=== PATIENT | female | born 1935 | race Two or more races ===

== ENCOUNTER 2016-11-26 16:16 | Inpatient (IN) | payer MEDICARE, MEDICAID ==
[~2016-11-26] VITALS: Ht 160 cm; Wt 91.6 kg
[~2016-11-26 16:16] MED LIST: ASPI-495 PO; FURO-144 PO; HUM10VIA3 SQ; LORA1TAB82; LOSA1TAB9; NEBI10TA2; ZOLP5TAB2
[2016-11-26 16:25] VITALS: BP 158/89
[2016-11-26] MEDS ORDERED: NTG 50 MG/D5W250 ML BOTTL 250 ML IV ONE ×2 (16:30→16:34)
[2016-11-26] MEDS ORDERED: FUROSEMIDE 40 MG/4 ML VIAL IV ONE (16:30)
[2016-11-26] MEDS ORDERED: IV SET PRIMARY PUMP SET 1 EA INFUS.SET MC ONE ×4 (16:34→19:55)
[2016-11-26] MEDS ORDERED: FUROSEMIDE 40 MG/4 ML VIAL ONE (16:36)
[2016-11-26 16:48] LABS: BASOPHILS % (AUTO) 0.3 % (0.0-2.0); EOSINOPHILS % (AUTO) 0.3 % (0.0-6.0); HEMATOCRIT 34 % (33-45); HEMOGLOBIN 11.7 g/dL (11.5-14.8); LYMPHOCYTES # (AUTO) 1.3 /CMM (0.8-4.8); LYMPHOCYTES % (AUTO) 20.9 % (20.0-44.0); MEAN CORPUSCULAR HEMOGLOBIN 31 PG (26.0-33.0); MEAN CORPUSCULAR HGB CONC 34 g/dl (31.0-36.0); MEAN CORPUSCULAR VOLUME 92 fL (82-100); MONOCYTES # (AUTO) 0.8 /CMM (0.1-1.30); MONOCYTES % (AUTO) 12.2 % (2.0-12.0); NEUTROPHILS # (AUTO) 4.1 /CMM (1.8-8.9); NEUTROPHILS % (AUTO) 66.3 % (43.0-81.0); PLATELET COUNT (AUTO) 173 /CMM (150-450); RDW COEFFICIENT OF VARIATION 12.9 (11.5-15.0); RED BLOOD CELL COUNT(AUTO) 3.76 MIL/uL (4.0-5.2); WHITE BLOOD COUNT (AUTO) 6.2 K/uL (4.3-11.0)
[2016-11-26 16:58] LABS: CARBON DIOXIDE 33 mmol/L (21-32); CHLORIDE 99 mmol/L (98-107); CREATININE 1.4 mg/dL (0.6-1.3); GLUCOSE 131 mg/dL (74-106); POTASSIUM 3.2 mmol/L (3.5-5.1); SODIUM SERUM 139 mmol/L (136-145); UREA NITROGEN, BLOOD 27 mg/dL (7-18)
[2016-11-26] MEDS ORDERED: PIPERACILLIN /TAZOBACTAM 3.375 G in IV D5W 50 ML IV ONE (17:00)
[2016-11-26 17:02] LABS: INR 1.29 (0.87-1.13); PROTHROMBIN TIME 13.6 SECS (9.5-12.7)
[2016-11-26 17:06] LABS: TROPONIN I 0.063 ng/mL (0.00-0.056)
[2016-11-26 17:10] LABS: ABG BASE EXCESS 6.9 mmol/L; ABG OXYGEN SATURATION 96.6 % (92.0-98.5); ABG PCO2 43.4 mmHg (35.0-45.0); ABG PH 7.475 (7.350-7.450); ABG PO2 94.9 mmHg (75.0-100.0); AaDO2 140.4 mmHg; COHb 0.8 % (0.5-1.5); MetHb 0.3 % (0.0-1.5); O2Hb 95.5 % (94.0-97.0); SITE, ABG Right Radial; VENT MODE, BG BIPAP 15/5
[2016-11-26 17:11] LABS: ALANINE AMINOTRANSFERASE 22 U/L (12-78); ALBUMIN 3.5 g/dL (3.4-5.0); ALKALINE PHOSPHATASE 65 U/L (46-116); ASPARTATE AMINOTRANSFERASE 25 U/L (15-37); B-TYPE NATRIURETIC PEPTIDE 3315 PG/ML (0-125); BILIRUBIN,DIRECT 0.2 mg/dL (0.0-0.2); BILIRUBIN,TOTAL 0.7 mg/dL (0.2-1.0); TOTAL PROTEIN, SERUM 7.6 g/dL (6.4-8.2)
[2016-11-26] MEDS ORDERED: POTASSIUM CL. PREMIX PERIPHER. 100 ML ONE (17:44)
[2016-11-26] MEDS ORDERED: IV NS 0.9% 1,000 ML ONE (17:44)
[2016-11-26] MEDS ORDERED: IV SET PRIMARY 1 EA INFUS.SET MC ONE (17:44)
[2016-11-26] MEDS: POTASSIUM CL. PREMIX PERIPHER. 50 ML IV SCH (18:17)
[2016-11-26] MEDS ORDERED: ACETAMINOPHEN 325 MG TABLET ONE (18:26)
[2016-11-26] MEDS ORDERED: ACETAMINOPHEN 650 MG/SUPP.RECT RC PRN (18:30)
[2016-11-26] MEDS ORDERED: SOLI5TAB PO (18:55)
[2016-11-26] MEDS ORDERED: CLON0.1T PO (18:55)
[2016-11-26] MEDS ORDERED: METO-302 PO (18:55)
[2016-11-26] MEDS ORDERED: HUM10VIA SQ (18:55)
[2016-11-26] MEDS ORDERED: METF500T4 PO (18:55)
[2016-11-26] MEDS ORDERED: OLME1TAB34 PO (18:55)
[2016-11-26] MEDS ORDERED: CLOP75TA2 PO (18:55)
[2016-11-26] MEDS ORDERED: DEXTROSE 50%-WATER 50 ML DISP.SYRIN IV PRN (19:00)
[2016-11-26] MEDS ORDERED: POTASSIUM CHLORIDE 20 MEQ TAB.PRT.SR PO ONE (19:00)
[2016-11-26] MEDS ORDERED: ACETAMINOPHEN 325 MG TABLET PO PRN (19:00)
[2016-11-26] MEDS ORDERED: Z GUARD REMEDY 2 OZ OINT TP PRN (19:00)
[2016-11-26] MEDS ORDERED: ONDANSETRON HCL/PF 4 MG/2 ML VIAL IVP PRN (19:00)
[2016-11-26] MEDS ORDERED: BUMETANIDE INJ 4 MG in IV NS 0.9% 24 ML IV ONE (19:00)
[2016-11-26 19:04] VITALS: BP 167/103
[2016-11-26] MEDS: ENOXAPARIN SODIUM 30 MG/0.3 ML DISP.SYRIN SQ SCH (19:52)
[2016-11-26] MEDS ORDERED: SECONDARY IV SET 1 EA INFUS.SET MC ONE (19:55)
[2016-11-26] MEDS ORDERED: IV NS 0.9% 250 ML IV ONE (19:55)
[2016-11-26 20:00] VITALS: BP 156/62
[2016-11-26] MEDS: CEFTRIAXONE 1 G in IV D5W 50 ML IV SCH (20:03)
[2016-11-26] MEDS: IPRATROPIUM NEB FS 0.5 MG/2.5 ML AMPUL.NEB NEB SCH (20:08)
[2016-11-26] MEDS: ALBUTEROL FS 2.5 MG/3 ML VIAL.NEB NEB SCH (20:08)
[2016-11-26 21:38] LABS: APPEARANCE,URINE CLEAR (CLEAR); BILIRUBIN,URINE NEGATIVE (NEGATIVE); BLOOD, URINE TRACE Ery/uL (NEGATIVE); COLOR,URINE YELLOW (YELLOW); KETONES,URINE NEGATIVE (NEGATIVE); LEUKOCYTE ESTERASE ,URINE NEGATIVE (NEGATIVE); NITRITE, URINE POSITIVE (NEGATIVE); PH,URINE 5.5 (5.0-8.0); PROTEIN,URINE TRACE mg/dl (NEGATIVE); UGLUCOSE NEGATIVE (NEGATIVE); UROBILINOGEN,URINE 0.2 EU/dL (0.2)
[2016-11-26 21:44] LABS: RBC,URINE 0-2 /HPF (0-2); WBC,URINE 0-2 /HPF (0-3)
[2016-11-26 21:45] LABS: BACTERIA,URINE Rare /HPF (None Seen); SQUAMOUS EPITHELIAL CELL,UR Moderate /HPF (None Seen)
[2016-11-26] MEDS: BLOOD SUGAR DIAGNOSTIC 1 EACH STRIP IN SCH (21:52)
[2016-11-26] MEDS: AZITHROMYCIN 500 MG in IV D5W 250 ML IV SCH (21:52)
[2016-11-26] MEDS: INSULIN REGULAR, HUMAN 100 UNIT/ML 3 ML VIAL SQ PRN (21:54)
[2016-11-27] VITALS: BP 130/63
[2016-11-27 04:00] VITALS: BP 137/65
[2016-11-27] MEDS: PANTOPRAZOLE 40 MG TABLET.DR PO SCH (07:06)
[2016-11-27 07:25] LABS: BASOPHILS % (AUTO) 0.3 % (0.0-2.0); EOSINOPHILS # (AUTO) 0.1 /CMM (0.0-0.7); EOSINOPHILS % (AUTO) 1.1 % (0.0-6.0); HEMATOCRIT 34 % (33-45); HEMOGLOBIN 11.9 g/dL (11.5-14.8); LYMPHOCYTES # (AUTO) 0.9 /CMM (0.8-4.8); LYMPHOCYTES % (AUTO) 17.3 % (20.0-44.0); MEAN CORPUSCULAR HEMOGLOBIN 32 PG (26.0-33.0); MEAN CORPUSCULAR HGB CONC 35 g/dl (31.0-36.0); MEAN CORPUSCULAR VOLUME 92 fL (82-100); MONOCYTES # (AUTO) 0.6 /CMM (0.1-1.30); MONOCYTES % (AUTO) 10.6 % (2.0-12.0); NEUTROPHILS # (AUTO) 3.9 /CMM (1.8-8.9); NEUTROPHILS % (AUTO) 70.7 % (43.0-81.0); PLATELET COUNT (AUTO) 148 /CMM (150-450); RDW COEFFICIENT OF VARIATION 13.7 (11.5-15.0); RED BLOOD CELL COUNT(AUTO) 3.72 MIL/uL (4.0-5.2); WHITE BLOOD COUNT (AUTO) 5.4 K/uL (4.3-11.0)
[2016-11-27] MEDS: ALBUTEROL FS 2.5 MG/3 ML VIAL.NEB NEB SCH ×4 (07:37→19:57)
[2016-11-27] MEDS: IPRATROPIUM NEB FS 0.5 MG/2.5 ML AMPUL.NEB NEB SCH ×4 (07:37→19:57)
[2016-11-27 07:47] LABS: ALANINE AMINOTRANSFERASE 22 U/L (12-78); ALBUMIN 3.2 g/dL (3.4-5.0); ALKALINE PHOSPHATASE 66 U/L (46-116); ASPARTATE AMINOTRANSFERASE 23 U/L (15-37); BILIRUBIN,TOTAL 0.6 mg/dL (0.2-1.0); CALCIUM, SERUM 8.7 mg/dL (8.5-10.1); CARBON DIOXIDE 35 mmol/L (21-32); CHLORIDE 100 mmol/L (98-107); CREATININE 1.3 mg/dL (0.6-1.3); GLUCOSE 141 mg/dL (74-106); MAGNESIUM 1.4 mg/dL (1.8-2.4); PHOSPHORUS 4.9 mg/dL (2.5-4.9); SODIUM SERUM 143 mmol/L (136-145); TOTAL PROTEIN, SERUM 7.4 g/dL (6.4-8.2); UREA NITROGEN, BLOOD 29 mg/dL (7-18)
[2016-11-27 07:54] LABS: CHOLESTEROL 224 mg/dL (<200); HDL CHOLESTEROL 26 mg/dL (40-60); LDL 143 mg/dL (0-99); THYROID STIMULATING HORMONE 1.127 uIU/mL (0.358-3.74); TRIGLYCERIDES 189 mg/dL (30-150)
[2016-11-27] MEDS: BLOOD SUGAR DIAGNOSTIC 1 EACH STRIP IN SCH ×4 (07:56→21:10)
[2016-11-27 08:00] VITALS: BP 163/82
[2016-11-27] MEDS ORDERED: METFORMIN 500 MG TABLET PO SCH (09:00)
[2016-11-27] MEDS ORDERED: SOLIFENACIN SUCCINATE 5 MG TABLET PO SCH ×2 (09:00)
[2016-11-27] MEDS: INSULIN NPH/REG 70/30 MIX INJ 100 UNIT/ML VIAL SQ SCH ×2 (09:05→16:54)
[2016-11-27] MEDS: INSULIN REGULAR, HUMAN 100 UNIT/ML 3 ML VIAL SQ PRN ×4 (09:06→21:13)
[2016-11-27] MEDS: AMLODIPINE BESYLATE 10 MG TABLET PO SCH (09:09)
[2016-11-27] MEDS: CLONIDINE HCL 0.1 MG TABLET PO SCH ×2 (09:09→16:50)
[2016-11-27] MEDS: CLOPIDOGREL BISULFATE 75 MG TABLET PO SCH (09:10)
[2016-11-27] MEDS: ASPIRIN EC 81 MG TABLET.DR PO SCH (09:10)
[2016-11-27] MEDS: METOPROLOL SUCCINATE 25 MG TAB.SR.24H PO SCH ×2 (09:10→16:44)
[2016-11-27] MEDS: predniSONE 20 MG TABLET PO SCH (09:10)
[2016-11-27] MEDS: OXYBUTYNIN CHLORIDE 5 MG TABLET PO SCH ×2 (09:10→16:43)
[2016-11-27] MEDS: FUROSEMIDE 40 MG TABLET PO SCH (09:10)
[2016-11-27] MEDS ORDERED: SECONDARY IV SET 1 EA INFUS.SET MC ONE ×2 (11:43→20:27)
[2016-11-27] MEDS: Magnesium 1GM/D5W 100ML PREMIX 100 ML IV SCH ×2 (11:55→14:07)
[2016-11-27 12:00] VITALS: BP_SYST 120; BP_SYST 129; BP_DIAS 62; BP_DIAS 66
[2016-11-27] MEDS: POTASSIUM CHLORIDE 20 MEQ TAB.PRT.SR PO SCH ×3 (12:23→16:43)
[2016-11-27 16:00] VITALS: BP 131/73
[2016-11-27 20:00] VITALS: BP 119/60
[2016-11-27] MEDS: CEFTRIAXONE 1 G in IV D5W 50 ML IV SCH (20:25)
[2016-11-27] MEDS: ENOXAPARIN SODIUM 30 MG/0.3 ML DISP.SYRIN SQ SCH (21:12)
[2016-11-27] MEDS: AZITHROMYCIN 500 MG in IV D5W 250 ML IV SCH (21:20)
[2016-11-28] VITALS: BP 117/65
[2016-11-28 04:00] VITALS: BP 127/66
[2016-11-28 04:35] VITALS: BP 127/66
[2016-11-28] MEDS: BLOOD SUGAR DIAGNOSTIC 1 EACH STRIP IN SCH ×4 (07:30→21:18)
[2016-11-28] MEDS: ALBUTEROL FS 2.5 MG/3 ML VIAL.NEB NEB SCH ×4 (07:39→20:21)
[2016-11-28] MEDS: IPRATROPIUM NEB FS 0.5 MG/2.5 ML AMPUL.NEB NEB SCH ×4 (07:39→20:21)
[2016-11-28 07:57] LABS: BASOPHILS % (AUTO) 0.2 % (0.0-2.0); EOSINOPHILS % (AUTO) 0.3 % (0.0-6.0); HEMATOCRIT 35 % (33-45); LYMPHOCYTES # (AUTO) 1.2 /CMM (0.8-4.8); LYMPHOCYTES % (AUTO) 24.6 % (20.0-44.0); MEAN CORPUSCULAR HEMOGLOBIN 32 PG (26.0-33.0); MEAN CORPUSCULAR HGB CONC 34 g/dl (31.0-36.0); MEAN CORPUSCULAR VOLUME 93 fL (82-100); MONOCYTES # (AUTO) 0.6 /CMM (0.1-1.30); MONOCYTES % (AUTO) 11.2 % (2.0-12.0); NEUTROPHILS # (AUTO) 3.1 /CMM (1.8-8.9); NEUTROPHILS % (AUTO) 63.7 % (43.0-81.0); PLATELET COUNT (AUTO) 170 /CMM (150-450); RED BLOOD CELL COUNT(AUTO) 3.78 MIL/uL (4.0-5.2); WHITE BLOOD COUNT (AUTO) 4.9 K/uL (4.3-11.0)
[2016-11-28 08:00] VITALS: BP 124/68
[2016-11-28 08:23] LABS: CALCIUM, SERUM 8.6 mg/dL (8.5-10.1); CARBON DIOXIDE 35 mmol/L (21-32); CHLORIDE 100 mmol/L (98-107); CREATININE 1.5 mg/dL (0.6-1.3); GLUCOSE 107 mg/dL (74-106); POTASSIUM 3.4 mmol/L (3.5-5.1); SODIUM SERUM 143 mmol/L (136-145); UREA NITROGEN, BLOOD 42 mg/dL (7-18)
[2016-11-28] MEDS: AMLODIPINE BESYLATE 10 MG TABLET PO SCH (08:52)
[2016-11-28] MEDS: PANTOPRAZOLE 40 MG TABLET.DR PO SCH (08:52)
[2016-11-28] MEDS: FUROSEMIDE 40 MG TABLET PO SCH (08:52)
[2016-11-28] MEDS: CLOPIDOGREL BISULFATE 75 MG TABLET PO SCH (08:52)
[2016-11-28] MEDS: CLONIDINE HCL 0.1 MG TABLET PO SCH ×2 (08:53→16:40)
[2016-11-28] MEDS: ASPIRIN EC 81 MG TABLET.DR PO SCH (08:53)
[2016-11-28] MEDS: predniSONE 20 MG TABLET PO SCH (08:53)
[2016-11-28] MEDS: METOPROLOL SUCCINATE 25 MG TAB.SR.24H PO SCH ×2 (08:53→16:39)
[2016-11-28] MEDS: OXYBUTYNIN CHLORIDE 5 MG TABLET PO SCH ×2 (08:54→16:39)
[2016-11-28] MEDS: INSULIN NPH/REG 70/30 MIX INJ 100 UNIT/ML VIAL SQ SCH ×2 (09:08→17:38)
[2016-11-28] MEDS ORDERED: POTASSIUM CHLORIDE 20 MEQ TAB.PRT.SR PO SCH (10:00)
[2016-11-28] MEDS: INSULIN REGULAR, HUMAN 100 UNIT/ML 3 ML VIAL SQ PRN ×3 (11:19→21:25)
[2016-11-28 16:00] VITALS: BP 127/62
[2016-11-28 20:00] VITALS: BP 124/61
[2016-11-28] MEDS: CEFTRIAXONE 1 G in IV D5W 50 ML IV SCH (20:02)
[2016-11-28] MEDS: AZITHROMYCIN 500 MG in IV D5W 250 ML IV SCH (21:05)
[2016-11-28] MEDS: ENOXAPARIN SODIUM 30 MG/0.3 ML DISP.SYRIN SQ SCH (21:19)
[2016-11-29 04:00] VITALS: BP 121/71
[2016-11-29 07:05] LABS: BASOPHILS % (AUTO) 0.1 % (0.0-2.0); EOSINOPHILS % (AUTO) 0.5 % (0.0-6.0); HEMATOCRIT 35 % (33-45); LYMPHOCYTES # (AUTO) 1.2 /CMM (0.8-4.8); LYMPHOCYTES % (AUTO) 20.6 % (20.0-44.0); MEAN CORPUSCULAR HEMOGLOBIN 32 PG (26.0-33.0); MEAN CORPUSCULAR HGB CONC 34 g/dl (31.0-36.0); MEAN CORPUSCULAR VOLUME 93 fL (82-100); MONOCYTES # (AUTO) 0.6 /CMM (0.1-1.30); MONOCYTES % (AUTO) 10.7 % (2.0-12.0); NEUTROPHILS # (AUTO) 4.1 /CMM (1.8-8.9); NEUTROPHILS % (AUTO) 68.1 % (43.0-81.0); PLATELET COUNT (AUTO) 183 /CMM (150-450); RDW COEFFICIENT OF VARIATION 13.8 (11.5-15.0); RED BLOOD CELL COUNT(AUTO) 3.78 MIL/uL (4.0-5.2)
[2016-11-29] MEDS: IPRATROPIUM NEB FS 0.5 MG/2.5 ML AMPUL.NEB NEB SCH ×4 (07:21→20:14)
[2016-11-29] MEDS: ALBUTEROL FS 2.5 MG/3 ML VIAL.NEB NEB SCH ×4 (07:21→20:14)
[2016-11-29 07:28] LABS: ALANINE AMINOTRANSFERASE 31 U/L (12-78); ALBUMIN 3.1 g/dL (3.4-5.0); ALKALINE PHOSPHATASE 61 U/L (46-116); ASPARTATE AMINOTRANSFERASE 22 U/L (15-37); BILIRUBIN,TOTAL 0.3 mg/dL (0.2-1.0); CALCIUM, SERUM 8.8 mg/dL (8.5-10.1); CARBON DIOXIDE 32 mmol/L (21-32); CHLORIDE 100 mmol/L (98-107); CREATININE 1.5 mg/dL (0.6-1.3); GLUCOSE 120 mg/dL (74-106); MAGNESIUM 2.4 mg/dL (1.8-2.4); PHOSPHORUS 2.9 mg/dL (2.5-4.9); POTASSIUM 3.2 mmol/L (3.5-5.1); SODIUM SERUM 142 mmol/L (136-145); TOTAL PROTEIN, SERUM 7.3 g/dL (6.4-8.2); UREA NITROGEN, BLOOD 52 mg/dL (7-18)
[2016-11-29] MEDS ORDERED: IV NS 0.9% 1,000 ML IV PRN (08:03)
[2016-11-29 08:07] VITALS: BP 137/60
[2016-11-29] MEDS: BLOOD SUGAR DIAGNOSTIC 1 EACH STRIP IN SCH ×4 (09:04→21:05)
[2016-11-29] MEDS: CLOPIDOGREL BISULFATE 75 MG TABLET PO SCH (09:05)
[2016-11-29] MEDS: POTASSIUM CHLORIDE 20 MEQ TAB.PRT.SR PO SCH ×3 (09:05→11:24)
[2016-11-29] MEDS: PANTOPRAZOLE 40 MG TABLET.DR PO SCH (09:05)
[2016-11-29] MEDS: predniSONE 20 MG TABLET PO SCH (09:05)
[2016-11-29] MEDS: CLONIDINE HCL 0.1 MG TABLET PO SCH ×2 (09:05→17:05)
[2016-11-29] MEDS: METOPROLOL SUCCINATE 25 MG TAB.SR.24H PO SCH ×2 (09:06→17:05)
[2016-11-29] MEDS: ASPIRIN EC 81 MG TABLET.DR PO SCH (09:06)
[2016-11-29] MEDS: AMLODIPINE BESYLATE 10 MG TABLET PO SCH (09:06)
[2016-11-29] MEDS: OXYBUTYNIN CHLORIDE 5 MG TABLET PO SCH ×2 (09:06→17:05)
[2016-11-29] MEDS: INSULIN NPH/REG 70/30 MIX INJ 100 UNIT/ML VIAL SQ SCH ×2 (09:17→17:09)
[2016-11-29] MEDS ORDERED: CEFTRIAXONE 1 G in IV NS 0.9% 50 ML IV SCH ×2 (11:55→20:00)
[2016-11-29 16:00] VITALS: BP 120/69
[2016-11-29 20:00] VITALS: BP_SYST 111; BP_SYST 135; BP_DIAS 41; BP_DIAS 72
[2016-11-29] MEDS ORDERED: AZITHROMYCIN 250 MG TABLET PO SCH (21:00)
[2016-11-29] MEDS: ENOXAPARIN SODIUM 30 MG/0.3 ML DISP.SYRIN SQ SCH (21:05)
[2016-11-29] MEDS: INSULIN REGULAR, HUMAN 100 UNIT/ML 3 ML VIAL SQ PRN (21:37)
[2016-11-30 04:00] VITALS: BP 159/89
[2016-11-30] MEDS: PANTOPRAZOLE 40 MG TABLET.DR PO SCH ×2 (06:38→09:45)
[2016-11-30] MEDS: BLOOD SUGAR DIAGNOSTIC 1 EACH STRIP IN SCH (06:38)
[2016-11-30] MEDS: IPRATROPIUM NEB FS 0.5 MG/2.5 ML AMPUL.NEB NEB SCH ×2 (07:13→11:06)
[2016-11-30] MEDS: ALBUTEROL FS 2.5 MG/3 ML VIAL.NEB NEB SCH ×2 (07:13→11:06)
[2016-11-30 07:45] LABS: ALANINE AMINOTRANSFERASE 39 U/L (12-78); ALBUMIN 3.1 g/dL (3.4-5.0); ALKALINE PHOSPHATASE 63 U/L (46-116); ASPARTATE AMINOTRANSFERASE 37 U/L (15-37); BILIRUBIN,TOTAL 0.4 mg/dL (0.2-1.0); CALCIUM, SERUM 8.5 mg/dL (8.5-10.1); CARBON DIOXIDE 31 mmol/L (21-32); CHLORIDE 105 mmol/L (98-107); CREATININE 1.3 mg/dL (0.6-1.3); GLUCOSE 106 mg/dL (74-106); MAGNESIUM 2.3 mg/dL (1.8-2.4); PHOSPHORUS 3.2 mg/dL (2.5-4.9); POTASSIUM 4.4 mmol/L (3.5-5.1); SODIUM SERUM 144 mmol/L (136-145); TOTAL PROTEIN, SERUM 7.1 g/dL (6.4-8.2); UREA NITROGEN, BLOOD 49 mg/dL (7-18)
[2016-11-30 08:00] VITALS: BP 161/79
[2016-11-30] MEDS: INSULIN NPH/REG 70/30 MIX INJ 100 UNIT/ML VIAL SQ SCH (09:00)
[2016-11-30] MEDS: CLONIDINE HCL 0.1 MG TABLET PO SCH (09:43)
[2016-11-30] MEDS: METOPROLOL SUCCINATE 25 MG TAB.SR.24H PO SCH (09:44)
[2016-11-30 09:45] VITALS: BP 161/79
[2016-11-30] MEDS: OXYBUTYNIN CHLORIDE 5 MG TABLET PO SCH (09:45)
[2016-11-30] MEDS: AMLODIPINE BESYLATE 10 MG TABLET PO SCH (09:45)
[2016-11-30] MEDS: ASPIRIN EC 81 MG TABLET.DR PO SCH (09:45)
[2016-11-30] MEDS: CLOPIDOGREL BISULFATE 75 MG TABLET PO SCH (09:45)
[2016-11-30] MEDS: predniSONE 20 MG TABLET PO SCH (09:48)
[2016-11-30] MEDS ORDERED: PRED5TAB PO (11:08)
[2016-11-30] MEDS ORDERED: LEVO750T21 PO (11:08)
[2016-11-30] MEDS ORDERED: PRED10TA23 PO (11:08)
[2016-12-01] MEDS ORDERED: predniSONE 20 MG TABLET PO SCH (09:00)
== END 2016-11-30 13:59 | disposition home or self-care (01) | DRG 280 ==
LOC: ER 16:17 → ICU 17:49 → TELE-TD 21:56 → TELE1 11-27 10:06 → MEDSG1 11-28 09:50
PROVIDERS: ADMIT Nurse Practitioner Acute Care; ATTEND Nurse Practitioner Acute Care
PROC: 5A09357 Assistance with Respiratory Ventilation, Less than 24 Consecutive Hours, Continuous Positive Airway Pressure (ICD-10-PCS; principal; 2016-11-26)
DX: I13.0 Hypertensive heart and chronic kidney disease with heart failure and stage 1 through stage 4 chronic kidney disease, or unspecified chronic kidney disease (principal); I21.4 Non-ST elevation (NSTEMI) myocardial infarction; E43 Unspecified severe protein-calorie malnutrition; J96.01 Acute respiratory failure with hypoxia; N17.0 Acute kidney failure with tubular necrosis; J13 Pneumonia due to Streptococcus pneumoniae; I50.33 Acute on chronic diastolic (congestive) heart failure; J15.9 Unspecified bacterial pneumonia; I48.0 Paroxysmal atrial fibrillation; E11.9 Type 2 diabetes mellitus without complications; E66.01 Morbid (severe) obesity due to excess calories; E78.5 Hyperlipidemia, unspecified; E83.42 Hypomagnesemia; E87.6 Hypokalemia; Z90.11 Acquired absence of right breast and nipple; Z90.49 Acquired absence of other specified parts of digestive tract; F41.9 Anxiety disorder, unspecified; Z85.3 Personal history of malignant neoplasm of breast; Z79.4 Long term (current) use of insulin
CPT/HCPCS: 36415; 36600; 71010-TC; 80048-TC; 80053-TC; 80061-TC; 80076-TC; 81000-TC; 82962-TC; 83735-TC; 83880; 84100-TC; 84443-TC; 84484-TC; 85025-TC; 85730-TC; 87040-TC; 87070-TC; 87081-TC; 87086-TC; 93307-TC; 94799-TC; 97001-TC; 97116-TC; 97530-TC; A4216; A4606; J0456; J0696; J1650; J1815; J1940; J2543; J3475; J3480; J3490; J7030; J7050; J7060; Z7610

== ENCOUNTER 2017-04-18 16:13 | Inpatient (IN) | payer MEDICARE, MEDICAID ==
[~2017-04-18] VITALS: Ht 154.9 cm; Wt 94.3 kg
[~2017-04-18 16:13] MED LIST changes: +CLON0.1T PO; +CLOP75TA2 PO; +HUM10VIA SQ; +LEVO750T21 PO; -LORA1TAB82; -LOSA1TAB9; +METF500T4 PO; +METO-302 PO; -NEBI10TA2; +OLME1TAB34 PO; +PRED10TA23 PO; +PRED5TAB PO; +SOLI5TAB PO; -ZOLP5TAB2
--- NOTE | 2017-04-18 16:25 | NUR ---
[id number] FROM HOME: CHEST PAIN RADIATES TO LEFT SHOULDER. ASA 162, NITRO x 2 GIVEN IN FIELD. PATIENT C/O NEAR SYNCOPE AT HOME. BREATHING EVEN AND UNLABORED. NO SOB. SKIN WARM AND DRY. IV INTACT ON LEFT HAND, 18 G. VITALS STABLE. SAFETY AND COMFORT MEASURES IN PLACE. MD AT BEDSIDE FOR EVAL.
[2017-04-18] MEDS ORDERED: NITROGLYCERIN PACKET 1 GM PACKET TD ONE (16:30)
[2017-04-18] MEDS ORDERED: ASPIRIN 325 MG TABLET PO ONE (16:30)
[2017-04-18] MEDS ORDERED: NITROGLYCERIN PACKET 1 GM PACKET ONE (16:31)
[2017-04-18] MEDS ORDERED: ASPIRIN 81 MG TAB.CHEW ONE (16:32)
[2017-04-18 16:34] LABS: BASOPHILS # (AUTO) 0.1 /CMM (0.0-0.2); BASOPHILS % (AUTO) 1.4 % (0.0-2.0); EOSINOPHILS # (AUTO) 0.1 /CMM (0.0-0.7); EOSINOPHILS % (AUTO) 1.8 % (0.0-6.0); HEMATOCRIT 34 % (33-45); HEMOGLOBIN 11.6 g/dL (11.5-14.8); LYMPHOCYTES % (AUTO) 31.1 % (20.0-44.0); MEAN CORPUSCULAR HEMOGLOBIN 31 PG (26.0-33.0); MEAN CORPUSCULAR HGB CONC 34 g/dl (31.0-36.0); MEAN CORPUSCULAR VOLUME 91 fL (82-100); MONOCYTES # (AUTO) 0.7 /CMM (0.1-1.30); MONOCYTES % (AUTO) 10.9 % (2.0-12.0); NEUTROPHILS # (AUTO) 3.6 /CMM (1.8-8.9); NEUTROPHILS % (AUTO) 54.8 % (43.0-81.0); PLATELET COUNT (AUTO) 206 /CMM (150-450); RDW COEFFICIENT OF VARIATION 13.2 (11.5-15.0); RED BLOOD CELL COUNT(AUTO) 3.71 MIL/uL (4.0-5.2); WHITE BLOOD COUNT (AUTO) 6.5 K/uL (4.3-11.0)
[2017-04-18 16:59] LABS: CALCIUM, SERUM 10.1 mg/dL (8.5-10.1); CARBON DIOXIDE 30 mmol/L (21-32); CHLORIDE 102 mmol/L (98-107); CREATININE 1.5 mg/dL (0.6-1.3); GLUCOSE 104 mg/dL (74-106); POTASSIUM 3.8 mmol/L (3.5-5.1); SODIUM SERUM 139 mmol/L (136-145); UREA NITROGEN, BLOOD 23 mg/dL (7-18)
[2017-04-18] MEDS ORDERED: MORPHINE SULFATE INJ 2 MG/ML DISP.SYRIN IV PRN (17:00)
[2017-04-18] MEDS ORDERED: ACETAMINOPHEN 325 MG TABLET PO PRN (17:00)
[2017-04-18] MEDS ORDERED: ZOLPIDEM TARTRATE 5 MG TABLET PO PRN (17:00)
[2017-04-18] MEDS ORDERED: ENOXAPARIN SODIUM 40 MG/0.4 ML DISP.SYRIN SQ SCH (17:00)
[2017-04-18] MEDS ORDERED: MAGNESIUM HYDROXIDE 30 ML UDC PO PRN (17:00)
[2017-04-18] MEDS ORDERED: DEXTROSE 50%-WATER 50 ML DISP.SYRIN IV PRN (17:00)
[2017-04-18] MEDS ORDERED: HYDROCODONE/APAP 5/325MG 1 EACH TABLET PO PRN (17:00)
[2017-04-18] MEDS ORDERED: NITROGLYCERIN 0.4 MG/TAB BOTTLE SL PRN (17:00)
[2017-04-18] MEDS ORDERED: MAG HYDROX/AL HYDROX/SIMETH 30 ML UDC PO PRN (17:00)
[2017-04-18] MEDS ORDERED: Z GUARD REMEDY 2 OZ OINT TP PRN (17:00)
[2017-04-18] MEDS ORDERED: ONDANSETRON HCL/PF 4 MG/2 ML VIAL IVP PRN (17:00)
[2017-04-18] MEDS ORDERED: METFORMIN 500 MG TABLET PO SCH (17:00)
[2017-04-18 17:03] LABS: INR 1.13 (0.87-1.13); PROTHROMBIN TIME 11.8 SECS (9.5-12.7)
[2017-04-18 17:08] LABS: TROPONIN I < 0.017 ng/mL (0.00-0.056)
--- NOTE | 2017-04-18 18:12 | NUR ---
BED 118-2
--- NOTE | 2017-04-18 19:17 | NUR ---
REPORT GIVEN TO RNHEMAL FOR ADMISSION.
--- NOTE | 2017-04-18 19:25 | NUR ---
RN NOTES RECEIVED PATIENT FROM EMERGENCY DEPARTMENT VIA STRETCHER WITH NO RESPIRATORY DISTRESS OR SHORTNESS OF BREATH. BREATHING EVEN AND UNLABORED. NO COMPLAINT OF PAIN OR DISCOMFORT. ALERT AND ORIENTED. ABLE TO VERBALLY COMMUNICATE NEEDS. ARMINIAN SPEAKING. AMBULATORY WITH FWW. LEFT HAND PERIPHERAL LINE PATENT AND INTACT. VITAL SIGNS WNL. WILL CONTINUE TO MONITOR
[2017-04-18 20:00] VITALS: BP 171/73
[2017-04-18] MEDS ORDERED: INSULIN NPH/REG 70/30 MIX INJ 100 UNIT/ML VIAL SQ SCH (20:00)
[2017-04-18] MEDS ORDERED: FUROSEMIDE 40 MG/4 ML VIAL IV SCH (20:00)
[2017-04-18] MEDS ORDERED: METOPROLOL SUCCINATE 25 MG TAB.SR.24H PO SCH (20:00)
[2017-04-18] MEDS ORDERED: ENOXAPARIN SODIUM 30 MG/0.3 ML DISP.SYRIN IV SCH (21:00)
[2017-04-18] MEDS ORDERED: ENOXAPARIN SODIUM 30 MG/0.3 ML DISP.SYRIN SQ SCH (21:00)
[2017-04-18] MEDS: CLONIDINE HCL 0.1 MG TABLET PO SCH (21:15)
[2017-04-18] MEDS: METOPROLOL TARTRATE 25 MG TABLET PO SCH (21:16)
[2017-04-18] MEDS ORDERED: SIMVASTATIN 20 MG TABLET PO SCH (22:00)
[2017-04-18] MEDS: BLOOD SUGAR DIAGNOSTIC 1 EACH STRIP IN SCH (22:00)
[2017-04-18] MEDS: INSULIN REGULAR, HUMAN 100 UNIT/ML 3 ML VIAL SQ PRN (23:41)
[2017-04-19] VITALS: BP 118/74
[2017-04-19 04:00] VITALS: BP 144/68
[2017-04-19] MEDS: BLOOD SUGAR DIAGNOSTIC 1 EACH STRIP IN SCH ×2 (06:30→13:29)
--- NOTE | 2017-04-19 06:37 | NUR ---
RN CLOSING NOTES: PATIENT IN BED WITH EYES OPEN. NO TRACKING, NO EYE CONTACT. NO PHYSICAL MANIFESTATION OF PAIN OR DISCOMFORT. CONTINUE TO BE NPO. GT LEAKING. WILL ENDORSE TO AM SHIFT FOR CONTINUITY OF CARE
--- NOTE | 2017-04-19 06:38 | NUR ---
RN CLOSING NOTES: PATIENT IN BED WITH NO DISTRESS NOTED. BREATHING EVEN AND UNLABORED. NO COMPLAINT OF PAIN. NO SIGNIFICANT CHANGE OF CONDITION. WILL ENDORSE TO AM SHIFT FOR CONTINUITY OF CARE.
--- NOTE | 2017-04-19 07:30 | NUR ---
RN NOTES PATIENT AWAKE, ALERT AND ORIENTED . ABLE TO MAKE NEEDS KNOWN. RESPIRATIONS EVEN AND UNLABORED, DENIES ANY PAIN OR DISCOMFORT AT THIS TIME. IV SITE PATENT AND INTACT NO REDNESS OR INFILTRATION.KEPT CLEAN DRY GREG COMFORTABLE CALL LIGHT WITHIN EASY REACH, WILL CONTINUE TO MONITOR
[2017-04-19 07:32] LABS: BASOPHILS % (AUTO) 0.7 % (0.0-2.0); EOSINOPHILS # (AUTO) 0.1 /CMM (0.0-0.7); EOSINOPHILS % (AUTO) 2.5 % (0.0-6.0); HEMATOCRIT 34 % (33-45); HEMOGLOBIN 11.5 g/dL (11.5-14.8); LYMPHOCYTES # (AUTO) 1.8 /CMM (0.8-4.8); LYMPHOCYTES % (AUTO) 30.5 % (20.0-44.0); MEAN CORPUSCULAR HEMOGLOBIN 31 PG (26.0-33.0); MEAN CORPUSCULAR HGB CONC 34 g/dl (31.0-36.0); MEAN CORPUSCULAR VOLUME 91 fL (82-100); MONOCYTES # (AUTO) 0.7 /CMM (0.1-1.30); MONOCYTES % (AUTO) 12.2 % (2.0-12.0); NEUTROPHILS # (AUTO) 3.2 /CMM (1.8-8.9); NEUTROPHILS % (AUTO) 54.1 % (43.0-81.0); PLATELET COUNT (AUTO) 186 /CMM (150-450); RDW COEFFICIENT OF VARIATION 14.2 (11.5-15.0); RED BLOOD CELL COUNT(AUTO) 3.72 MIL/uL (4.0-5.2); WHITE BLOOD COUNT (AUTO) 5.8 K/uL (4.3-11.0)
[2017-04-19 07:46] LABS: TROPONIN I < 0.017 ng/mL (0.00-0.056)
[2017-04-19 07:53] LABS: B-TYPE NATRIURETIC PEPTIDE 664 PG/ML (0-125); CALCIUM, SERUM 9.7 mg/dL (8.5-10.1); CARBON DIOXIDE 32 mmol/L (21-32); CHLORIDE 102 mmol/L (98-107); CREATININE 1.3 mg/dL (0.6-1.3); GLUCOSE 90 mg/dL (74-106); MAGNESIUM 1.8 mg/dL (1.8-2.4); PHOSPHORUS 4.8 mg/dL (2.5-4.9); POTASSIUM 3.7 mmol/L (3.5-5.1); SODIUM SERUM 137 mmol/L (136-145); UREA NITROGEN, BLOOD 20 mg/dL (7-18)
[2017-04-19 08:19] LABS: CHOLESTEROL 179 mg/dL (<200); HDL CHOLESTEROL 32 mg/dL (40-60); LDL 102 mg/dL (0-99); THYROID STIMULATING HORMONE 1.557 uIU/mL (0.358-3.74); TRIGLYCERIDES 201 mg/dL (30-150)
[2017-04-19] MEDS ORDERED: REGADENOSON 0.4 MG/5 ML DISP.SYRIN IVP ONE (08:30)
[2017-04-19] MEDS: METOPROLOL TARTRATE 25 MG TABLET PO SCH (08:55)
[2017-04-19] MEDS: CLONIDINE HCL 0.1 MG TABLET PO SCH (08:56)
[2017-04-19 09:00] VITALS: BP 148/74
[2017-04-19] MEDS ORDERED: LOSARTAN POTASSIUM 25 MG TABLET PO SCH (09:00)
[2017-04-19] MEDS ORDERED: ASPIRIN EC 81 MG TABLET.DR PO SCH ×2 (09:00)
[2017-04-19] MEDS ORDERED: INSULIN NPH/REG 70/30 MIX INJ 100 UNIT/ML VIAL SQ SCH (09:00)
[2017-04-19] MEDS ORDERED: SOLIFENACIN SUCCINATE 5 MG TABLET PO SCH (09:00)
[2017-04-19] MEDS ORDERED: CLOPIDOGREL BISULFATE 75 MG TABLET PO SCH (09:00)
[2017-04-19] MEDS ORDERED: VALSARTAN 80 MG TABLET PO SCH (09:00)
[2017-04-19] MEDS ORDERED: OXYBUTYNIN CHLORIDE 5 MG TABLET PO SCH (09:00)
--- NOTE | 2017-04-19 09:00 | NUR ---
RN NOTES PT TO BE KEPT NPO PER CARDIO NO INSULIN GIVEN BS 110 WILL CONTINUE TO MONITOR
[2017-04-19 09:15] LABS: CHOLESTEROL 181 mg/dL (<200); HDL CHOLESTEROL 34 mg/dL (40-60); LDL 107 mg/dL (0-99); TRIGLYCERIDES 209 mg/dL (30-150)
--- NOTE | 2017-04-19 11:26 | NUR ---
RN NOTES PATIENT AWAKE, ALERT AND ORIENTED . ABLE TO MAKE NEEDS KNOWN. RESPIRATIONS EVEN AND UNLABORED, DENIES ANY PAIN OR DISCOMFORT AT THIS TIME. IV SITE PATENT AND INTACT NO REDNESS OR INFILTRATION.KEPT CLEAN DRY GREG COMFORTABLE CALL LIGHT WITHIN EASY REACH,ENDORSED TO NEXT SHIFT FOR CONTINUITY OF CARE
--- NOTE | 2017-04-19 11:30 | NUR ---
television producer note stress test consent sighed , taken to nuclear
[2017-04-19 13:00] VITALS: BP 143/80
[2017-04-19] MEDS: INSULIN REGULAR, HUMAN 100 UNIT/ML 3 ML VIAL SQ PRN (13:29)
--- NOTE | 2017-04-19 13:31 | NUR ---
telephone operator chief note having lunch ,able t eat self
--- NOTE | 2017-04-19 15:00 | NUR ---
CUSTODY ASSISTANT NOTE PT EVAL DONE ORDERED, ABLE TO AMBULATE WITH WALKER
--- NOTE | 2017-04-19 16:25 | NUR ---
cable television line technician note per dr moctezuma abd dr james ok to discharge spoke with daughter dr jose elias mar aware stress test result
--- NOTE | 2017-04-19 16:27 | NUR ---
GUARD DANCE HALL NOTE DISCHARGE INSTRUCTION GIVEN, UNDERSTOOD ,TELE REMOVED HL REMOVED INSTRUCTED TO FOLLOW UP WITH PRIMARY CARE DOCTOR AND FOLLOW WITH HOME MEDS , TAKEN TO LOBBY ON W\C WITH STABLE CONDITION ,
[2017-04-19] MEDS ORDERED: DOXAZOSIN MESYLATE (1 MG) 1 MG TABLET PO SCH (22:00)
== END 2017-04-19 16:47 | disposition home or self-care (01) | DRG 291 ==
LOC: ER 16:14 → TELE1 18:23 → MEDSG1 04-19 13:16
DX: I13.0 Hypertensive heart and chronic kidney disease with heart failure and stage 1 through stage 4 chronic kidney disease, or unspecified chronic kidney disease (principal); N17.0 Acute kidney failure with tubular necrosis; I50.31 Acute diastolic (congestive) heart failure; I25.10 Atherosclerotic heart disease of native coronary artery without angina pectoris; E66.9 Obesity, unspecified; Z90.49 Acquired absence of other specified parts of digestive tract; Z85.3 Personal history of malignant neoplasm of breast; Z90.13 Acquired absence of bilateral breasts and nipples; Z92.21 Personal history of antineoplastic chemotherapy; Z68.39 Body mass index [BMI] 39.0-39.9, adult; N18.9 Chronic kidney disease, unspecified; Z79.4 Long term (current) use of insulin; E11.22 Type 2 diabetes mellitus with diabetic chronic kidney disease
CPT/HCPCS: 36415; 71010-TC; 80048-TC; 80061-TC; 82962-TC; 83735-TC; 83880; 84100-TC; 84443-TC; 84484-TC; 85025-TC; 85730-TC; 87081-TC; A4606; A9502; J1650; J1815; J1940; J2785; Z7610

== ENCOUNTER 2018-03-31 15:02 | Emergency (ER) | payer MEDICARE, MEDICAID ==
[~2018-03-31] VITALS: Ht 152.4 cm; Wt 93.4 kg
[~2018-03-31 15:02] MED LIST changes: +CLOP75TA15 PO; -CLOP75TA2 PO; -LEVO750T21 PO; +METF-440 PO; -METF500T4 PO; -METO-302 PO; +METO-356 PO; -PRED10TA23 PO; -PRED5TAB PO; -SOLI5TAB PO; +SOLI5TAB2 PO
--- NOTE | 2018-03-31 15:05 | NUR ---
TEODORO 82 YEAR OLD FEMALE FROM HOME C/O ABDOMINAL PAIN, -N/V. ALERT AND ORIENTED X3 IN HER [place] LANGUAGE. BREATHING EVEN AND UNLABORED WITH NO DISTRESS NOTED. SKIN WARM TO TOUCH AND INTACT. AWAITING TO BE SEEN BY
[2018-03-31] MEDS ORDERED: IV NS 0.9% 500 ML BAG IV ONE (15:30)
[2018-03-31] MEDS ORDERED: MORPHINE SULFATE INJ 2 MG/ML DISP.SYRIN IV ONE (15:30)
[2018-03-31 15:41] LABS: BASOPHILS # (AUTO) 0.1 /CMM (0.0-0.2); EOSINOPHILS % (AUTO) 0.6 % (0.0-6.0); HEMATOCRIT 35 % (33-45); HEMOGLOBIN 11.9 g/dL (11.5-14.8); LYMPHOCYTES % (AUTO) 11.9 % (20.0-44.0); MEAN CORPUSCULAR HGB CONC 34 g/dl (31.0-36.0); MEAN CORPUSCULAR VOLUME 93 fL (82-100); MONOCYTES # (AUTO) 0.7 /CMM (0.1-1.30); MONOCYTES % (AUTO) 8.6 % (2.0-12.0); NEUTROPHILS # (AUTO) 6.3 /CMM (1.8-8.9); NEUTROPHILS % (AUTO) 77.9 % (43.0-81.0); PLATELET COUNT (AUTO) 197 /CMM (150-450); RED BLOOD CELL COUNT(AUTO) 3.76 MIL/uL (4.0-5.2); WHITE BLOOD COUNT (AUTO) 8.1 K/uL (4.3-11.0)
[2018-03-31] MEDS ORDERED: MORPHINE SULFATE INJ 4 MG/ML DISP.SYRIN ONE (15:46)
[2018-03-31 15:50] LABS: CALCIUM, SERUM 9.6 mg/dL (8.5-10.1); CARBON DIOXIDE 29 mmol/L (21-32); CHLORIDE 104 mmol/L (98-107); CREATININE 1.3 mg/dL (0.6-1.3); GLUCOSE 140 mg/dL (74-106); POTASSIUM 3.3 mmol/L (3.5-5.1); SODIUM SERUM 141 mmol/L (136-145); UREA NITROGEN, BLOOD 20 mg/dL (7-18)
[2018-03-31 15:56] LABS: ALANINE AMINOTRANSFERASE 26 U/L (12-78); ALBUMIN 3.9 g/dL (3.4-5.0); ALKALINE PHOSPHATASE 63 U/L (46-116); ASPARTATE AMINOTRANSFERASE 18 U/L (15-37); BILIRUBIN,DIRECT 0.1 mg/dL (0.0-0.2); BILIRUBIN,TOTAL 0.7 mg/dL (0.2-1.0); LIPASE 251 U/L (73-393); TOTAL PROTEIN, SERUM 7.1 g/dL (6.4-8.2)
[2018-03-31 15:58] LABS: TROPONIN I < 0.017 ng/mL (0.00-0.056)
[2018-03-31 18:01] LABS: APPEARANCE,URINE Slightly Cloudy (CLEAR); BILIRUBIN,URINE Negative (NEGATIVE); BLOOD, URINE Negative Ery/uL (NEGATIVE); COLOR,URINE Yellow (YELLOW); KETONES,URINE Negative (NEGATIVE); LEUKOCYTE ESTERASE ,URINE Negative (NEGATIVE); NITRITE, URINE Negative (NEGATIVE); PH,URINE 6.5 (5.0-8.0); PROTEIN,URINE 30 mg/dl (NEGATIVE); UGLUCOSE Negative (NEGATIVE); UROBILINOGEN,URINE 0.2 EU/dL (0.2)
[2018-03-31 18:19] LABS: RBC,URINE 0-2 /HPF (0-2); WBC,URINE 0-2 /HPF (0-3)
[2018-03-31 18:20] LABS: BACTERIA,URINE 1+ /HPF (None Seen)
--- NOTE | 2018-03-31 19:19 | NUR ---
ASSUMED CARE OF PT AT THIS TIME. PT BEING DISCHARGED WITH FAMILY MEMBERS BEDSIDE.
--- NOTE | 2018-03-31 19:19 | NUR ---
Patient discharged to home in stable condition. Written and verbal after care instructions given. Patient verbalizes understanding of instruction.IV removed. Catheter intact and site benign. Pressure and 4x4 applied to site. No bleeding noted. NO S/S OF DISTRESS NOTED UPON DISCHARGE
[2018-03-31 19:25] VITALS: BP 154/8
== END 2018-03-31 19:27 | disposition home or self-care (01) ==
LOC: ER 15:09
DX: R10.11 Right upper quadrant pain (principal); E11.9 Type 2 diabetes mellitus without complications; I10 Essential (primary) hypertension; E78.00 Pure hypercholesterolemia, unspecified; Z90.10 Acquired absence of unspecified breast and nipple; Z90.49 Acquired absence of other specified parts of digestive tract; Z85.3 Personal history of malignant neoplasm of breast; Z79.82 Long term (current) use of aspirin
CPT/HCPCS: 36415; 71045; 74176; 80048; 80076; 81001; 83690; 84484; 85025; 93005; 96374; 99285; J2270; J7040; 81000-TC; A4606; Z7610

== ENCOUNTER 2018-06-29 04:51 | Emergency (ER) | payer MEDICARE, MEDICAID ==
[~2018-06-29] VITALS: Ht 154.9 cm; Wt 93.9 kg
--- NOTE | 2018-06-29 04:55 | NUR ---
PT BIBRA FOR CHEST PRESSURE FOR THAT WOKE HER UP TONIGHT NON RADIATING. 11/17 PT PRIMARY LANGUAGE IRISH. PT DENIES SOB. PT AAXO4. RESPIRATIONS EVEN AND UNLABORED. NAD NOTED. PT PUT ON THE MONITOR AND PULSE OX. PT AWAITING EVAL FROM .
--- NOTE | 2018-06-29 05:00 | NUR ---
INSTRUCTOR DRAMATIC ARTS AT BEDSIDE FOR LAB DRAW.
[2018-06-29 05:11] LABS: BASOPHILS % (AUTO) 0.5 % (0.0-2.0); EOSINOPHILS % (AUTO) 1.5 % (0.0-6.0); HEMATOCRIT 29 % (33-45); HEMOGLOBIN 9.9 g/dL (11.5-14.8); LYMPHOCYTES # (AUTO) 0.8 /CMM (0.8-4.8); LYMPHOCYTES % (AUTO) 11.7 % (20.0-44.0); MEAN CORPUSCULAR HGB CONC 34 g/dl (31.0-36.0); MEAN CORPUSCULAR VOLUME 91 fL (82-100); MONOCYTES # (AUTO) 0.8 /CMM (0.1-1.30); MONOCYTES % (AUTO) 11.4 % (2.0-12.0); NEUTROPHILS # (AUTO) 5.1 /CMM (1.8-8.9); NEUTROPHILS % (AUTO) 74.9 % (43.0-81.0); PLATELET COUNT (AUTO) 189 /CMM (150-450); RED BLOOD CELL COUNT(AUTO) 3.23 MIL/uL (4.0-5.2); WHITE BLOOD COUNT (AUTO) 6.8 K/uL (4.3-11.0)
[2018-06-29 05:20] LABS: CARBON DIOXIDE 29 mmol/L (21-32); CHLORIDE 105 mmol/L (98-107); CREATININE 0.9 mg/dL (0.6-1.3); GLUCOSE 160 mg/dL (74-106); POTASSIUM 3.3 mmol/L (3.5-5.1); SODIUM SERUM 143 mmol/L (136-145); UREA NITROGEN, BLOOD 18 mg/dL (7-18)
--- NOTE | 2018-06-29 05:30 | NUR ---
ER MD AWARE OF PT BP. PT ON THE MONITOR AND PULSE OX. NAD NOTED. RESPIRATIONS EVEN AND UNLABORED.
[2018-06-29 05:33] LABS: B-TYPE NATRIURETIC PEPTIDE 3392 PG/ML (0-125)
[2018-06-29] MEDS ORDERED: ONDANSETRON HCL/PF 4 MG/2 ML VIAL IVP PRN (06:00)
[2018-06-29] MEDS ORDERED: ACETAMINOPHEN 325 MG TABLET PO PRN (06:00)
[2018-06-29] MEDS ORDERED: MAG HYDROX/AL HYDROX/SIMETH 30 ML UDC PO PRN (06:00)
[2018-06-29] MEDS ORDERED: Z GUARD REMEDY 2 OZ OINT TP PRN (06:00)
[2018-06-29] MEDS ORDERED: MAGNESIUM HYDROXIDE 30 ML UDC PO PRN (06:00)
[2018-06-29] MEDS ORDERED: HYDROCODONE/APAP 5/325MG 1 EACH TABLET PO PRN (06:00)
[2018-06-29] MEDS ORDERED: IOHEXOL-350 100 ML VIAL IV ONE (06:01)
[2018-06-29] MEDS ORDERED: CT SWABBABLE VALVE TRANS SET 1 EA INFUS.SET MC ONE (06:01)
[2018-06-29] MEDS ORDERED: IV NS 0.9% 250 ML IV ONE (06:01)
--- NOTE | 2018-06-29 06:05 | NUR ---
PT TAKEN TO CT.
--- NOTE | 2018-06-29 06:28 | NUR ---
PT BACK FROM CT AND PUT ON THE MONITOR.
[2018-06-29] MEDS ORDERED: HYDROMORPHONE INJ 2 MG/ML DISP.SYRIN IV PRN (06:30)
[2018-06-29] MEDS ORDERED: FUROSEMIDE 40 MG/4 ML VIAL IV ONE (07:00)
--- NOTE | 2018-06-29 07:14 | NUR ---
Patient does not wish to proceed with medical care recommended by Dr. Solano. Patient given information related to possible complications, up to and including , which could occur as a result of leaving the hospital at this time. Patient verbalizes understanding of risks involved due to leaving against medical advice. Patient has signed AMA form.
[2018-06-29 07:18] VITALS: BP 162/80
== END 2018-06-29 07:19 | disposition left against medical advice (07) ==
LOC: ER 04:53
DX: R07.89 Other chest pain (principal); I11.0 Hypertensive heart disease with heart failure; I50.9 Heart failure, unspecified; E11.9 Type 2 diabetes mellitus without complications; E78.00 Pure hypercholesterolemia, unspecified; I49.9 Cardiac arrhythmia, unspecified; Z90.11 Acquired absence of right breast and nipple; Z85.3 Personal history of malignant neoplasm of breast; Z90.49 Acquired absence of other specified parts of digestive tract; Z79.82 Long term (current) use of aspirin; Z79.4 Long term (current) use of insulin
CPT/HCPCS: 36415; 71045-TC; 80048-TC; 83880; 84484-TC; 85025-TC; 85378-TC; 85730-TC; 87081-TC; J7050; Q9967

== ENCOUNTER 2018-11-12 01:17 | Emergency (ER) | payer MEDICARE, MEDICAID ==
[~2018-11-12] VITALS: Ht 154.9 cm; Wt 89.4 kg
--- NOTE | 2018-11-12 01:58 | NUR ---
BIB AMBULANCE FOR C/O RUQ ABD PAIN RADIATING TO THE BACK SINCE 5PM. PMH CHOLECYSTECTOMY, R BREAST CA. -N/V. PLACED ON A MONITOR ,VSS. WILL CONT TO MONITOR ,
[2018-11-12] MEDS ORDERED: HYDROMORPHONE 1 MG/1 ML DISP.SYRIN ONE (02:12)
[2018-11-12] MEDS ORDERED: KETOROLAC TROMETHAMINE 15 MG/ML VIAL ONE (02:12)
[2018-11-12] MEDS: KETOROLAC TROMETHAMINE INJ 30 MG/ML VIAL IV ONE (02:28)
--- NOTE | 2018-11-12 02:29 | NUR ---
FAMILY REFUSED DILAUDID PAIN MEDICATION AT THIS TIME,. MADE AWARE.
[2018-11-12] MEDS: HYDROMORPHONE 1 MG/1 ML DISP.SYRIN IV ONE (02:39)
--- NOTE | 2018-11-12 02:44 | NUR ---
[facility] WILL PICK HER UP ONCE READY FOR DISCHARGE
--- NOTE | 2018-11-12 04:53 | NUR ---
pt ready for diascharge. called dtr to arrange the fern picker pt currrently in bed resting comfortabl. assisted pt with bed barney. no c/o pain or discomfort.
--- NOTE | 2018-11-12 05:26 | NUR ---
Patient discharged to home in stable condition. Written and verbal after care instructions given. Patient verbalizes understanding of instruction. pt was assisted to the car via wc
[2018-11-12 05:27] VITALS: BP 141/84
== END 2018-11-12 05:28 | disposition home or self-care (01) ==
LOC: ER 01:19
DX: M54.5 Low back pain (principal); G89.29 Other chronic pain; I10 Essential (primary) hypertension; E66.9 Obesity, unspecified; E11.9 Type 2 diabetes mellitus without complications; E78.00 Pure hypercholesterolemia, unspecified; Z98.890 Other specified postprocedural states; Z85.3 Personal history of malignant neoplasm of breast; Z90.11 Acquired absence of right breast and nipple; Z90.49 Acquired absence of other specified parts of digestive tract; Z79.4 Long term (current) use of insulin; Z79.82 Long term (current) use of aspirin
CPT/HCPCS: 96374; 96375; 99283; J1170; J1885

== ENCOUNTER 2019-05-22 13:03 | Inpatient (IN) | payer MEDICARE, MEDICAID ==
[~2019-05-22] VITALS: Ht 149.9 cm; Wt 83.5 kg
[~2019-05-22 13:03] MED LIST changes: -METO-356 PO; +METO25TA4 PO
--- NOTE | 2019-05-22 13:15 | NUR ---
PT BIBA C/O OF SOB 89 % ROOM AIR STARTED THIS MORNING. PT ON O2 4 L SAT @ 98%. PT ALERT AND AWAKE, CONNECTED TO THE MONITORAND CONTINOUS POX. BLOOD DRAWN AND SENT TO LAB
--- NOTE | 2019-05-22 13:18 | NUR ---
RT AT BEDSIDE FOR EVAL AND TREATMENT
[2019-05-22] MEDS ORDERED: ALBUTEROL FS 2.5 MG/3 ML VIAL.NEB ONE (13:22)
[2019-05-22] MEDS ORDERED: IPRATROPIUM NEB FS 0.5 MG/2.5 ML AMPUL.NEB ONE (13:22)
[2019-05-22] MEDS ORDERED: ALBUTEROL FS 2.5 MG/3 ML VIAL.NEB NEB ONE (13:30)
[2019-05-22] MEDS ORDERED: IPRATROPIUM NEB FS 0.5 MG/2.5 ML AMPUL.NEB NEB ONE (13:30)
[2019-05-22] MEDS ORDERED: methylPREDNISolone SOD SUCC 125 MG/2ML VIAL IV ONE (13:30)
[2019-05-22] MEDS ORDERED: methylPREDNISolone SOD SUCC 125 MG/2ML VIAL ONE (13:34)
[2019-05-22 13:36] LABS: BASOPHILS # (AUTO) 0.2 /CMM (0.0-0.2); BASOPHILS % (AUTO) 2.4 % (0.0-2.0); EOSINOPHILS % (AUTO) 0.6 % (0.0-6.0); HEMATOCRIT 29 % (33-45); HEMOGLOBIN 9.5 g/dL (11.5-14.8); LYMPHOCYTES # (AUTO) 0.8 /CMM (0.8-4.8); LYMPHOCYTES % (AUTO) 11.3 % (20.0-44.0); MEAN CORPUSCULAR HGB CONC 33 g/dl (31.0-36.0); MEAN CORPUSCULAR VOLUME 91 fL (82-100); MONOCYTES # (AUTO) 0.8 /CMM (0.1-1.30); MONOCYTES % (AUTO) 11.4 % (2.0-12.0); NEUTROPHILS # (AUTO) 5.2 /CMM (1.8-8.9); NEUTROPHILS % (AUTO) 74.3 % (43.0-81.0); PLATELET COUNT (AUTO) 206 /CMM (150-450); RED BLOOD CELL COUNT(AUTO) 3.16 MIL/uL (4.0-5.2)
--- NOTE | 2019-05-22 13:43 | NUR ---
CALLED NURSING SUP FOR TELE BED.
[2019-05-22] MEDS ORDERED: POTA8TAB3 PO (13:46)
[2019-05-22] MEDS ORDERED: ROSU40TA23 PO (13:46)
[2019-05-22] MEDS ORDERED: ALEN70TA6 PO (13:46)
[2019-05-22] MEDS ORDERED: TEMA7.5C12 PO (13:46)
[2019-05-22] MEDS ORDERED: MEMA28CA5 PO (13:46)
[2019-05-22] MEDS ORDERED: IBUP-1955 PO (13:46)
[2019-05-22] MEDS ORDERED: LORA-258 PO (13:46)
[2019-05-22] MEDS ORDERED: OMEP1CAP25 PO (13:46)
[2019-05-22] MEDS ORDERED: LINA5TAB PO (13:46)
[2019-05-22] MEDS ORDERED: LISI10TA5 PO (13:46)
[2019-05-22] MEDS ORDERED: DIGO125T PO (13:46)
[2019-05-22] MEDS ORDERED: METF-834 PO (13:46)
[2019-05-22] MEDS ORDERED: HYDR-3980 PO (13:46)
[2019-05-22] MEDS ORDERED: NITR0.4T48 PO (13:46)
[2019-05-22] MEDS ORDERED: CARV25TA2 PO (13:46)
[2019-05-22 13:48] LABS: CALCIUM, SERUM 9.2 mg/dL (8.5-10.1); CARBON DIOXIDE 32 mmol/L (21-32); CHLORIDE 103 mmol/L (98-107); GLUCOSE 157 mg/dL (74-106); POTASSIUM 3.7 mmol/L (3.5-5.1); SODIUM SERUM 142 mmol/L (136-145); UREA NITROGEN, BLOOD 20 mg/dL (7-18)
[2019-05-22 14:00] LABS: ALANINE AMINOTRANSFERASE 26 U/L (12-78); ALBUMIN 3.2 g/dL (3.4-5.0); ALKALINE PHOSPHATASE 88 U/L (46-116); ASPARTATE AMINOTRANSFERASE 23 U/L (15-37); B-TYPE NATRIURETIC PEPTIDE 13978 PG/ML (0-125); BILIRUBIN,DIRECT 0.3 mg/dL (0.0-0.2); BILIRUBIN,TOTAL 0.8 mg/dL (0.2-1.0); TOTAL PROTEIN, SERUM 6.9 g/dL (6.4-8.2)
[2019-05-22] MEDS ORDERED: FUROSEMIDE 40 MG/4 ML VIAL IV ONE (14:00)
[2019-05-22] MEDS ORDERED: FUROSEMIDE 40 MG/4 ML VIAL ONE (14:05)
[2019-05-22] MEDS ORDERED: CT SWABBABLE VALVE TRANS SET 1 EA INFUS.SET MC ONE (14:20)
[2019-05-22] MEDS ORDERED: IOHEXOL-350 100 ML VIAL IV ONE (14:20)
[2019-05-22] MEDS ORDERED: IV NS 0.9% 250 ML IV ONE (14:20)
--- NOTE | 2019-05-22 14:20 | NUR ---
PT TAKEN TO CT
--- NOTE | 2019-05-22 14:46 | NUR ---
PT BACK FROM CT
--- NOTE | 2019-05-22 14:49 | NUR ---
NURSING SUP GAVE TELE BED 311-1.
[2019-05-22] MEDS ORDERED: MORPHINE SULFATE INJ 2 MG/ML DISP.SYRIN IV PRN (15:00)
[2019-05-22] MEDS ORDERED: ACETAMINOPHEN 325 MG TABLET PO PRN (15:00)
[2019-05-22] MEDS ORDERED: TEMAZEPAM 15 MG CAPSULE PO PRN (15:00)
[2019-05-22] MEDS ORDERED: NITROGLYCERIN 0.4 MG/TAB BOTTLE SL PRN (15:00)
[2019-05-22] MEDS ORDERED: ONDANSETRON HCL/PF 4 MG/2 ML VIAL IVP PRN (15:00)
[2019-05-22] MEDS ORDERED: MAG HYDROX/AL HYDROX/SIMETH 30 ML UDC PO PRN (15:00)
[2019-05-22] MEDS ORDERED: CLONIDINE HCL 0.1 MG TABLET PO PRN (15:00)
[2019-05-22] MEDS ORDERED: MAGNESIUM HYDROXIDE 30 ML UDC PO PRN (15:00)
[2019-05-22] MEDS ORDERED: DEXTROSE 50%-WATER 50 ML DISP.SYRIN IV PRN (15:30)
--- NOTE | 2019-05-22 15:31 | NUR ---
REPORT GIVEN TO DREW VAZQUEZ
--- NOTE | 2019-05-22 15:45 | NUR ---
STRIPER MACHINE NOTES PATIENT ALERT AND ORIENTED X3, GRENADIAN SPEAKING. FAMILY AT BEDSIDE. PATIENT IN NO RESPIRATORY DISTRESS, NO C/O OF CHEST PAIN AT THIS TIME. PATIENT PUT ON CERTIFIED MEDICAL BILLER READING SR 81. SKIN WARM TO TOUCH, IV ACCESS SITES INTACT AND PATENT. PATIENT'S SKIN ASSESSED, NO SKIN BREAKDOWN. PHOTO TAKEN OF RT MASTECTOMY SCAR PUT IN CHART. BELONGINGS LIST SIGNED. BSC AT BEDSIDE PER FAMILY REQUEST. PATIENT'S NEEDS ATTENDED. BED ON LOWEST LOCKED POSITION, CALL LIGHT WITHIN REACH. PATIENT'S ADMISSION ORDERS CARRIED OUT.
--- NOTE | 2019-05-22 15:49 | NUR ---
PT TRANSFERRED IN STABLE CONDITION
[2019-05-22 17:00] VITALS: BP 162/91
[2019-05-22] MEDS: FUROSEMIDE 40 MG/4 ML VIAL IV SCH ×2 (17:28→20:52)
[2019-05-22] MEDS: MEMANTINE HCL 5 MG TABLET PO SCH (17:28)
[2019-05-22] MEDS: POTASSIUM CHLORIDE 20 MEQ TAB.PRT.SR PO SCH ×3 (17:28→19:29)
[2019-05-22] MEDS: BLOOD SUGAR DIAGNOSTIC 1 EACH STRIP IN SCH ×2 (17:29→22:16)
[2019-05-22 17:30] LABS: THYROID STIMULATING HORMONE 1.51 uIU/mL (0.358-3.74)
[2019-05-22] MEDS: INSULIN REGULAR, HUMAN 100 UNIT/ML 3 ML VIAL SQ PRN ×2 (18:12→22:57)
[2019-05-22 18:54] LABS: MAGNESIUM 1.9 mg/dL (1.8-2.4); PHOSPHORUS 3.7 mg/dL (2.5-4.9)
--- NOTE | 2019-05-22 18:55 | NUR ---
ELECTRICIAN MARINE NOTES PATIENT AWAKE IN BED, FAMILY AT BEDSIDE. PATIENT IN NO RESPIRATORY DISTRESS, NO C/O PAIN AT THIS TIME. IV ACCESS SITES INTACT AND PATENT. PATIENT'S NEEDS ATTENDED. BED ON LOWEST LOCKED POSITION, CALL LIGHT WITHIN REACH. WILL ENDORSE TO ONCOMING NURSE.
--- NOTE | 2019-05-22 19:45 | NUR ---
INTRAVENOUS THERAPY NURSE NOTES RECEIVED PATIENT AWAKE, TRYING TO GET OUT OF BED, REPOSITIONED FOR COMFORT, SAFETY MEASURES INPLACE, BEDSIDE COMMODE WITTHIN REACH, ALL NEEDS ATTENDED, TELE MONITOR READ SINUS RHYTHM 80s, [id number] PAIN OR DISCOMFORT. CALL LIGHT WITHIN EASY REACH, WILL MONITOR ACCORDINGLY.
[2019-05-22 20:00] VITALS: BP 163/87
[2019-05-22 20:26] VITALS: BP 163/87
[2019-05-22] MEDS: CARVEDILOL 12.5 MG TABLET PO SCH (21:15)
[2019-05-23] MEDS: FUROSEMIDE 40 MG/4 ML VIAL IV SCH (00:40)
--- NOTE | 2019-05-23 06:17 | NUR ---
RAISE DRILL OPERATOR NOTES ALL NEEDS ATTENDED AND MET ABLE TO REST AND SLEPT AT INTERVALS, PATIENT AWAKE AT THIS TIME, DENIES ANY PAIN OR DISCOMFORT. REPOSITIONED FOR COMFORT, SAFETY MEASURES IN PLACE, BEDSIDE COMMODE WITHIN REACH, , TELE MONITOR READ SINUS RHYTHM 80s,CALL LIGHT WITHIN EASY REACH, WILL MONITOR ENDORSE TO AM NURSE FOR CONTINUITY OF CARE.
[2019-05-23] MEDS: BLOOD SUGAR DIAGNOSTIC 1 EACH STRIP IN SCH ×4 (07:07→22:00)
[2019-05-23] MEDS: INSULIN REGULAR, HUMAN 100 UNIT/ML 3 ML VIAL SQ PRN ×3 (07:10→16:43)
[2019-05-23 07:17] LABS: BASOPHILS % (AUTO) 0.1 % (0.0-2.0); HEMATOCRIT 32 % (33-45); HEMOGLOBIN 10.5 g/dL (11.5-14.8); LYMPHOCYTES # (AUTO) 0.6 /CMM (0.8-4.8); LYMPHOCYTES % (AUTO) 9.8 % (20.0-44.0); MEAN CORPUSCULAR HGB CONC 33 g/dl (31.0-36.0); MEAN CORPUSCULAR VOLUME 90 fL (82-100); MONOCYTES # (AUTO) 0.2 /CMM (0.1-1.30); MONOCYTES % (AUTO) 2.9 % (2.0-12.0); NEUTROPHILS # (AUTO) 4.9 /CMM (1.8-8.9); NEUTROPHILS % (AUTO) 87.2 % (43.0-81.0); PLATELET COUNT (AUTO) 225 /CMM (150-450); RED BLOOD CELL COUNT(AUTO) 3.57 MIL/uL (4.0-5.2); WHITE BLOOD COUNT (AUTO) 5.7 K/uL (4.3-11.0)
[2019-05-23 07:27] LABS: CALCIUM, SERUM 9.5 mg/dL (8.5-10.1); CREATININE 1.2 mg/dL (0.6-1.3); MAGNESIUM 2.1 mg/dL (1.8-2.4); PHOSPHORUS 4.7 mg/dL (2.5-4.9)
--- NOTE | 2019-05-23 07:34 | NUR ---
INSURANCE PROCESSING CLERK OPENING NOTES PATIENT IN BED RESTING COMFORTABLY. PATIENT IN NO ACUTE DISTRESS. NO SOB NOTED. PATIENT BREATHING IS EVEN AND UNLABORED. NO FACIAL GRIMACING NOTED. PATIENT BED ALARM IS ON. HOB IS ELEVATED. PATIENT BED IS LOCKED AND IN LOWEST POSITION. CALL LIGHT WITHIN REACH. WILL CONTINUE TO MONITOR.
[2019-05-23 08:00] VITALS: BP 153/100
[2019-05-23] MEDS: PANTOPRAZOLE 40 MG TABLET.DR PO SCH (08:33)
[2019-05-23] MEDS: HYDROCHLOROTHIAZIDE 25 MG TABLET PO SCH (08:34)
[2019-05-23] MEDS: ATORVASTATIN 40 MG TABLET PO SCH (08:34)
[2019-05-23] MEDS: LOSARTAN POTASSIUM 50 MG TABLET PO SCH (08:35)
[2019-05-23] MEDS: AMLODIPINE BESYLATE 10 MG TABLET PO SCH (08:35)
[2019-05-23] MEDS: MEMANTINE HCL 5 MG TABLET PO SCH ×2 (08:35→16:39)
[2019-05-23] MEDS: POTASSIUM CHLORIDE 10 MEQ TABLET.SA PO SCH (08:35)
[2019-05-23] MEDS: ASPIRIN 81 MG TAB.CHEW PO SCH (08:35)
[2019-05-23] MEDS: LISINOPRIL (10MG) 10 MG TABLET PO SCH (08:36)
[2019-05-23] MEDS: CARVEDILOL 12.5 MG TABLET PO SCH ×2 (08:37→21:47)
[2019-05-23] MEDS ORDERED: FUROSEMIDE 40 MG/4 ML VIAL IV SCH (09:00)
[2019-05-23] MEDS: DIGOXIN 0.125 MG TABLET PO SCH (13:52)
[2019-05-23 16:00] VITALS: BP 136/70
--- NOTE | 2019-05-23 18:26 | NUR ---
MS RN CLOSING NOTE PATIENT IN BED RESTING COMFORTABLY. PATIENT IN NO ACUTE DISTRESS. NO SOB NOTED. PATIENT BREATHING IS EVEN AND UNLABORED. PATIENT NEEDS AND CONCERNS ADDRESSED. PATIENT KEPT CLEAN, DRY AND COMFORTABLE THROUGHOUT SHIFT. PATIENT BED ALARM IS ON. PATIENT EXTREMITIES OFFLOADED ON PILLOWS. PATIENT TURNED AND REPOSITIONED Q2H. PATIENT HOB IS ELEVATED. PATIENT BED IS LOCKED AND IN LOWEST POSITION. CALL LIGHT WITHIN REACH. WILL ENDORSE CARE TO PM SHIFT FOR JADE.
--- NOTE | 2019-05-23 19:10 | NUR ---
MS RN NOTE RECEIVED PT IN BED AWAKE AND ABLE TO MAKE NEEDS KNOWN. PT A/O X2-3 [id number] SPEAKING. RESPIRATIONS EVEN AND UNLABORED WITH NO S/S OF ACUTE DISTRESS OR SOB NOTED. NO COMPLAINTS OF PAIN AT THIS TIME. PT NOTED WITH LAC #18G PATENT AND INTACT AND SL. SAFETY MEASURES IN PLACE WITH BED IN LOWEST LOCKED POSITION WITH SIDE RAILS UP X2. CALL LIGHT WITHIN REACH. WILL CONTINUE TO MONITOR.
[2019-05-23 20:00] VITALS: BP 148/74
--- NOTE | 2019-05-23 20:00 | NUR ---
MS RN NOTES PT REFUSES TO USE OXYGEN VIA NC. PT STATES THAT SHE DOESN'T WANT TO USE IT AT THIS TIME. WILL CONTINUE TO MONITOR.
--- NOTE | 2019-05-23 22:37 | NUR ---
MS RN NOTES PT REFUSED BLOOD SUGAR CHECK FOR 2200. PT STATED THAT SHE ALREADY HAD IT DONE 2-3 TIMES TODAY, NO MORE. WILL CONTINUE TO MONITOR.
[2019-05-24] MEDS: HYDROCODONE/APAP 5/325MG 1 EACH TABLET PO PRN ×2 (05:07→09:57)
[2019-05-24 06:27] LABS: BASOPHILS % (AUTO) 0.2 % (0.0-2.0); EOSINOPHILS % (AUTO) 0.4 % (0.0-6.0); HEMATOCRIT 30 % (33-45); HEMOGLOBIN 9.8 g/dL (11.5-14.8); LYMPHOCYTES # (AUTO) 1.6 /CMM (0.8-4.8); LYMPHOCYTES % (AUTO) 18.5 % (20.0-44.0); MEAN CORPUSCULAR HGB CONC 33 g/dl (31.0-36.0); MEAN CORPUSCULAR VOLUME 91 fL (82-100); MONOCYTES # (AUTO) 0.7 /CMM (0.1-1.30); NEUTROPHILS # (AUTO) 6.4 /CMM (1.8-8.9); NEUTROPHILS % (AUTO) 72.9 % (43.0-81.0); PLATELET COUNT (AUTO) 220 /CMM (150-450); RED BLOOD CELL COUNT(AUTO) 3.29 MIL/uL (4.0-5.2); WHITE BLOOD COUNT (AUTO) 8.7 K/uL (4.3-11.0)
--- NOTE | 2019-05-24 06:30 | NUR ---
MS RN NOTES PT REFUSED BLOOD SUGAR CHECK AT THIS TIME. WILL CONTINUE TO MONITOR.
[2019-05-24 06:35] LABS: CALCIUM, SERUM 9.1 mg/dL (8.5-10.1); CREATININE 1.2 mg/dL (0.6-1.3); POTASSIUM 3.5 mmol/L (3.5-5.1)
--- NOTE | 2019-05-24 06:48 | NUR ---
MS RN NOTE RECEIVED PT IN BED AWAKE AND ABLE TO MAKE NEEDS KNOWN. PT A/O X2-3 YI SPEAKING. RESPIRATIONS EVEN AND UNLABORED WITH NO S/S OF ACUTE DISTRESS OR SOB NOTED THROUGHOUT SHIFT. NO COMPLAINTS OF PAIN AT THIS TIME. PT NOTED WITH LAC #18G PATENT AND INTACT AND SL. PT KEPT CLEAN, DRY, AND COMFORTABLE. SAFETY MEASURES IN PLACE WITH BED IN LOWEST LOCKED POSITION WITH SIDE RAILS UP X2. CALL LIGHT WITHIN REACH. WILL ENDORSE TO ONCOMING NURSE FOR JADE.
[2019-05-24] MEDS: BLOOD SUGAR DIAGNOSTIC 1 EACH STRIP IN SCH ×4 (07:27→21:55)
--- NOTE | 2019-05-24 07:29 | NUR ---
MS RN OPENING NOTE PATIENT IN BED RESTING COMFORTABLY. PATIENT BLOOD SUGAR 102, NO INSULIN NEEDED PER PROTOCOL. PATIENT IN NO ACUTE DISTRESS. NO SOB NOTED. PATIENT BREATHING IS EVEN AND UNLABORED. NO FACIAL GRIMACING NOTED. PATIENT BED ALARM IS ON. HOB IS ELEVATED. PATIENT BED IS LOCKED AND IN LOWEST POSITION. CALL LIGHT WITHIN REACH. WILL CONTINUE TO MONITOR.
[2019-05-24 08:00] VITALS: BP 160/70
[2019-05-24] MEDS: HYDROCHLOROTHIAZIDE 25 MG TABLET PO SCH (08:45)
[2019-05-24] MEDS: LOSARTAN POTASSIUM 50 MG TABLET PO SCH (08:46)
[2019-05-24] MEDS: MEMANTINE HCL 5 MG TABLET PO SCH ×2 (08:46→16:44)
[2019-05-24] MEDS: AMLODIPINE BESYLATE 10 MG TABLET PO SCH (08:46)
[2019-05-24] MEDS: LISINOPRIL (10MG) 10 MG TABLET PO SCH (08:46)
[2019-05-24] MEDS: PANTOPRAZOLE 40 MG TABLET.DR PO SCH (08:46)
[2019-05-24] MEDS: ATORVASTATIN 40 MG TABLET PO SCH (08:46)
[2019-05-24] MEDS: ASPIRIN 81 MG TAB.CHEW PO SCH (08:46)
[2019-05-24] MEDS: CARVEDILOL 12.5 MG TABLET PO SCH ×2 (08:47→21:51)
[2019-05-24] MEDS: POTASSIUM CHLORIDE 10 MEQ TABLET.SA PO SCH (08:47)
--- NOTE | 2019-05-24 10:33 | NUR ---
MS RN NOTE PATIENT O2 SAT ON ROOM AIR AT 93% SPO2. SPOKE WITH AND INFORMED DR. WILDE, PER MD AGUILAR O2 NC 2L IF ABOVE 92% SPO2.
[2019-05-24] MEDS: POTASSIUM CHLORIDE 20 MEQ TAB.PRT.SR PO SCH ×2 (10:57→12:02)
[2019-05-24] MEDS ORDERED: acetaZOLAMIDE SODIUM 500 MG/VIAL VIAL IV ONE (11:00)
[2019-05-24] MEDS: INSULIN REGULAR, HUMAN 100 UNIT/ML 3 ML VIAL SQ PRN ×2 (11:34→16:50)
[2019-05-24] MEDS: DIGOXIN 0.125 MG TABLET PO SCH (12:02)
[2019-05-24] MEDS: IPRATROPIUM NEB FS 0.5 MG/2.5 ML AMPUL.NEB NEB SCH ×4 (12:02→23:32)
[2019-05-24] MEDS: ALBUTEROL HALF STRENGTH 1.25 MG/3 ML VIAL.NEB NEB SCH ×4 (12:03→23:32)
[2019-05-24 13:46] LABS: ABG BASE EXCESS 3.5 mmol/L; ABG OXYGEN SATURATION 90.1 % (92.0-98.5); ABG PH 7.404 (7.350-7.450); ABG PO2 64.5 mmHg (75.0-100.0); AaDO2 28.9 mmHg; COHb 0.2 % (0.5-1.5); MetHb 0.6 % (0.0-1.5); O2Hb 89.4 % (94.0-97.0); SITE, ABG Left Radial; VENT MODE, BG ROOM AIR
[2019-05-24 16:00] VITALS: BP 157/63
--- NOTE | 2019-05-24 18:21 | NUR ---
MS RN CLOSING NOTE PATIENT IN BED RESTING COMFORTABLY. PATIENT IN NO ACUTE DISTRESS. NO SOB NOTED. PATIENT BREATHING IS EVEN AND UNLABORED. PATIENT NEEDS AND CONCERNS ADDRESSED. PATIENT KEPT CLEAN, DRY AND COMFORTABLE THROUGHOUT SHIFT. PATIENT BED ALARM IS ON. PATIENT EXTREMITIES OFFLOADED ON PILLOWS. PATIENT TURNED AND REPOSITIONED Q2H. PATIENT HOB IS ELEVATED. SAFETY PRECAUTIONS IN PLACE. PATIENT BED IS LOCKED AND IN LOWEST POSITION. CALL LIGHT WITHIN REACH. WILL ENDORSE CARE TO PM SHIFT FOR JADE.
--- NOTE | 2019-05-24 19:05 | NUR ---
MS RN NOTE RECEIVED PT IN BED AWAKE AND ABLE TO MAKE NEEDS KNOWN. PT A/O X2-3 HAITIAN SPEAKING. RESPIRATIONS EVEN AND UNLABORED WITH NO S/S OF ACUTE DISTRESS OR SOB NOTED. NO COMPLAINTS OF PAIN AT THIS TIME. PT NOTED WITH LAC #18G PATENT AND INTACT AND SL. SAFETY MEASURES IN PLACE WITH BED IN LOWEST LOCKED POSITION WITH SIDE RAILS UP X2. CALL LIGHT WITHIN REACH. WILL CONTINUE TO MONITOR.
[2019-05-24 19:49] VITALS: BP 139/68
--- NOTE | 2019-05-24 21:56 | NUR ---
MS RN NOTES PT REFUSED BS CHECK FOR 2200. WILL CONTINUE TO MONITOR.
--- NOTE | 2019-05-25 | NUR ---
MS RN NOTES RECEIVED REPORT AT THE BEDSIDE. PATIENT IN BED SLEEPING, SUPINE POSITION. ON ROOM AIR. NO S/S OF ACUTE RESPIRATORY DISTRESS OR SOB. IV PRESENT ON LEFT AC, SIZE 18, INTACT & PATENT, SL. PER REPORT, PATIENT IS ALERT & ORIENTED X 3 AND PRIMARY LANGUAGE IS SLOVENIAN. BED SET IN LOWEST POSITION & LOCKED. CALL LIGHT WITHIN REACH. WILL CONTINUE TO MONITOR.
[2019-05-25] MEDS: ALBUTEROL HALF STRENGTH 1.25 MG/3 ML VIAL.NEB NEB SCH ×4 (03:27→15:30)
[2019-05-25] MEDS: IPRATROPIUM NEB FS 0.5 MG/2.5 ML AMPUL.NEB NEB SCH ×4 (03:27→15:30)
[2019-05-25 06:28] LABS: BASOPHILS % (AUTO) 0.3 % (0.0-2.0); EOSINOPHILS % (AUTO) 1.5 % (0.0-6.0); HEMATOCRIT 29 % (33-45); HEMOGLOBIN 9.4 g/dL (11.5-14.8); LYMPHOCYTES # (AUTO) 1.2 /CMM (0.8-4.8); LYMPHOCYTES % (AUTO) 21.2 % (20.0-44.0); MEAN CORPUSCULAR HGB CONC 32 g/dl (31.0-36.0); MEAN CORPUSCULAR VOLUME 93 fL (82-100); MONOCYTES # (AUTO) 0.6 /CMM (0.1-1.30); NEUTROPHILS # (AUTO) 3.9 /CMM (1.8-8.9); PLATELET COUNT (AUTO) 204 /CMM (150-450); RED BLOOD CELL COUNT(AUTO) 3.14 MIL/uL (4.0-5.2); WHITE BLOOD COUNT (AUTO) 5.8 K/uL (4.3-11.0)
--- NOTE | 2019-05-25 06:45 | NUR ---
MS RN CLOSING NOTES PATIENT SLEEPING IN BED, SUPINE POSITION, EASY TO AWAKEN. ON ROOM AIR. NO S/S OF ACUTE RESPIRATORY DISTRESS OR SOB. NO COMPLAINTS OF CHEST PAIN. IV ON LEFT HAND, SIZE 24, INTACT & PATENT, SL. BED SET IN LOWEST POSITIONED AND LOCKED. CALL LIGHT WITHIN REACH. WILL ENDORSE TO DAY SHIFT TO FOLLOW PLAN OF CARE
[2019-05-25 07:11] LABS: ALBUMIN 3.2 g/dL (3.4-5.0); BILIRUBIN,TOTAL 0.4 mg/dL (0.2-1.0); CALCIUM, SERUM 9.3 mg/dL (8.5-10.1); CREATININE 1.2 mg/dL (0.6-1.3); MAGNESIUM 2.3 mg/dL (1.8-2.4); PHOSPHORUS 4.4 mg/dL (2.5-4.9); POTASSIUM 3.6 mmol/L (3.5-5.1); TOTAL PROTEIN, SERUM 6.9 g/dL (6.4-8.2)
[2019-05-25] MEDS: BLOOD SUGAR DIAGNOSTIC 1 EACH STRIP IN SCH ×2 (07:25→12:33)
[2019-05-25 08:30] VITALS: BP 154/78
[2019-05-25] MEDS: POTASSIUM CHLORIDE 10 MEQ TABLET.SA PO SCH (08:54)
[2019-05-25] MEDS: HYDROCHLOROTHIAZIDE 25 MG TABLET PO SCH (08:55)
[2019-05-25] MEDS: ATORVASTATIN 40 MG TABLET PO SCH (08:55)
[2019-05-25] MEDS: MEMANTINE HCL 5 MG TABLET PO SCH (08:56)
[2019-05-25] MEDS: ASPIRIN 81 MG TAB.CHEW PO SCH (08:56)
[2019-05-25] MEDS: LOSARTAN POTASSIUM 50 MG TABLET PO SCH (08:56)
[2019-05-25] MEDS: PANTOPRAZOLE 40 MG TABLET.DR PO SCH (08:56)
[2019-05-25] MEDS: LISINOPRIL (10MG) 10 MG TABLET PO SCH (08:57)
[2019-05-25] MEDS: AMLODIPINE BESYLATE 10 MG TABLET PO SCH (08:57)
[2019-05-25 09:00] VITALS: BP 175/84
[2019-05-25] MEDS: CARVEDILOL 12.5 MG TABLET PO SCH (09:00)
[2019-05-25] MEDS: DIGOXIN 0.125 MG TABLET PO SCH (12:34)
--- NOTE | 2019-05-25 12:37 | NUR ---
MS/RN NOTE THE PATIENT`S BLOOD SUGAR IS 154, HOWEVER, THE PATIENT REFUSED 2 UNITS SLIDING SCALE INSULIN DESPITE EXPLAINING RISKS AND BENEFITS MULTIPLE TIMES.
--- NOTE | 2019-05-25 15:10 | NUR ---
MS/RN NOTE THE PATIENT ALERT AND ORIENTED X3. IN ROOM AIR AND SATURATION IS AT 97%. DENIES SOB. RESPIRATION REGULAR AND UNLABORED. DENIES PAIN. THE PATIENT IN NO APPARENT DISTRESS. THE PATIENT AND DAUGHTER ARE GIVEN DISCHARGE INSTRUCTIONS AND THEY VERBALIZED UNDERSTANDING. THE PATIENT LEFT THE HOSPITAL IN STABLE CONDITION WITH HER DAUGHTER ON A PRIVATE CAR.
[2019-05-26] MEDS ORDERED: ALENDRONATE 70 MG TABLET PO SCH (15:00)
[2019-06-15] MEDS ORDERED: AMLO10TA7 PO (11:50)
[2019-06-15] MEDS ORDERED: HYDR-4384 PO (12:55)
== END 2019-05-25 15:00 | disposition home health service (06) | DRG 280 ==
LOC: ER 13:04 → TELE 15:16 → MED 05-23 09:17
PROVIDERS: ADMIT Nurse Practitioner Acute Care; ATTEND Student in an Organized Health Care Education/Training Program
DX: I11.0 Hypertensive heart disease with heart failure (principal); I21.A1 Myocardial infarction type 2; J96.01 Acute respiratory failure with hypoxia; E66.2 Morbid (severe) obesity with alveolar hypoventilation; F41.9 Anxiety disorder, unspecified; F03.90 Unspecified dementia, unspecified severity, without behavioral disturbance, psychotic disturbance, mood disturbance, and anxiety; I25.10 Atherosclerotic heart disease of native coronary artery without angina pectoris; I50.33 Acute on chronic diastolic (congestive) heart failure; I70.90 Unspecified atherosclerosis; E78.5 Hyperlipidemia, unspecified; Z68.38 Body mass index [BMI] 38.0-38.9, adult; M81.0 Age-related osteoporosis without current pathological fracture; Z85.3 Personal history of malignant neoplasm of breast; D64.9 Anemia, unspecified; E11.9 Type 2 diabetes mellitus without complications; I27.20 Pulmonary hypertension, unspecified; K21.9 Gastro-esophageal reflux disease without esophagitis
CPT/HCPCS: 36415; 36600; 71045-TC; 80048-TC; 80053-TC; 80061-TC; 80076-TC; 80162-TC; 82728-TC; 82803-TC; 82962-TC; 83540-TC; 83605-TC; 83735-TC; 83880; 84100-TC; 84439-TC; 84443-TC; 84484-TC; 85025-TC; 87081-TC; 93307-TC; 97110-TC; 97116-TC; 97530-TC; G0378; J1120; J1815; J1940; J2270; J2930; J7030; J7050; Q9967

== ENCOUNTER 2019-06-11 14:29 | Inpatient (IN) | payer MEDICARE, MEDICAID ==
[2019-06-11] VITALS (7 sets, daily range): BP systolic 130–160; BP diastolic 78–82
[~2019-06-11] VITALS: Ht 152.4 cm; Wt 87.5 kg
[~2019-06-11 14:29] MED LIST changes: +ALEN70TA6 PO; -ASPI-495 PO; +CARV25TA2 PO; -CLOP75TA15 PO; +DIGO125T PO; -HUM10VIA SQ; -HUM10VIA3 SQ; +HYDR-3980 PO; +IBUP-1955 PO; +LINA5TAB PO; +LISI10TA5 PO; +LORA-258 PO; +MEMA28CA5 PO; -METF-440 PO; +METF-834 PO; -METO25TA4 PO; +NITR0.4T48 PO; +OMEP1CAP25 PO; +POTA8TAB3 PO; +ROSU40TA23 PO; -SOLI5TAB2 PO; +TEMA7.5C12 PO
--- NOTE | 2019-06-11 14:44 | NUR ---
PT AAOX4. BIBA RA 102 from home C/O "Been sick xcouple days- general weak/tired/dizzy. Placed on monitor and pulse ox. no acute distress noted. vss.
[2019-06-11] MEDS ORDERED: KETOROLAC TROMETHAMINE 15 MG/ML VIAL ONE (14:48)
[2019-06-11] MEDS ORDERED: ONDANSETRON HCL/PF 4 MG/2 ML VIAL ONE (14:48)
[2019-06-11] MEDS ORDERED: ONDANSETRON HCL/PF 4 MG/2 ML VIAL IVP ONE (15:00)
[2019-06-11] MEDS ORDERED: IV NS 0.9% 500 ML BAG IV ONE (15:00)
[2019-06-11] MEDS ORDERED: KETOROLAC TROMETHAMINE INJ 30 MG/ML VIAL IV ONE (15:00)
[2019-06-11 15:06] LABS: BASOPHILS % (AUTO) 0.9 % (0.0-2.0); EOSINOPHILS % (AUTO) 3.5 % (0.0-6.0); HEMATOCRIT 31 % (33-45); HEMOGLOBIN 10.2 g/dL (11.5-14.8); LYMPHOCYTES # (AUTO) 1.4 /CMM (0.8-4.8); LYMPHOCYTES % (AUTO) 32.3 % (20.0-44.0); MEAN CORPUSCULAR HGB CONC 33 g/dl (31.0-36.0); MEAN CORPUSCULAR VOLUME 91 fL (82-100); MONOCYTES # (AUTO) 0.5 /CMM (0.1-1.30); MONOCYTES % (AUTO) 12.2 % (2.0-12.0); NEUTROPHILS # (AUTO) 2.2 /CMM (1.8-8.9); NEUTROPHILS % (AUTO) 51.1 % (43.0-81.0); PLATELET COUNT (AUTO) 177 /CMM (150-450); RED BLOOD CELL COUNT(AUTO) 3.41 MIL/uL (4.0-5.2); WHITE BLOOD COUNT (AUTO) 4.3 K/uL (4.3-11.0)
[2019-06-11 15:13] LABS: CALCIUM, SERUM 9.8 mg/dL (8.5-10.1); POTASSIUM 3.5 mmol/L (3.5-5.1)
[2019-06-11 15:20] LABS: ALBUMIN 3.4 g/dL (3.4-5.0); BILIRUBIN,DIRECT 0.1 mg/dL (0.0-0.2); BILIRUBIN,TOTAL 0.3 mg/dL (0.2-1.0)
--- NOTE | 2019-06-11 15:40 | NUR ---
PT SAT 93. PLACED ON 2L NC NOW SAT 98
[2019-06-11 15:46] LABS: APPEARANCE,URINE Clear (CLEAR); BILIRUBIN,URINE Negative (NEGATIVE); BLOOD, URINE Negative Ery/uL (NEGATIVE); COLOR,URINE Yellow (YELLOW); KETONES,URINE Negative (NEGATIVE); LEUKOCYTE ESTERASE ,URINE Negative (NEGATIVE); NITRITE, URINE Negative (NEGATIVE); PROTEIN,URINE 100 mg/dl (NEGATIVE); UGLUCOSE Negative (NEGATIVE); UROBILINOGEN,URINE 0.2 EU/dL (0.2)
--- NOTE | 2019-06-11 15:56 | NUR ---
PT OFF 2L NC. SAT 97
[2019-06-11] MEDS ORDERED: FUROSEMIDE 40 MG/4 ML VIAL IV ONE (16:00)
[2019-06-11 16:01] LABS: RBC,URINE NONE SEEN /HPF (0-2); WBC,URINE NONE SEEN /HPF (0-3)
[2019-06-11 16:02] LABS: BACTERIA,URINE 1+ /HPF (None Seen); HYALINE CASTS, URINE Many /LPF (None Seen); MUCUS,URINE Few /LPF (None Seen); SQUAMOUS EPITHELIAL CELL,UR Moderate /HPF (None Seen)
[2019-06-11] MEDS ORDERED: FUROSEMIDE 100 MG/10 ML VIAL ONE (16:06)
--- NOTE | 2019-06-11 16:19 | NUR ---
PT RESTING COMFORTABLY.
[2019-06-11] MEDS ORDERED: ENALAPRILAT INJ (1.25 MG/ML) 1.25 MG/ML VIAL IV ONE (16:26)
[2019-06-11] MEDS ORDERED: ENALAPRILAT INJ (1.25 MG/ML) 1.25 MG/ML VIAL IV PRN (16:30)
--- NOTE | 2019-06-11 17:07 | NUR ---
REPORT GIVEN TO KARAN RUSSELL FOR JADE
[2019-06-11] MEDS ORDERED: MAGNESIUM HYDROXIDE 30 ML UDC PO PRN (18:00)
[2019-06-11] MEDS ORDERED: ZOLPIDEM TARTRATE 5 MG TABLET PO PRN (18:00)
[2019-06-11] MEDS ORDERED: CLONIDINE HCL 0.1 MG TABLET PO PRN (18:00)
[2019-06-11] MEDS ORDERED: Z GUARD REMEDY 2 OZ OINT TP PRN (18:00)
[2019-06-11] MEDS ORDERED: NITROGLYCERIN 0.4 MG/TAB BOTTLE SL PRN (18:00)
[2019-06-11] MEDS ORDERED: ONDANSETRON HCL/PF 4 MG/2 ML VIAL IVP PRN (18:00)
[2019-06-11] MEDS ORDERED: HYDROCODONE/APAP 5/325MG 1 EACH TABLET PO PRN (18:00)
[2019-06-11] MEDS ORDERED: DEXTROSE 50%-WATER 50 ML DISP.SYRIN IV PRN (18:00)
[2019-06-11] MEDS ORDERED: ACETAMINOPHEN 325 MG TABLET PO PRN (18:00)
[2019-06-11] MEDS ORDERED: MAG HYDROX/AL HYDROX/SIMETH 30 ML UDC PO PRN (18:00)
[2019-06-11] MEDS ORDERED: LORAZEPAM 0.5 MG TABLET PO PRN (18:00)
[2019-06-11] MEDS ORDERED: ALBUTEROL FS 2.5 MG/0.5 ML VIAL.NEB NEB PRN (18:00)
--- NOTE | 2019-06-11 18:00 | NUR ---
pt transfered per acls protocol
--- NOTE | 2019-06-11 18:20 | NUR ---
JAVASCRIPT UI DEVELOPER ADMITTING NOTES PATIENT ARRIVED IN UNIT WHEELED VIA GURNEY BY ER STAFF. PATIENT AWAKE, A/O X4; NO S/S OF ACUTE DISTRESS NOTED; BREATHING EVEN AND UNLABORED; PATIENT ON 2L O2 NC; TOLERATES RA WELL. PATIENT DENIES PAIN. TELE MONITOR ATTACHED TO PATIENT. IV R WRIST, INTACT AND PATENT. FLUSHING WELL; NO S/S OF REDNESS OR INFILTRATION; BED LOCKED IN LOWEST POSITION; SIDE RAILS X2. CALL LIGHT WITHIN EASY REACH. WILL CONTINUE TO MONITOR.
--- NOTE | 2019-06-11 19:03 | NUR ---
EDUCATION REP CLOSING NOTES PATIENT RESTING COMFORTABLY IN BED. BREATHING EVEN AND UNLABORED. IV R WRIST INTACT AND PATENT; NO S/S OF REDNESS OR INFILTRATION; IV SITE FLUSHING WELL. SAFETY PRECAUTIONS IN PLACE; BED LOCKED IN LOWEST POSITION; SIDE RAILS X2; CALL LIGHT WITHIN EASY REACH. TELE MONITOR SR. WILL ENDORSE ADMISSION PHOTOS TO ONCOMING SHIFT. WILL ENDORSE CONTINUITY OF CARE TO ONCOMING SHIFT.
--- NOTE | 2019-06-11 20:21 | NUR ---
RN NOTES CLONIDINE 0.1 MG PO GIVEN FOR BP 190/100. PATIENT'S DAUGHTER MARIO WANTS TO TALK DR. MOSELEY. WILL INFORM
--- NOTE | 2019-06-11 20:50 | NUR ---
RN NOTES DR. MOSELEY CAME AND TALKED TO FAMILY MEMBERS, ASSESSED PATIENT, COREG ROUTINE MEDS GIVEN. TO MONITOR BP EVERY 15 MINUTES AND HOUR. DO NOT GIVE AMBIEN FOR TONIGHT.WILL MONITOR.
[2019-06-11] MEDS: CARVEDILOL 12.5 MG TABLET PO SCH (21:00)
[2019-06-11] MEDS ORDERED: CARVEDILOL 25 MG TABLET PO SCH (21:00)
[2019-06-11] MEDS: BLOOD SUGAR DIAGNOSTIC 1 EACH STRIP VI SCH (23:16)
[2019-06-12] VITALS: BP 165/85
[2019-06-12 00:30] VITALS: BP 150/78
[2019-06-12 04:38] VITALS: BP 148/80
[2019-06-12 06:28] LABS: BASOPHILS % (AUTO) 0.7 % (0.0-2.0); EOSINOPHILS % (AUTO) 2.4 % (0.0-6.0); HEMATOCRIT 30 % (33-45); LYMPHOCYTES % (AUTO) 26.5 % (20.0-44.0); MEAN CORPUSCULAR HGB CONC 33 g/dl (31.0-36.0); MEAN CORPUSCULAR VOLUME 90 fL (82-100); MONOCYTES # (AUTO) 0.4 /CMM (0.1-1.30); MONOCYTES % (AUTO) 11.3 % (2.0-12.0); NEUTROPHILS # (AUTO) 2.3 /CMM (1.8-8.9); NEUTROPHILS % (AUTO) 59.1 % (43.0-81.0); PLATELET COUNT (AUTO) 170 /CMM (150-450); RED BLOOD CELL COUNT(AUTO) 3.35 MIL/uL (4.0-5.2); WHITE BLOOD COUNT (AUTO) 3.8 K/uL (4.3-11.0)
[2019-06-12 06:43] LABS: CALCIUM, SERUM 9.1 mg/dL (8.5-10.1); CREATININE 1.1 mg/dL (0.6-1.3); POTASSIUM 3.4 mmol/L (3.5-5.1)
[2019-06-12 06:54] LABS: BILIRUBIN,TOTAL 0.3 mg/dL (0.2-1.0); MAGNESIUM 1.7 mg/dL (1.8-2.4); PHOSPHORUS 4.4 mg/dL (2.5-4.9); TOTAL PROTEIN, SERUM 6.4 g/dL (6.4-8.2)
[2019-06-12 06:56] LABS: THYROID STIMULATING HORMONE 1.869 uIU/mL (0.358-3.74)
--- NOTE | 2019-06-12 07:00 | NUR ---
MS/RN Pt received AOx4, able to response all stimuli. Pt. does no c/o pain nor any discomfort. Skin is warm to touch, intact IV site. Kept remain low bed position with elevated HOB, respiratory even and unlabored. Checked by manual BP. Call light within reach, will continue to minor.
[2019-06-12 07:10] LABS: DIGOXIN 1.17 ng/mL (0.90-2.00)
[2019-06-12] MEDS: BLOOD SUGAR DIAGNOSTIC 1 EACH STRIP VI SCH ×4 (07:31→22:37)
--- NOTE | 2019-06-12 07:32 | NUR ---
RN NOTES ALL NEEDS ATTENDED AND MET, ABLE TO REST AND SLEPT AT INTERVALS. SAFETY MEASURES IN PLACED, ASPIRATION PRECAUTION EMPHASIZED. ABLE TO MAINTAIN SBP BELOW 160. LATEST BP IS 148/80. ENDORSED TO AM NURSE FOR CONTINUITY OF CARE.
--- NOTE | 2019-06-12 07:50 | NUR ---
RN NOTES RECEIVED PATIENT AWAKE ALERT ORIENTED X4, SAFETY MEASURES IN PLACE ASPIRATION PRECAUTION EMPHASIZED, ALL NEEDS ANTICIPATED, WILL MONITOR ACCORDINGLY.
[2019-06-12] MEDS ORDERED: acetaZOLAMIDE SODIUM 500 MG/VIAL VIAL IV ONE (08:00)
--- NOTE | 2019-06-12 08:00 | NUR ---
MS RN NOTES PATIENT IN BED RESTING NO SOB OR ACUTE DISTRESS NOTED. PATIENT ALERT, ORIENTED X3. ALL DUE MEDICATIONS ADMINISTERED. ALL NEEDS MET NO ACUTE CHANGES NOTED DURING SHIFT. WILL ENDORSE CARE TO PM SHIFT.
[2019-06-12] MEDS: Magnesium 1GM/D5W 100ML PREMIX 100 ML IV SCH ×2 (08:17→09:53)
[2019-06-12] MEDS: MEMANTINE HCL 5 MG TABLET PO SCH ×2 (08:18→17:19)
[2019-06-12] MEDS: POTASSIUM CHLORIDE 20 MEQ TAB.PRT.SR PO SCH ×3 (08:18→11:07)
[2019-06-12] MEDS: AMLODIPINE BESYLATE 10 MG TABLET PO SCH (08:18)
[2019-06-12 08:19] VITALS: BP 184/78
[2019-06-12] MEDS: ATORVASTATIN 40 MG TABLET PO SCH (08:19)
[2019-06-12] MEDS: HYDROCHLOROTHIAZIDE 25 MG TABLET PO SCH (08:19)
[2019-06-12] MEDS: CARVEDILOL 12.5 MG TABLET PO SCH ×2 (08:19→21:35)
[2019-06-12] MEDS ORDERED: LOSARTAN POTASSIUM 50 MG TABLET PO SCH (09:00)
[2019-06-12] MEDS ORDERED: FUROSEMIDE 40 MG/4 ML VIAL IV SCH (09:00)
[2019-06-12] MEDS ORDERED: Medication Not On Formulary EA (Rosuvastatin Calcium 40 MG) PO SCH (09:00)
[2019-06-12] MEDS ORDERED: Medication Not On Formulary EA (Olmesartan Med/Amlodipine/Hctz (Tribenzor 40-10-25 Mg Ta PO SCH (09:00)
[2019-06-12] MEDS ORDERED: POTASSIUM CHLORIDE 10 MEQ TABLET.SA PO SCH (09:00)
[2019-06-12] MEDS ORDERED: LISINOPRIL (10MG) 10 MG TABLET PO SCH (09:00)
[2019-06-12] MEDS: VALSARTAN 80 MG TABLET PO SCH (09:43)
[2019-06-12] MEDS: INSULIN REGULAR, HUMAN 100 UNIT/ML 3 ML VIAL SQ PRN (12:34)
[2019-06-12] MEDS: DIGOXIN 0.125 MG TABLET PO SCH (13:35)
[2019-06-12 16:11] VITALS: BP 172/78
[2019-06-12] MEDS: *INSULIN REGULAR(HUMULIN R)HUM 100 UNIT/ML VIAL SQ PRN (17:21)
[2019-06-12 20:27] VITALS: BP 140/53
[2019-06-13] MEDS: BLOOD SUGAR DIAGNOSTIC 1 EACH STRIP VI SCH ×4 (06:35→21:19)
[2019-06-13 06:54] LABS: BASOPHILS % (AUTO) 0.9 % (0.0-2.0); EOSINOPHILS % (AUTO) 3.5 % (0.0-6.0); HEMATOCRIT 31 % (33-45); HEMOGLOBIN 10.1 g/dL (11.5-14.8); LYMPHOCYTES # (AUTO) 1.4 /CMM (0.8-4.8); LYMPHOCYTES % (AUTO) 31.6 % (20.0-44.0); MEAN CORPUSCULAR HGB CONC 33 g/dl (31.0-36.0); MEAN CORPUSCULAR VOLUME 90 fL (82-100); MONOCYTES # (AUTO) 0.5 /CMM (0.1-1.30); NEUTROPHILS # (AUTO) 2.4 /CMM (1.8-8.9); PLATELET COUNT (AUTO) 176 /CMM (150-450); RED BLOOD CELL COUNT(AUTO) 3.38 MIL/uL (4.0-5.2); WHITE BLOOD COUNT (AUTO) 4.6 K/uL (4.3-11.0)
--- NOTE | 2019-06-13 07:00 | NUR ---
MS/RN Opening Note Received Patient AO x 3, does no complain of pain or discomfort, skin is warm to touch, kept intact IV site. Respiratory even and unlabored, O2sat 98% in room air. call light within reach, will continue to monitor.
[2019-06-13 07:28] LABS: ALBUMIN 3.2 g/dL (3.4-5.0); BILIRUBIN,TOTAL 0.3 mg/dL (0.2-1.0); CALCIUM, SERUM 9.3 mg/dL (8.5-10.1); CREATININE 0.9 mg/dL (0.6-1.3); MAGNESIUM 1.9 mg/dL (1.8-2.4); PHOSPHORUS 3.4 mg/dL (2.5-4.9); POTASSIUM 3.2 mmol/L (3.5-5.1); TOTAL PROTEIN, SERUM 6.6 g/dL (6.4-8.2)
--- NOTE | 2019-06-13 07:48 | NUR ---
RN NOTES ALL NEEDS ATTENDED AND MET, ABLE TO REST AND SLEPT AT INTERVALS, DENIES ANY PAIN OR DISCOMFORT. BLOOD PRESSURE WITHIN PATIENT'S PARAMETER, SBP BELOW 160. SAFETY MEASURES IN PLACE, ASPIRATION PRECAUTION EMPHASIZED. ENDORSED TI AM NURSE FOR CONTINUITY OF CARE.
[2019-06-13 08:00] VITALS: BP_SYST 138; BP_SYST 148; BP_DIAS 66; BP_DIAS 82
[2019-06-13] MEDS: POTASSIUM CHLORIDE 20 MEQ TAB.PRT.SR PO SCH ×3 (08:21→10:40)
[2019-06-13] MEDS: MEMANTINE HCL 5 MG TABLET PO SCH ×2 (08:26→17:04)
[2019-06-13] MEDS: VALSARTAN 80 MG TABLET PO SCH (08:27)
[2019-06-13] MEDS: CARVEDILOL 12.5 MG TABLET PO SCH ×2 (08:27→21:19)
[2019-06-13] MEDS: AMLODIPINE BESYLATE 10 MG TABLET PO SCH (08:27)
[2019-06-13] MEDS: HYDROCHLOROTHIAZIDE 25 MG TABLET PO SCH (08:28)
[2019-06-13] MEDS: ATORVASTATIN 40 MG TABLET PO SCH (08:28)
[2019-06-13] MEDS: LISINOPRIL (10MG) 10 MG TABLET PO SCH (08:33)
[2019-06-13] MEDS ORDERED: FUROSEMIDE 20 MG/2 ML VIAL IV ONE (11:00)
[2019-06-13] MEDS: *INSULIN REGULAR(HUMULIN R)HUM 100 UNIT/ML VIAL SQ PRN (11:59)
[2019-06-13] MEDS: DIGOXIN 0.125 MG TABLET PO SCH (12:30)
[2019-06-13 16:00] VITALS: BP 148/73
--- NOTE | 2019-06-13 18:44 | NUR ---
MS/RN Closing note Pt is in bed comfortably, no pain or distress observed. Skin is warm to touch, controlled blood pressure less than 150 of SBP, respiratory even and unlabored. Call light within reach, will continue to monitor.
[2019-06-13 20:00] VITALS: BP 142/61
--- NOTE | 2019-06-14 06:30 | NUR ---
MS RN NOTES AWAKE & RESPONSIVE. NOT IN ANY DISTRESS. NO SOB NOTED. DENIES ANY PAIN OR DISCOMFORT AT THIS TIME. WITH IV-HL PATENT & INTACT. AM CARE DONE. MONITORED ACCORDINGLY. CALL LIGHT WITHIN REACH. BED IN LOWEST POSITION. SR UP X 2 FOR SAFETY. WILL ENDORSE TO NEXT SHIFT.
[2019-06-14] MEDS: BLOOD SUGAR DIAGNOSTIC 1 EACH STRIP VI SCH ×4 (06:34→21:50)
--- NOTE | 2019-06-14 07:10 | NUR ---
MS RN OPENING NOTES RECEIVED PATIENT IN BED ALERT AND AWAKE. NO SOB. DENIES ANY C/O PAIN NOR DISCOMFORT. SLEPT WELL THROUGHOUT THE NIGHT PER PATIENT. RT HAND SL #24 INTACT AND PATENT. KAY IN LOWEST POSITION, LOCKED. BED ALARM ON. CALL LIGHT WITHIN EACH.
[2019-06-14 07:11] LABS: BASOPHILS % (AUTO) 0.6 % (0.0-2.0); EOSINOPHILS % (AUTO) 3.4 % (0.0-6.0); HEMATOCRIT 30 % (33-45); LYMPHOCYTES # (AUTO) 1.5 /CMM (0.8-4.8); LYMPHOCYTES % (AUTO) 33.3 % (20.0-44.0); MEAN CORPUSCULAR HGB CONC 33 g/dl (31.0-36.0); MEAN CORPUSCULAR VOLUME 90 fL (82-100); MONOCYTES # (AUTO) 0.6 /CMM (0.1-1.30); MONOCYTES % (AUTO) 13.8 % (2.0-12.0); NEUTROPHILS # (AUTO) 2.1 /CMM (1.8-8.9); NEUTROPHILS % (AUTO) 48.9 % (43.0-81.0); PLATELET COUNT (AUTO) 170 /CMM (150-450); RED BLOOD CELL COUNT(AUTO) 3.37 MIL/uL (4.0-5.2); WHITE BLOOD COUNT (AUTO) 4.4 K/uL (4.3-11.0)
[2019-06-14 07:21] LABS: CALCIUM, SERUM 9.2 mg/dL (8.5-10.1); POTASSIUM 3.4 mmol/L (3.5-5.1)
[2019-06-14 08:00] VITALS: BP 169/75
[2019-06-14] MEDS: HYDROCHLOROTHIAZIDE 25 MG TABLET PO SCH (09:22)
[2019-06-14] MEDS: ATORVASTATIN 40 MG TABLET PO SCH (09:22)
[2019-06-14] MEDS: MEMANTINE HCL 5 MG TABLET PO SCH ×2 (09:22→17:42)
[2019-06-14] MEDS: VALSARTAN 80 MG TABLET PO SCH (09:22)
[2019-06-14] MEDS: LISINOPRIL (10MG) 10 MG TABLET PO SCH (09:23)
[2019-06-14] MEDS: CARVEDILOL 12.5 MG TABLET PO SCH ×2 (09:23→20:42)
[2019-06-14] MEDS: AMLODIPINE BESYLATE 10 MG TABLET PO SCH (09:24)
[2019-06-14] MEDS: POTASSIUM CHLORIDE 20 MEQ TAB.PRT.SR PO SCH ×2 (10:26→11:28)
[2019-06-14] MEDS: *INSULIN REGULAR(HUMULIN R)HUM 100 UNIT/ML VIAL SQ PRN ×3 (11:45→21:50)
[2019-06-14] MEDS: DIGOXIN 0.125 MG TABLET PO SCH (12:07)
[2019-06-14 16:00] VITALS: BP 154/73
--- NOTE | 2019-06-14 18:52 | NUR ---
MS RN CLOSING NOTES ALERT AND ORIENTED X4. NO S/S OF RESPIRATORY DISTRESS. REMAIN ON ROOM AIR THROUGHOUT SHIFT WITH SPO2 > 92%. DENIES ANY C/O PAIN NOR DISCOMFORT. AMBULATORY WITH THE USE OF WALKER WITH STEADY GAIT. BRP. RT HAND SL #24 INTACT AND PATENT. BED IN LOWEST POSITION, LOCKED. BED ALARM ON. CALL LIGHT WITHIN EACH. IN NO APPARENT DISTRESS.
--- NOTE | 2019-06-14 19:35 | NUR ---
MS/RN OPENING NOTES: RECEIVED PATIENT IN BED ALERT AND AWAKE. A/OX4. FAMILY AT BEDSIDE. NO SOB NOTED. NO S/S OF ACUTE DISTRESS. DENIES ANY C/O PAIN NOR DISCOMFORT. RT HAND SL #24 INTACT AND PATENT. SAFETY MEASURES IN PLACE. BED IN LOWEST POSITION, LOCKED. BED ALARM ON. CALL LIGHT WITHIN EACH. WILL CONTINUE MONITORING PT ACCORDINGLY.
[2019-06-14 20:00] VITALS: BP 157/93
--- NOTE | 2019-06-14 23:39 | NUR ---
MS/RN NOTES: SKIN ASSESSMENT DONE, PHOTOS TAKEN AND DOCUMENTED ON THE CHART.
--- NOTE | 2019-06-15 06:21 | NUR ---
MS/RN CLOSING NOTES: PATIENT IS IN BED RESTING COMFORTABLE. A/OX4. NO SIGNIFICANT CHANGES IN CONDITION. NO SOB NOTED. NO S/S OF ACUTE DISTRESS. RT HAND SL #24 INTACT AND PATENT. ALL DUE MEDS GIVEN ORDERED. KEPT PT WARM AND COMFORTABLE THROUGH THE NIGHT. ALL NEEDS MET AT THIS TIME. NO COMPLAINS OF PAIN OR DISCOMFORT. PT REFUSED MORNING LABS. BLOOD SUGAR CHECK 114. NO INSULIN GIVEN BASED ON SLIDING SCALE. SAFETY MEASURES IN PLACE. BED IN LOWEST POSITION, LOCKED. BED ALARM ON. CALL LIGHT WITHIN EACH. WILL ENDORSE TO DAYSHIFT FOR JADE.
[2019-06-15] MEDS: BLOOD SUGAR DIAGNOSTIC 1 EACH STRIP VI SCH ×2 (06:43→12:11)
[2019-06-15] MEDS: INSULIN REGULAR, HUMAN 100 UNIT/ML 3 ML VIAL SQ PRN (06:44)
--- NOTE | 2019-06-15 07:10 | NUR ---
MS RN OPENING NOTES RECEIVED PATIENT ALERT AND AWAKE WATCHING TV.SLEPT WELL THROUGHOUT THE NIGHT PER PATIENT. NO S/S OF RESPIRATORY DISTRESS. DENIES ANY C/O PAIN NOR DISCOMFORT AT THIS TIME. RT HAND # 24 SL INTACT AND PATENT. BED IN LOWEST POSITION, LOCKED. BED ALARM ON. BED SIDERAILS UP X2. CALL LIGHT WITHIN REACH.
[2019-06-15 08:00] VITALS: BP 162/80
[2019-06-15] MEDS: LISINOPRIL (10MG) 10 MG TABLET PO SCH (08:45)
[2019-06-15] MEDS: MEMANTINE HCL 5 MG TABLET PO SCH (08:45)
[2019-06-15] MEDS: VALSARTAN 80 MG TABLET PO SCH (08:45)
[2019-06-15 08:46] VITALS: BP 150/77
[2019-06-15] MEDS: CARVEDILOL 12.5 MG TABLET PO SCH (08:46)
[2019-06-15] MEDS: HYDROCHLOROTHIAZIDE 25 MG TABLET PO SCH (08:46)
[2019-06-15] MEDS: ATORVASTATIN 40 MG TABLET PO SCH (08:46)
[2019-06-15] MEDS: AMLODIPINE BESYLATE 10 MG TABLET PO SCH (08:46)
[2019-06-15 09:35] LABS: BASOPHILS % (AUTO) 0.9 % (0.0-2.0); EOSINOPHILS % (AUTO) 3.7 % (0.0-6.0); HEMATOCRIT 35 % (33-45); HEMOGLOBIN 11.4 g/dL (11.5-14.8); LYMPHOCYTES # (AUTO) 1.2 /CMM (0.8-4.8); LYMPHOCYTES % (AUTO) 27.3 % (20.0-44.0); MEAN CORPUSCULAR HGB CONC 33 g/dl (31.0-36.0); MEAN CORPUSCULAR VOLUME 90 fL (82-100); MONOCYTES # (AUTO) 0.5 /CMM (0.1-1.30); MONOCYTES % (AUTO) 11.4 % (2.0-12.0); NEUTROPHILS # (AUTO) 2.5 /CMM (1.8-8.9); NEUTROPHILS % (AUTO) 56.7 % (43.0-81.0); PLATELET COUNT (AUTO) 203 /CMM (150-450); RED BLOOD CELL COUNT(AUTO) 3.85 MIL/uL (4.0-5.2); WHITE BLOOD COUNT (AUTO) 4.4 K/uL (4.3-11.0)
[2019-06-15 09:44] LABS: CALCIUM, SERUM 9.6 mg/dL (8.5-10.1); POTASSIUM 3.6 mmol/L (3.5-5.1)
[2019-06-15] MEDS ORDERED: AMLO10TA7 PO (11:50)
[2019-06-15] MEDS: DIGOXIN 0.125 MG TABLET PO SCH (12:11)
--- NOTE | 2019-06-15 12:13 | NUR ---
MS RN NOTES BS 129MG/DL
[2019-06-15] MEDS ORDERED: HYDR-4384 PO (12:55)
--- NOTE | 2019-06-15 14:15 | NUR ---
MS RN CLOSING NOTES PATIENT ALERT AND ORIENTED X4. AMBULATORY WITH STEADY GAIT. NO SOB. DENIES ANY C/O PAIN NOR DISCOMFORT AT THIS TIME. AMBULATORY WITH STEADY GAIT WITH THE USE OF WALKER. DAUGHTER AT BEDSIDE. DISCHARGE INSTRUCTIONS EXPLAINED ALONG WITH EDUCATION AND DISCHARGE PACKET GIVEN TO DAUGHTER MARIO. PATIENT HAD NO BELONGINGS. IV ACCES REMOVED WITH CATHETER TIP INTACT WITH GAUZE DRESSING APPLIED. PATIENT LEFT IN STABLE CONDITION VIA PRIVATE CAR.
== END 2019-06-15 14:15 | disposition home or self-care (01) | DRG 438 ==
LOC: ER 14:30 → TELE 17:46 → MED 06-12 10:22
PROVIDERS: ADMIT Nurse Practitioner Acute Care; ATTEND Internal Medicine
DX: K85.90 Acute pancreatitis without necrosis or infection, unspecified (principal); I50.33 Acute on chronic diastolic (congestive) heart failure; J98.11 Atelectasis; I11.0 Hypertensive heart disease with heart failure; I25.10 Atherosclerotic heart disease of native coronary artery without angina pectoris; D63.8 Anemia in other chronic diseases classified elsewhere; E66.9 Obesity, unspecified; Z68.37 Body mass index [BMI] 37.0-37.9, adult; K21.9 Gastro-esophageal reflux disease without esophagitis; Z90.11 Acquired absence of right breast and nipple; E11.9 Type 2 diabetes mellitus without complications; Z85.3 Personal history of malignant neoplasm of breast; Z79.899 Other long term (current) drug therapy; Z79.84 Long term (current) use of oral hypoglycemic drugs; Z80.9 Family history of malignant neoplasm, unspecified; Z90.49 Acquired absence of other specified parts of digestive tract; G89.29 Other chronic pain; I70.0 Atherosclerosis of aorta; I25.2 Old myocardial infarction; F41.9 Anxiety disorder, unspecified; E87.6 Hypokalemia; E83.42 Hypomagnesemia; E78.00 Pure hypercholesterolemia, unspecified
CPT/HCPCS: 36415; 71045-TC; 80048-TC; 80053-TC; 80061-TC; 80076-TC; 80162-TC; 81000-TC; 82962-TC; 83690-TC; 83735-TC; 83880; 84100-TC; 84443-TC; 84484-TC; 85025-TC; 87081-TC; 97116-TC; 97530-TC; G0378; J1120; J1815; J1885; J1940; J2405; J3475; J3490; J7040; J7050

== ENCOUNTER 2019-07-10 10:58 | Emergency (ER) | payer MEDICARE, OTHER ==
[~2019-07-10] VITALS: Ht 152.4 cm; Wt 90.7 kg
[~2019-07-10 10:58] MED LIST changes: +AMLO10TA7 PO; +HYDR-4384 PO
--- NOTE | 2019-07-10 11:00 | NUR ---
BIB RA 102 FROM HOME,C/O HEADACHE X 3 DAYS, PT AWAKE, ALERT, -SOB, NAD NOTED, VSS, PENDING MD RODRIGUEZ
[2019-07-10] MEDS ORDERED: IV NS 0.9% 500 ML BAG IV ONE (12:00)
[2019-07-10] MEDS ORDERED: LORAZEPAM INJ 2 MG/ML VIAL IV ONE (12:00)
[2019-07-10] MEDS ORDERED: MORPHINE SULFATE INJ 2 MG/ML DISP.SYRIN IV ONE (12:00)
[2019-07-10] MEDS ORDERED: MORPHINE SULFATE INJ 2 MG/ML DISP.SYRIN ONE (12:03)
[2019-07-10] MEDS ORDERED: LORAZEPAM INJ 2 MG/ML VIAL ONE (12:03)
[2019-07-10 12:05] LABS: BASOPHILS % (AUTO) 0.4 % (0.0-2.0); EOSINOPHILS % (AUTO) 2.6 % (0.0-6.0); HEMATOCRIT 31 % (33-45); HEMOGLOBIN 10.5 g/dL (11.5-14.8); LYMPHOCYTES # (AUTO) 1.4 /CMM (0.8-4.8); LYMPHOCYTES % (AUTO) 24.9 % (20.0-44.0); MEAN CORPUSCULAR HGB CONC 34 g/dl (31.0-36.0); MEAN CORPUSCULAR VOLUME 89 fL (82-100); MONOCYTES # (AUTO) 0.8 /CMM (0.1-1.30); MONOCYTES % (AUTO) 14.1 % (2.0-12.0); NEUTROPHILS # (AUTO) 3.2 /CMM (1.8-8.9); PLATELET COUNT (AUTO) 220 /CMM (150-450); RED BLOOD CELL COUNT(AUTO) 3.45 MIL/uL (4.0-5.2); WHITE BLOOD COUNT (AUTO) 5.5 K/uL (4.3-11.0)
[2019-07-10] MEDS ORDERED: HYDROCODONE/APAP 5/325MG 1 EACH TABLET ONE (12:10)
[2019-07-10 12:13] LABS: CALCIUM, SERUM 9.8 mg/dL (8.5-10.1); CARBON DIOXIDE 31 mmol/L (21-32); CHLORIDE 102 mmol/L (98-107); CREATININE 1.6 mg/dL (0.6-1.3); GLUCOSE 150 mg/dL (74-106); POTASSIUM 3.2 mmol/L (3.5-5.1); SODIUM SERUM 140 mmol/L (136-145); UREA NITROGEN, BLOOD 46 mg/dL (7-18)
[2019-07-10 12:19] LABS: ALANINE AMINOTRANSFERASE 28 U/L (12-78); ALBUMIN 3.3 g/dL (3.4-5.0); ALKALINE PHOSPHATASE 76 U/L (46-116); ASPARTATE AMINOTRANSFERASE 23 U/L (15-37); BILIRUBIN,DIRECT 0.1 mg/dL (0.0-0.2); BILIRUBIN,TOTAL 0.3 mg/dL (0.2-1.0); TOTAL PROTEIN, SERUM 7.1 g/dL (6.4-8.2)
[2019-07-10] MEDS ORDERED: HYDROCODONE/APAP 5/325MG 1 EACH TABLET PO ONE (12:30)
[2019-07-10] MEDS ORDERED: IV NS 0.9% 1,000 ML BAG IV ONE (12:30)
[2019-07-10] MEDS ORDERED: IOHEXOL-300 100 ML VIAL IV ONE (12:39)
[2019-07-10] MEDS ORDERED: IV NS 0.9% 250 ML IV ONE (12:39)
[2019-07-10] MEDS ORDERED: CT SWABBABLE VALVE TRANS SET 1 EA INFUS.SET MC ONE (12:39)
[2019-07-10 12:58] LABS: APPEARANCE,URINE Slightly Cloudy (CLEAR); BILIRUBIN,URINE Negative (NEGATIVE); BLOOD, URINE Trace-intact Ery/uL (NEGATIVE); COLOR,URINE Yellow (YELLOW); KETONES,URINE Negative (NEGATIVE); LEUKOCYTE ESTERASE ,URINE Small (NEGATIVE); NITRITE, URINE Positive (NEGATIVE); PH,URINE 5.5 (5.0-8.0); PROTEIN,URINE 30 mg/dl (NEGATIVE); UGLUCOSE Negative (NEGATIVE); UROBILINOGEN,URINE 0.2 EU/dL (0.2)
[2019-07-10 13:09] LABS: BACTERIA,URINE Moderate /HPF (None Seen); RBC,URINE 0-2 /HPF (0-2); SQUAMOUS EPITHELIAL CELL,UR Few /HPF (None Seen)
--- NOTE | 2019-07-10 14:48 | NUR ---
Patient discharged to home in stable condition. Written and verbal after care instructions given. Patient verbalizes understanding of instruction. IV removed. Catheter intact and site benign. Pressure and 4x4 applied to site. No bleeding noted.
[2019-07-10 14:49] VITALS: BP 110/75
--- NOTE | 2019-07-14 11:55 | NUR ---
LATE ENTRY: ATIVAN ORDERED WAS GIVEN IVP VERIFIED WITH ANDREA RN, END TIME WAS DOCUMENTED IN ERROR
[2019-08-01] MEDS ORDERED: AZIT250T13 PO (13:00)
[2019-08-01] MEDS ORDERED: METH4TAB17 PO (13:00)
[2019-08-01] MEDS ORDERED: AMLO10TA7 PO (13:05)
== END 2019-07-10 14:49 | disposition home or self-care (01) ==
LOC: ER 11:01
DX: N39.0 Urinary tract infection, site not specified (principal); R51 Headache; I10 Essential (primary) hypertension; E11.9 Type 2 diabetes mellitus without complications; E78.00 Pure hypercholesterolemia, unspecified; G89.29 Other chronic pain; Z85.3 Personal history of malignant neoplasm of breast; Z90.49 Acquired absence of other specified parts of digestive tract; Z98.890 Other specified postprocedural states; Z79.899 Other long term (current) drug therapy; Z79.84 Long term (current) use of oral hypoglycemic drugs
CPT/HCPCS: 36415; 70470; 71045; 71260; 72125; 80048; 80076; 81001; 83605; 84484; 85025; 87086; 96374; 99284; J2060; J7030; J7040; J7050; Q9967; 81000-TC; J2270

== ENCOUNTER 2019-07-20 11:07 | Inpatient (IN) | payer MEDICARE, MEDICAID ==
[~2019-07-20] VITALS: Ht 157.5 cm; Wt 83.0 kg
--- NOTE | 2019-07-20 11:26 | NUR ---
bibra89, from home, c/o abd pain, body pain, not eating, weak, x 1-2 days. STATES PAIN OF 9/10, RADIATES TO LEFT BACK. DENIES SOB, DIZZINESS, WEAKNESS, N/V. AOX3, AMB WITH WALKER, VSS, RR EVEN AND UNLABORED. SKIN WARM, DRY, INTACT. HX BREAST CA WITH RIGHT MASTECTOMY. SKIN REDDENED AT MASTECTOMY SITE, NORMAL PER DAUGHTER. NO ACUTE DISTRESS NOTED. ON MONITOR, MADE COMFORTABLE, AND READY FOR EVAL.
[2019-07-20] MEDS ORDERED: IV NS 0.9% 500 ML BAG IV ONE (11:30)
--- NOTE | 2019-07-20 11:46 | NUR ---
IV LINE ESTABLISHED, BLOOD DRAWN AND SENT TO STAT LAB. IVF INFUSING. PT GUNNAR WELL.
[2019-07-20 11:47] LABS: BASOPHILS # (AUTO) 0.1 /CMM (0.0-0.2); BASOPHILS % (AUTO) 0.7 % (0.0-2.0); EOSINOPHILS % (AUTO) 1.4 % (0.0-6.0); HEMATOCRIT 31 % (33-45); HEMOGLOBIN 10.3 g/dL (11.5-14.8); LYMPHOCYTES # (AUTO) 1.3 /CMM (0.8-4.8); LYMPHOCYTES % (AUTO) 16.4 % (20.0-44.0); MEAN CORPUSCULAR HGB CONC 33 g/dl (31.0-36.0); MEAN CORPUSCULAR VOLUME 90 fL (82-100); MONOCYTES # (AUTO) 1.2 /CMM (0.1-1.30); MONOCYTES % (AUTO) 14.7 % (2.0-12.0); NEUTROPHILS # (AUTO) 5.4 /CMM (1.8-8.9); NEUTROPHILS % (AUTO) 66.8 % (43.0-81.0); PLATELET COUNT (AUTO) 192 /CMM (150-450); RED BLOOD CELL COUNT(AUTO) 3.42 MIL/uL (4.0-5.2)
[2019-07-20 11:58] LABS: CALCIUM, SERUM 9.4 mg/dL (8.5-10.1); CARBON DIOXIDE 36 mmol/L (21-32); CHLORIDE 99 mmol/L (98-107); CREATININE 1.4 mg/dL (0.6-1.3); GLUCOSE 172 mg/dL (74-106); POTASSIUM 3.2 mmol/L (3.5-5.1); SODIUM SERUM 143 mmol/L (136-145); UREA NITROGEN, BLOOD 34 mg/dL (7-18)
--- NOTE | 2019-07-20 11:59 | NUR ---
DAUGHTER AT BEDSIDE
[2019-07-20 12:02] LABS: ALANINE AMINOTRANSFERASE 17 U/L (12-78); ALBUMIN 3.2 g/dL (3.4-5.0); ALKALINE PHOSPHATASE 67 U/L (46-116); ASPARTATE AMINOTRANSFERASE 16 U/L (15-37); BILIRUBIN,DIRECT 0.2 mg/dL (0.0-0.2); BILIRUBIN,TOTAL 0.7 mg/dL (0.2-1.0); LIPASE 379 U/L (73-393); TOTAL PROTEIN, SERUM 7.3 g/dL (6.4-8.2)
--- NOTE | 2019-07-20 12:10 | NUR ---
URINE SENT TO STAT LAB
--- NOTE | 2019-07-20 12:16 | NUR ---
PT PLACED ON 2L O2 VIA NC DUE TO SATTING UNDER 90%
[2019-07-20 12:18] LABS: BILIRUBIN,URINE Negative (NEGATIVE); BLOOD, URINE Trace-intact Ery/uL (NEGATIVE); COLOR,URINE Yellow (YELLOW); KETONES,URINE Negative (NEGATIVE); LEUKOCYTE ESTERASE ,URINE Negative (NEGATIVE); NITRITE, URINE Negative (NEGATIVE); PH,URINE 5.5 (5.0-8.0); PROTEIN,URINE 100 mg/dl (NEGATIVE); UGLUCOSE Negative (NEGATIVE); UROBILINOGEN,URINE 0.2 EU/dL (0.2)
[2019-07-20 12:22] LABS: APPEARANCE,URINE SLIGHTLY HAZY (CLEAR)
[2019-07-20 12:23] LABS: BACTERIA,URINE Few /HPF (None Seen); SQUAMOUS EPITHELIAL CELL,UR Moderate /HPF (None Seen); WBC,URINE 0-2 /HPF (0-3)
--- NOTE | 2019-07-20 12:23 | NUR ---
PT TAKEN TO CT VIA GABE
--- NOTE | 2019-07-20 12:36 | NUR ---
PT BACK FROM RADIOLOGY
--- NOTE | 2019-07-20 12:47 | NUR ---
CALLED NURSING SUP FOR TELE BED. WILL CALL BACK.
[2019-07-20] MEDS ORDERED: HYDROCODONE/APAP 5/325MG 1 EACH TABLET PO PRN (14:30)
[2019-07-20] MEDS ORDERED: MAGNESIUM HYDROXIDE 30 ML UDC PO PRN (14:30)
[2019-07-20] MEDS ORDERED: ACETAMINOPHEN 325 MG TABLET PO PRN (14:30)
[2019-07-20] MEDS ORDERED: TEMAZEPAM 7.5 MG CAPSULE PO PRN (14:30)
[2019-07-20] MEDS ORDERED: MAG HYDROX/AL HYDROX/SIMETH 30 ML UDC PO PRN (14:30)
[2019-07-20] MEDS ORDERED: LORAZEPAM 0.5 MG TABLET PO PRN (14:30)
[2019-07-20] MEDS ORDERED: NITROGLYCERIN 0.4 MG/TAB BOTTLE SL PRN (14:30)
[2019-07-20] MEDS ORDERED: ONDANSETRON HCL/PF 4 MG/2 ML VIAL IVP PRN (14:30)
[2019-07-20] MEDS ORDERED: HYDROCODONE/APAP 10/325MG 1 EA TABLET PO PRN (14:30)
[2019-07-20] MEDS ORDERED: DEXTROSE 50%-WATER 50 ML DISP.SYRIN IV PRN (14:30)
--- NOTE | 2019-07-20 14:45 | NUR ---
REPORT GIVEN TO BARBIE RUSSELL FOR 304-1 T.
--- NOTE | 2019-07-20 15:05 | NUR ---
[facility]
--- NOTE | 2019-07-20 15:10 | NUR ---
COMPUTER GRAPHIC DESIGNER NOTES RECEIVED PATIENT FROM ER IN STABLE CONDITION. PATIENT ALERT, ORIENTED X3. PATIENT IS MALIAN SPEAKING. NO SOB OR ACUTE DISTRESS NOTED. PERIPHERAL IV ON RIGHT HAND INTACT PATENT. BED IN LOW LOCKED POSITION. PATIENT ORIENTED TO ROOM. CALL LIGHT WITHIN REACH. WILL CONTINUE TO MONITOR.
[2019-07-20] MEDS: IV NS 0.9% 1,000 ML IV PRN (15:40)
[2019-07-20] MEDS: BLOOD SUGAR DIAGNOSTIC 1 EACH STRIP IN SCH ×2 (17:04→22:37)
[2019-07-20] MEDS: MEMANTINE HCL 5 MG TABLET PO SCH (17:05)
[2019-07-20] MEDS: INSULIN REGULAR, HUMAN 100 UNIT/ML 3 ML VIAL SQ PRN (17:06)
--- NOTE | 2019-07-20 18:41 | NUR ---
ORGANIC SECTION TECHNICAL LEAD NOTES PATIENT IN BED RESTING NO SOB OR ACUTE DISTRESS NOTED. NO ACUTE CHANGES NOTED DURING SHIFT. ALL DUE MEDICATIONS ADMINISTERED. ALL NEEDS MET. WILL ENDORSE CARE TO PM SHIFT.
--- NOTE | 2019-07-20 19:00 | NUR ---
MS RN OPENING NOTES Received patient A/Ox3, awake on semi-Pepper's position on bed. On O2 inhalation via NC @ 2LPM, no SOB/respiratory distress noted at this time. With peripheral IV line L hand #20, no s/sx of infiltration noted, with NS infusing well @ 75ml/hr as ordered. Patient complaint severe pain on L shoulder unrelieved by [place] 5mg. Applied warm compress, will continue to monitor accordingly. Kept on bed clean, dry and comfortable. Call light within easy reach. Will continue to monitor accordingly. Addendum: 07/20/19 at 2131 by ROMÁN PAULINO RN [employer] TECHNICIAN OPENING NOTES Received patient A/Ox3, awake on semi-Pepper's position on bed. On O2 inhalation via NC @ 2LPM, no SOB/respiratory distress noted at this time. On tele with NSR noted. With peripheral IV line L hand #20, no s/sx of infiltration noted, with NS infusing well @ 75ml/hr as ordered. Patient complaint severe pain on L shoulder unrelieved by [place] 5mg. Applied warm compress, will continue to monitor accordingly.
--- NOTE | 2019-07-20 19:30 | NUR ---
MS RN NOTES Patient noted teary eyed due to L shoulder pain. No due pain meds at this time. Notified electronic publishing specialist SAYRA Barnes. Awaiting for orders at this time.
--- NOTE | 2019-07-20 19:57 | NUR ---
MS RN NOTES Daughter at bedside. Explained to patient and daughter the nursing interventions and the warm alternate with cold compress provided and that automation clerk MD was notified. Daughter and patient verbalized understanding. Will continue to monitor accordingly.
[2019-07-20 20:00] VITALS: BP 153/60
--- NOTE | 2019-07-20 20:43 | NUR ---
RN NOTES Received order from workers compensation coordinator MD, noted and carried out.
[2019-07-20] MEDS ORDERED: CARVEDILOL 25 MG TABLET PO SCH (21:00)
[2019-07-20] MEDS: ATORVASTATIN 40 MG TABLET PO SCH (21:10)
[2019-07-20] MEDS: HYDROCODONE/APAP 5/325MG 1 EACH TABLET PO PRN (21:10)
[2019-07-20] MEDS ORDERED: CARVEDILOL 12.5 MG TABLET ONE (21:35)
--- NOTE | 2019-07-20 22:00 | NUR ---
RN NOTES BS CHECKED - 173. PATIENT REFUSED INSULIN DESPITE EDUCATION PROVIDED.
[2019-07-21] VITALS: BP 128/60
[2019-07-21 04:00] VITALS: BP 144/55
[2019-07-21] MEDS: HYDROCODONE/APAP 5/325MG 1 EACH TABLET PO PRN ×3 (05:53→21:31)
[2019-07-21 06:25] LABS: BASOPHILS % (AUTO) 0.6 % (0.0-2.0); EOSINOPHILS % (AUTO) 2.9 % (0.0-6.0); HEMATOCRIT 29 % (33-45); HEMOGLOBIN 9.8 g/dL (11.5-14.8); LYMPHOCYTES # (AUTO) 1.2 /CMM (0.8-4.8); LYMPHOCYTES % (AUTO) 16.7 % (20.0-44.0); MEAN CORPUSCULAR HGB CONC 34 g/dl (31.0-36.0); MEAN CORPUSCULAR VOLUME 91 fL (82-100); MONOCYTES # (AUTO) 0.9 /CMM (0.1-1.30); MONOCYTES % (AUTO) 12.7 % (2.0-12.0); NEUTROPHILS # (AUTO) 4.7 /CMM (1.8-8.9); NEUTROPHILS % (AUTO) 67.1 % (43.0-81.0); PLATELET COUNT (AUTO) 180 /CMM (150-450); RED BLOOD CELL COUNT(AUTO) 3.15 MIL/uL (4.0-5.2); WHITE BLOOD COUNT (AUTO) 6.9 K/uL (4.3-11.0)
--- NOTE | 2019-07-21 06:30 | NUR ---
PROTOTYPER CLOSING NOTES Patient intermittently asleep on bed. On O2 inhalation via NC @ 2LPM. No complaints of abdominal pain noted, minimal oral intake noted. Patient complaint of L shoulder pain, managed with medication. All nursing needs attended. Due meds given as ordered. Kept on bed clean, dry and comfortable. Call light within easy reach. On fall and aspiration precautions. Endorsed. Addendum: 07/21/19 at 0630 by ROMÁN PAULINO RN On tele monitor with NSR noted.
[2019-07-21] MEDS: IV NS 0.9% 1,000 ML IV PRN (06:47)
[2019-07-21] MEDS: BLOOD SUGAR DIAGNOSTIC 1 EACH STRIP IN SCH ×4 (07:05→21:23)
[2019-07-21 07:10] LABS: B-TYPE NATRIURETIC PEPTIDE 1350 PG/ML (0-125); CALCIUM, SERUM 9.1 mg/dL (8.5-10.1); CARBON DIOXIDE 35 mmol/L (21-32); CHLORIDE 102 mmol/L (98-107); CHOLESTEROL 188 mg/dL (<200); CREATININE 1.4 mg/dL (0.6-1.3); GLUCOSE 148 mg/dL (74-106); HDL CHOLESTEROL 42 mg/dL (40-60); LDL 122 mg/dL (0-99); MAGNESIUM 1.8 mg/dL (1.8-2.4); PHOSPHORUS 3.2 mg/dL (2.5-4.9); POTASSIUM 3.1 mmol/L (3.5-5.1); SODIUM SERUM 144 mmol/L (136-145); THYROID STIMULATING HORMONE 3.253 uIU/mL (0.358-3.74); TRIGLYCERIDES 137 mg/dL (30-150); UREA NITROGEN, BLOOD 32 mg/dL (7-18)
[2019-07-21 08:00] VITALS: BP 141/61
--- NOTE | 2019-07-21 08:00 | NUR ---
MS RN NOTES PATIENT IN BED RESTING NO SOB OR ACUTE DISTRESS NOTED. PATIENT ALERT, ORIENTED X3 SWEDISH SPEAKING. PATIENTS PAIN IS CONTROLLED WITH MEDICATIONS. BED IS IN LOW LOCKED POSITION. CALL LIGHT WITHIN REACH. WILL CONTINUE TO MONITOR.
[2019-07-21] MEDS: CARVEDILOL 12.5 MG TABLET PO SCH ×2 (09:04→21:21)
[2019-07-21] MEDS: MEMANTINE HCL 5 MG TABLET PO SCH ×2 (09:05→17:00)
[2019-07-21] MEDS: LINAGLIPTIN 5 MG TABLET PO SCH (09:05)
[2019-07-21] MEDS: AMLODIPINE BESYLATE 10 MG TABLET PO SCH (09:05)
[2019-07-21] MEDS ORDERED: POTASSIUM CHLORIDE 20 MEQ TAB.PRT.SR PO SCH (09:30)
[2019-07-21] MEDS: INSULIN REGULAR, HUMAN 100 UNIT/ML 3 ML VIAL SQ PRN (12:15)
[2019-07-21] MEDS: DIGOXIN 0.125 MG TABLET PO SCH (12:18)
[2019-07-21 15:23] LABS: CREATININE, URINE 146.5 MG/DL (30.0-125.0)
[2019-07-21 15:30] LABS: APPEARANCE,URINE CLEAR (CLEAR); BILIRUBIN,URINE NEGATIVE (NEGATIVE); BLOOD, URINE NEGATIVE Ery/uL (NEGATIVE); COLOR,URINE YELLOW (YELLOW); KETONES,URINE NEGATIVE (NEGATIVE); LEUKOCYTE ESTERASE ,URINE NEGATIVE (NEGATIVE); NITRITE, URINE NEGATIVE (NEGATIVE); PROTEIN,URINE TRACE mg/dl (NEGATIVE); UGLUCOSE NEGATIVE (NEGATIVE); UROBILINOGEN,URINE 0.2 EU/dL (0.2)
[2019-07-21 15:55] LABS: BACTERIA,URINE None seen /HPF (None Seen); EOSINOPHIL,URINE None Seen; RBC,URINE 0-2 /HPF (0-2); SQUAMOUS EPITHELIAL CELL,UR Few /HPF (None Seen); WBC,URINE 0-2 /HPF (0-3)
[2019-07-21 16:00] VITALS: BP 144/64
--- NOTE | 2019-07-21 18:49 | NUR ---
MS RN NOTES PATIENT IN BED RESTING NO SOB OR ACUTE DISTRESS NOTED. PATIENT ALERT, ORIENTED X3 WITH PERIODS OF CONFUSION. NO ACUTE CHANGES NOTED DURING SHIFT. ALL DUE MEDICATIONS ADMINISTERED. ALL NEEDS MET. WILL ENDORSE TO PM SHIFT JADE.
--- NOTE | 2019-07-21 19:00 | NUR ---
MS RN OPENING NOTES Received patient asleep, easily awaken. On RA, no SOB/respiratory distress noted. No complaints made at this time. Kept on bed clean, dry and comfortable. Call light within easy reach. On fall and aspiration precautions. Will continue to monitor accordingly.
[2019-07-21 20:00] VITALS: BP 160/75
--- NOTE | 2019-07-21 20:30 | NUR ---
MS RN NOTES Patient awake. Transferred to room 327-1 to have a sitter for safety reasons. Family notified.
[2019-07-21] MEDS: ATORVASTATIN 40 MG TABLET PO SCH (21:13)
[2019-07-22] MEDS: BLOOD SUGAR DIAGNOSTIC 1 EACH STRIP IN SCH ×4 (06:34→21:38)
--- NOTE | 2019-07-22 06:36 | NUR ---
MS RN CLOSING NOTES Patient asleep, easily awaken. On RA, no SOB/respiratory distress noted. Afebrile the whole shift, no new unusualities noted. All nursing needs attended, due meds given as ordered. Patient able to reposition self independently. Kept on bed clean, dry and comfortable. With 2 police officers at bedside. Patient's R hand cuffed to bedrails. On fall and aspiration precautions. Call light within easy reach. Endorsed. Addendum: 07/22/19 at 0638 by ROMÁN PAULINO RN INCORRECT PATIENT.
--- NOTE | 2019-07-22 06:39 | NUR ---
MS RN CLOSING NOTES Patient on bed, asleep, easily awaken. On intermittent O2 inhalation to keep saturation >92%. Able to ambulate to bathroom with FWW. All nursing needs attended, due meds given as ordered. Kept on bed clean, dry and comfortable. Call light within easy reach. On fall and aspiration precautions. Endorsed.
[2019-07-22 08:00] LABS: BASOPHILS % (AUTO) 0.4 % (0.0-2.0); EOSINOPHILS % (AUTO) 3.3 % (0.0-6.0); HEMATOCRIT 29 % (33-45); HEMOGLOBIN 9.5 g/dL (11.5-14.8); LYMPHOCYTES # (AUTO) 1.1 /CMM (0.8-4.8); LYMPHOCYTES % (AUTO) 15.7 % (20.0-44.0); MEAN CORPUSCULAR HGB CONC 33 g/dl (31.0-36.0); MEAN CORPUSCULAR VOLUME 92 fL (82-100); MONOCYTES # (AUTO) 0.9 /CMM (0.1-1.30); MONOCYTES % (AUTO) 11.9 % (2.0-12.0); NEUTROPHILS % (AUTO) 68.7 % (43.0-81.0); PLATELET COUNT (AUTO) 181 /CMM (150-450); RED BLOOD CELL COUNT(AUTO) 3.11 MIL/uL (4.0-5.2); WHITE BLOOD COUNT (AUTO) 7.3 K/uL (4.3-11.0)
--- NOTE | 2019-07-22 08:00 | NUR ---
MS RN RECEIVED ON BED, AWAKE,ALERT,ORIENTED X3,MAORI SPEAKING,NOT IN ANY FORM OF DISTRESS, RESPIRATIONS EVEN AND UNLABORED,NO SOB NOTED, LUNGS ARE DIMINISH, ABDOMEN SOFT,POSITIVE BOWEL SOUNDS,DENIES PAIN AT THIS TIME W/ SITTER AT BEDSIDE, ALL NEEDS ATTENDED.
[2019-07-22] MEDS: AMLODIPINE BESYLATE 10 MG TABLET PO SCH (08:26)
[2019-07-22] MEDS: LINAGLIPTIN 5 MG TABLET PO SCH (08:26)
[2019-07-22] MEDS: MEMANTINE HCL 5 MG TABLET PO SCH ×2 (08:26→17:10)
[2019-07-22] MEDS: HYDROCODONE/APAP 5/325MG 1 EACH TABLET PO PRN (08:27)
--- NOTE | 2019-07-22 08:30 | NUR ---
MS RUSSELL BREAKFAST SERVED,DUE MEDS GIVEN,TOLERATED WELL.
[2019-07-22] MEDS: CARVEDILOL 12.5 MG TABLET PO SCH ×2 (08:33→21:05)
[2019-07-22 09:16] LABS: CALCIUM, SERUM 8.9 mg/dL (8.5-10.1); CREATININE 1.2 mg/dL (0.6-1.3); POTASSIUM 3.5 mmol/L (3.5-5.1)
--- NOTE | 2019-07-22 11:00 | NUR ---
ms insole lip turner at bedside,no distress noted.
[2019-07-22 12:02] LABS: FERRITIN 190 ng/mL (8-388); IRON, SERUM 20 ug/dl (50-175); TOTAL IRON BINDING CAPACITY 210 ug/dl (250-450)
[2019-07-22] MEDS: DIGOXIN 0.125 MG TABLET PO SCH (13:24)
[2019-07-22] MEDS: INSULIN REGULAR, HUMAN 100 UNIT/ML 3 ML VIAL SQ PRN ×3 (13:25→21:38)
[2019-07-22 16:00] VITALS: BP 105/64
[2019-07-22] MEDS: IV NS 0.9% 1,000 ML IV PRN (17:15)
--- NOTE | 2019-07-22 18:00 | NUR ---
ms rn on bed, no distress, d/c plan in am.
--- NOTE | 2019-07-22 19:30 | NUR ---
MS RN OPENING NOTES RECEIVED PATIENT FROM MORNING SHIFT, ALERT AND ORIENTED X 3 ANGOLAN SPEAKING. VERBALLY RESPONSIVE AND ABLE TO FOLLOW DIRECTIONS. BREATHING REGULAR AND UNLABORED ON OXYGEN AT 2L/MIN VIA NASAL CANNULA. LEFT HAND G20 IV LINE INTACT AND PATENT, INFUSING WELL WITH NO BLEEDING OR S/S OF INFILTRATION NOTED. BODY ASSESSMENT DONE, SEEN WITH RIGHT BREAST REDNESS. WILL PROVIDE TREATMENT NEEDED. NO COMPLAINTS OF PAIN/DISCOMFORT REPORTED OF THE TIME. BED LOW AND LOCKED ON SEMI FOWLERS POSITION. CALL LIGHT IN REACH. WILL CONTINUE TO MONITOR.
[2019-07-22 19:52] VITALS: BP 137/60
[2019-07-22 19:57] VITALS: BP 137/60
[2019-07-22] MEDS: ATORVASTATIN 40 MG TABLET PO SCH (21:04)
--- NOTE | 2019-07-22 22:00 | NUR ---
MS RN NOTES BS 106mg/dl, NO INSULIN COVERAGE NEEDED. WILL CONTINUE TO MONITOR.
--- NOTE | 2019-07-22 23:05 | NUR ---
MS RN NOTES NOTED WITH INABILITY TO STAY ASLEEP, TEMAZEPAM 7.5MG GIVEN BY MOUTH. NON-PHARMACOLOGICAL INTERVENTIONS PROVIDED. WILL CONTINUE TO MONITOR.
[2019-07-23] MEDS: HYDROCODONE/APAP 5/325MG 1 EACH TABLET PO PRN (02:06)
--- NOTE | 2019-07-23 02:10 | NUR ---
MS RN NOTES COMPLAINED OF 7/10 ABDOMINAL PAIN, NORCO 5/325 OIL AND GAS DRAFTER BY MOUTH. NON-PHARMACOLOGICAL INTERVENTIONS DONE. VITAL SIGNS WNL. WILL CONTINUE TO MONITOR.
--- NOTE | 2019-07-23 06:30 | NUR ---
MS RN NOTES BS 113mg/dl, NO INSULIN COVERAGE NEEDED. WILL CONTINUE TO MONITOR.
[2019-07-23] MEDS: BLOOD SUGAR DIAGNOSTIC 1 EACH STRIP IN SCH ×2 (06:41→11:45)
--- NOTE | 2019-07-23 06:45 | NUR ---
MS RN CLOSING NOTES PATIENT IN BED ALERT AND ORIENTED X 2-3 KHMER SPEAKING. HAD AN EPISODE OF CONFUSION. VERBALLY RESPONSIVE AND ABLE TO FOLLOW DIRECTIONS. BREATHING REGULAR AND UNLABORED ON OXYGEN AT 2L/MIN VIA NASAL CANNULA. LEFT HAND G20 IV LINE PATENT AND INFUSING WELL. NO COMPLAINTS OF PAIN/DISCOMFORT REPORTED AT THIS TIME. BED LOW AND LOCKED ON SEMI FOWLERS POSITION. CALL LIGHT IN REACH. WILL ENDORSE TO MORNING SHIFT FOR JADE.
[2019-07-23 07:50] LABS: BASOPHILS % (AUTO) 0.6 % (0.0-2.0); EOSINOPHILS % (AUTO) 4.6 % (0.0-6.0); HEMATOCRIT 29 % (33-45); HEMOGLOBIN 9.9 g/dL (11.5-14.8); LYMPHOCYTES # (AUTO) 1.3 /CMM (0.8-4.8); LYMPHOCYTES % (AUTO) 22.6 % (20.0-44.0); MEAN CORPUSCULAR HGB CONC 34 g/dl (31.0-36.0); MEAN CORPUSCULAR VOLUME 91 fL (82-100); MONOCYTES # (AUTO) 0.9 /CMM (0.1-1.30); MONOCYTES % (AUTO) 15.8 % (2.0-12.0); NEUTROPHILS # (AUTO) 3.3 /CMM (1.8-8.9); NEUTROPHILS % (AUTO) 56.4 % (43.0-81.0); PLATELET COUNT (AUTO) 190 /CMM (150-450); RED BLOOD CELL COUNT(AUTO) 3.17 MIL/uL (4.0-5.2); WHITE BLOOD COUNT (AUTO) 5.9 K/uL (4.3-11.0)
--- NOTE | 2019-07-23 07:50 | NUR ---
MS/RN OPENING NOTE Patient is resting in bed, A/O x3, showing no signs of acute distress or SOB, saturating >95% on 2L NC. IV line in left hand #20g is clean and intact. Patient is able to ambulate with walker and has BRP. No BP/blood draw on right arm due to history of mastectomy. Sitter is at the bedside. Bed is in lowest position, side rails x3, in upright position call light is within reach, safety fall and aspiration precautions enforced. Will continue with plan of care.
[2019-07-23 07:54] LABS: CALCIUM, SERUM 8.6 mg/dL (8.5-10.1); CREATININE 1.1 mg/dL (0.6-1.3); MAGNESIUM 2.1 mg/dL (1.8-2.4); PHOSPHORUS 2.5 mg/dL (2.5-4.9); POTASSIUM 3.4 mmol/L (3.5-5.1)
[2019-07-23] MEDS: AMLODIPINE BESYLATE 10 MG TABLET PO SCH (08:49)
[2019-07-23 08:50] VITALS: BP 156/60
[2019-07-23] MEDS: LINAGLIPTIN 5 MG TABLET PO SCH (08:50)
[2019-07-23] MEDS: CARVEDILOL 12.5 MG TABLET PO SCH (08:50)
[2019-07-23] MEDS: MEMANTINE HCL 5 MG TABLET PO SCH (08:50)
[2019-07-23] MEDS ORDERED: POTASSIUM CHLORIDE 20 MEQ POWDER PACKET PO SCH (09:30)
[2019-07-23] MEDS: INSULIN REGULAR, HUMAN 100 UNIT/ML 3 ML VIAL SQ PRN (12:14)
--- NOTE | 2019-07-23 13:30 | NUR ---
MS/SALES EXHIBITOR NOTE Patient is medically stable for discharge. MD is aware. Family at at the bedside. MD is aware that patient's digoxin level is 2.34. Held digoxin for today, charge nurse made aware. Patient is A/O x2, confused, showing no signs of acute distress or SOB, saturating 95% on 2L NC. Discharge instructions given to patient's daughter Natali, she verbalized understanding. Natali and patient refused skin assessment and photos, she stated that they are in a meraz and would like to go home right away. IV line removed, ID band removed. All patient needs met, all due meds given. Brought patient down by wheelchair and patient left hospital via private car with daughter, en route to home.
[2019-08-01] MEDS ORDERED: AZIT250T13 PO (13:00)
[2019-08-01] MEDS ORDERED: METH4TAB17 PO (13:00)
[2019-08-01] MEDS ORDERED: AMLO10TA7 PO (13:05)
== END 2019-07-23 13:30 | disposition home health service (06) | DRG 682 ==
LOC: ER 11:22 → TELE 14:12 → MED 07-21 09:15
PROVIDERS: ATTEND Internal Medicine
DX: N17.0 Acute kidney failure with tubular necrosis (principal); G92 Toxic encephalopathy; E44.1 Mild protein-calorie malnutrition; J98.11 Atelectasis; I13.0 Hypertensive heart and chronic kidney disease with heart failure and stage 1 through stage 4 chronic kidney disease, or unspecified chronic kidney disease; E87.6 Hypokalemia; N18.9 Chronic kidney disease, unspecified; E86.9 Volume depletion, unspecified; F41.9 Anxiety disorder, unspecified; I50.9 Heart failure, unspecified; Z90.11 Acquired absence of right breast and nipple; Z85.3 Personal history of malignant neoplasm of breast; K21.9 Gastro-esophageal reflux disease without esophagitis; I48.91 Unspecified atrial fibrillation; I25.10 Atherosclerotic heart disease of native coronary artery without angina pectoris; G89.29 Other chronic pain; E86.0 Dehydration; E88.09 Other disorders of plasma-protein metabolism, not elsewhere classified; R16.0 Hepatomegaly, not elsewhere classified; K57.90 Diverticulosis of intestine, part unspecified, without perforation or abscess without bleeding; N20.0 Calculus of kidney; E11.22 Type 2 diabetes mellitus with diabetic chronic kidney disease; E27.9 Disorder of adrenal gland, unspecified; Z79.84 Long term (current) use of oral hypoglycemic drugs; Z68.33 Body mass index [BMI] 33.0-33.9, adult
CPT/HCPCS: 36415; 71045-TC; 71100-TC; 80048-TC; 80061-TC; 80076-TC; 80162-TC; 81000-TC; 82570-TC; 82728-TC; 82962-TC; 83540-TC; 83605-TC; 83690-TC; 83735-TC; 83880; 84100-TC; 84155-TC; 84300-TC; 84443-TC; 84484-TC; 85025-TC; 87040-TC; 87081-TC; 97116-TC; 97530-TC; G0378; J1815; J7030; J7040

== ENCOUNTER 2019-07-26 06:03 | Inpatient (IN) | payer MEDICARE, MEDICAID ==
[~2019-07-26] VITALS: Ht 152.4 cm; Wt 85.7 kg
[~2019-07-26 06:03] MED LIST changes: -FURO-144 PO
--- NOTE | 2019-07-26 06:15 | NUR ---
PT BIBRA 102 FOR SOB. PT ARRIVED WHILE RECEIVING BREATHING TX. PT ALERT, ROMANSH SPEAKING, WHEEZING UPON AUSCULTATION NOTED. + COUGH. PT CONNECTED TO THE MONITOR AND POX.
--- NOTE | 2019-07-26 06:20 | NUR ---
BLOOD DRAWN AND SENT TO LAB
[2019-07-26] MEDS ORDERED: IPRATROPIUM NEB FS 0.5 MG/2.5 ML AMPUL.NEB NEB ONE (06:30)
[2019-07-26] MEDS ORDERED: ALBUTEROL FS 2.5 MG/3 ML VIAL.NEB NEB ONE (06:30)
[2019-07-26 06:31] LABS: BASOPHILS % (AUTO) 1.2 % (0.0-2.0); EOSINOPHILS % (AUTO) 4.6 % (0.0-6.0); HEMATOCRIT 29 % (33-45); HEMOGLOBIN 9.6 g/dL (11.5-14.8); LYMPHOCYTES # (AUTO) 0.5 /CMM (0.8-4.8); LYMPHOCYTES % (AUTO) 17.3 % (20.0-44.0); MEAN CORPUSCULAR HGB CONC 34 g/dl (31.0-36.0); MEAN CORPUSCULAR VOLUME 91 fL (82-100); MONOCYTES # (AUTO) 0.7 /CMM (0.1-1.30); MONOCYTES % (AUTO) 21.6 % (2.0-12.0); NEUTROPHILS # (AUTO) 1.7 /CMM (1.8-8.9); NEUTROPHILS % (AUTO) 55.3 % (43.0-81.0); PLATELET COUNT (AUTO) 211 /CMM (150-450); RED BLOOD CELL COUNT(AUTO) 3.13 MIL/uL (4.0-5.2); WHITE BLOOD COUNT (AUTO) 3.1 K/uL (4.3-11.0)
[2019-07-26] MEDS ORDERED: ALBUTEROL FS 2.5 MG/3 ML VIAL.NEB ONE (06:34)
[2019-07-26] MEDS ORDERED: IPRATROPIUM NEB FS 0.5 MG/2.5 ML AMPUL.NEB ONE (06:34)
--- NOTE | 2019-07-26 06:40 | NUR ---
RT AT BEDSIDE
--- NOTE | 2019-07-26 06:48 | NUR ---
XRAY AT BEDSIDE
[2019-07-26 07:04] LABS: BAND % (MANUAL) 2 % (0.0-5.0); EOSINOPHILS % (MANUAL) 4 % (0-4); LYMPHOCYTES % (MANUAL) 13 % (16-48); MONOCYTES % (MANUAL) 16 % (0-11.0); NEUTROPHILS % (MANUAL) 65 (42-76)
[2019-07-26 07:08] LABS: CALCIUM, SERUM 9.8 mg/dL (8.5-10.1); CARBON DIOXIDE 31 mmol/L (21-32); CHLORIDE 102 mmol/L (98-107); CREATININE 1.3 mg/dL (0.6-1.3); GLUCOSE 140 mg/dL (74-106); POTASSIUM 3.9 mmol/L (3.5-5.1); SODIUM SERUM 143 mmol/L (136-145); UREA NITROGEN, BLOOD 23 mg/dL (7-18)
--- NOTE | 2019-07-26 07:08 | NUR ---
URINE COLLECTED AND SENT TO LAB
[2019-07-26] MEDS ORDERED: ACETAMINOPHEN 325 MG TABLET ONE (07:20)
[2019-07-26 07:21] LABS: ALANINE AMINOTRANSFERASE 31 U/L (12-78); ALKALINE PHOSPHATASE 76 U/L (46-116); ASPARTATE AMINOTRANSFERASE 32 U/L (15-37); B-TYPE NATRIURETIC PEPTIDE 3160 PG/ML (0-125); BILIRUBIN,DIRECT 0.2 mg/dL (0.0-0.2); BILIRUBIN,TOTAL 0.4 mg/dL (0.2-1.0); TOTAL PROTEIN, SERUM 7.3 g/dL (6.4-8.2)
[2019-07-26] MEDS ORDERED: ACETAMINOPHEN 325 MG TABLET PO ONE (07:30)
--- NOTE | 2019-07-26 07:36 | NUR ---
Assumed care report given by Wiliam RUSSELL patient asleep but arousable non distress continue to monitor
[2019-07-26] MEDS ORDERED: FENO145T21 PO (07:44)
[2019-07-26] MEDS ORDERED: FURO40TA5 PO (07:44)
[2019-07-26 07:48] LABS: APPEARANCE,URINE Clear (CLEAR); BILIRUBIN,URINE Negative (NEGATIVE); BLOOD, URINE Trace-intact Ery/uL (NEGATIVE); COLOR,URINE Yellow (YELLOW); KETONES,URINE Negative (NEGATIVE); LEUKOCYTE ESTERASE ,URINE Negative (NEGATIVE); NITRITE, URINE Negative (NEGATIVE); PROTEIN,URINE 30 mg/dl (NEGATIVE); UGLUCOSE Negative (NEGATIVE); UROBILINOGEN,URINE 0.2 EU/dL (0.2)
[2019-07-26 07:59] LABS: BACTERIA,URINE Few /HPF (None Seen); SQUAMOUS EPITHELIAL CELL,UR Few /HPF (None Seen); WBC,URINE NONE SEEN /HPF (0-3)
--- NOTE | 2019-07-26 08:10 | NUR ---
PAGED [facility].
--- NOTE | 2019-07-26 08:15 | NUR ---
CALLED NURSING SUP FOR TELE BED.
[2019-07-26] MEDS ORDERED: Z GUARD REMEDY 2 OZ OINT TP PRN (08:30)
[2019-07-26] MEDS ORDERED: ZOLPIDEM TARTRATE 5 MG TABLET PO PRN (08:30)
[2019-07-26] MEDS ORDERED: CEFTRIAXONE 1GM BAG (ER ONLY) 1 GM/50 ML PIGGYBACK IV ONE (08:30)
[2019-07-26] MEDS ORDERED: ONDANSETRON HCL/PF 4 MG/2 ML VIAL IVP PRN (08:30)
--- NOTE | 2019-07-26 08:35 | NUR ---
NURSING SUP GAVE TELE BED [id number].
[2019-07-26] MEDS ORDERED: CEFTRIAXONE 1 G VIAL ONE (08:40)
[2019-07-26] MEDS: IV NS 0.9% 1,000 ML IV PRN ×2 (08:50→11:59)
--- NOTE | 2019-07-26 08:51 | NUR ---
Patient awake alert confused @ times her daughter @ bedside made aware paln of care
--- NOTE | 2019-07-26 09:06 | NUR ---
Transfer care report to Carmen RUSSELL [id number]
--- NOTE | 2019-07-26 11:00 | NUR ---
BIG DATA SOFTWARE ENGINEER RECEIVING NOTES RECEIVED PATIENT FROM ER IN MEDICALLY STABLE CONDITION. PATIENT ON 2L OF OXYGEN SATURATING WELL AT 95%. VITAL SIGNS WITHIN NORMAL LIMITS. TEMPERATURE A BIT ELEVATED AT 99.1 PATIENT DENIES PAIN BUT HAS A COUGH. PICTURES TAKEN AND FILED. PATIENT STARTED ON IV FLUIDS. WILL CONTINUE TO MONITOR PATIENT.
[2019-07-26] MEDS: AZITHROMYCIN 500 MG in IV D5W 250 ML IV SCH (11:58)
[2019-07-26] MEDS: ACETAMINOPHEN 325 MG TABLET PO PRN (15:16)
[2019-07-26] MEDS ORDERED: CLONIDINE HCL 0.1 MG TABLET PO PRN (15:30)
[2019-07-26 16:00] VITALS: BP 158/73
--- NOTE | 2019-07-26 19:00 | NUR ---
hasher operator notes Received Pt from morning nurse. Pt is alert and orientedX2, calm and confused. Pt's daughter at the bedside. IV sites at RAC # 20 is clean, intact, patent and infusing well NS @ 75 ml/hr. Tele monitor showed SR HR 90. Pt is able to ambulate with a walker and help of assistant professor of spanish. Safety precautions is maintained. Bed at low position, brakes locked, side rails upX3 and call light is within reach. Will continue to monitor.
--- NOTE | 2019-07-26 19:08 | NUR ---
ORTHOTIC/PROSTHETIC PRACTITIONER NOTES PER PHARMACY REQUEST ASKED THE FAMILY IF THEY CAN PROVIDE SOME OF THE HOME MEDICATIONS. DAUGHTER NADIYA, STATED IT WOULD BE BETTER IF PHARMACY COULD SUBSTITUTE MEDICATIONS WITH WHAT THEY HAVE AT THE HOSPITAL. PHARMACY NOTIFIED.
--- NOTE | 2019-07-26 19:14 | NUR ---
CONSULTING TECHNICAL DIRECTOR CLOSING NOTES PATIENT IN BED AT THIS TIME WITH DAUGHTER AT THE BEDSIDE. A/O X2, FORGETS LIMITATIONS. PATIENT REMOVED HER LEADS AND IV. LEADS WERE READJUSTED AND NEW IV INSERTED TO THE R HAND GAUGE # 20. CURRENTLY INFUSING NS AT 75 CC/HR. PATIENT ON EXTERNAL MONITORING CURRENTLY READING NORMAL SINUS RHYTHM AT 90. PATIENT DENIES ANY PAIN AT THIS TIME. SAFETY PRECAUTIONS IN PLACE; BED IN LOW POSITION AND LOCKED, RAILS UP X2, CALL LIGHT WITHIN REACH. WILL ENDORSE TO VASCULAR SURGERY PHYSICIAN NURSE.
[2019-07-26 20:00] VITALS: BP 131/58
[2019-07-26] MEDS: CARVEDILOL 12.5 MG TABLET PO SCH (20:42)
--- NOTE | 2019-07-26 22:00 | NUR ---
tumbler machine operator notes Pt is complaining of cough and requesting med. Informed Dr. Chaves about cough medicine. Received order from for robitussin dm 5 ml/po/q 4 hr/prn. order carried out.
--- NOTE | 2019-07-26 22:28 | NUR ---
analytic manager notes Pt is complaining of cough. Administered robitussin dm 5ml/po as ordered for cough. VS is stable. Safety precautions is maintained.
[2019-07-26] MEDS ORDERED: GUAIFENESIN/D-METHORPHAN HB 5 ML UDC PO PRN (22:30)
[2019-07-27] VITALS (7 sets, daily range): BP systolic 129–163; BP diastolic 48–98
[2019-07-27] MEDS: ACETAMINOPHEN 325 MG TABLET PO PRN ×3 (00:29→21:10)
--- NOTE | 2019-07-27 00:29 | NUR ---
Kelsie RUSSELL notes Pt has fever 100.0. Administered tylenol 325 mg/2 tabs/po as ordered for fever. Will continue to monitor. Addendum: 07/27/19 at 0050 by DALIA FARMER RN Cooling measured is applied.
--- NOTE | 2019-07-27 01:29 | NUR ---
node js developer notes Pt's temp 98.5. Will continue to monitor.
--- NOTE | 2019-07-27 07:00 | NUR ---
[facility] notes Pt is resting in bed comfortably. Respiration is normal in 2 L NC. No SOB. No S/S of distress noted. IV sites at RAC # 20 is clean, intact, patent and infusing well NS @ 75 ml/hr. VS is stable. Afebrile. Tele monitor showed SR HR 84. Pt is able to ambulate with a walker and help of assistant administrator. Routine meds was given as ordered. Kept Pt clean, dry, warm and comfortable. HOB elevated. All needs met and attended. Safety precautions is maintained. Bed at low position, brakes locked, side rails upX3 and call light is within reach. Will endorse to morning nurse for JADE. Addendum: 07/27/19 at 0727 by DALIA FARMER RN [facility] closing notes
[2019-07-27 07:31] LABS: BASOPHILS % (AUTO) 0.8 % (0.0-2.0); EOSINOPHILS % (AUTO) 5.6 % (0.0-6.0); HEMATOCRIT 29 % (33-45); HEMOGLOBIN 9.4 g/dL (11.5-14.8); LYMPHOCYTES # (AUTO) 0.7 /CMM (0.8-4.8); LYMPHOCYTES % (AUTO) 23.6 % (20.0-44.0); MEAN CORPUSCULAR HGB CONC 33 g/dl (31.0-36.0); MEAN CORPUSCULAR VOLUME 91 fL (82-100); MONOCYTES # (AUTO) 0.6 /CMM (0.1-1.30); MONOCYTES % (AUTO) 19.5 % (2.0-12.0); NEUTROPHILS # (AUTO) 1.6 /CMM (1.8-8.9); NEUTROPHILS % (AUTO) 50.5 % (43.0-81.0); PLATELET COUNT (AUTO) 205 /CMM (150-450); RED BLOOD CELL COUNT(AUTO) 3.16 MIL/uL (4.0-5.2); WHITE BLOOD COUNT (AUTO) 3.1 K/uL (4.3-11.0)
[2019-07-27 07:36] LABS: ALBUMIN 2.9 g/dL (3.4-5.0); BILIRUBIN,TOTAL 0.3 mg/dL (0.2-1.0); CALCIUM, SERUM 9.3 mg/dL (8.5-10.1); CREATININE 1.1 mg/dL (0.6-1.3); MAGNESIUM 1.8 mg/dL (1.8-2.4); PHOSPHORUS 4.5 mg/dL (2.5-4.9); POTASSIUM 3.3 mmol/L (3.5-5.1)
--- NOTE | 2019-07-27 08:00 | NUR ---
BUILDING RENTAL SUPERINTENDENT OPENING NOTES RECEIVED PT IN BED, AWAKE, ALERT AND ORIENTED X2. CONFUSED AND VERY FORGETFUL. NEPALI SPEAKING ONLY. NO CARDIAC OR RESPIRATORY DISTRESS NOTED. NO SOB NOTED. SATURATING WELL ON 2L OF O2 VIA NASAL CANULLA. PT IS AMBULATORY WITH USE OF FWW, BUT REQUIRES ASSISTANCE. SAFETY PRECAUTIONS IN PLACE. BED LOCKED AND IN LOW POSITION. BED ALARM ON. CALL LIGHT FUNCTIONING AND WITHIN REACH. SIDE RAILS UP X2. REMINDED PT TO ASK FOR ASSISTANCE FROM STAFF IF WANTING TO GET UP FROM BED OR IF WANTING TOP GO THE BATHROOM. REMINDED PT WITH A TRAIN PLANNER. IV ACCESS NOTED ON R AC, IV FLUIDS NS RUNNING AT 75ML/HR. TOLERATING WELL. PT CURRENTLY EATING BREAKFAST AT THIS TIME. GOOD PO INTAKE NOTED.
[2019-07-27] MEDS: PANTOPRAZOLE 40 MG TABLET.DR PO SCH (08:24)
[2019-07-27] MEDS: ATORVASTATIN 40 MG TABLET PO SCH (08:25)
[2019-07-27] MEDS: LOSARTAN POTASSIUM 50 MG TABLET PO SCH (08:25)
[2019-07-27] MEDS: HYDROCHLOROTHIAZIDE 25 MG TABLET PO SCH (08:25)
[2019-07-27] MEDS: AMLODIPINE BESYLATE 10 MG TABLET PO SCH (08:25)
[2019-07-27] MEDS: MEMANTINE HCL 5 MG TABLET PO SCH ×2 (08:26→16:31)
[2019-07-27] MEDS: DIGOXIN 0.125 MG TABLET PO SCH (08:26)
[2019-07-27] MEDS: METFORMIN XR 500 MG TAB.SR.24H PO SCH (08:26)
[2019-07-27] MEDS: CARVEDILOL 12.5 MG TABLET PO SCH ×2 (08:26→21:11)
[2019-07-27] MEDS: LINAGLIPTIN 5 MG TABLET PO SCH (08:26)
[2019-07-27] MEDS: CEFTRIAXONE 1 G in IV D5W 50 ML IV SCH (08:27)
--- NOTE | 2019-07-27 08:45 | NUR ---
SEEN BY DR WILDE TODAY WITH ORDERS TO D/C TELE MONITOR. NOTED AND CARRIED OUT.
[2019-07-27] MEDS ORDERED: FENOFIBRATE NANOCRYS (145 MG) 145 MG TABLET PO SCH ×2 (09:00)
[2019-07-27 09:22] LABS: BAND % (MANUAL) 2 % (0.0-5.0); EOSINOPHILS % (MANUAL) 5 % (0-4); LYMPHOCYTES % (MANUAL) 20 % (16-48); MONOCYTES % (MANUAL) 15 % (0-11.0); NEUTROPHILS % (MANUAL) 58 (42-76)
[2019-07-27] MEDS ORDERED: POTASSIUM CHLORIDE 20 MEQ TAB.PRT.SR PO SCH (09:30)
[2019-07-27] MEDS: AZITHROMYCIN 500 MG in IV D5W 250 ML IV SCH (09:36)
--- NOTE | 2019-07-27 17:46 | NUR ---
TRANSCRIBING MACHINE MECHANIC CLOSING NOTES PT IN BED, AWAKE, ALERT AND ORIENTED X2-3. CZECH SPEAKING ONLY. NO CARDIAC OR RESPIRATORY DISTRESS NOTED. NO SOB NOTED. SATURATING WELL ON 2L OF O2 VIA NASAL CANULLA. PT IS AMBULATORY WITH USE OF FWW, BUT REQUIRES ASSISTANCE. ASSISTED TO BATHROOM/TOILET NEEDED. SAFETY PRECAUTIONS IN PLACE. BED LOCKED AND IN LOW POSITION. BED ALARM ON. CALL LIGHT FUNCTIONING AND WITHIN REACH. SIDE RAILS UP X2. REMINDED PT TO ASK FOR ASSISTANCE FROM STAFF IF WANTING TO GET UP FROM BED OR IF WANTING TOP GO THE BATHROOM. PT AGREED. REMINDED PT WITH A COMPUTER HARDWARE ENGINEER. IV ACCESS NOTED ON R AC AND L HAND G20, IV FLUIDS NS RUNNING AT 75ML/HR. TOLERATING WELL.
--- NOTE | 2019-07-27 19:30 | NUR ---
MS RN OPENING NOTES RECEIVED PATIENT FROM MORNING SHIFT, ALERT AND ORIENTED X 2-3, NIGERIEN SPEAKING. VERBALLY RESPONSIVE AND ABLE TO FOLLOW DIRECTIONS. FAMILY ON BEDSIDE. BREATHING REGULAR AND UNLABORED ON OXYGEN AT 2L/MIN VIA NASAL CANNULA. LEFT HAND AND RIGHT AC BOTH G20 IV LINES INTACT AND PATENT, INFUSING WELL WITH NO BLEEDING OR S/S OF INFILTRATION NOTED. BODY ASSESSMENT DONE, SKIN REMAINED INTACT, CLEAN AND DRY. NO S/S OF PAIN/DISCOMFORT OBSERVED OF THE TIME. HOB KEPT ELEVATED. BED LOW AND LOCKED ON SEMI FOWLERS POSITION. CALL LIGHT IN REACH. WILL CONTINUE TO MONITOR.
[2019-07-27] MEDS: LORAZEPAM 0.5 MG TABLET PO PRN (23:53)
--- NOTE | 2019-07-28 | NUR ---
MS RN NOTES PATIENT NOTED WITH INABILITY TO STAY STILL, ATIVAN 0.5MG GIVEN BY MOUTH. NON-PHARMACOLOGICAL INTERVENTIONS PROVIDED. WILL CONTINUE TO MONITOR.
[2019-07-28 04:00] VITALS: BP 143/61
--- NOTE | 2019-07-28 06:15 | NUR ---
MS RN CLOSING NOTES PATIENT IN BED ALERT AND ORIENTED X 2-3, UGANDAN SPEAKING. VERBALLY RESPONSIVE AND ABLE TO FOLLOW DIRECTIONS. BREATHING REGULAR AND UNLABORED ON OXYGEN AT 2L/MIN VIA NASAL CANNULA. LEFT HAND AND RIGHT AC BOTH G20 IV LINES PATENT AND INFUSING WELL. NO S/S OF PAIN/DISCOMFORT OBSERVED THE WHOLE SHIFT. HOB KEPT ELEVATED. BED LOW AND LOCKED ON SEMI FOWLERS POSITION. CALL LIGHT IN REACH. WILL ENDORSE TO MORNING SHIFT FOR JADE.
[2019-07-28 08:00] VITALS: BP 106/83
--- NOTE | 2019-07-28 08:00 | NUR ---
MS RN AM NOTES RECEIVED PATIENT ALERT AND ORIENTED X 2-3, LITHUANIAN SPEAKING. VERBALLY RESPONSIVE AND ABLE TO FOLLOW DIRECTIONS. FAMILY ON BEDSIDE. BREATHING REGULAR AND UNLABORED ON OXYGEN AT 2L/MIN VIA NASAL CANNULA. LEFT HAND AND RIGHT AC BOTH G20 IV LINES INTACT AND PATENT, INFUSING WELL WITH NO BLEEDING OR S/S OF INFILTRATION NOTED. SKIN REMAINED INTACT, CLEAN AND DRY. NO S/S OF PAIN/DISCOMFORT OBSERVED OF THE TIME. HOB KEPT ELEVATED. BED LOW AND LOCKED ON SEMI FOWLERS POSITION. CALL LIGHT IN REACH. WILL CONTINUE TO MONITOR.
[2019-07-28 08:04] LABS: CALCIUM, SERUM 8.9 mg/dL (8.5-10.1); CREATININE 1.3 mg/dL (0.6-1.3); POTASSIUM 3.5 mmol/L (3.5-5.1)
[2019-07-28] MEDS: HYDROCHLOROTHIAZIDE 25 MG TABLET PO SCH (09:00)
[2019-07-28] MEDS: LOSARTAN POTASSIUM 50 MG TABLET PO SCH (09:00)
[2019-07-28] MEDS: AMLODIPINE BESYLATE 10 MG TABLET PO SCH (09:00)
[2019-07-28] MEDS: CARVEDILOL 12.5 MG TABLET PO SCH ×2 (09:00→20:28)
[2019-07-28] MEDS: CEFTRIAXONE 1 G in IV D5W 50 ML IV SCH (09:10)
[2019-07-28] MEDS: ATORVASTATIN 40 MG TABLET PO SCH (09:11)
[2019-07-28] MEDS: LORAZEPAM 0.5 MG TABLET PO PRN (09:11)
[2019-07-28] MEDS: ACETAMINOPHEN 325 MG TABLET PO PRN (09:11)
[2019-07-28] MEDS: MEMANTINE HCL 5 MG TABLET PO SCH ×2 (09:11→18:02)
[2019-07-28] MEDS: METFORMIN XR 500 MG TAB.SR.24H PO SCH (09:11)
[2019-07-28] MEDS: LINAGLIPTIN 5 MG TABLET PO SCH (09:11)
[2019-07-28] MEDS: DIGOXIN 0.125 MG TABLET PO SCH (09:11)
[2019-07-28] MEDS: PANTOPRAZOLE 40 MG TABLET.DR PO SCH (09:18)
[2019-07-28] MEDS: AZITHROMYCIN 500 MG in IV D5W 250 ML IV SCH (10:46)
[2019-07-28] MEDS: FUROSEMIDE 40 MG/4 ML VIAL IV SCH ×3 (10:51→18:02)
[2019-07-28] MEDS: POTASSIUM CHLORIDE 20 MEQ TAB.PRT.SR PO SCH ×3 (10:51→12:52)
[2019-07-28 13:14] LABS: ABG BASE EXCESS 4.1 mmol/L; ABG OXYGEN SATURATION 80.1 % (92.0-98.5); ABG PCO2 41.2 mmHg (35.0-45.0); ABG PH 7.455 (7.350-7.450); ABG PO2 45.3 mmHg (75.0-100.0); AaDO2 55.1 mmHg; COHb 0.2 % (0.5-1.5); MetHb 0.6 % (0.0-1.5); O2Hb 79.5 % (94.0-97.0); SITE, ABG Left Radial; VENT MODE, BG room air
[2019-07-28] MEDS: ALBUTEROL HALF STRENGTH 1.25 MG/3 ML VIAL.NEB NEB SCH ×3 (15:53→23:09)
[2019-07-28] MEDS: IPRATROPIUM NEB FS 0.5 MG/2.5 ML AMPUL.NEB NEB SCH ×3 (15:53→23:09)
[2019-07-28 16:00] VITALS: BP 102/42
--- NOTE | 2019-07-28 18:58 | NUR ---
PT IN BED WITH VENOUS DOPPLER BLE PROCEDURE GOING ON.DENIES ANY PAIN OR DISTRESS.CALL LIGHT PLACED WITHIN REACH.
--- NOTE | 2019-07-28 19:40 | NUR ---
MS RN OPENING NOTES PATIENT AWAKE, A/O X3; CITIZEN OF [place] SPEAKING; DAUGHTERS AT BEDSIDE; PATIENT ON 2L NC; TOLERATING WELL; NO S/S OF ACUTE RESPIRATORY DISTRESS; PATIENT RESTING IN BED COMFORTABLY; R AC # 20 AND L HAND #20 IV SITES BOTH INTACT AND PATENT; FLUSHING WELL; NO S/S OF REDNESS OR INFILTRATION; SAFETY PRECAUTIONS IN PLACE; BED LOCKED IN LOW POSITION; SIDE RAILS X2; BED ALARM ON; CALL LIGHT WITHIN REACH; WILL CONTINUE TO MONITOR
[2019-07-28 20:00] VITALS: BP 100/50
[2019-07-28 20:13] LABS: APPEARANCE,URINE CLEAR (CLEAR); BILIRUBIN,URINE NEGATIVE (NEGATIVE); BLOOD, URINE NEGATIVE Ery/uL (NEGATIVE); COLOR,URINE YELLOW (YELLOW); KETONES,URINE NEGATIVE (NEGATIVE); LEUKOCYTE ESTERASE ,URINE NEGATIVE (NEGATIVE); NITRITE, URINE NEGATIVE (NEGATIVE); PH,URINE 5.5 (5.0-8.0); PROTEIN,URINE NEGATIVE (NEGATIVE); UGLUCOSE NEGATIVE (NEGATIVE); UROBILINOGEN,URINE 0.2 EU/dL (0.2)
[2019-07-28 20:21] LABS: URINE TOTAL PROTEIN 12.5 mg/dL (0-11.9)
[2019-07-28 20:30] LABS: EOSINOPHIL,URINE None Seen
--- NOTE | 2019-07-29 01:35 | NUR ---
MS RN NOTES R AC #20 AND L HAND #20 BOTH INFILTRATED; IV TIPS INTACT; NO S/S OF BLEEDING; R HAND #24 INTACT AND PATENT; FLUSHING WELL, NO S/S OF REDNESS OR INFILTRATION; WILL CONTINUE TO MONITOR
[2019-07-29] MEDS: ALBUTEROL HALF STRENGTH 1.25 MG/3 ML VIAL.NEB NEB SCH ×6 (03:15→23:01)
[2019-07-29] MEDS: IPRATROPIUM NEB FS 0.5 MG/2.5 ML AMPUL.NEB NEB SCH ×6 (03:15→23:01)
--- NOTE | 2019-07-29 06:20 | NUR ---
MS RN NOTES DAUGHTER (MARIO) INFORMED OF PATIENT SHAWL; EVS HEAD RAMON CONTACTED TO CALL [employer] REGARDING PATIENT'S SHAWL;
[2019-07-29] MEDS: LORAZEPAM 0.5 MG TABLET PO PRN (06:32)
[2019-07-29] MEDS: PANTOPRAZOLE 40 MG TABLET.DR PO SCH (06:32)
--- NOTE | 2019-07-29 06:35 | NUR ---
MS RN NOTES PATIENT SITTING ON BED, AWAKE, A/O X3; NAMIBIAN SPEAKING; PATIENT VERBALIZED SHE DOES NOT FEEL WELL; PATIENT KEEPS REMOVING NC; PATIENT WAS EDUCATED ON IMPORTANCE OF COMPLIANCE WITH NC; PATIENT VERBALIZED UNDERSTANDING; VITALS BP: 150/58 PULSE: 97 RR: 20 SP02: 95% ON 2L NC; ATIVAN GIVEN; PATIENT STATED SHE FEELS BETTER WITH 2L NC ON; ALL NEEDS RENDERED; SAFETY PRECAUTIONS IN PLACE; BED LOCKED IN LOW POSITION; BILATERAL SIDE RAILS X2; CALL LIGHT WITHIN REACH; WILL ENDORSE CONTINUITY OF CARE TO ONCOMING SHIFT;
--- NOTE | 2019-07-29 07:41 | NUR ---
MS/RN OPENING NOTES RECEIVED PATIENT ON BED, AWAKE, A/O X3; TEL[place] SPEAKING; NO RESPIRATORY DISTRESS NOTED. SAFETY PRECAUTIONS IN PLACE; BED LOCKED IN LOW POSITION; BILATERAL SIDE RAILS X2; CALL LIGHT WITHIN REACH; WILL CONTINUE TO MONITOR.
[2019-07-29 07:57] LABS: BASOPHILS % (AUTO) 0.5 % (0.0-2.0); EOSINOPHILS % (AUTO) 8.5 % (0.0-6.0); HEMATOCRIT 26 % (33-45); HEMOGLOBIN 8.7 g/dL (11.5-14.8); LYMPHOCYTES # (AUTO) 0.9 /CMM (0.8-4.8); LYMPHOCYTES % (AUTO) 21.5 % (20.0-44.0); MEAN CORPUSCULAR HGB CONC 33 g/dl (31.0-36.0); MEAN CORPUSCULAR VOLUME 91 fL (82-100); MONOCYTES # (AUTO) 0.6 /CMM (0.1-1.30); MONOCYTES % (AUTO) 14.4 % (2.0-12.0); NEUTROPHILS # (AUTO) 2.3 /CMM (1.8-8.9); NEUTROPHILS % (AUTO) 55.1 % (43.0-81.0); PLATELET COUNT (AUTO) 206 /CMM (150-450); RED BLOOD CELL COUNT(AUTO) 2.86 MIL/uL (4.0-5.2); WHITE BLOOD COUNT (AUTO) 4.2 K/uL (4.3-11.0)
[2019-07-29 08:00] VITALS: BP 137/69
[2019-07-29] MEDS: ATORVASTATIN 40 MG TABLET PO SCH (08:29)
[2019-07-29] MEDS: LINAGLIPTIN 5 MG TABLET PO SCH (08:29)
[2019-07-29] MEDS: METFORMIN XR 500 MG TAB.SR.24H PO SCH (08:29)
[2019-07-29] MEDS: AZITHROMYCIN 250 MG TABLET PO SCH (08:29)
[2019-07-29] MEDS: MEMANTINE HCL 5 MG TABLET PO SCH ×2 (08:29→17:43)
[2019-07-29] MEDS: CARVEDILOL 12.5 MG TABLET PO SCH ×2 (08:30→22:19)
[2019-07-29] MEDS: AMLODIPINE BESYLATE 10 MG TABLET PO SCH (08:30)
[2019-07-29] MEDS: DIGOXIN 0.125 MG TABLET PO SCH (08:30)
[2019-07-29] MEDS: CEFTRIAXONE 1 G in IV D5W 50 ML IV SCH (08:32)
[2019-07-29 08:57] LABS: ALANINE AMINOTRANSFERASE 22 U/L (12-78); ALBUMIN 2.9 g/dL (3.4-5.0); ALKALINE PHOSPHATASE 61 U/L (46-116); ASPARTATE AMINOTRANSFERASE 29 U/L (15-37); BILIRUBIN,TOTAL 0.4 mg/dL (0.2-1.0); CALCIUM, SERUM 8.8 mg/dL (8.5-10.1); CARBON DIOXIDE 30 mmol/L (21-32); CHLORIDE 104 mmol/L (98-107); CREATININE 1.5 mg/dL (0.6-1.3); GLUCOSE 87 mg/dL (74-106); MAGNESIUM 1.5 mg/dL (1.8-2.4); POTASSIUM 3.7 mmol/L (3.5-5.1); SODIUM SERUM 142 mmol/L (136-145); TOTAL PROTEIN, SERUM 6.8 g/dL (6.4-8.2); UREA NITROGEN, BLOOD 25 mg/dL (7-18)
[2019-07-29] MEDS ORDERED: Magnesium 1GM/D5W 100ML PREMIX 100 ML IV SCH (11:23)
[2019-07-29] MEDS: ACETAMINOPHEN 325 MG TABLET PO PRN (12:48)
[2019-07-29 16:00] VITALS: BP 129/69
--- NOTE | 2019-07-29 18:21 | NUR ---
MS/RN CLOSING NOTES PATIENT IS LYING ON BED COMFORTABLY ALERT AND ORIENTED X 2-3. DENIES PAIN AT THIS TIME. NO RESPIRATORY DISTRESS NOTED. IVF OF NS 1L INFUSING 75ML/HR KEPT PATIENT DRY AND COMFORTABLE THE WHOLE TIME. SEEN AND EXAMINED BY MD WITH ORDERS MADE AND CARRIED OUT. ALL DUE MEDS WAS GIVEN. SAFETY PRECAUTION IS IN PLACED. BED IN LOWEST POSITION. CALL LIGHT WITHIN REACH. WILL ENDORSED TO SECURITIES COUNSELOR.
[2019-07-29 20:00] VITALS: BP 125/52
[2019-07-30] MEDS: ALBUTEROL HALF STRENGTH 1.25 MG/3 ML VIAL.NEB NEB SCH ×7 (03:03→23:35)
[2019-07-30] MEDS: IPRATROPIUM NEB FS 0.5 MG/2.5 ML AMPUL.NEB NEB SCH ×7 (03:03→23:35)
--- NOTE | 2019-07-30 06:17 | NUR ---
MS RN NOTES AWAKE & RESPONSIVE. NOT IN ANY DISTRESS. NO SOB NOTED. DENIES ANY PAIN OR DISCOMFORT AT THIS TIME. WITH IV-HL PATENT & INTACT. AM CARE DONE. MONITORED ACCORDINGLY. CALL LIGHT WITHIN REACH. BED IN LOWEST POSITION. SR UP X 2 WITH BED ALARM ON FOR SAFETY. WILL ENDORSE TO NEXT SHIFT.
[2019-07-30 07:06] LABS: BASOPHILS % (AUTO) 0.5 % (0.0-2.0); EOSINOPHILS % (AUTO) 7.8 % (0.0-6.0); HEMATOCRIT 27 % (33-45); HEMOGLOBIN 8.9 g/dL (11.5-14.8); LYMPHOCYTES % (AUTO) 22.4 % (20.0-44.0); MEAN CORPUSCULAR HGB CONC 33 g/dl (31.0-36.0); MEAN CORPUSCULAR VOLUME 91 fL (82-100); MONOCYTES # (AUTO) 0.6 /CMM (0.1-1.30); MONOCYTES % (AUTO) 14.5 % (2.0-12.0); NEUTROPHILS # (AUTO) 2.3 /CMM (1.8-8.9); NEUTROPHILS % (AUTO) 54.8 % (43.0-81.0); PLATELET COUNT (AUTO) 201 /CMM (150-450); RED BLOOD CELL COUNT(AUTO) 2.99 MIL/uL (4.0-5.2); WHITE BLOOD COUNT (AUTO) 4.2 K/uL (4.3-11.0)
--- NOTE | 2019-07-30 07:29 | NUR ---
MS/RN OPENING NOTE Patient is resting in bed, A/O x3, showing no signs of acute distress or SOB, saturating >95% on 2L NC. Patient has no complaints of pain at this time. IV line is clean and intact. Patient is able to ambulate with walker and stand-by assistance to bathroom. Bed is in lowest position, side rails x3 in upright position, call light is within reach and patient is aware of how to call for assistance when needed. Will continue with plan of care.
[2019-07-30 08:00] VITALS: BP 167/65
[2019-07-30 08:19] LABS: CALCIUM, SERUM 8.5 mg/dL (8.5-10.1); CHLORIDE 105 mmol/L (98-107); CREATININE 1.6 mg/dL (0.6-1.3); GLUCOSE 120 mg/dL (74-106); MAGNESIUM 1.8 mg/dL (1.8-2.4); PHOSPHORUS 3.2 mg/dL (2.5-4.9); SODIUM SERUM 144 mmol/L (136-145)
[2019-07-30] MEDS: CEFTRIAXONE 1 G in IV D5W 50 ML IV SCH (08:25)
[2019-07-30] MEDS: DIGOXIN 0.125 MG TABLET PO SCH (08:26)
[2019-07-30] MEDS: CARVEDILOL 12.5 MG TABLET PO SCH ×2 (08:26→20:43)
[2019-07-30] MEDS: AZITHROMYCIN 250 MG TABLET PO SCH (08:26)
[2019-07-30 08:27] LABS: CARBON DIOXIDE 31 mmol/L (21-32); UREA NITROGEN, BLOOD 28 mg/dL (7-18)
[2019-07-30] MEDS: AMLODIPINE BESYLATE 10 MG TABLET PO SCH (08:27)
[2019-07-30] MEDS: ATORVASTATIN 40 MG TABLET PO SCH (08:27)
[2019-07-30] MEDS: LINAGLIPTIN 5 MG TABLET PO SCH (08:27)
[2019-07-30] MEDS: PANTOPRAZOLE 40 MG TABLET.DR PO SCH (08:29)
[2019-07-30] MEDS: MEMANTINE HCL 5 MG TABLET PO SCH ×2 (08:29→16:56)
[2019-07-30] MEDS: FUROSEMIDE 40 MG TABLET PO SCH (09:32)
[2019-07-30] MEDS: POTASSIUM CHLORIDE 20 MEQ TAB.PRT.SR PO SCH (09:32)
[2019-07-30 09:49] LABS: ABG BASE EXCESS 5.6 mmol/L; ABG OXYGEN SATURATION 88.6 % (92.0-98.5); ABG PCO2 44.3 mmHg (35.0-45.0); ABG PH 7.451 (7.350-7.450); ABG PO2 57.4 mmHg (75.0-100.0); AaDO2 39.3 mmHg; COHb 0.1 % (0.5-1.5); MetHb 0.7 % (0.0-1.5); O2Hb 87.9 % (94.0-97.0); SITE, ABG Right Radial; VENT MODE, BG ROOM AIR
[2019-07-30] MEDS: methylPREDNISolone SOD SUCC 40 MG/ML VIAL IV SCH ×2 (11:42→20:42)
[2019-07-30 16:01] VITALS: BP 139/58
--- NOTE | 2019-07-30 19:36 | NUR ---
received in bed. Alert and orientated daughter at the bedside. o2 on n/c 2liters. bed alarm distribution center manager light within reach
--- NOTE | 2019-07-30 19:47 | NUR ---
MS/RN CLOSING NOTE Patient is resting in bed, A/O x3, showing no signs of acute distress or SOB, saturating >95% on 2L NC. Patient has no complaints of pain at this time. IV line is clean and intact. Patient is able to ambulate with walker and stand-by assistance to bathroom. Daughter is at the bedside. All patient needs met, all due meds given. Bed is in lowest position, side rails x3 in upright position, call light is within reach and patient is aware of how to call for assistance when needed. Will endorse to evening or night nurse supervisor. .
[2019-07-30 20:00] VITALS: BP 143/64
[2019-07-30 20:31] VITALS: BP 143/64
[2019-07-31] MEDS: IPRATROPIUM NEB FS 0.5 MG/2.5 ML AMPUL.NEB NEB SCH ×6 (04:23→22:56)
[2019-07-31] MEDS: ALBUTEROL HALF STRENGTH 1.25 MG/3 ML VIAL.NEB NEB SCH ×6 (04:23→22:56)
[2019-07-31] MEDS: methylPREDNISolone SOD SUCC 40 MG/ML VIAL IV SCH ×3 (05:18→20:57)
--- NOTE | 2019-07-31 05:58 | NUR ---
CLOSING NOTES: SLEPT THRU THE NIGHT WITH ASSIST UP TO THE BATHROOM X1 USING A WALKER. NO SOB THIS 12 HOURS. 02 2 LITERS N/C. BEDALARM ON
[2019-07-31 06:50] LABS: BASOPHILS % (AUTO) 0.2 % (0.0-2.0); EOSINOPHILS % (AUTO) 0.1 % (0.0-6.0); HEMATOCRIT 26 % (33-45); HEMOGLOBIN 8.9 g/dL (11.5-14.8); LYMPHOCYTES # (AUTO) 0.8 /CMM (0.8-4.8); LYMPHOCYTES % (AUTO) 20.8 % (20.0-44.0); MEAN CORPUSCULAR HGB CONC 34 g/dl (31.0-36.0); MEAN CORPUSCULAR VOLUME 91 fL (82-100); MONOCYTES # (AUTO) 0.2 /CMM (0.1-1.30); MONOCYTES % (AUTO) 4.8 % (2.0-12.0); NEUTROPHILS # (AUTO) 2.9 /CMM (1.8-8.9); NEUTROPHILS % (AUTO) 74.1 % (43.0-81.0); PLATELET COUNT (AUTO) 189 /CMM (150-450); WHITE BLOOD COUNT (AUTO) 3.9 K/uL (4.3-11.0)
[2019-07-31 07:04] LABS: CALCIUM, SERUM 8.7 mg/dL (8.5-10.1); CARBON DIOXIDE 30 mmol/L (21-32); CHLORIDE 103 mmol/L (98-107); CREATININE 1.6 mg/dL (0.6-1.3); GLUCOSE 238 mg/dL (74-106); MAGNESIUM 1.9 mg/dL (1.8-2.4); PHOSPHORUS 3.5 mg/dL (2.5-4.9); POTASSIUM 4.4 mmol/L (3.5-5.1); SODIUM SERUM 141 mmol/L (136-145); UREA NITROGEN, BLOOD 32 mg/dL (7-18)
[2019-07-31 08:00] VITALS: BP 127/61
[2019-07-31] MEDS: ATORVASTATIN 40 MG TABLET PO SCH (08:22)
[2019-07-31] MEDS: POTASSIUM CHLORIDE 20 MEQ TAB.PRT.SR PO SCH (08:22)
[2019-07-31] MEDS: AMLODIPINE BESYLATE 10 MG TABLET PO SCH (08:23)
[2019-07-31] MEDS: MEMANTINE HCL 5 MG TABLET PO SCH ×2 (08:23→16:44)
[2019-07-31] MEDS: CARVEDILOL 12.5 MG TABLET PO SCH ×2 (08:23→20:57)
[2019-07-31] MEDS: PANTOPRAZOLE 40 MG TABLET.DR PO SCH (08:23)
[2019-07-31] MEDS: AZITHROMYCIN 250 MG TABLET PO SCH (08:23)
[2019-07-31] MEDS: FUROSEMIDE 40 MG TABLET PO SCH (08:23)
[2019-07-31] MEDS: LINAGLIPTIN 5 MG TABLET PO SCH (08:23)
--- NOTE | 2019-07-31 08:26 | NUR ---
m/s yellow pages space salesperson: cardio f/u seen and examined by dr. moctezuma with order. order acknowledged.
[2019-07-31] MEDS: CEFTRIAXONE 1 G in IV D5W 50 ML IV SCH (08:56)
[2019-07-31] MEDS ORDERED: FUROSEMIDE 100 MG/10 ML VIAL IV ONE (10:46)
--- NOTE | 2019-07-31 11:00 | NUR ---
m/s power line installer: notes o2 turned off for 5 minutes and reassess o2 saturation on room air and it's at 87%. place pt back on o2 at 2l/min via n/c. will continue to monitor.
--- NOTE | 2019-07-31 13:00 | NUR ---
m/s flame cutter: Notes resting comfortable in bed. no distress noted. will monitor.
[2019-07-31] MEDS: DIGOXIN 0.125 MG TABLET PO SCH (13:31)
--- NOTE | 2019-07-31 15:00 | NUR ---
m/s elementary reading specialist: notes in bed awake, no c/o sob. instructed to call for assistance.
[2019-07-31 16:00] VITALS: BP 139/71
--- NOTE | 2019-07-31 16:00 | NUR ---
m/s funeral greeter: notes family in visiting at this time.
--- NOTE | 2019-07-31 17:35 | NUR ---
m/s fabrication manager: notes sitting up at the edge of the bed having dinner (home food). family remains at bedside. instructed to call for assistance. needs attended.
--- NOTE | 2019-07-31 18:40 | NUR ---
m/s contestant coordinator: notes portable o2 delivered to pt's room to take home tomorrow. pt aware.
--- NOTE | 2019-07-31 18:58 | NUR ---
m/s biofuels technology development manager: notes bedside report given to matteo (rob) for continuity of care. grand daughter visiting at this time.
--- NOTE | 2019-07-31 19:30 | NUR ---
MS RN OPENING NOTE RECEIVED PATIENT IN BED. A/O X3. YAKUT SPEAKING. ABLE TO MAKE BASIC NEEDS KNOWN. ON OXYGEN 2L/MIN VIA NASAL CANNULA. RESPIRATIONS ARE EVEN AND UNLABORED. NO SOB NOTED. DENIES PAIN AT THIS TIME. IV ACCES IN LEFT HAND #24 PATENT AND SALINE LOCKED. IN NO APPARENT DISTRESS. BED IS LOW AD LOCKED, HOB ELEVATED IN SEMI FOWLERS, SIDE RAILS UP X2. CALL LIGHT WITHIN REACH. FAMILY AT BEDSIDE. WILL CONTINUE TO MONITOR.
[2019-07-31 20:00] VITALS: BP 139/60
[2019-08-01] MEDS: ALBUTEROL HALF STRENGTH 1.25 MG/3 ML VIAL.NEB NEB SCH ×4 (03:21→16:02)
[2019-08-01] MEDS: IPRATROPIUM NEB FS 0.5 MG/2.5 ML AMPUL.NEB NEB SCH ×4 (03:21→16:02)
[2019-08-01] MEDS: methylPREDNISolone SOD SUCC 40 MG/ML VIAL IV SCH ×2 (04:36→13:31)
--- NOTE | 2019-08-01 06:10 | NUR ---
MS RN CLOSING NOTE PATIENT IN BED. A/O X3. ON OXYGEN 2L/MIN VIA NASAL CANNULA. RESPIRATIONS ARE EVEN AND UNLABORED. NO SOB NOTED. NO C/O OF PAIN THROUGHOUT SHIFT. IV ACCES MAINTAINED IN LEFT HAND #24 PATENT AND SALINE LOCKED. NO DISTRESS NOTED. BED REMAINS LOW AD LOCKED, HOB ELEVATED IN SEMI FOWLERS, SIDE RAILS UP X2. CALL LIGHT WITHIN REACH. WILL ENDORSE TO NEXT SHIFT
--- NOTE | 2019-08-01 07:30 | NUR ---
MS/RN OPENING NOTE Patient is resting in bed, A/O x3, with SOB during exertion, saturating >95% on 2L NC. Patient has breathing treatment scheduled. Patient has no complaints of pain at this time. IV line is clean and intact s/l. Patient is able to ambulate with walker and stand-by assistance to bathroom. Bed is in lowest position, side rails x3 in upright position, call light is within reach and patient is aware of how to call for assistance when needed. Fall, safety and aspiration precautions enforced. Will continue with plan of care.
[2019-08-01 08:00] VITALS: BP 146/64
[2019-08-01] MEDS ORDERED: FUROSEMIDE 40 MG TABLET PO SCH (09:00)
[2019-08-01] MEDS: ATORVASTATIN 40 MG TABLET PO SCH (09:19)
[2019-08-01] MEDS: AMLODIPINE BESYLATE 10 MG TABLET PO SCH (09:19)
[2019-08-01] MEDS: AZITHROMYCIN 250 MG TABLET PO SCH (09:20)
[2019-08-01] MEDS: CARVEDILOL 12.5 MG TABLET PO SCH (09:20)
[2019-08-01] MEDS: LINAGLIPTIN 5 MG TABLET PO SCH (09:20)
[2019-08-01] MEDS: POTASSIUM CHLORIDE 20 MEQ TAB.PRT.SR PO SCH (09:20)
[2019-08-01] MEDS: MEMANTINE HCL 5 MG TABLET PO SCH (09:21)
[2019-08-01] MEDS: CEFTRIAXONE 1 G in IV D5W 50 ML IV SCH (09:24)
[2019-08-01] MEDS: PANTOPRAZOLE 40 MG TABLET.DR PO SCH (09:25)
[2019-08-01] MEDS ORDERED: AZIT250T13 PO (13:00)
[2019-08-01] MEDS ORDERED: METH4TAB17 PO (13:00)
[2019-08-01] MEDS ORDERED: AMLO10TA7 PO (13:05)
[2019-08-01] MEDS: DIGOXIN 0.125 MG TABLET PO SCH (13:31)
[2019-08-01 16:00] VITALS: BP 128/55
--- NOTE | 2019-08-01 16:30 | NUR ---
MS/MANAGER CULTURE NOTE Patient is medically stable for discharge. A/O x3, showing no signs of acute distress, saturating 95% on 2L NC. Patient refused skin assessment. DC instructions provided to patient and family. Verbalized understanding. O2 tank sent home with patient. IV line removed, ID band removed. All belongings with patient. All patient needs met, all due meds given. Patient left unit with family via private car. MD aware of discharge.
== END 2019-08-01 16:45 | disposition home or self-care (01) | DRG 193 ==
LOC: ER 06:09 → TELE 08:46 → MED 07-27 08:50
PROVIDERS: ADMIT Internal Medicine; ATTEND Nurse Practitioner Acute Care
DX: J15.9 Unspecified bacterial pneumonia (principal); J96.01 Acute respiratory failure with hypoxia; N17.0 Acute kidney failure with tubular necrosis; K85.90 Acute pancreatitis without necrosis or infection, unspecified; I50.33 Acute on chronic diastolic (congestive) heart failure; E66.2 Morbid (severe) obesity with alveolar hypoventilation; N39.0 Urinary tract infection, site not specified; Z68.36 Body mass index [BMI] 36.0-36.9, adult; D63.8 Anemia in other chronic diseases classified elsewhere; E78.5 Hyperlipidemia, unspecified; F03.90 Unspecified dementia, unspecified severity, without behavioral disturbance, psychotic disturbance, mood disturbance, and anxiety; I25.10 Atherosclerotic heart disease of native coronary artery without angina pectoris; K21.9 Gastro-esophageal reflux disease without esophagitis; E11.9 Type 2 diabetes mellitus without complications; Z99.81 Dependence on supplemental oxygen; Z90.11 Acquired absence of right breast and nipple; Z85.3 Personal history of malignant neoplasm of breast; Z79.899 Other long term (current) drug therapy; I11.0 Hypertensive heart disease with heart failure; G89.29 Other chronic pain; F41.9 Anxiety disorder, unspecified; E78.00 Pure hypercholesterolemia, unspecified; E66.9 Obesity, unspecified; Z90.49 Acquired absence of other specified parts of digestive tract; Z79.84 Long term (current) use of oral hypoglycemic drugs; Z79.83 Long term (current) use of bisphosphonates; I70.0 Atherosclerosis of aorta; M85.80 Other specified disorders of bone density and structure, unspecified site; M54.5 Low back pain
CPT/HCPCS: 36415; 36600; 71045-TC; 71250-TC; 80048-TC; 80053-TC; 80061-TC; 80076-TC; 80162-TC; 81000-TC; 82570-TC; 82803-TC; 83605-TC; 83735-TC; 83880; 84100-TC; 84155-TC; 84300-TC; 84484-TC; 85025-TC; 85730-TC; 87040-TC; 87081-TC; 87086-TC; 93970-TC; 94799-TC; 97116-TC; 97530-TC; G0378; J0456; J0696; J1940; J2920; J3475; J7030; J7060

== ENCOUNTER 2019-08-09 13:32 | Inpatient (IN) | payer MEDICARE, MEDICAID ==
[~2019-08-09] VITALS: Ht 152.4 cm; Wt 79.8 kg
[~2019-08-09 13:32] MED LIST changes: +AZIT250T13 PO; +FENO145T21 PO; +FURO40TA5 PO; -HYDR-3980 PO; -HYDR-4384 PO; -LISI10TA5 PO; +METH4TAB17 PO; -OLME1TAB34 PO; -TEMA7.5C12 PO
--- NOTE | 2019-08-09 13:39 | NUR ---
SARAH SHOT BLASTER AT BEDSIDE FOR EVAL.
[2019-08-09 13:58] LABS: BASOPHILS % (AUTO) 0.6 % (0.0-2.0); EOSINOPHILS % (AUTO) 1.5 % (0.0-6.0); HEMATOCRIT 30 % (33-45); HEMOGLOBIN 9.6 g/dL (11.5-14.8); LYMPHOCYTES # (AUTO) 0.8 /CMM (0.8-4.8); LYMPHOCYTES % (AUTO) 10.8 % (20.0-44.0); MEAN CORPUSCULAR HGB CONC 32 g/dl (31.0-36.0); MEAN CORPUSCULAR VOLUME 92 fL (82-100); MONOCYTES # (AUTO) 0.7 /CMM (0.1-1.30); MONOCYTES % (AUTO) 9.8 % (2.0-12.0); NEUTROPHILS # (AUTO) 5.4 /CMM (1.8-8.9); NEUTROPHILS % (AUTO) 77.3 % (43.0-81.0); PLATELET COUNT (AUTO) 181 /CMM (150-450); RED BLOOD CELL COUNT(AUTO) 3.24 MIL/uL (4.0-5.2)
[2019-08-09] MEDS ORDERED: IPRATROPIUM NEB FS 0.5 MG/2.5 ML AMPUL.NEB NEB ONE (14:00)
[2019-08-09] MEDS ORDERED: ALBUTEROL FS 2.5 MG/0.5 ML VIAL.NEB NEB ONE (14:00)
[2019-08-09 14:07] LABS: CALCIUM, SERUM 9.7 mg/dL (8.5-10.1); CARBON DIOXIDE 32 mmol/L (21-32); CHLORIDE 103 mmol/L (98-107); CREATININE 1.4 mg/dL (0.6-1.3); GLUCOSE 206 mg/dL (74-106); POTASSIUM 3.7 mmol/L (3.5-5.1); SODIUM SERUM 144 mmol/L (136-145); UREA NITROGEN, BLOOD 29 mg/dL (7-18)
[2019-08-09] MEDS ORDERED: IPRATROPIUM NEB FS 0.5 MG/2.5 ML AMPUL.NEB ONE (14:14)
[2019-08-09] MEDS ORDERED: ALBUTEROL FS 2.5 MG/0.5 ML VIAL.NEB ONE (14:14)
--- NOTE | 2019-08-09 14:17 | NUR ---
RT BEDSIDE FOR BREATHING TREATMENT
[2019-08-09 14:20] LABS: ALANINE AMINOTRANSFERASE 33 U/L (12-78); ALBUMIN 3.2 g/dL (3.4-5.0); ALKALINE PHOSPHATASE 81 U/L (46-116); ASPARTATE AMINOTRANSFERASE 24 U/L (15-37); B-TYPE NATRIURETIC PEPTIDE 8388 PG/ML (0-125); BILIRUBIN,DIRECT 0.1 mg/dL (0.0-0.2); BILIRUBIN,TOTAL 0.4 mg/dL (0.2-1.0); TOTAL PROTEIN, SERUM 7.3 g/dL (6.4-8.2)
--- NOTE | 2019-08-09 14:25 | NUR ---
RADIOLOGY AT BEDSIDE FOR CHEST XRAY.
--- NOTE | 2019-08-09 15:18 | NUR ---
RT AT BEDSIDE FOR ABG
--- NOTE | 2019-08-09 15:35 | NUR ---
BI PAP DISCONTINUED FOR NOW. PER ERMD ORDER.
[2019-08-09 16:06] LABS: ABG BASE EXCESS 4.6 mmol/L; ABG OXYGEN SATURATION 95.7 % (92.0-98.5); ABG PCO2 39.3 mmHg (35.0-45.0); ABG PH 7.478 (7.350-7.450); ABG PO2 82.9 mmHg (75.0-100.0); AaDO2 84.8 mmHg; COHb 0.3 % (0.5-1.5); MetHb 0.6 % (0.0-1.5); O2Hb 94.8 % (94.0-97.0); SITE, ABG Left Radial; VENT MODE, BG BIPAP 15/5
[2019-08-09] MEDS ORDERED: ACETAMINOPHEN 325 MG TABLET ONE (16:15)
[2019-08-09] MEDS ORDERED: ACETAMINOPHEN 325 MG TABLET PO ONE (16:30)
--- NOTE | 2019-08-09 18:00 | NUR ---
REPORT GIVEN TO JEREMY RUSSELL. AWATING TRANSFER TO FLOOR.
[2019-08-09] MEDS ORDERED: INSULIN REGULAR, HUMAN 100 UNIT/ML 3 ML VIAL SQ PRN (18:30)
[2019-08-09] MEDS ORDERED: CLONIDINE HCL 0.1 MG TABLET PO PRN (18:30)
[2019-08-09] MEDS ORDERED: IBUPROFEN 600 MG TABLET PO PRN (18:30)
[2019-08-09] MEDS ORDERED: DEXTROSE 50%-WATER 50 ML DISP.SYRIN IV PRN (18:30)
[2019-08-09] MEDS ORDERED: NITROGLYCERIN 0.4 MG/TAB BOTTLE SL PRN (18:30)
[2019-08-09] MEDS: IPRATROPIUM NEB FS 0.5 MG/2.5 ML AMPUL.NEB NEB SCH (19:30)
--- NOTE | 2019-08-09 19:50 | NUR ---
RN NOTE OFFERED TO APPLY DVT PUMPS ORDERED BUT PT REFUSED DESPITE EXPLANATION OF RISKS AND BENEFITS TO PT AND FAMILY AT BEDSIDE.
[2019-08-09 20:00] VITALS: BP 142/75
[2019-08-09] MEDS: ALBUTEROL FS 2.5 MG/0.5 ML VIAL.NEB NEB SCH (20:38)
[2019-08-09] MEDS: ENOXAPARIN SODIUM 30 MG/0.3 ML DISP.SYRIN SQ SCH (21:00)
[2019-08-09] MEDS ORDERED: CARVEDILOL 25 MG TABLET PO SCH (21:00)
[2019-08-09] MEDS: CARVEDILOL 12.5 MG TABLET PO SCH (21:07)
[2019-08-09] MEDS: BLOOD SUGAR DIAGNOSTIC 1 EACH STRIP IN SCH (21:52)
--- NOTE | 2019-08-09 22:04 | NUR ---
RN NOTE REGULAR INSULIN HELD DUE TO NPO SATUS. BLOOD SUGAR 168. MD AWARE WITH NO NEW ORDERS.
[2019-08-09] MEDS: LORAZEPAM 0.5 MG TABLET PO PRN (23:15)
[2019-08-10] VITALS (16 sets, daily range): BP systolic 107–155; BP diastolic 50–97
--- NOTE | 2019-08-10 06:05 | NUR ---
RN NOTE PT COMPLAINING OF CHILLS. ORAL TEMPERATURE 99.4. NOTED WITH MILD SWEATING. COOLING MEASURES APPLIED. PAGED DR. SOMMER.
--- NOTE | 2019-08-10 06:27 | NUR ---
RN NOTE PT WITH TEMPERATURE 99.2. PT WITH LESS SHIVERING NOTED. DR. SOMMER NOTIFIED WITH ORDER TO TRY AND WARM PATIENT AND CONTINUE MONITORING. WILL ENDORSE TO MORNING SHIFT.
[2019-08-10 07:16] LABS: ALANINE AMINOTRANSFERASE 30 U/L (12-78); ALKALINE PHOSPHATASE 73 U/L (46-116); ASPARTATE AMINOTRANSFERASE 20 U/L (15-37); BILIRUBIN,TOTAL 0.5 mg/dL (0.2-1.0); CALCIUM, SERUM 9.6 mg/dL (8.5-10.1); CARBON DIOXIDE 34 mmol/L (21-32); CHLORIDE 104 mmol/L (98-107); CREATININE 1.4 mg/dL (0.6-1.3); GLUCOSE 156 mg/dL (74-106); MAGNESIUM 1.9 mg/dL (1.8-2.4); PHOSPHORUS 3.9 mg/dL (2.5-4.9); POTASSIUM 3.5 mmol/L (3.5-5.1); SODIUM SERUM 145 mmol/L (136-145); TOTAL PROTEIN, SERUM 7.2 g/dL (6.4-8.2); UREA NITROGEN, BLOOD 32 mg/dL (7-18)
[2019-08-10] MEDS ORDERED: PANTOPRAZOLE 40 MG TABLET.DR PO PRN (07:30)
--- NOTE | 2019-08-10 07:35 | NUR ---
RN OPENING NOTES RECEIVED PATIENT IN BED, VERBALLY RESPONSIVE. DENIES ANY DISCOMFORT AT THE MOMENT. A/O X3 MAORI SPEAKING. ON NASAL CANNULA 5L, NOTED OF SOB DURING EXERTION .IV ACCESS ON R AC SALINE LOCKED., INTACT, PATENT AND FLUSHED WELL. PATIENT IS CURRENTLY ON NPO BUT NOTED OF FOODS ON HER SIDE TABLE. REMINDED PATIENT THAT SHE IS CURRENTLY NOT ALLOWED TO EAT AND DRINK. VERBALIZED UNDERSTANDING. SAFETY MEASURE IN PLACED, CALL LIGHT WITHIN REACH. WILL CONTINUE TO MONITOR.
[2019-08-10] MEDS: ALBUTEROL FS 2.5 MG/0.5 ML VIAL.NEB NEB SCH ×4 (08:05→20:02)
[2019-08-10] MEDS: IPRATROPIUM NEB FS 0.5 MG/2.5 ML AMPUL.NEB NEB SCH ×4 (08:05→20:02)
[2019-08-10] MEDS: BLOOD SUGAR DIAGNOSTIC 1 EACH STRIP IN SCH ×4 (08:06→23:43)
[2019-08-10 08:15] LABS: THYROID STIMULATING HORMONE 1.171 uIU/mL (0.358-3.74)
--- NOTE | 2019-08-10 08:40 | NUR ---
RT Pt received on nasal cannula with low SpO2 82-85% on 5L nasal cannula, HHN tx was given and did not help improve oxygenation. Simple mask at 12L was placed and still did not improve SpO2. Pt was then placed on high flow nasal cannula with noted settings and current SpO2 is 93-95%, pt appears to be more comfortable at this time. Yossi RUSSELL and Dr. Amor notified and aware. Addendum: 08/10/19 at 0939 by PAULO ORDONEZ RT Amended: Links added.
[2019-08-10] MEDS ORDERED: FUROSEMIDE 20 MG/2 ML VIAL IV SCH (09:00)
[2019-08-10] MEDS: ATORVASTATIN 40 MG TABLET PO SCH (09:00)
[2019-08-10] MEDS: CARVEDILOL 12.5 MG TABLET PO SCH ×2 (09:00→21:03)
[2019-08-10] MEDS: AMLODIPINE BESYLATE 10 MG TABLET PO SCH (09:00)
[2019-08-10] MEDS: POTASSIUM CHLORIDE 10 MEQ TABLET.SA PO SCH (09:00)
[2019-08-10] MEDS ORDERED: METFORMIN XR 500 MG TAB.SR.24H PO SCH (09:00)
[2019-08-10] MEDS: LINAGLIPTIN 5 MG TABLET PO SCH (09:00)
[2019-08-10] MEDS: FENOFIBRATE NANOCRYS (145 MG) 145 MG TABLET PO SCH (09:00)
[2019-08-10] MEDS: MEMANTINE HCL 5 MG TABLET PO SCH ×2 (09:00→16:42)
[2019-08-10 09:37] LABS: BASOPHILS % (AUTO) 0.5 % (0.0-2.0); EOSINOPHILS % (AUTO) 0.2 % (0.0-6.0); HEMATOCRIT 28 % (33-45); HEMOGLOBIN 9.2 g/dL (11.5-14.8); LYMPHOCYTES # (AUTO) 0.7 /CMM (0.8-4.8); LYMPHOCYTES % (AUTO) 6.5 % (20.0-44.0); MEAN CORPUSCULAR HGB CONC 33 g/dl (31.0-36.0); MEAN CORPUSCULAR VOLUME 90 fL (82-100); MONOCYTES # (AUTO) 1.1 /CMM (0.1-1.30); MONOCYTES % (AUTO) 10.6 % (2.0-12.0); NEUTROPHILS # (AUTO) 8.4 /CMM (1.8-8.9); NEUTROPHILS % (AUTO) 82.2 % (43.0-81.0); PLATELET COUNT (AUTO) 168 /CMM (150-450); RED BLOOD CELL COUNT(AUTO) 3.06 MIL/uL (4.0-5.2); WHITE BLOOD COUNT (AUTO) 10.1 K/uL (4.3-11.0)
[2019-08-10 09:53] LABS: CALCIUM, SERUM 9.6 mg/dL (8.5-10.1); CARBON DIOXIDE 31 mmol/L (21-32); CHLORIDE 102 mmol/L (98-107); CREATININE 1.4 mg/dL (0.6-1.3); GLUCOSE 193 mg/dL (74-106); MAGNESIUM 1.8 mg/dL (1.8-2.4); PHOSPHORUS 3.6 mg/dL (2.5-4.9); POTASSIUM 3.4 mmol/L (3.5-5.1); SODIUM SERUM 144 mmol/L (136-145); UREA NITROGEN, BLOOD 32 mg/dL (7-18)
[2019-08-10] MEDS ORDERED: INSULIN REGULAR, HUMAN 100 UNIT/ML 3 ML VIAL SQ PRN (11:00)
[2019-08-10] MEDS ORDERED: DEXTROSE 50%-WATER 50 ML DISP.SYRIN IV PRN (11:00)
[2019-08-10 11:19] LABS: ABG OXYGEN SATURATION 92.5 % (92.0-98.5); ABG PCO2 40.4 mmHg (35.0-45.0); ABG PH 7.499 (7.350-7.450); ABG PO2 66.5 mmHg (75.0-100.0); AaDO2 389.2 mmHg; COHb 0.3 % (0.5-1.5); MetHb 0.5 % (0.0-1.5); O2Hb 91.8 % (94.0-97.0); SITE, ABG Right Radial; VENT MODE, BG 70% 55L HIGH FLOW
[2019-08-10] MEDS: FUROSEMIDE 40 MG/4 ML VIAL IV SCH ×3 (11:29→17:01)
[2019-08-10] MEDS: POTASSIUM CHLORIDE 20 MEQ TAB.PRT.SR PO SCH ×3 (11:30→13:04)
[2019-08-10] MEDS: NITROGLYCERIN 30 GM TUBE TP SCH ×2 (11:30→21:02)
--- NOTE | 2019-08-10 12:30 | NUR ---
RN NOTES PER DR JACKSON TO TRANSFER PT. TO ICU.
--- NOTE | 2019-08-10 12:45 | NUR ---
RN NOTES PATIENT TRANSFERRED TO ICU, REPORT GIVEN TO JUAN RUSSELL AT BEDSIDE FOR JADE
--- NOTE | 2019-08-10 12:45 | NUR ---
ICU/RN: Pt received from telemetry, no distress noted, on high flow nasal cannula at 55L/min, 70% FiO2. Pt alert and oriented x3, [place] citizen speaking. Bilat lower extremity edema +1 noted. Pt attempts to take off NC, requires education reinforcement. Per pt and family, pt able to make needs known and will request bedpan and assistance for hygiene. Call light within reach.
[2019-08-10] MEDS: DIGOXIN 0.125 MG TABLET PO SCH (13:15)
--- NOTE | 2019-08-10 13:30 | NUR ---
ICU/RN: Updated PERRY Ferrell on pt's transfer to ICU as ordered by Dr Amor. Informed that pt's only IV access is in the R AC despite a R Mastectomy. Orders for midline received; ETA IV nurse [id number]. clinical rehabilitation aide aware.
--- NOTE | 2019-08-10 14:45 | NUR ---
ICU/RN: Titrated to simple mask at 8L/min per Dr Amor's orders. Tolerating well.
--- NOTE | 2019-08-10 17:30 | NUR ---
ICU/RN: Hygienic care rendered; assisted with bedpan use.
--- NOTE | 2019-08-10 20:00 | NUR ---
Received patient A/O x3 Bhutanese speaking.Family at bedside as interpreter and translator.Plan of care explained to family.Verbalized understanding.Denies any discomfort at present.Afib controlled.With O2 simple mask 8L.Sat 91%-95% respiration even and unlabored.NPO.Patient voiding per bedpan.Kept clean and dry.Urine specimen collected and sent to lab.SIVA ML site intact.Turned and repositioned to comfort.Will continue monitoring.
[2019-08-10] MEDS: ENOXAPARIN SODIUM 30 MG/0.3 ML DISP.SYRIN SQ SCH (21:03)
[2019-08-11] VITALS (17 sets, daily range): BP systolic 99–151; BP diastolic 42–78
--- NOTE | 2019-08-11 | NUR ---
Patient resting.VSS.Afib controlled.Desat to 70's.patient kept removing O2 mask.Reapplied. Encouraged to stop removing mask.Continue monitoring.
[2019-08-11 00:16] LABS: APPEARANCE,URINE SLIGHTLY CLOUDY (CLEAR); BILIRUBIN,URINE NEGATIVE (NEGATIVE); BLOOD, URINE TRACE Ery/uL (NEGATIVE); COLOR,URINE YELLOW (YELLOW); KETONES,URINE NEGATIVE (NEGATIVE); LEUKOCYTE ESTERASE ,URINE NEGATIVE (NEGATIVE); NITRITE, URINE NEGATIVE (NEGATIVE); PH,URINE 5.5 (5.0-8.0); PROTEIN,URINE NEGATIVE (NEGATIVE); UGLUCOSE NEGATIVE (NEGATIVE); UROBILINOGEN,URINE 0.2 EU/dL (0.2)
[2019-08-11 00:17] LABS: BACTERIA,URINE Few /HPF (None Seen); RBC,URINE 21-50 /HPF (0-2); SQUAMOUS EPITHELIAL CELL,UR Few /HPF (None Seen); WBC,URINE 0-2 /HPF (0-3)
[2019-08-11 00:30] LABS: CREATININE, URINE 32.4 MG/DL (30.0-125.0); URINE TOTAL PROTEIN 18.2 mg/dL (0-11.9)
[2019-08-11 00:57] LABS: EOSINOPHIL,URINE None Seen
--- NOTE | 2019-08-11 04:00 | NUR ---
Patient resting in no acute distress.VSS.Maintained on 8L simple mask sat 91%-97%. AM CARE done.Incontinent of urine while asleep.Perineal care done.FSBS DONE q 6 hrs. WNL.Ice chips given at times complaining of dry mouth. Turned and repositioned. Continue monitoring.
[2019-08-11 04:45] LABS: BASOPHILS % (AUTO) 0.4 % (0.0-2.0); EOSINOPHILS % (AUTO) 0.9 % (0.0-6.0); HEMATOCRIT 24 % (33-45); HEMOGLOBIN 8.1 g/dL (11.5-14.8); LYMPHOCYTES # (AUTO) 1.3 /CMM (0.8-4.8); LYMPHOCYTES % (AUTO) 15.5 % (20.0-44.0); MEAN CORPUSCULAR HGB CONC 33 g/dl (31.0-36.0); MEAN CORPUSCULAR VOLUME 91 fL (82-100); MONOCYTES # (AUTO) 0.9 /CMM (0.1-1.30); MONOCYTES % (AUTO) 11.4 % (2.0-12.0); NEUTROPHILS # (AUTO) 5.8 /CMM (1.8-8.9); NEUTROPHILS % (AUTO) 71.8 % (43.0-81.0); PLATELET COUNT (AUTO) 144 /CMM (150-450); RED BLOOD CELL COUNT(AUTO) 2.67 MIL/uL (4.0-5.2); WHITE BLOOD COUNT (AUTO) 8.1 K/uL (4.3-11.0)
[2019-08-11 04:53] LABS: CREATINE KINASE, TOTAL 26 U/L (26-192)
[2019-08-11 04:58] LABS: ALANINE AMINOTRANSFERASE 26 U/L (12-78); ALBUMIN 2.6 g/dL (3.4-5.0); ALKALINE PHOSPHATASE 68 U/L (46-116); ASPARTATE AMINOTRANSFERASE 16 U/L (15-37); BILIRUBIN,TOTAL 0.6 mg/dL (0.2-1.0); CALCIUM, SERUM 9.3 mg/dL (8.5-10.1); CARBON DIOXIDE 34 mmol/L (21-32); CHLORIDE 104 mmol/L (98-107); CREATININE 1.4 mg/dL (0.6-1.3); GLUCOSE 126 mg/dL (74-106); MAGNESIUM 1.7 mg/dL (1.8-2.4); PHOSPHORUS 4.2 mg/dL (2.5-4.9); POTASSIUM 3.3 mmol/L (3.5-5.1); SODIUM SERUM 146 mmol/L (136-145); TOTAL PROTEIN, SERUM 6.5 g/dL (6.4-8.2); UREA NITROGEN, BLOOD 35 mg/dL (7-18)
[2019-08-11] MEDS: BLOOD SUGAR DIAGNOSTIC 1 EACH STRIP IN SCH ×4 (05:47→22:16)
[2019-08-11] MEDS ORDERED: BUMETANIDE INJ 4 MG in IV NS 0.9% 24 ML IV ONE (06:30)
[2019-08-11] MEDS ORDERED: ALENDRONATE 70 MG TABLET PO SCH (07:30)
[2019-08-11] MEDS: IPRATROPIUM NEB FS 0.5 MG/2.5 ML AMPUL.NEB NEB SCH ×3 (07:55→20:03)
[2019-08-11] MEDS: ALBUTEROL FS 2.5 MG/0.5 ML VIAL.NEB NEB SCH ×3 (07:55→20:03)
[2019-08-11] MEDS: POTASSIUM CHLORIDE 10 MEQ TABLET.SA PO SCH (08:19)
[2019-08-11] MEDS: FENOFIBRATE NANOCRYS (145 MG) 145 MG TABLET PO SCH (08:19)
[2019-08-11] MEDS: ATORVASTATIN 40 MG TABLET PO SCH (08:19)
[2019-08-11] MEDS: POTASSIUM CHLORIDE 20 MEQ TAB.PRT.SR PO SCH ×3 (08:19→10:25)
[2019-08-11] MEDS: MEMANTINE HCL 5 MG TABLET PO SCH ×2 (08:19→17:37)
[2019-08-11] MEDS: CARVEDILOL 12.5 MG TABLET PO SCH ×2 (08:20→21:26)
[2019-08-11] MEDS: LINAGLIPTIN 5 MG TABLET PO SCH (08:20)
[2019-08-11] MEDS: AMLODIPINE BESYLATE 10 MG TABLET PO SCH (08:20)
[2019-08-11 08:29] LABS: IRON, SERUM 23 ug/dl (50-175); TOTAL IRON BINDING CAPACITY 168 ug/dl (250-450)
[2019-08-11 08:45] LABS: FERRITIN 305 ng/mL (8-388)
--- NOTE | 2019-08-11 08:45 | NUR ---
ICU/RN: S/B Dr Amor, [place] reviewed.
[2019-08-11 08:47] LABS: ABG BASE EXCESS 9.3 mmol/L; ABG OXYGEN SATURATION 92.7 % (92.0-98.5); ABG PCO2 43.7 mmHg (35.0-45.0); ABG PH 7.501 (7.350-7.450); ABG PO2 66.3 mmHg (75.0-100.0); AaDO2 204.8 mmHg; COHb 0.2 % (0.5-1.5); MetHb 0.4 % (0.0-1.5); O2Hb 92.1 % (94.0-97.0); SITE, ABG Left Radial; VENT MODE, BG N/C
[2019-08-11] MEDS: NITROGLYCERIN 30 GM TUBE TP SCH ×2 (09:03→21:00)
--- NOTE | 2019-08-11 11:00 | NUR ---
ICU/RN: Pt s/b Dr Kahn. Pt tolerating NC at 6L/min. Breathing even and unlabored. Bumex drip ongoing. Okay to resume PT and diet.
--- NOTE | 2019-08-11 11:30 | NUR ---
ICU/RN: Natali, daughter informed of pt downgrade to tele status to room 328-1.
[2019-08-11] MEDS: DIGOXIN 0.125 MG TABLET PO SCH (12:02)
--- NOTE | 2019-08-11 12:37 | NUR ---
RN NOTES GET BEDSIDE REPORT FROM DOLL REPAIRER. 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 ON O2-6L NC. PATIENT HAS NO ACUTE RESPIRATORY DISTRESS, PATIENT REFUSED PAIN AT THIS MEGAN, HAS RIGHT BREAST MASTECTOMY NO BP, OR BLOOD DRAW ON RIGHT SIDE, V/S TAKEN BP 137/62, P-91, R-20, 02-93 NC, T-98.6. PATIENT MINIMAL ASSIST, PER PATIENT TOLERATED LUNCH 20% BECAUSE OF POOR APPETITE. AMBULATING WITH ASSIST. ASSIST TURN AND REPOSTION Q 2 HR, CALL LIGHT WITHIN TO REACH. LEFT UA MIDLINE INTACT. PATIENT USING DIAPER. CONTINUED MONITORING.
--- NOTE | 2019-08-11 12:45 | NUR ---
ICU/RN: Pt transfer to tele 328-1 with chart, meds and belongings. No distress noted. Bedside report given to DREW German
[2019-08-11] MEDS: Magnesium 1GM/D5W 100ML PREMIX 100 ML IV SCH ×2 (13:41→14:55)
--- NOTE | 2019-08-11 18:30 | NUR ---
RN NOTES BS-136, COVERAGE GIVEN, ALSO ADMINISTERED SCHEDULED MEDICATION, V/S WNL. PATIENT ON O2-6L NO ACUTE RESPIRATORY DISTRESS, IV ACCESS ON LEFT AC INTACT, NEEDS ATTENDED AND ANTICIPATED, CALL LIGHT WITHIN TO REACH. ENDORSED ONCOMING NURSE FOLLOW PLAN OF CARE.
[2019-08-11 19:01] LABS: OCCULT BLOOD STOOL NEGATIVE (NEGATIVE)
--- NOTE | 2019-08-11 20:00 | NUR ---
RN NOTES PATIENT IN BED, ALERT AND ORIENTED X3, ON 5LPM VIA NC, SPO2 90%, NO COMPLAIN OF PAIN, YORUBA SPEAKING ONLY, SR, AFIB CONTROLLED, SUN CATHETER DRAINING WELL OF CLEAR AND YELLOW URINE, NO APPETITE, FAMILY BROUGHT FOOD FROM HOME, FALL PRECAUTION, BED ALARM, CALL LIGHT WITHIN REACH.
--- NOTE | 2019-08-11 21:23 | NUR ---
BP 113/51 HR 75, NOTIFIED BRINE TANK SEPARATOR OPERATOR TRENTON TO HOLD NITROGLYCERIN PATCH, NEW ORDER OF TYLENOL 650 MG PO Q6HRS PRN
[2019-08-11] MEDS: ENOXAPARIN SODIUM 30 MG/0.3 ML DISP.SYRIN SQ SCH (21:29)
[2019-08-11] MEDS: INSULIN REGULAR, HUMAN 100 UNIT/ML 3 ML VIAL SQ PRN (22:29)
[2019-08-12 00:29] VITALS: BP 145/61
[2019-08-12] MEDS: LORAZEPAM 0.5 MG TABLET PO PRN (03:37)
[2019-08-12 04:00] VITALS: BP 117/58
--- NOTE | 2019-08-12 07:00 | NUR ---
ms rn received on bed, awake,alert,oriented x2,Ukrainian speaking,no distress noted,all needs attended,
[2019-08-12 07:10] LABS: PTH, INTACT 130 pg/mL (15-65)
--- NOTE | 2019-08-12 07:16 | NUR ---
RN NOTES PATIENT ALERT AND ORIENTED X3,WITH CONFUSION, 5LPM VIA NC, REMOVING NC, RESTLESS, GIVEN ATIVAN, ASLEEP FOR 3 HOURS, SUN CATHETER DRAINING WELL, VENOUS DOPPLER, STUDIES, FOLLOW UP RESULT FOR OB.
[2019-08-12 07:26] LABS: BASOPHILS % (AUTO) 0.6 % (0.0-2.0); EOSINOPHILS % (AUTO) 2.5 % (0.0-6.0); HEMATOCRIT 24 % (33-45); HEMOGLOBIN 7.9 g/dL (11.5-14.8); LYMPHOCYTES # (AUTO) 1.5 /CMM (0.8-4.8); LYMPHOCYTES % (AUTO) 24.2 % (20.0-44.0); MEAN CORPUSCULAR HGB CONC 33 g/dl (31.0-36.0); MEAN CORPUSCULAR VOLUME 91 fL (82-100); MONOCYTES # (AUTO) 0.7 /CMM (0.1-1.30); MONOCYTES % (AUTO) 10.5 % (2.0-12.0); NEUTROPHILS # (AUTO) 3.9 /CMM (1.8-8.9); NEUTROPHILS % (AUTO) 62.2 % (43.0-81.0); PLATELET COUNT (AUTO) 146 /CMM (150-450); RED BLOOD CELL COUNT(AUTO) 2.65 MIL/uL (4.0-5.2); WHITE BLOOD COUNT (AUTO) 6.3 K/uL (4.3-11.0)
[2019-08-12] MEDS: BLOOD SUGAR DIAGNOSTIC 1 EACH STRIP IN SCH ×4 (07:40→21:42)
[2019-08-12] MEDS: INSULIN REGULAR, HUMAN 100 UNIT/ML 3 ML VIAL SQ PRN ×3 (07:40→18:47)
[2019-08-12 07:50] LABS: ALANINE AMINOTRANSFERASE 24 U/L (12-78); ALBUMIN 2.3 g/dL (3.4-5.0); ALKALINE PHOSPHATASE 64 U/L (46-116); ASPARTATE AMINOTRANSFERASE 20 U/L (15-37); BILIRUBIN,TOTAL 0.4 mg/dL (0.2-1.0); CALCIUM, SERUM 8.8 mg/dL (8.5-10.1); CARBON DIOXIDE 35 mmol/L (21-32); CHLORIDE 104 mmol/L (98-107); CREATININE 1.4 mg/dL (0.6-1.3); GLUCOSE 150 mg/dL (74-106); MAGNESIUM 2.3 mg/dL (1.8-2.4); PHOSPHORUS 3.6 mg/dL (2.5-4.9); POTASSIUM 3.6 mmol/L (3.5-5.1); SODIUM SERUM 144 mmol/L (136-145); TOTAL PROTEIN, SERUM 6.5 g/dL (6.4-8.2); UREA NITROGEN, BLOOD 40 mg/dL (7-18)
[2019-08-12] MEDS: IPRATROPIUM NEB FS 0.5 MG/2.5 ML AMPUL.NEB NEB SCH ×5 (07:56→23:58)
[2019-08-12] MEDS: ALBUTEROL FS 2.5 MG/0.5 ML VIAL.NEB NEB SCH ×5 (07:57→23:57)
[2019-08-12 08:00] VITALS: BP 137/67
[2019-08-12] MEDS ORDERED: BUMETANIDE INJ 8 MG in IV NS 0.9% 48 ML IV ONE (09:00)
[2019-08-12] MEDS: LINAGLIPTIN 5 MG TABLET PO SCH (09:43)
[2019-08-12] MEDS: FENOFIBRATE NANOCRYS (145 MG) 145 MG TABLET PO SCH (09:43)
[2019-08-12] MEDS: POTASSIUM CHLORIDE 10 MEQ TABLET.SA PO SCH (09:43)
[2019-08-12] MEDS: ATORVASTATIN 40 MG TABLET PO SCH (09:43)
[2019-08-12] MEDS: MEMANTINE HCL 5 MG TABLET PO SCH ×2 (09:44→18:22)
[2019-08-12] MEDS: AMLODIPINE BESYLATE 10 MG TABLET PO SCH (09:47)
[2019-08-12] MEDS: CARVEDILOL 12.5 MG TABLET PO SCH ×2 (09:48→20:30)
[2019-08-12] MEDS: NITROGLYCERIN 30 GM TUBE TP SCH ×2 (10:10→21:42)
[2019-08-12 11:07] LABS: *SPE A/G RATIO 0.7 (0.7-1.7); *SPE ALBUMIN 2.5 g/dL (2.9-4.4); *SPE ALPHA-1-GLOBULIN 0.4 g/dL (0.0-0.4); *SPE ALPHA-2-GLOBULIN 1.2 g/dL (0.4-1.0); *SPE BETA GLOBULIN 1.1 g/dL (0.7-1.3); *SPE GLOBULIN, TOTAL 3.4 g/dL (2.2-3.9); *SPE M-SPIKE Not Observed g/dL (Not Observed); *SPEGAMMA GLOBULIN 0.7 g/dL (0.4-1.8)
--- NOTE | 2019-08-12 13:00 | NUR ---
ms rn no distress, family at bedside.
[2019-08-12] MEDS: DIGOXIN 0.125 MG TABLET PO SCH (14:37)
[2019-08-12] MEDS: APIXABAN 5 MG TABLET PO SCH ×2 (14:42→20:30)
[2019-08-12 16:00] VITALS: BP 111/50
--- NOTE | 2019-08-12 16:00 | NUR ---
MS RN RECEIVED VENOUS DOPPLER RESULT,POSITIVE DV AT LEFT LEG, TEXTED DR. FORMAN AWAITING FOR HIM TO CALL BACK.
[2019-08-12 20:00] VITALS: BP 110/55
[2019-08-12] MEDS: ACETAMINOPHEN 650 MG/20.3 ML UDC NG PRN (20:31)
--- NOTE | 2019-08-12 22:00 | NUR ---
MS RN NOTES BS CHECKED 138. PT REFUSED TO HAVE INSULIN COVERAGE. EXPLAINED TO PT IMPORTANCE OF INSULIN COVERAGE IN HER POC BUT PT STILL REFUSED. WILL CONTINUE TO MONITOR
[2019-08-13] MEDS: BLOOD SUGAR DIAGNOSTIC 1 EACH STRIP IN SCH ×3 (06:14→17:26)
--- NOTE | 2019-08-13 06:30 | NUR ---
MS RN NOTES AWAKE & RESPONSIVE. NOT IN ANY DISTRESS. NO SOB NOTED. DENIES ANY PAIN OR DISCOMFORT AT THIS TIME. WITH IV-HL PATENT & INTACT. AM CARE DONE. MONITORED ACCORDINGLY. CALL LIGHT WITHIN REACH. BED IN LOWEST POSITION. SR UP X 3 WITH BED ALARM ON FOR SAFETY. WILL ENDORSE TO NEXT SHIFT.
[2019-08-13] MEDS: INSULIN REGULAR, HUMAN 100 UNIT/ML 3 ML VIAL SQ PRN ×2 (07:03→12:48)
[2019-08-13 07:11] LABS: BASOPHILS % (AUTO) 0.5 % (0.0-2.0); EOSINOPHILS % (AUTO) 1.8 % (0.0-6.0); HEMATOCRIT 27 % (33-45); HEMOGLOBIN 8.8 g/dL (11.5-14.8); LYMPHOCYTES % (AUTO) 14.4 % (20.0-44.0); MEAN CORPUSCULAR HGB CONC 33 g/dl (31.0-36.0); MEAN CORPUSCULAR VOLUME 90 fL (82-100); MONOCYTES # (AUTO) 0.8 /CMM (0.1-1.30); MONOCYTES % (AUTO) 11.5 % (2.0-12.0); NEUTROPHILS # (AUTO) 4.7 /CMM (1.8-8.9); NEUTROPHILS % (AUTO) 71.8 % (43.0-81.0); PLATELET COUNT (AUTO) 194 /CMM (150-450); RED BLOOD CELL COUNT(AUTO) 2.97 MIL/uL (4.0-5.2); WHITE BLOOD COUNT (AUTO) 6.6 K/uL (4.3-11.0)
[2019-08-13 07:43] LABS: ALANINE AMINOTRANSFERASE 24 U/L (12-78); ALBUMIN 2.6 g/dL (3.4-5.0); ALKALINE PHOSPHATASE 68 U/L (46-116); ASPARTATE AMINOTRANSFERASE 18 U/L (15-37); BILIRUBIN,TOTAL 0.6 mg/dL (0.2-1.0); CARBON DIOXIDE 30 mmol/L (21-32); CHLORIDE 103 mmol/L (98-107); CREATININE 1.4 mg/dL (0.6-1.3); GLUCOSE 155 mg/dL (74-106); PHOSPHORUS 3.1 mg/dL (2.5-4.9); POTASSIUM 3.7 mmol/L (3.5-5.1); SODIUM SERUM 144 mmol/L (136-145); UREA NITROGEN, BLOOD 39 mg/dL (7-18)
--- NOTE | 2019-08-13 07:52 | NUR ---
MS RN NOTES RECEIVED REPORT FROM PM NURSE. PATIENT LAYING IN BED. BED LOCKED IN LOWEST POSITION WITH SIDE RAILS UP. CALL LIGHT WITHIN REACH. APPEARS TO BE COMFORTABLE. NO SOB/ RESPIRATORY DISTRESS NOTED. WILL CONTINUE TO MONITOR.
[2019-08-13 08:00] VITALS: BP 138/64
[2019-08-13] MEDS: IPRATROPIUM NEB FS 0.5 MG/2.5 ML AMPUL.NEB NEB SCH ×2 (08:22→15:43)
[2019-08-13] MEDS: ALBUTEROL FS 2.5 MG/0.5 ML VIAL.NEB NEB SCH ×2 (08:23→15:43)
[2019-08-13] MEDS: POTASSIUM CHLORIDE 10 MEQ TABLET.SA PO SCH (08:32)
[2019-08-13] MEDS: AMLODIPINE BESYLATE 10 MG TABLET PO SCH (08:33)
[2019-08-13] MEDS: LINAGLIPTIN 5 MG TABLET PO SCH (08:33)
[2019-08-13] MEDS: ATORVASTATIN 40 MG TABLET PO SCH (08:34)
[2019-08-13] MEDS: MEMANTINE HCL 5 MG TABLET PO SCH ×2 (08:34→17:31)
[2019-08-13] MEDS: CARVEDILOL 12.5 MG TABLET PO SCH (08:34)
[2019-08-13] MEDS: APIXABAN 5 MG TABLET PO SCH ×2 (08:36→17:32)
[2019-08-13 09:17] VITALS: BP 138/64
[2019-08-13] MEDS: FENOFIBRATE NANOCRYS (145 MG) 145 MG TABLET PO SCH (09:17)
[2019-08-13] MEDS: NITROGLYCERIN 30 GM TUBE TP SCH (09:17)
[2019-08-13] MEDS: ACETAMINOPHEN 650 MG/20.3 ML UDC NG PRN (12:02)
[2019-08-13] MEDS: DIGOXIN 0.125 MG TABLET PO SCH (13:30)
--- NOTE | 2019-08-13 17:15 | NUR ---
MS RN NOTES SPOKE TO PATIENTS DAUGHTER FOLLOWING UP ON TRANSFORATION, STATES MEDICAL TRANSFORATION IS SCHEDULED, PATIENT WILL PICKED UP BEFORE 1900. DISCHARGE TEACHING PROVIDED TO PATIENTS DAUGHTER OVER THE PHONE. VERBALIZED UNDERSTANDING. AWAITING FOR TRANSFORATION. PATIENT IN BED RESTING WILL CONTINUE TO MONITOR.
--- NOTE | 2019-08-13 18:00 | NUR ---
MS RN NOTES PATIENT DISCHARGED HOME WITH DAUGHTERS. DISCHARGE EDUCATION PROVIDED TO PATIENT AND TWO DAUGHTERS,VERBALIZED UNDERSTANDING. ALL BELONGINGS ACCOUNTED FOR. BELONGING LIST SIGNED. ID BAND REMOVED. MIDLINE REMOVED. DISCHARGE PROTOCOL FOLLOWED. PATIENT REFUSED DISCHARGE PICTURES. PATIENT ARRANGED TRANSFORATION. PATIENT TRANSFERRED HOME IN STABLE CONDITION. WILL ENDORSE TO PM SHIFT.
[2019-08-14] MEDS ORDERED: ATOR40TA PO (10:02)
[2019-08-14] MEDS ORDERED: ACET-868 PO (10:02)
[2019-08-14] MEDS ORDERED: BLOO-668 IN (10:02)
[2019-08-14] MEDS ORDERED: AMLO10TA4 PO (10:02)
[2019-08-14] MEDS ORDERED: INSU100V3 SQ (10:02)
[2019-08-14] MEDS ORDERED: NITR1OIN2 TD (10:02)
[2019-08-14] MEDS ORDERED: ALBU1.257 IH (10:02)
[2019-08-14] MEDS ORDERED: APIX5TAB4 PO (10:02)
[2019-08-14] MEDS ORDERED: MEMA10TA PO (10:02)
[2019-08-14] MEDS ORDERED: DEXT50DI8 IV (10:02)
[2019-08-14] MEDS ORDERED: IPRA0.2S9 IH (10:02)
[2019-08-14] MEDS ORDERED: PANT40TA2 PO (10:02)
== END 2019-08-13 18:00 | disposition home or self-care (01) | DRG 291 ==
LOC: ER 13:34 → TELE1 17:50 → TELE-TD 20:09 → ICU 08-10 11:57 → MED 08-11 12:28 → TELE 08-11 12:35 → MED 08-12 09:20
PROVIDERS: ADMIT Registered Nurse; ATTEND Registered Nurse
PROC: 05HA33Z Insertion of Infusion Device into Left Brachial Vein, Percutaneous Approach (ICD-10-PCS; principal; 2019-08-10)
DX: I13.0 Hypertensive heart and chronic kidney disease with heart failure and stage 1 through stage 4 chronic kidney disease, or unspecified chronic kidney disease (principal); G92 Toxic encephalopathy; J96.01 Acute respiratory failure with hypoxia; J96.21 Acute and chronic respiratory failure with hypoxia; J96.22 Acute and chronic respiratory failure with hypercapnia; I50.33 Acute on chronic diastolic (congestive) heart failure; N17.9 Acute kidney failure, unspecified; I82.432 Acute embolism and thrombosis of left popliteal vein; E11.9 Type 2 diabetes mellitus without complications; E11.22 Type 2 diabetes mellitus with diabetic chronic kidney disease; I48.91 Unspecified atrial fibrillation; F03.90 Unspecified dementia, unspecified severity, without behavioral disturbance, psychotic disturbance, mood disturbance, and anxiety; F41.9 Anxiety disorder, unspecified; G89.29 Other chronic pain; I25.10 Atherosclerotic heart disease of native coronary artery without angina pectoris; D63.8 Anemia in other chronic diseases classified elsewhere; N18.9 Chronic kidney disease, unspecified; K21.9 Gastro-esophageal reflux disease without esophagitis; Z79.899 Other long term (current) drug therapy; E78.5 Hyperlipidemia, unspecified; Z90.11 Acquired absence of right breast and nipple; Z85.3 Personal history of malignant neoplasm of breast; I48.0 Paroxysmal atrial fibrillation
CPT/HCPCS: 36410; 36415; 36600; 71045-TC; 80048-TC; 80053-TC; 80076-TC; 80162-TC; 81000-TC; 82272-TC; 82550-TC; 82570-TC; 82728-TC; 82803-TC; 82962-TC; 83540-TC; 83735-TC; 83880; 83970; 84100-TC; 84155; 84155-TC; 84165; 84300-TC; 84443-TC; 84484-TC; 85025-TC; 87081-TC; 92611-TC; 93970-TC; 94660; 94799-TC; 97112-TC; 97530-TC; 99082-TC; A4216; G0378; J1650; J1815; J1940; J3475; J3490; J7030

== ENCOUNTER 2019-08-14 09:05 | Inpatient (IN) | payer MEDICARE, MEDICAID ==
[~2019-08-14] VITALS: Ht 152.4 cm; Wt 80.3 kg
[~2019-08-14 09:05] MED LIST changes: -AZIT250T13 PO; -METH4TAB17 PO
--- NOTE | 2019-08-14 09:25 | NUR ---
PT BROUGHT IN FROM [facility] BY [facility] FOR GENERALIZED WEAKNESS. PT ALET ORIENTED X3. ON O2 AT 4 LPM NC. PT HAS PIV 18G LEFT HAND. WILL CONTINUE TO MONITOR.
[2019-08-14] MEDS ORDERED: IV NS 0.9% 1,000 ML BAG IV ONE (10:00)
[2019-08-14] MEDS ORDERED: ATOR40TA PO (10:02)
[2019-08-14] MEDS ORDERED: PANT40TA2 PO (10:02)
[2019-08-14] MEDS ORDERED: DEXT50DI8 IV (10:02)
[2019-08-14] MEDS ORDERED: NITR1OIN2 TD (10:02)
[2019-08-14] MEDS ORDERED: BLOO-668 IN (10:02)
[2019-08-14] MEDS ORDERED: INSU100V3 SQ (10:02)
[2019-08-14] MEDS ORDERED: AMLO10TA4 PO (10:02)
[2019-08-14] MEDS ORDERED: IPRA0.2S9 IH (10:02)
[2019-08-14] MEDS ORDERED: MEMA10TA PO (10:02)
[2019-08-14] MEDS ORDERED: ALBU1.257 IH (10:02)
[2019-08-14] MEDS ORDERED: APIX5TAB4 PO (10:02)
[2019-08-14] MEDS ORDERED: ACET-868 PO (10:02)
[2019-08-14 10:04] LABS: BASOPHILS % (AUTO) 0.7 % (0.0-2.0); EOSINOPHILS % (AUTO) 2.2 % (0.0-6.0); HEMATOCRIT 26 % (33-45); HEMOGLOBIN 8.3 g/dL (11.5-14.8); LYMPHOCYTES # (AUTO) 0.7 /CMM (0.8-4.8); MEAN CORPUSCULAR HGB CONC 32 g/dl (31.0-36.0); MEAN CORPUSCULAR VOLUME 92 fL (82-100); MONOCYTES # (AUTO) 0.7 /CMM (0.1-1.30); NEUTROPHILS # (AUTO) 4.2 /CMM (1.8-8.9); NEUTROPHILS % (AUTO) 73.1 % (43.0-81.0); PLATELET COUNT (AUTO) 180 /CMM (150-450); RED BLOOD CELL COUNT(AUTO) 2.81 MIL/uL (4.0-5.2); WHITE BLOOD COUNT (AUTO) 5.8 K/uL (4.3-11.0)
[2019-08-14 10:44] LABS: CARBON DIOXIDE 33 mmol/L (21-32); CHLORIDE 104 mmol/L (98-107); CREATININE 1.6 mg/dL (0.6-1.3); GLUCOSE 149 mg/dL (74-106); SODIUM SERUM 145 mmol/L (136-145); UREA NITROGEN, BLOOD 41 mg/dL (7-18)
[2019-08-14 10:50] LABS: ALANINE AMINOTRANSFERASE 20 U/L (12-78); ALBUMIN 2.5 g/dL (3.4-5.0); ALKALINE PHOSPHATASE 61 U/L (46-116); ASPARTATE AMINOTRANSFERASE 15 U/L (15-37); BILIRUBIN,DIRECT 0.2 mg/dL (0.0-0.2); BILIRUBIN,TOTAL 0.5 mg/dL (0.2-1.0); TOTAL PROTEIN, SERUM 6.8 g/dL (6.4-8.2)
--- NOTE | 2019-08-14 10:50 | NUR ---
CALLED NURSING SUP FOR TELE BED.
--- NOTE | 2019-08-14 11:11 | NUR ---
NURSING SUP GAVE TELE BED 311-1.
--- NOTE | 2019-08-14 11:18 | NUR ---
FLU SWAB DONE SENT TO LAB
--- NOTE | 2019-08-14 11:57 | NUR ---
RN REPORT GIVEN TO [facility] ROOM 311-1 ADMITTING MD FORMAN. GENARALIZED WEAKNESS OKAY TO MOVE ER MD LOYD
--- NOTE | 2019-08-14 12:24 | NUR ---
RN REPORT GIVEN NINAY PT ADMITTED TO ROOM 311-1 UNDER MD FORMAN.
[2019-08-14] MEDS ORDERED: ONDANSETRON HCL/PF 4 MG/2 ML VIAL IVP PRN (12:30)
[2019-08-14] MEDS ORDERED: ACETAMINOPHEN 325 MG TABLET PO PRN (12:30)
[2019-08-14] MEDS ORDERED: INSULIN REGULAR, HUMAN 100 UNIT/ML 3 ML VIAL SQ PRN (12:30)
[2019-08-14] MEDS ORDERED: DEXTROSE 50%-WATER 50 ML DISP.SYRIN IV PRN ×2 (12:30→18:00)
[2019-08-14] MEDS ORDERED: CLONIDINE HCL 0.1 MG TABLET PO PRN (12:30)
[2019-08-14] MEDS ORDERED: MAG HYDROX/AL HYDROX/SIMETH 30 ML UDC PO PRN (12:30)
[2019-08-14] MEDS ORDERED: Z GUARD REMEDY 2 OZ OINT TP PRN (12:30)
[2019-08-14] MEDS ORDERED: NITROGLYCERIN 0.4 MG/TAB BOTTLE SL PRN (12:30)
[2019-08-14] MEDS ORDERED: ZOLPIDEM TARTRATE 5 MG TABLET PO PRN (12:30)
[2019-08-14] MEDS: NITROGLYCERIN 30 GM TUBE TP SCH ×2 (13:00→21:12)
[2019-08-14] MEDS: MEMANTINE HCL 5 MG TABLET PO SCH ×2 (13:20→17:35)
[2019-08-14] MEDS: APIXABAN 5 MG TABLET PO SCH ×2 (13:21→17:36)
--- NOTE | 2019-08-14 14:16 | NUR ---
TELE/RN NOTE DR FORMAN IS MADE AWARE THAT PATIENT IS COMPLAINING OF DIFFICULTY OF URINATION, PAIN AND BURNING UPON URINATION. RECEIVED ORDER FOR UA AND IN AND OUT CATH TO COLLECT URINE. ORDERS ARE NOTED AND CARRIED OUT.
[2019-08-14 14:43] LABS: ABG BASE EXCESS 8.3 mmol/L; ABG OXYGEN SATURATION 94.8 % (92.0-98.5); ABG PCO2 45.8 mmHg (35.0-45.0); ABG PH 7.473 (7.350-7.450); ABG PO2 78.6 mmHg (75.0-100.0); MetHb 0.7 % (0.0-1.5); O2Hb 94.1 % (94.0-97.0); SITE, ABG Right Radial
[2019-08-14] MEDS: DIGOXIN 0.125 MG TABLET PO SCH (15:33)
[2019-08-14] MEDS: IPRATROPIUM NEB FS 0.5 MG/2.5 ML AMPUL.NEB IH SCH ×2 (15:40→19:42)
[2019-08-14] MEDS: ALBUTEROL HALF STRENGTH 1.25 MG/3 ML VIAL.NEB IH SCH ×2 (15:40→19:42)
[2019-08-14 16:00] VITALS: BP 130/57
[2019-08-14] MEDS ORDERED: BLOOD SUGAR DIAGNOSTIC 1 EACH STRIP IN SCH (17:30)
[2019-08-14] MEDS: BLOOD SUGAR DIAGNOSTIC 1 EACH STRIP IN SCH ×2 (18:09→21:19)
[2019-08-14] MEDS: INSULIN REGULAR, HUMAN 100 UNIT/ML 3 ML VIAL SQ PRN ×2 (19:10→21:22)
--- NOTE | 2019-08-14 19:33 | NUR ---
Multiple hospital visits, readmitted <24hours due to elevated temperature. Spoke with daughter Ivelisse, patient resides with daughter in the first floor apartment. Prior to admission- patient was ambulatory and semi-independent with adl's at baseline. Has adequate DME: walker, home O2 , grab bars and shower chair . [facility] [phone] and receives 176hours/month IHSS. Discussed with daughter possible short term rehab at [facility]. Family is requesting referral to [facility] for rehab. Family was advised that [facility] has guidelines and criteria for admission, will discuss with MD. Addendum: 08/14/19 at 1933 by HINA HERNANDEZ RN Amended: Links added.
--- NOTE | 2019-08-14 19:42 | NUR ---
DIRECTOR OF OUTREACH NOTE RECEIVED PT IN STABLE CONDITION A/O X2-3, NOTED WATCHING TV IN BED. NO SIGNS OF SOB OR DISTRESS, NO C/O PAIN OR N/V. TELE MONITOR:SR. CASTELLANOS IN L HAND #[address] ALL CURRENT NEEDS ATTENDED TO. BED LOW, LOCKED, UPPER RAILS UP, AND CALL LIGHT WITHIN REACH. WILL CONT. TO MONITOR.
[2019-08-14 20:00] VITALS: BP 139/81
[2019-08-14] MEDS ORDERED: CARVEDILOL 25 MG TABLET PO SCH (21:00)
--- NOTE | 2019-08-14 21:00 | NUR ---
THERMAL CUTTER HAND NOTE PER MARIO (DAUGHTER) NO STRAIGHT CATH FOR U/A. TRY TO USE BEDPAN IN AM.
[2019-08-14] MEDS: CARVEDILOL 12.5 MG TABLET PO SCH (21:11)
[2019-08-14] MEDS: LORAZEPAM 0.5 MG TABLET PO PRN (21:12)
[2019-08-15] VITALS (8 sets, daily range): BP systolic 120–142; BP diastolic 50–81
--- NOTE | 2019-08-15 01:36 | NUR ---
HYDROLOGICAL TECHNICAL OFFICER NOTE PT REMAINS IN STABLE CONDITION A/O X2-3, RESTING IN BED. NO SIGNS OF SOB OR DISTRESS, NO C/O PAIN OR N/V. TELE MONITOR:AFIB WITH PVC'S. IV IN L HAND #[address] ALL CURRENT NEEDS ATTENDED TO. BED LOW, LOCKED, UPPER RAILS UP, AND CALL LIGHT WITHIN REACH. WILL CONT. TO MONITOR AND ENDORSE TO RN FOR JADE.
--- NOTE | 2019-08-15 01:38 | NUR ---
CTRS CONTINUITY OF CARE NOTES RECEIVED PATIENT IN BED SLEEPING EASILY AROUSABLE, ON 2 LL VIA NC TOLERATING WELL , NO SOB PRESENT, APPEARS COMFORTABLE FREE OF PAIN OR DISCOMFORT, ON TELE MONITOR 97 CONTROLLED A.FIB WITH PVC'S. IV SITE TO LEFT HAND #18 G SL, NO REDNESS,NO INFILTRATION PRESENT, SAFETY PRECAUTIONS IN PLACE,LOW BED AND LOCKED, BED ALARM IN PLACE, CALL LIGHT KEPT WITHIN REACH, ALL NEEDS ATTENDED AT THIS TIME, WILL CONTINUE TO MONITOR AND ATTEND TO NEEDS.
[2019-08-15] MEDS: ACETAMINOPHEN 325 MG TABLET PO PRN ×3 (06:00→21:22)
--- NOTE | 2019-08-15 06:08 | NUR ---
RN MS NOTES NOTED TEMPERATURE OF 100. TYLENOL PRN GIVEN COOLING MEASURES PROVIDED WILL CONTINUE TO MONITOR AND NOTIFY MD.
[2019-08-15] MEDS: INSULIN REGULAR, HUMAN 100 UNIT/ML 3 ML VIAL SQ PRN ×4 (06:26→21:24)
--- NOTE | 2019-08-15 06:38 | NUR ---
tylenol effective temp noted at 99.2 made hospitalist aware of elevated temp with new order for rocephin 1gm iv q24hrs
--- NOTE | 2019-08-15 07:00 | NUR ---
LAMINATION OPERATOR NOTES UNABLE TO COLLECT URINE PATIENT IS INCONTINENT AND PER DAUGHTER REQUESTED TO TRY BED LOPEZ TO COLLECT URINE IN AM DID NOT WANT STRAIGHT CATH, HOWEVER PATIENT IS UNABLE TO STATE WHEN IN NEED TO VOID.
--- NOTE | 2019-08-15 07:00 | NUR ---
SALES SUPPORT CONSULTANT CLOSING NOTES PATIENT IN BED AWAKE ALERT AND ORIENTED X2, ON 2 L VIA NC TOLERATING WELL , NO SOB PRESENT, APPEARS COMFORTABLE FREE OF PAIN OR DISCOMFORT, ON TELE MONITOR 91 CONTROLLED A.FIB WITH PVC'S. IV SITE TO LEFT HAND #18 G SL, NO REDNESS,NO INFILTRATION PRESENT, SAFETY PRECAUTIONS IN PLACE,LOW BED AND LOCKED, BED ALARM IN PLACE, CALL LIGHT KEPT WITHIN REACH, ALL NEEDS ATTENDED AT THIS TIME,REPOSITIONED KEPT CLEAN AND DRY. WILL CONTINUE TO MONITOR AND ENDORSE TO NEXT SHIFT,CURRENT VS ARE WNL TEMP 99.2, SP02 2 L 100%, 18, 145/79. COOLING MEASURES CONTINUED, PER PHARMACY WILL DELIVER ROCEPHIN , ENDORSED TO NEXT SHIFT.MEPILEX APPLIED TO SACRAL AREA REDNESS FOR SKIN AND WOUND MANAGEMENT, PENDING WOUND CARE CONSULT.
[2019-08-15 07:06] LABS: BASOPHILS % (AUTO) 0.7 % (0.0-2.0); EOSINOPHILS % (AUTO) 1.4 % (0.0-6.0); HEMATOCRIT 24 % (33-45); HEMOGLOBIN 7.8 g/dL (11.5-14.8); MEAN CORPUSCULAR HGB CONC 32 g/dl (31.0-36.0); MEAN CORPUSCULAR VOLUME 92 fL (82-100); MONOCYTES # (AUTO) 0.9 /CMM (0.1-1.30); MONOCYTES % (AUTO) 15.2 % (2.0-12.0); NEUTROPHILS # (AUTO) 3.7 /CMM (1.8-8.9); NEUTROPHILS % (AUTO) 64.7 % (43.0-81.0); PLATELET COUNT (AUTO) 183 /CMM (150-450); RED BLOOD CELL COUNT(AUTO) 2.63 MIL/uL (4.0-5.2); WHITE BLOOD COUNT (AUTO) 5.7 K/uL (4.3-11.0)
[2019-08-15 07:17] LABS: B-TYPE NATRIURETIC PEPTIDE 7069 PG/ML (0-125); CALCIUM, SERUM 8.8 mg/dL (8.5-10.1); CARBON DIOXIDE 33 mmol/L (21-32); CHLORIDE 105 mmol/L (98-107); CREATININE 1.4 mg/dL (0.6-1.3); GLUCOSE 130 mg/dL (74-106); MAGNESIUM 2.1 mg/dL (1.8-2.4); PHOSPHORUS 2.9 mg/dL (2.5-4.9); POTASSIUM 4.2 mmol/L (3.5-5.1); SODIUM SERUM 145 mmol/L (136-145); UREA NITROGEN, BLOOD 41 mg/dL (7-18)
[2019-08-15 07:21] LABS: CHOLESTEROL 141 mg/dL (<200); HDL CHOLESTEROL 34 mg/dL (40-60); LDL 96 mg/dL (0-99); THYROID STIMULATING HORMONE 1.165 uIU/mL (0.358-3.74); TRIGLYCERIDES 95 mg/dL (30-150)
--- NOTE | 2019-08-15 07:26 | NUR ---
RN OPENING NOTE PT WAS RECEIVED IN BED AT LOWEST AND LOCKED POSITION WITH SIDE RAILS UP X2, A/O X3 GRETEL SPEAKING CURRENTLY ON 3L VIA NC, ON TELE MONITOR SHOWING AFIB 90's WITH PVC, IV IS PATENT AND INTACT, PER NIGHT RN PATIENT HAD A TEMP AND DOCTOR WAS INFORMED AND ORDER GIVEN TO ADMIN ROCEPHIN WHICH WILL BE DONE SOON MED IS AVAILABLE, PER NIGHT RN ATTEMPT WAS MADE TO COLLECT URINE BUT DAUGHTER REFUSED IN AND OUT CATH AND WANTS URINE TO BE COLLECTED VIA BED LOPEZ ALTHOUGH PT IS INCONTINENT, SAFETY PRECAUTIONS IN PLACE, CALL LIGHT IN REACH, WILL MONITOR ACCORDINGLY
[2019-08-15] MEDS: BLOOD SUGAR DIAGNOSTIC 1 EACH STRIP IN SCH ×4 (07:32→21:22)
[2019-08-15] MEDS: ALBUTEROL HALF STRENGTH 1.25 MG/3 ML VIAL.NEB IH SCH ×4 (07:35→20:10)
[2019-08-15] MEDS: IPRATROPIUM NEB FS 0.5 MG/2.5 ML AMPUL.NEB IH SCH ×4 (07:35→20:10)
[2019-08-15] MEDS: CEFTRIAXONE 1 G in IV D5W 50 ML IV SCH (08:22)
[2019-08-15 08:46] LABS: ABG BASE EXCESS 4.9 mmol/L; ABG OXYGEN SATURATION 95.4 % (92.0-98.5); ABG PCO2 45.4 mmHg (35.0-45.0); ABG PH 7.435 (7.350-7.450); ABG PO2 86.6 mmHg (75.0-100.0); AaDO2 59.5 mmHg; COHb 0.3 % (0.5-1.5); MetHb 0.5 % (0.0-1.5); O2Hb 94.6 % (94.0-97.0); SITE, ABG Right Radial; VENT MODE, BG NASAL CANNULA
[2019-08-15] MEDS: ATORVASTATIN 40 MG TABLET PO SCH (09:09)
[2019-08-15] MEDS: AMLODIPINE BESYLATE 10 MG TABLET PO SCH (09:10)
[2019-08-15] MEDS: MEMANTINE HCL 5 MG TABLET PO SCH ×2 (09:10→16:26)
[2019-08-15] MEDS: CARVEDILOL 12.5 MG TABLET PO SCH ×2 (09:11→21:25)
[2019-08-15] MEDS: PANTOPRAZOLE 40 MG TABLET.DR PO SCH (09:11)
[2019-08-15] MEDS: FENOFIBRATE NANOCRYS (145 MG) 145 MG TABLET PO SCH (09:11)
[2019-08-15] MEDS: LINAGLIPTIN 5 MG TABLET PO SCH (09:12)
[2019-08-15] MEDS: NITROGLYCERIN 30 GM TUBE TP SCH ×2 (09:15→21:22)
[2019-08-15] MEDS: APIXABAN 5 MG TABLET PO SCH ×2 (09:15→16:27)
[2019-08-15] MEDS: DIGOXIN 0.125 MG TABLET PO SCH (12:12)
--- NOTE | 2019-08-15 18:21 | NUR ---
RN CLOSING NOTE PT WAS RECEIVED IN BED AT LOWEST AND LOCKED POSITION WITH SIDE RAILS UP X2, A/O X3 FIJIAN SPEAKING CURRENTLY ON 3L VIA NM, ON TELE MONITOR SHOWING AFIB 90's WITH PVC, IV IS PATENT AND INTACT, PER NIGHT RN PATIENT HAD A TEMP AND DOCTOR WAS INFORMED AND ORDER GIVEN TO ADMIN ROCEPHIN WHICH WILL BE DONE SOON MED IS AVAILABLE, PER NIGHT RN ATTEMPT WAS MADE TO COLLECT URINE BUT DAUGHTER REFUSED IN AND OUT CATH AND WANTS URINE TO BE COLLECTED VIA BED LOPEZ ALTHOUGH PT IS INCONTINENT, SAFETY PRECAUTIONS IN PLACE, CALL LIGHT IN REACH, WILL Addendum: 08/15/19 at 1822 by ALEXA AYALA RN PT WAS RECEIVED IN BED AT LOWEST AND LOCKED POSITION WITH SIDE RAILS UP X2, A/O X3 FIJIAN SPEAKING CURRENTLY ON 3L VIA NC, ON TELE MONITOR SHOWING AFIB 90's WITH PVC, IV IS PATENT AND INTACT, PER NIGHT RN PATIENT HAD A TEMP AND DOCTOR WAS INFORMED AND ORDER GIVEN TO ADMIN ROCEPHIN WHICH WILL BE DONE SOON MED IS AVAILABLE, PER NIGHT RN ATTEMPT WAS MADE TO COLLECT URINE BUT DAUGHTER REFUSED IN AND OUT CATH AND WANTS URINE TO BE COLLECTED VIA BED LOPEZ ALTHOUGH PT IS INCONTINENT, SAFETY PRECAUTIONS IN PLACE, CALL LIGHT IN REACH, WILL Addendum: 08/15/19 at 1823 by ALEXA AYALA RN PT IN BED AT LOWEST AND LOCKED POSITION WITH SIDE RAILS UP X2, A/O X3 FIJIAN SPEAKING CURRENTLY ON 2L VIA NC, IV IS PATENT AND INTACT, SAFETY PRECAUTIONS IN PLACE, CALL LIGHT IN REACH, ALL NEEDS ATTENDED TO, WILL ENDORSE TO GARIMA RN FOR JADE.
--- NOTE | 2019-08-15 19:45 | NUR ---
internal revenue agent: received report from cecilio rivas at 1915. pt in bed, awake, a/o x2, more awake than this am per report pt been lethargic. met with pt's daughter moises who is visiting. according to family, no staright cath, explain importance of collecting urine sample to check urinary infection, but family insisting only bedpan. pt is incontinent. unable to participate with pt today. pt on tele monitoring afib hr 79. safety precautions for fall initiated, call light in reach, will continue monitoring pt.
--- NOTE | 2019-08-15 20:39 | NUR ---
RN NOTES: COOLING MEASURES PROVIDED, ICE PACK, REMOVED EXCESS THICK BLANKET, MAKE THE ROOM COOLER, LAST TYLENOL ADMINISTERED AT 1515.
--- NOTE | 2019-08-15 21:00 | NUR ---
RN NOTES: HEAD GRINDER PROVIDED COLD BATH TO PT, PT HAD ONE BM AND FREELY VOIDED IN THE DIAPER.
--- NOTE | 2019-08-15 21:22 | NUR ---
RN NOTES: RECHECK TEMP 98.7, VS TAKEN AND RECORDED PRIOR TO ADMINISTERING PO MEDS FOR BP/HR. PT ABLE TO SWALLOW HOLE PILLS. PT'S DAUGHTER MARIO FEEDING THE PT WITH FRUITS.
[2019-08-16] VITALS: BP 128/54
--- NOTE | 2019-08-16 00:30 | NUR ---
RN NOTES: PT SLEEPING SINCE 2199, SNORING, APPEARS CALM AND COMFORTABLE, NO FACIAL GRIMACE NOTED
--- NOTE | 2019-08-16 03:00 | NUR ---
RN NOTES: PT ASLEEP, RESPOND TO TACTILE STIMULI, RESPIRATIONS EVEN AND UNLABORED. NO FACIAL GRIMACE NOTED. REMAINS ON AFIB TELE MONITORING.
[2019-08-16 04:00] VITALS: BP 142/48
[2019-08-16] MEDS: BLOOD SUGAR DIAGNOSTIC 1 EACH STRIP IN SCH ×4 (06:14→21:12)
[2019-08-16] MEDS: INSULIN REGULAR, HUMAN 100 UNIT/ML 3 ML VIAL SQ PRN ×3 (06:14→21:20)
--- NOTE | 2019-08-16 06:15 | NUR ---
BLOOD GLUCOSE 117: BLOOD GLUCOSE CHECK PERFORMED, RESULT OBTAINED IS 117, NO INSULIN COVERAGE GIVEN PER SLIDING SCALE
[2019-08-16 06:22] LABS: BASOPHILS % (AUTO) 0.6 % (0.0-2.0); EOSINOPHILS % (AUTO) 2.3 % (0.0-6.0); HEMATOCRIT 27 % (33-45); HEMOGLOBIN 8.6 g/dL (11.5-14.8); LYMPHOCYTES # (AUTO) 1.2 /CMM (0.8-4.8); LYMPHOCYTES % (AUTO) 17.9 % (20.0-44.0); MEAN CORPUSCULAR HGB CONC 32 g/dl (31.0-36.0); MEAN CORPUSCULAR VOLUME 92 fL (82-100); MONOCYTES % (AUTO) 14.8 % (2.0-12.0); NEUTROPHILS # (AUTO) 4.3 /CMM (1.8-8.9); NEUTROPHILS % (AUTO) 64.4 % (43.0-81.0); PLATELET COUNT (AUTO) 172 /CMM (150-450); RED BLOOD CELL COUNT(AUTO) 2.91 MIL/uL (4.0-5.2); WHITE BLOOD COUNT (AUTO) 6.6 K/uL (4.3-11.0)
[2019-08-16] MEDS: CEFTRIAXONE 1 G in IV D5W 50 ML IV SCH (06:32)
--- NOTE | 2019-08-16 06:50 | NUR ---
END OF SHIFT REPORT: PT TOLERATED 2L OXYGEN, NO SOB NOTED. PRN TYLENOL ADMINISTERED FOR C/O ANKLE AND LEG PAIN. TMAX TEMP 100.5, COOLING MEASURES PROVIDED. LATEST TEMP 98.9, ORAL. ALL DUE MEDS ADMINISTERED. IV ACCESS REMAINS PATENT AND FLUSHING WELL, ON HL. NO S/S OF IV INFILTRATION NOTED. ACCU CHECK PREFORMED, INSULIN ADMINISTERED PER SLIDING SCALE. REMAINS ON AFIB HR 75. VS REMAINS STABLE, NEEDS ATTENDED. FOR PT EVAL. AWAITING PLACEMENT. SAFETY PRECAUTIONS FOR FALL REMAINS ENGAGED, CALL LIGHT IN REACH, WILL ENDORSE TO DAY RN FOR CONTINUITY OF CARE.
[2019-08-16 07:01] LABS: CARBON DIOXIDE 28 mmol/L (21-32); CHLORIDE 103 mmol/L (98-107); CREATININE 1.5 mg/dL (0.6-1.3); GLUCOSE 118 mg/dL (74-106); MAGNESIUM 2.3 mg/dL (1.8-2.4); PHOSPHORUS 3.5 mg/dL (2.5-4.9); POTASSIUM 4.7 mmol/L (3.5-5.1); SODIUM SERUM 141 mmol/L (136-145); UREA NITROGEN, BLOOD 48 mg/dL (7-18)
--- NOTE | 2019-08-16 07:41 | NUR ---
RN NOTES RECEIVED REPORT FROM PM NURSE. PATIENT IS CURRENTLY LAYING IN BED. PATIENT APPEARS COMFORTABLE, SO SOB/ RESPIRATORY DISTRESS NOTED. CALL LIGHT IS WITHIN REACH. BED IN LOWEST LOCKED POSITION WITH SIDE RAILS UP X2. WILL CONTINUE TO MONITOR PATIENT.
[2019-08-16 08:00] VITALS: BP 152/77
[2019-08-16] MEDS: ATORVASTATIN 40 MG TABLET PO SCH (08:36)
[2019-08-16] MEDS: PANTOPRAZOLE 40 MG TABLET.DR PO SCH (08:36)
[2019-08-16] MEDS: FENOFIBRATE NANOCRYS (145 MG) 145 MG TABLET PO SCH (08:36)
[2019-08-16] MEDS: AMLODIPINE BESYLATE 10 MG TABLET PO SCH (08:37)
[2019-08-16] MEDS: CARVEDILOL 12.5 MG TABLET PO SCH ×2 (08:37→21:00)
[2019-08-16] MEDS: IPRATROPIUM NEB FS 0.5 MG/2.5 ML AMPUL.NEB IH SCH ×4 (08:42→20:11)
[2019-08-16] MEDS: ALBUTEROL HALF STRENGTH 1.25 MG/3 ML VIAL.NEB IH SCH ×4 (08:43→20:11)
[2019-08-16] MEDS: APIXABAN 5 MG TABLET PO SCH ×2 (08:44→17:16)
[2019-08-16] MEDS: LINAGLIPTIN 5 MG TABLET PO SCH (08:59)
[2019-08-16] MEDS: MEMANTINE HCL 5 MG TABLET PO SCH ×2 (08:59→17:16)
[2019-08-16] MEDS: NITROGLYCERIN 30 GM TUBE TP SCH ×2 (09:01→21:12)
[2019-08-16] MEDS: ACETAMINOPHEN 325 MG TABLET PO PRN ×2 (12:48→21:10)
[2019-08-16] MEDS: DIGOXIN 0.125 MG TABLET PO SCH (12:48)
[2019-08-16] MEDS: HYDROCODONE/APAP 5/325MG 1 EACH TABLET PO PRN (15:37)
[2019-08-16 16:00] VITALS: BP 122/58
--- NOTE | 2019-08-16 18:49 | NUR ---
RN CLOSING NOTES PATIENT IS CURRENTLY LAYING IN BED. BED IS IN LOWEST LOCKED POSITION WITH SIDE RAILS UP. CALL LIGHT IS WITHIN REACH. IV IN LEFT HAND IS PATENT AND INTACT. ALL MEDS HAVE BEEN GIVEN. WILL ENDORSE REPORT TO PM SHIFT.
--- NOTE | 2019-08-16 19:30 | NUR ---
MS RN OPENING NOTE RECEIVED PATIENT IN BED. A/OX 3. MALTESE SPEAKING. ON OXYGEN 2L/MIN VIA NASAL CANNULA. RESPIRATIONS ARE EVEN AND UNLABORED. NO S/S SOB NOTED. NO S/S PAIN AT THIS TIME. EXTERNAL TELE MONITOR READS CONTROLLED AFIB WITH HR IN 70S. IN NO APPARENT DISTRESS. IV ACCESS IN L HAND #18 PATENT AND SALINE LOCKED. BED IS LOW AND LOCKED, HOB ELEVATED IN SEMI FOWLERS, SIDE RIALS UP X2, BED ALARM ON, OFFLOADED EXTREMITIES. CALL LIGHT WITHIN REACH. WILL CONTINUE TO MONITOR.
[2019-08-16 20:00] VITALS: BP 111/72
--- NOTE | 2019-08-16 21:00 | NUR ---
MS RN NOTE CALLED LAB THAT THERE IS A SPECIMEN FOR WARP PLACER, URINE.
--- NOTE | 2019-08-16 21:20 | NUR ---
MS RN NOTE ADMINISTERED PRN TYLENOL 650MG FOR PAIN. PATIENTS FAMILY WAS SPEAKING TO THE PATIENT IN ROMANIAN, PATIENT STATED SHE WAS IN PAIN AND WANTED TYLENOL. AFTER REPOSITIONING PATIENT SHE WAS MAKING MOANING NOISES. WILL CONTINUE TO MONITOR.
[2019-08-17] VITALS: BP 125/69
[2019-08-17] MEDS: HYDROCODONE/APAP 5/325MG 1 EACH TABLET PO PRN (02:07)
--- NOTE | 2019-08-17 02:07 | NUR ---
MS RN NOTE ADMINISTERED PRN NORCO 5/325 FOR PAIN 6/10. WITH HELP OF CITIZEN OF [place] AND [place] TRANSLATION FROM ROUNDER AND BACKER KIERRA. PATIENT STATED SHE IS IN PAIN 6/10 LL OVER HER BODY. WILL CONTINUE TO MONITOR.
[2019-08-17 04:00] VITALS: BP 139/70
[2019-08-17] MEDS: BLOOD SUGAR DIAGNOSTIC 1 EACH STRIP IN SCH ×4 (06:27→21:37)
--- NOTE | 2019-08-17 07:11 | NUR ---
MS RN CLOSING NOTE PATIENT IN BED. A/OX 3. QATARI SPEAKING. ON OXYGEN 2L/MIN VIA NASAL CANNULA. RESPIRATIONS ARE EVEN AND UNLABORED. NO SOB NOTED. MANAGED PAIN WITH NORCO 5/325. EXTERNAL TELE MONITOR READS CONTROLLED AFIB WITH HR IN 70S. NO DISTRESS NOTED. IV ACCESS MAINTAINED IN L HAND #18 PATENT AND SALINE LOCKED. BED IS LOW AND LOCKED, HOB ELEVATED IN SEMI FOWLERS, SIDE RIALS UP X2, BED ALARM ON, OFFLOADED EXTREMITIES. CALL LIGHT WITHIN REACH. WILL ENDORSE TO NEXT SHIFT
--- NOTE | 2019-08-17 07:31 | NUR ---
MS RN OPENING NOTES RECEIVED REPORT ON PATIENT FROM NIGHT NURSE. PATIENT IS LAYING IN BED. BED IS IN LOWEST LOCKED POSITION WITH SIDE RAILS UP X2, SEMI FOWLERS. PATIENT APPEARS TO BE COMFORTABLE AT THIS MOMENT WITH NO COMPLAINTS OF PAIN. NO SOB/ RESPIRATORY DISTRESS NOTED. CALL LIGHT IS WITHIN REACH. WILL CONTINUE TO MONITOR.
[2019-08-17] MEDS: CEFTRIAXONE 1 G in IV D5W 50 ML IV SCH (08:08)
[2019-08-17] MEDS: ATORVASTATIN 40 MG TABLET PO SCH (08:09)
[2019-08-17] MEDS: LINAGLIPTIN 5 MG TABLET PO SCH (08:09)
[2019-08-17] MEDS: FENOFIBRATE NANOCRYS (145 MG) 145 MG TABLET PO SCH (08:09)
[2019-08-17] MEDS: PANTOPRAZOLE 40 MG TABLET.DR PO SCH (08:09)
[2019-08-17] MEDS: MEMANTINE HCL 5 MG TABLET PO SCH ×2 (08:09→16:41)
[2019-08-17] MEDS: AMLODIPINE BESYLATE 10 MG TABLET PO SCH (08:10)
[2019-08-17] MEDS: CARVEDILOL 12.5 MG TABLET PO SCH ×2 (08:10→21:36)
[2019-08-17] MEDS: APIXABAN 5 MG TABLET PO SCH ×2 (08:13→16:42)
[2019-08-17] MEDS: ALBUTEROL HALF STRENGTH 1.25 MG/3 ML VIAL.NEB IH SCH ×4 (08:26→19:59)
[2019-08-17] MEDS: IPRATROPIUM NEB FS 0.5 MG/2.5 ML AMPUL.NEB IH SCH ×4 (08:26→19:59)
[2019-08-17] MEDS: NITROGLYCERIN 30 GM TUBE TP SCH ×2 (09:00→21:37)
[2019-08-17 09:02] VITALS: BP 134/56
--- NOTE | 2019-08-17 12:13 | NUR ---
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 RECOMMENDATIONS MADE FOR SKIN PROTECTION AND SKIN CARE. DISCUSSED WITH NURSING STAFF. WILL SEE PRN. CORONA IN AGREEMENT WITH PLAN OF CARE. CLEARWATER ISOFLEX LOW AIRLOSS BED TO BE PLACED. Addendum: 08/17/19 at 1214 by KAROL MELENDEZ WNDNU Amended: Links added.
[2019-08-17] MEDS: INSULIN REGULAR, HUMAN 100 UNIT/ML 3 ML VIAL SQ PRN ×2 (12:36→21:38)
[2019-08-17] MEDS: DIGOXIN 0.125 MG TABLET PO SCH (12:37)
[2019-08-17 16:52] VITALS: BP 118/49
--- NOTE | 2019-08-17 18:56 | NUR ---
RN CLOSING NOTES PATIENT IS LAYING IN BED. BED IN LOWEST LOCKED POSITION WITH SIDE RAILS UP X2. PATIENT IS ON 2L NASAL CANNULA, NO SOB/ RESPIRATORY DISTRESS NOTED. CALL LIGHT WITHIN REACH. FAMILY IS AT BEDSIDE. PATIENT REFUSED TO BE TRANSFERRED TO ISOFLEX BED. WILL ENDORSE REPORT TO NIGHT NURSE.
--- NOTE | 2019-08-17 19:45 | NUR ---
AUTO WINDER OPENING NOTES RECEIVED PATIENT FROM MORNING SHIFT, ALERT AND ORIENTED X 3 GEORGIAN SPEAKING. FAMILY ON BEDSIDE. VERBALLY RESPONSIVE AND ABLE TO FOLLOW DIRECTIONS. BREATHING REGULAR AND UNLABORED ON OXYGEN AT 2L/MIN VIA NASAL CANNULA. LEFT HAND G18 IV LINE INTACT AND PATENT, FLUSHING WELL WITH NO BLEEDING OR S/S OF INFILTRATION OBSERVED. NO COMPLAINTS OF PAIN/DISCOMFORT REPORTED AT THIS TIME. ON CARDIAC MONITORING WITH ATRIAL FIBRILLATION AT 78bpm. BED LOW AND LOCKED ON SEMI FOWLERS POSITION, CALL LIGHT IN REACH. WILL CONTINUE TO MONITOR.
[2019-08-17 20:00] VITALS: BP 131/112
[2019-08-17 22:00] VITALS: BP 131/98
--- NOTE | 2019-08-17 22:00 | NUR ---
ENVIRONMENTAL DESIGNER NOTES BS 140mg/dl, 2UNITS REGULAR INSULIN GIVEN SQ. SNACKS PROVIDED ON BEDSIDE. WILL CONTINUE TO MONITOR.
[2019-08-17] MEDS: ACETAMINOPHEN 325 MG TABLET PO PRN (23:50)
[2019-08-18 00:01] VITALS: BP 159/77
--- NOTE | 2019-08-18 00:10 | NUR ---
TAX RECORD CLERK NOTES NOTED WITH BODY TEMPERATURE OF 100.4, TYLENOL 650MG GIVEN BY MOUTH. COOLING MEASURES PROVIDED. WILL CONTINUE TO MONITOR.
--- NOTE | 2019-08-18 01:00 | NUR ---
BEHAVIORAL HEALTH CLINICIAN NOTES BODY TEMP DECREASED TO 98.4
--- NOTE | 2019-08-18 06:15 | NUR ---
RELAY REPAIRER NOTES BS 114mg/dl, NO INSULIN COVERAGE NEEDED. WILL CONTINUE TO MONITOR.
--- NOTE | 2019-08-18 06:25 | NUR ---
CEILING CLEANER CLOSING NOTES PATIENT IN BED ALERT AND ORIENTED X 2-3 WITH EPISODES OF CONFUSION. VERBALLY RESPONSIVE AND ABLE TO FOLLOW DIRECTIONS. BREATHING REGULAR AND UNLABORED ON OXYGEN AT 2L/MIN VIA NASAL CANNULA. LEFT HAND G18 IV LINE PATENT AND FLUSHING WELL. NO S/S OF PAIN/DISCOMFORT NOTED THE WHOLE SHIFT. MAINTAINED ON CARDIAC MONITORING WITH ATRIAL FIBRILLATION AT 82bpm. WOUND TREATMENT PROVIDED. BED LOW AND LOCKED ON SEMI FOWLERS POSITION, CALL LIGHT IN REACH. WILL ENDORSE TO MORNING SHIFT FOR JADE.
[2019-08-18] MEDS: BLOOD SUGAR DIAGNOSTIC 1 EACH STRIP IN SCH ×4 (06:30→22:21)
[2019-08-18] MEDS: INSULIN REGULAR, HUMAN 100 UNIT/ML 3 ML VIAL SQ PRN ×3 (06:31→23:05)
[2019-08-18] MEDS: IPRATROPIUM NEB FS 0.5 MG/2.5 ML AMPUL.NEB IH SCH ×4 (07:38→20:39)
[2019-08-18] MEDS: ALBUTEROL HALF STRENGTH 1.25 MG/3 ML VIAL.NEB IH SCH ×4 (07:38→20:39)
[2019-08-18 08:00] VITALS: BP 126/79
--- NOTE | 2019-08-18 08:00 | NUR ---
PRE PRESS PROOFER OPENING NOTES RECEIVED PATIENT ALERT AND ORIENTED X 3 FIJIAN SPEAKING. VERBALLY RESPONSIVE AND ABLE TO FOLLOW DIRECTIONS. BREATHING REGULAR AND UNLABORED ON OXYGEN AT 2L/MIN VIA NASAL CANNULA. LEFT HAND G18 IV LINE INTACT AND PATENT, FLUSHING WELL WITH NO BLEEDING OR S/S OF INFILTRATION OBSERVED. NO COMPLAINTS OF PAIN/DISCOMFORT REPORTED AT THIS TIME. ON CARDIAC MONITORING WITH ATRIAL FIBRILLATION AT 81-87 bpm. BED LOW AND LOCKED ON SEMI FOWLERS POSITION, CALL LIGHT IN REACH. WILL CONTINUE TO MONITOR.
[2019-08-18] MEDS: NITROGLYCERIN 30 GM TUBE TP SCH ×2 (09:03→21:00)
[2019-08-18] MEDS: ALENDRONATE 70 MG TABLET PO SCH (09:04)
[2019-08-18] MEDS: CEFTRIAXONE 1 G in IV D5W 50 ML IV SCH (09:04)
[2019-08-18] MEDS: CARVEDILOL 12.5 MG TABLET PO SCH ×2 (09:05→21:00)
[2019-08-18] MEDS: ATORVASTATIN 40 MG TABLET PO SCH (09:05)
[2019-08-18] MEDS: AMLODIPINE BESYLATE 10 MG TABLET PO SCH (09:05)
[2019-08-18] MEDS: FENOFIBRATE NANOCRYS (145 MG) 145 MG TABLET PO SCH (09:05)
[2019-08-18] MEDS: MEMANTINE HCL 5 MG TABLET PO SCH ×2 (09:06→17:31)
[2019-08-18] MEDS: LINAGLIPTIN 5 MG TABLET PO SCH (09:07)
[2019-08-18] MEDS: APIXABAN 5 MG TABLET PO SCH ×2 (09:07→17:00)
[2019-08-18] MEDS: PANTOPRAZOLE 40 MG TABLET.DR PO SCH (09:09)
[2019-08-18] MEDS: ACETAMINOPHEN 325 MG TABLET PO PRN ×2 (09:49→23:00)
[2019-08-18] MEDS: LORAZEPAM 0.5 MG TABLET PO PRN (09:49)
[2019-08-18 12:00] VITALS: BP 106/55
--- NOTE | 2019-08-18 12:00 | NUR ---
BS 136-HELD INSULIN PT REFUSED TO EAT LUNCH INSPITE OF ENCOURAGEMENT AND OFFERING SNACKS-PT INSISTS TO REFUSE.
--- NOTE | 2019-08-18 12:53 | NUR ---
PT WAS NOTED TO BE DIAPHORETIC AND LETHARGIC FROM SLEEP.BLOOD SUGAR CHECKED AND WAS 134.DAUGHTER WAS AT THE BEDSIDE. BUT PT SUDDENLY WOKE UP AND STARTED EATING LUNCH.WILL CONTINUE TO MONITOR.FAMILY REFUSED TO HAVE INSULIN ADMINISTERED.
--- NOTE | 2019-08-18 13:00 | NUR ---
ADJUSTED PT AIRCONDITION IN HER ROOM TEMPERATURE TO COOL IT DOWN.FAMILY AWARE.WILL MONITOR.
[2019-08-18] MEDS: DIGOXIN 0.125 MG TABLET PO SCH (13:19)
--- NOTE | 2019-08-18 13:36 | NUR ---
FAMILY CAME AND BROUGHT FOOD FOR LUNCH.PT STARTS EATING LUNCH.WILL ADMINISTER INSULIN.
--- NOTE | 2019-08-18 13:36 | NUR ---
P.T. DOING EVAL AT THE BEDSIDE THIS TIME.
--- NOTE | 2019-08-18 13:40 | NUR ---
PT ATE 20% LUNCH AND FAMILY REFUSED TO HAVE INSULIN BE ADMINISTERED.WILL CONTINUE TO MONITOR.
[2019-08-18 16:00] VITALS: BP 139/98
--- NOTE | 2019-08-18 16:00 | NUR ---
PT'S FAMILY MEMBERS ARRIVED AND C/O SAYING THEY CAN GET SICK AND WITH THE COLD TEMPERATURE OF THE ROOM.EXPLAINED TO THE SON/FAMILY THAT PT WAS PERSPIRING EARLIER WHICH IS WHY WE TURNED DOWN THE HEATER. TURNED ON THE HEATER AGAIN IN PT'S ROOM PER FAMILY REQUEST.
[2019-08-18] MEDS ORDERED: CEFT1FRO2 IV (16:37)
--- NOTE | 2019-08-18 17:00 | NUR ---
PT IS DIAPHORETIC AGAIN BUT AWAKE,BLOOD SUGAR CHECK DONE WITH [address] MOHR OF PT'S CONDITION AND ALSO INFORM HIM OF PT ON ELIQUIS PO BID BUT HAS NO LATEST CBC LAB TESTS SINCE 08/16/2019.WITH ORDERS FOR STAT CBC AND BMP
[2019-08-18 17:46] LABS: BASOPHILS % (AUTO) 0.5 % (0.0-2.0); EOSINOPHILS % (AUTO) 4.3 % (0.0-6.0); HEMATOCRIT 24 % (33-45); HEMOGLOBIN 7.9 g/dL (11.5-14.8); LYMPHOCYTES # (AUTO) 0.7 /CMM (0.8-4.8); LYMPHOCYTES % (AUTO) 16.7 % (20.0-44.0); MEAN CORPUSCULAR HGB CONC 33 g/dl (31.0-36.0); MEAN CORPUSCULAR VOLUME 90 fL (82-100); MONOCYTES # (AUTO) 0.6 /CMM (0.1-1.30); MONOCYTES % (AUTO) 13.2 % (2.0-12.0); NEUTROPHILS # (AUTO) 2.8 /CMM (1.8-8.9); NEUTROPHILS % (AUTO) 65.3 % (43.0-81.0); PLATELET COUNT (AUTO) 220 /CMM (150-450); RED BLOOD CELL COUNT(AUTO) 2.64 MIL/uL (4.0-5.2); WHITE BLOOD COUNT (AUTO) 4.2 K/uL (4.3-11.0)
[2019-08-18 18:04] LABS: CALCIUM, SERUM 8.9 mg/dL (8.5-10.1); CARBON DIOXIDE 30 mmol/L (21-32); CHLORIDE 102 mmol/L (98-107); CREATININE 1.8 mg/dL (0.6-1.3); GLUCOSE 153 mg/dL (74-106); POTASSIUM 5.3 mmol/L (3.5-5.1); SODIUM SERUM 139 mmol/L (136-145); UREA NITROGEN, BLOOD 60 mg/dL (7-18)
--- NOTE | 2019-08-18 18:34 | NUR ---
NOTIFIED DR MOHR OF PT'S LOW HGB/HCT OF 7.9/24 AND HIGH K+LEVEL OF 5.3.DR MOHR STATED TO HOLD THE DC.
--- NOTE | 2019-08-18 18:36 | NUR ---
HELD ELIQUIS DUE TO LOW HGB/HCT 7.9.DR ONUR TAVERAS.
--- NOTE | 2019-08-18 18:59 | NUR ---
DR MOHR STATED THAT ITS OK TO HOLD ELIQUIS AND ITS OK NOT TO ORDER ANYTHING FOR THE HIGH K+ LEVEL FOR NOW.
--- NOTE | 2019-08-18 19:30 | NUR ---
PT SMILING WHEN SHE FINISHED DRINKING THE GLUCERNA STRAWBERRY DRINK AND ONE CARTON OF SUPPLEMENT.HUMULIN R 2 UNITS SQ GIVEN FOR BLOOD SUGAR OF 154.DENIES ANY PAIN OR DISTRESS.CALL LIGHT PLACED WITHIN REACH.
--- NOTE | 2019-08-18 20:00 | NUR ---
TELE/RN OPENING NOTES RECEIVED PATIENT IN BED, AWAKE, ALERT X3, ABLE TO VERNALIZE NEEDS, BELONGINGS WITHIN REACH, OFFERED AND PROVIDED FLUIDS, CALL LIGHTS WITHIN REACH, BED LOCKED. RECEIVED ENDORSEMENT FROM AM RN FOR JADE. DENIES PAIN. NO PAIN REPORTED AND OBSERVED. LEFT HAND GAUGE 18 PATENT, INCONTINENT. WILL MONITOR FOR ANY CHANGES.
--- NOTE | 2019-08-18 20:02 | NUR ---
TELE/RN OPENING NOTES RECEIVED PATIENT IN BED, AWAKE, ALERT X3, WITH CAREGIVER, ON OXYGEN VIA NC AT 3LITER, HAVING LATE DINNER, ABLE TO TOLERATE PO MEDS. RESPIRATIONS EVEN AND UNLABORED, SKIN WARM TO TOUCH, WITH SOME CHEST PRESSURE BUT REPOSITIONED AND ENCOURAGE BREATHING, ABLE TO FEEL SOME IMPROVEMENT. WILL HAVE BREATHING TX . TELE MONITOR ST AT 100. RECEIVED ENDORSEMENT FROM AM RN FOR JADE. Addendum: 08/18/19 at 2002 by NADIYA TEMPLETON RN PLS DISREGARD FOR ANOTHER PATIENT
[2019-08-18 20:50] VITALS: BP 110/68
--- NOTE | 2019-08-18 23:08 | NUR ---
TELE/RN NOTES ON SY AT 83 WITH LOW GRADE FEVER OF 99 DEG F, COOLING MEASURES PROVIDED, PATIENT WITH MULTIPLE BLANKET AND TYLENOL 650 MG PO GIVEN, WILL MONITOR.
[2019-08-19] VITALS (11 sets, daily range): BP systolic 103–142; BP diastolic 49–66
--- NOTE | 2019-08-19 01:47 | NUR ---
TELE/RN NOTES PATIENT STILL WITH LOW GRADE FEVER AFTER COOLING MEASURES PROVIDED. DISCUSSED WITH PATIENT TO KEEP COOL AND NOT TO HAVE MANY BLANKETS TO RELIEVE FEVER.,OFFERED FLUIDS. ABLE TO ZIP .WILL MONITOR.
[2019-08-19] MEDS: BLOOD SUGAR DIAGNOSTIC 1 EACH STRIP IN SCH ×4 (06:33→21:23)
--- NOTE | 2019-08-19 06:59 | NUR ---
311-1 TELE/RN NOTES PATIENT ALERT X2, MONITORED FOR ELEVATED TEMPERATURE, SKIN WARM TO TOUCH. COOLING MEASURES PROVIDED FOR ELEVATED BOOD PRESSURE. ALL NEEDS ATTTENDE. WILL ENDORSE TO BERNARD
[2019-08-19] MEDS: IPRATROPIUM NEB FS 0.5 MG/2.5 ML AMPUL.NEB IH SCH ×4 (07:58→20:10)
[2019-08-19] MEDS: ALBUTEROL HALF STRENGTH 1.25 MG/3 ML VIAL.NEB IH SCH ×4 (07:58→20:10)
--- NOTE | 2019-08-19 08:00 | NUR ---
REFINERY OPERATOR REFORMING UNIT OPENING NOTES RECEIVED PATIENT ALERT AND CONFUSED. MAORI SPEAKING. VERBALLY RESPONSIVE AND ABLE TO FOLLOW DIRECTIONS. BREATHING REGULAR AND UNLABORED ON OXYGEN AT 2L/MIN VIA NASAL CANNULA. O2 SAT 96%.LEFT HAND G18 IV LINE INTACT AND PATENT, FLUSHING WELL WITH NO BLEEDING OR S/S OF INFILTRATION OBSERVED. NO COMPLAINTS OF PAIN/DISCOMFORT NOTED.ON TELE MONITORING WITH ATRIAL FIBRILLATION AT 82-99 bpm. BED LOW AND LOCKED ON SEMI FOWLERS POSITION, REFUSED TO EAT BREAKFAST.CALL LIGHT PLACED WITHIN REACH. WILL CONTINUE TO MONITOR.
[2019-08-19] MEDS: CEFTRIAXONE 1 G in IV D5W 50 ML IV SCH (08:52)
[2019-08-19] MEDS: APIXABAN 5 MG TABLET PO SCH ×2 (09:00→17:00)
[2019-08-19] MEDS: AMLODIPINE BESYLATE 10 MG TABLET PO SCH (10:05)
[2019-08-19] MEDS: ACETAMINOPHEN 325 MG TABLET PO PRN ×2 (10:05→20:38)
[2019-08-19] MEDS: CARVEDILOL 12.5 MG TABLET PO SCH ×2 (10:06→20:25)
[2019-08-19] MEDS: LINAGLIPTIN 5 MG TABLET PO SCH (10:07)
[2019-08-19] MEDS: ATORVASTATIN 40 MG TABLET PO SCH (10:20)
[2019-08-19] MEDS: FENOFIBRATE NANOCRYS (145 MG) 145 MG TABLET PO SCH (10:20)
[2019-08-19] MEDS: PANTOPRAZOLE 40 MG TABLET.DR PO SCH (10:20)
[2019-08-19] MEDS: MEMANTINE HCL 5 MG TABLET PO SCH ×2 (10:21→17:28)
[2019-08-19] MEDS: GLUCERNA SHAKE 237 ML CAN PO SCH ×3 (10:29→17:17)
--- NOTE | 2019-08-19 10:30 | NUR ---
PT HAS A FEVER T 100.9 .COOLING MEASURES AND TYLENOL 650 MG PO GIVEN.PT NOTED UNABLE TO SWALLOW REGULAR PILLS.CRUSHED PT'S MEDS WITH VANILLA PUDDING.PT IS TOO WEAK TO SUCK THE STRAW WITH GLUCERNA COMPARED YESTERDAY WHEREIN PT IS ALWAYS ENJOY DRINKING HER GLUCERNA STRAWBERRY WITH THE STRAW.
[2019-08-19] MEDS: NITROGLYCERIN 30 GM TUBE TP SCH ×2 (10:33→20:25)
--- NOTE | 2019-08-19 10:35 | NUR ---
NOTIFIED DR MOHR AND MADE AWARE.
--- NOTE | 2019-08-19 10:52 | NUR ---
FAMILY MEMBERS ARRIVED AND PT STARTED DRINKING WITH A STRAW.CONSUMED VANILLA 1 1/2 CUP.
--- NOTE | 2019-08-19 12:00 | NUR ---
PT STARTED EATING LUNCH BEING FED BY THE FAMILY MEMBERS.PT ALERT AND SMILING AND ABLE TO SUCK GLUCERNA THROUGH A STRAW AND CONSUMED 1 1/2 CUP OF VANILLA PUDDING. DENIES ANY PAIN OR DISTRESS.KEEPS REMOVING HER O2 CANNULA AND FREQUENTLY CHECKED,REAPPLY O2 CANNULA AND REMINDED THE IMPORTANCE OF HER O2.PT STILL CONTINUES TO REMOVE O2 CANNULA.WILL MONITOR.
[2019-08-19] MEDS: MEROPENEM 500 MG in IV NS 0.9% 50 ML IV SCH ×2 (12:35→23:10)
[2019-08-19] MEDS: INSULIN REGULAR, HUMAN 100 UNIT/ML 3 ML VIAL SQ PRN ×2 (12:45→21:37)
[2019-08-19] MEDS: DIGOXIN 0.125 MG TABLET PO SCH (12:51)
[2019-08-19 13:24] LABS: BASOPHILS % (AUTO) 0.4 % (0.0-2.0); EOSINOPHILS % (AUTO) 2.4 % (0.0-6.0); HEMATOCRIT 21 % (33-45); LYMPHOCYTES # (AUTO) 0.5 /CMM (0.8-4.8); LYMPHOCYTES % (AUTO) 11.5 % (20.0-44.0); MEAN CORPUSCULAR HGB CONC 32 g/dl (31.0-36.0); MEAN CORPUSCULAR VOLUME 91 fL (82-100); MONOCYTES # (AUTO) 0.5 /CMM (0.1-1.30); MONOCYTES % (AUTO) 12.1 % (2.0-12.0); NEUTROPHILS # (AUTO) 3.1 /CMM (1.8-8.9); NEUTROPHILS % (AUTO) 73.6 % (43.0-81.0); PLATELET COUNT (AUTO) 223 /CMM (150-450); RED BLOOD CELL COUNT(AUTO) 2.32 MIL/uL (4.0-5.2); WHITE BLOOD COUNT (AUTO) 4.2 K/uL (4.3-11.0)
[2019-08-19 13:32] LABS: HEMOGLOBIN 6.8 g/dL (11.5-14.8)
[2019-08-19 13:35] LABS: CALCIUM, SERUM 7.3 mg/dL (8.5-10.1); CARBON DIOXIDE 28 mmol/L (21-32); CHLORIDE 100 mmol/L (98-107); CREATININE 1.5 mg/dL (0.6-1.3); MAGNESIUM 1.8 mg/dL (1.8-2.4); PHOSPHORUS 2.6 mg/dL (2.5-4.9); POTASSIUM 4.2 mmol/L (3.5-5.1); SODIUM SERUM 140 mmol/L (136-145); UREA NITROGEN, BLOOD 47 mg/dL (7-18)
[2019-08-19 13:37] LABS: GLUCOSE 434 mg/dL (74-106)
--- NOTE | 2019-08-19 13:40 | NUR ---
FAMILY GAVE PT ORGANIC ORANGE JUICE AND FED PT LUNCH MEAL PRIOR TO LAB DRAW.DR MOHR AWARE. GLUCOSE OF 434.
--- NOTE | 2019-08-19 13:44 | NUR ---
DR MOHR CAME AND MADE AWARE OF CRITICAL HGB /HCT 6.8 AND GLUCOSE 434.FAMILY GAVE PT ORANGE JUICE PRIOR TO LAB DRAW.FAMILY TEACHING GIVEN NOT TO GIVE ORANGE JUICE EVEN IF ITS ORGANIC WHAT THE FAMILY INSISTS.REINFORCED TEACHING. FAMILY VERBALIZED UNDERSTANDING OF INSTRUCTIONS GIVEN.
[2019-08-19 14:35] LABS: EOSINOPHILS % (MANUAL) 2 % (0-4); LYMPHOCYTES % (MANUAL) 9 % (16-48); MONOCYTES % (MANUAL) 13 % (0-11.0); NEUTROPHILS % (MANUAL) 76 (42-76)
[2019-08-19] MEDS ORDERED: FUROSEMIDE 20 MG/2 ML VIAL IV PRN (15:30)
--- NOTE | 2019-08-19 18:00 | NUR ---
PT COMFORTABLY SLEEPING IN BED BUT AROUSABLE. WITH NO S/S OF DISTRESS.AFEBRILE.FAMILY AT THE BEDSIDE.PENDING BLOOD TRANSFUSION.ENDORSED TO NIGHT NURSE CARE.
--- NOTE | 2019-08-19 20:00 | NUR ---
TELE/RN OPENING NOTES RECEIVED PATIENT IN BED, AWAKE, FAMILY AT BEDSIDE, HAVING DINNER., VITAL SIGNS CHECKED WITH LOW GRADE FEVER OF 99.9 DEG F, ROOM IN COOL TEMPERATURE, B/P LOW AT 103/61, PULSE 74, R- 19, NO PAIN REPORTED OR OBSERVED. CALM AND COOPERATIVE TO CARE. DISCUSSED PLAN OF CARE. BED LOCKED, CALL LIGHTS WITHIN REACH. WILL MONITOR.
--- NOTE | 2019-08-19 20:39 | NUR ---
TELE/RN NOTES TELE SR 70, TYLENO 650 MG PO GIVEN. TOLERATED WELL.
--- NOTE | 2019-08-19 21:39 | NUR ---
BLOOD SUGAR CHECK AT 140.
--- NOTE | 2019-08-19 21:40 | NUR ---
TEMPERATURE CHECK AT 99.9 DEG AFTER TYLENOL GIVEN EARLIER.
--- NOTE | 2019-08-19 22:00 | NUR ---
TELE/RN NOTES MD VILLANUEVA MADE AWARE REGARDING LOW GRADE FEVER, PATIENT WITH 99.9 DEG F UNRELIEVED BY TYLENOL 650 MG PO AND COOLING MEASURES SINCE EARLY SHIFT. MD AWARE AND ORDER NOT TO GIVE BLOOD IF WITH LOW GRADE FEVER. TO RECHECK .
--- NOTE | 2019-08-19 23:05 | NUR ---
TELE/RN NOTES PATIENT RECHECK TEMPERATURE AT 98.1 DEG F,
--- NOTE | 2019-08-19 23:42 | NUR ---
IV ANTIBIOTIC MERREM IV 500 MG INFUSING SCHEDULED. RECHECK VITAL SIGNS, WITH NORMAL VITAL SIGNS AND NO FEVER.
--- NOTE | 2019-08-19 23:56 | NUR ---
RECHECK TEMPERATURE AFTER IV ANTIBIOTIC THERAPY WITH LOW GRADE FEVER, AT 99 DEG F. TO MONITOR AND RECHECK BEFORE BLOOD TRANSFUSION ,
[2019-08-20] VITALS (7 sets, daily range): BP systolic 103–150; BP diastolic 47–65
--- NOTE | 2019-08-20 00:42 | NUR ---
RECHECK TEMPERATURE AGAIN AT 99.3 DEG F. TO HOLD BLOOD TRANSFUSION FOR NOW PER MD VILLANUEVA.
--- NOTE | 2019-08-20 03:40 | NUR ---
RECTAL TEMPERATURE CHECK TO BE AT 99.3 DEG F.
[2019-08-20] MEDS: ACETAMINOPHEN 325 MG TABLET PO PRN ×3 (04:04→20:53)
--- NOTE | 2019-08-20 06:09 | NUR ---
RECTAL TEMPERATURE TAKEN AT 99.6 DEG F , TYLENOL 650 MG PO GIVEN EARLIER.
[2019-08-20 06:26] LABS: BASOPHILS % (AUTO) 0.5 % (0.0-2.0); EOSINOPHILS % (AUTO) 3.1 % (0.0-6.0); HEMATOCRIT 25 % (33-45); LYMPHOCYTES # (AUTO) 0.9 /CMM (0.8-4.8); LYMPHOCYTES % (AUTO) 17.2 % (20.0-44.0); MEAN CORPUSCULAR HGB CONC 32 g/dl (31.0-36.0); MEAN CORPUSCULAR VOLUME 91 fL (82-100); MONOCYTES # (AUTO) 0.9 /CMM (0.1-1.30); MONOCYTES % (AUTO) 16.1 % (2.0-12.0); NEUTROPHILS # (AUTO) 3.4 /CMM (1.8-8.9); NEUTROPHILS % (AUTO) 63.1 % (43.0-81.0); PLATELET COUNT (AUTO) 252 /CMM (150-450); RED BLOOD CELL COUNT(AUTO) 2.75 MIL/uL (4.0-5.2); WHITE BLOOD COUNT (AUTO) 5.3 K/uL (4.3-11.0)
[2019-08-20] MEDS: BLOOD SUGAR DIAGNOSTIC 1 EACH STRIP IN SCH ×4 (06:28→22:01)
[2019-08-20 06:40] LABS: CARBON DIOXIDE 30 mmol/L (21-32); CHLORIDE 106 mmol/L (98-107); CREATININE 1.5 mg/dL (0.6-1.3); GLUCOSE 111 mg/dL (74-106); MAGNESIUM 2.4 mg/dL (1.8-2.4); PHOSPHORUS 3.4 mg/dL (2.5-4.9); POTASSIUM 4.8 mmol/L (3.5-5.1); SODIUM SERUM 143 mmol/L (136-145); UREA NITROGEN, BLOOD 53 mg/dL (7-18)
--- NOTE | 2019-08-20 06:46 | NUR ---
TELE/RN TO RE DRAW CBC RESULT TO CONFIRM HGB LEVEL RESULT.
--- NOTE | 2019-08-20 06:49 | NUR ---
TELE/RN NOTES PATIENT RESTING IN BED, MONITORED FOR ANY CHANGES DUE TO ELEVATED TEMPERATURE,, ATTENDED ALL NEEDS, ON OXYGEN VIA NC AT 2L. RESPIRATIONS EVEN AND UNLABORED, SKIN WARM TO TOUCH. REPOSITIONED FOR COMFORT. BED LOCKED, CALL LIGHTS WITHIN REACH. WILL MONITOR. IV ON LFA PATENT AND INTACT. SAFETY MEASURES PLACED.WILL ENDORSE TO AM RN FOR JADE.
[2019-08-20] MEDS: ALBUTEROL HALF STRENGTH 1.25 MG/3 ML VIAL.NEB IH SCH ×4 (07:23→19:59)
[2019-08-20] MEDS: IPRATROPIUM NEB FS 0.5 MG/2.5 ML AMPUL.NEB IH SCH ×4 (07:23→19:59)
[2019-08-20 08:07] LABS: BASOPHILS % (AUTO) 0.5 % (0.0-2.0); EOSINOPHILS % (AUTO) 3.2 % (0.0-6.0); HEMATOCRIT 24 % (33-45); HEMOGLOBIN 7.7 g/dL (11.5-14.8); LYMPHOCYTES # (AUTO) 0.9 /CMM (0.8-4.8); MEAN CORPUSCULAR HGB CONC 32 g/dl (31.0-36.0); MEAN CORPUSCULAR VOLUME 91 fL (82-100); MONOCYTES % (AUTO) 16.8 % (2.0-12.0); NEUTROPHILS # (AUTO) 3.7 /CMM (1.8-8.9); NEUTROPHILS % (AUTO) 63.5 % (43.0-81.0); PLATELET COUNT (AUTO) 252 /CMM (150-450); RED BLOOD CELL COUNT(AUTO) 2.64 MIL/uL (4.0-5.2); WHITE BLOOD COUNT (AUTO) 5.8 K/uL (4.3-11.0)
[2019-08-20] MEDS: PANTOPRAZOLE 40 MG TABLET.DR PO SCH (08:43)
[2019-08-20] MEDS: AMLODIPINE BESYLATE 10 MG TABLET PO SCH (08:43)
[2019-08-20] MEDS: CARVEDILOL 12.5 MG TABLET PO SCH ×2 (08:43→20:58)
[2019-08-20] MEDS: ATORVASTATIN 40 MG TABLET PO SCH (08:44)
[2019-08-20] MEDS: FENOFIBRATE NANOCRYS (145 MG) 145 MG TABLET PO SCH (08:44)
[2019-08-20] MEDS: LINAGLIPTIN 5 MG TABLET PO SCH (08:44)
[2019-08-20] MEDS: MEMANTINE HCL 5 MG TABLET PO SCH ×2 (08:44→16:39)
[2019-08-20] MEDS: APIXABAN 5 MG TABLET PO SCH ×2 (08:45→16:40)
[2019-08-20] MEDS: GLUCERNA SHAKE 237 ML CAN PO SCH ×3 (08:46→16:39)
[2019-08-20] MEDS: NITROGLYCERIN 30 GM TUBE TP SCH ×2 (09:00→21:35)
[2019-08-20] MEDS: MEROPENEM 500 MG in IV NS 0.9% 50 ML IV SCH (12:26)
[2019-08-20] MEDS: DIGOXIN 0.125 MG TABLET PO SCH (12:26)
[2019-08-20] MEDS: INSULIN REGULAR, HUMAN 100 UNIT/ML 3 ML VIAL SQ PRN ×2 (16:55→22:04)
--- NOTE | 2019-08-20 18:41 | NUR ---
Patient stable , remains on 2l O2 via NC, saturating above 95%. Patient afebrile at this time. All needs attended. patient assisted with feeding (remains poor appetite). Noted with fever 100.1 in am. SAfety precautions in place , call light within reach. Will endorse to next shift for JADE
--- NOTE | 2019-08-20 19:45 | NUR ---
MS RN NOTES RECEIVED ON BED A/O C2,ENGLISH SPEAKING.BREATHING NON LABORED,SALINE LOCK LFA INTACT AND PATENT.FAMILY MEMBERS AT BEDSIDE.NEEDS ANTICIPATED.CALL LIGHT IN REACH.
--- NOTE | 2019-08-20 20:30 | NUR ---
MS RN NOTES HAD LARGE BOWEL MOVEMENT,CLEANED AND REPOSITION BY YAMIL BERNAL.
--- NOTE | 2019-08-20 20:53 | NUR ---
MS RN NOTES C/O ORAL TEMP 99.7,MEDICATED WITH TYLENOL 650MG PO PER FAMILY REQUEST.
--- NOTE | 2019-08-20 22:00 | NUR ---
MS RN NOTES ACCU-CHECK BLOOD SUGAR CHECK 159,COVERED WITH HUMULIN R 2 UNITS PER SLIDING SCALE.
[2019-08-21] MEDS: MEROPENEM 500 MG in IV NS 0.9% 50 ML IV SCH ×3 (00:05→23:01)
--- NOTE | 2019-08-21 04:30 | NUR ---
MS RN NOTES MORNING CARE RENDERED,TOLERATED WELL
--- NOTE | 2019-08-21 05:15 | NUR ---
MS RN NOTES ACCU-CHECK BLOOD SUGAR CHECK 118,NO INSULIN COVERAGE.
[2019-08-21] MEDS: BLOOD SUGAR DIAGNOSTIC 1 EACH STRIP IN SCH ×4 (05:28→21:12)
--- NOTE | 2019-08-21 06:06 | NUR ---
MS RN NOTES ON BED SLEEPING,AROUSABLE TO VERBAL STIMULI.LATEST ORAL TEMP 99.6.REPOSITION PER PROTOCOL.ISOLATION PRECAUTION FOR ESBL URINE.PLAN TRANSFER TO SNF,AWAITING FOR PLACEMENT.IN NO ACUTE DISTRESS.WILL ENDORSE TO DAY NURSE FOR JADE.
[2019-08-21 06:56] LABS: CALCIUM, SERUM 8.5 mg/dL (8.5-10.1); CARBON DIOXIDE 29 mmol/L (21-32); CHLORIDE 105 mmol/L (98-107); CREATININE 1.4 mg/dL (0.6-1.3); GLUCOSE 107 mg/dL (74-106); MAGNESIUM 2.5 mg/dL (1.8-2.4); POTASSIUM 4.5 mmol/L (3.5-5.1); SODIUM SERUM 143 mmol/L (136-145); UREA NITROGEN, BLOOD 52 mg/dL (7-18)
[2019-08-21 06:57] LABS: BASOPHILS % (AUTO) 0.7 % (0.0-2.0); EOSINOPHILS % (AUTO) 3.2 % (0.0-6.0); HEMATOCRIT 24 % (33-45); HEMOGLOBIN 7.6 g/dL (11.5-14.8); LYMPHOCYTES % (AUTO) 17.9 % (20.0-44.0); MEAN CORPUSCULAR HGB CONC 32 g/dl (31.0-36.0); MEAN CORPUSCULAR VOLUME 90 fL (82-100); MONOCYTES # (AUTO) 0.9 /CMM (0.1-1.30); MONOCYTES % (AUTO) 15.2 % (2.0-12.0); NEUTROPHILS # (AUTO) 3.6 /CMM (1.8-8.9); PLATELET COUNT (AUTO) 277 /CMM (150-450); RED BLOOD CELL COUNT(AUTO) 2.64 MIL/uL (4.0-5.2); WHITE BLOOD COUNT (AUTO) 5.6 K/uL (4.3-11.0)
[2019-08-21] MEDS: ALBUTEROL HALF STRENGTH 1.25 MG/3 ML VIAL.NEB IH SCH ×4 (07:28→19:32)
[2019-08-21] MEDS: IPRATROPIUM NEB FS 0.5 MG/2.5 ML AMPUL.NEB IH SCH ×4 (07:28→19:32)
[2019-08-21 08:00] VITALS: BP 129/63
[2019-08-21 08:39] VITALS: BP 129/63
[2019-08-21] MEDS: MEMANTINE HCL 5 MG TABLET PO SCH ×2 (08:48→17:48)
[2019-08-21] MEDS: FENOFIBRATE NANOCRYS (145 MG) 145 MG TABLET PO SCH (08:48)
[2019-08-21] MEDS: ATORVASTATIN 40 MG TABLET PO SCH (08:48)
[2019-08-21] MEDS: LINAGLIPTIN 5 MG TABLET PO SCH (08:48)
[2019-08-21] MEDS: APIXABAN 5 MG TABLET PO SCH ×2 (08:49→17:54)
[2019-08-21] MEDS: CARVEDILOL 12.5 MG TABLET PO SCH ×2 (08:50→20:03)
[2019-08-21] MEDS: AMLODIPINE BESYLATE 10 MG TABLET PO SCH (08:50)
[2019-08-21] MEDS: PANTOPRAZOLE 40 MG TABLET.DR PO SCH (08:51)
[2019-08-21] MEDS: GLUCERNA SHAKE 237 ML CAN PO SCH ×3 (08:52→17:48)
[2019-08-21] MEDS: ACETAMINOPHEN 325 MG TABLET PO PRN ×2 (08:56→19:58)
[2019-08-21] MEDS: NITROGLYCERIN 30 GM TUBE TP SCH ×2 (09:00→20:05)
[2019-08-21] MEDS: DIGOXIN 0.125 MG TABLET PO SCH (13:25)
[2019-08-21 17:42] VITALS: BP 124/62
--- NOTE | 2019-08-21 18:21 | NUR ---
Patient resting in bed ,stable , remains on 2l O2 via NC, saturating above 95%. Patient afebrile at this time. All needs attended. patient assisted with feeding. A new IV line to the left forearm g 20 , flushing well, h/l .Safety precautions in place , call light within reach. Bed alarm activated. Will endorse to next shift for JADE
--- NOTE | 2019-08-21 19:45 | NUR ---
MS RN OPENING NOTES: RECEIVED PT ON 2LPM VIA NC AND IS TOLERATING WELL. DTR AT BEDSIDE AT THIS TIME. HOB ELEVATED AT THIS TIME. PT ON CONTACT ISOLATION PRECAUTIONS FOR ESBL URINE. PT HAS IV ON L FOREARM #20G AND IS PATENT AND INTACT. CURRENTLY H/L . BED KEPT IN LOW, LOCKED POSITION, AND SIDE RAILS X 2UP. BED ALARM ACTIVATED. WILL CONTINUE TO MONITOR PT.
[2019-08-21 20:00] VITALS: BP 154/72
[2019-08-21] MEDS: INSULIN REGULAR, HUMAN 100 UNIT/ML 3 ML VIAL SQ PRN (21:13)
--- NOTE | 2019-08-21 21:13 | NUR ---
MS RN NOTES: BLOOD SUGAR THIS PM WAS 147. WILL HOLD 2 UNITS OF INSULIN PT HAS DECREASED APPETITE. WILL CONTINUE TO MONITOR.
[2019-08-22] MEDS: INSULIN REGULAR, HUMAN 100 UNIT/ML 3 ML VIAL SQ PRN ×2 (06:06→17:37)
--- NOTE | 2019-08-22 06:07 | NUR ---
MS RN NOTES: BLOOD SUGAR THIS AM WAS 99. NO INSULIN WAS ADMINISTERED. WILL ENCOURAGE PT TO EAT BREAKFAST. WILL CONTINUE TO MONITOR PT.
--- NOTE | 2019-08-22 06:24 | NUR ---
MS RN CLOSING NOTES: ALL NEEDS WERE ATTENDED AND ANTICIPATED FOR. PT REMAINS ON 2LPM VIA NC AND IS TOLERATING WELL WITH HOB ELEVATED. PT HAS IV ON L FOREARM #20G AND IS PATENT AND INTACT. CURRENTLY H/L. BLOOD SUGAR THIS AM WAS 99. NO INSULIN WAS ADMINISTERED. PT TURNED AND REPOSITIONED Q 2HRS. BED KEPT IN LOW, LOCKED POSITION, AND SIDE RAILS X 2 UP. CONTACT PRECAUTIONS MAINTAINED. BED ALARM ACTIVATED. WILL ENDORSE TO AM NURSE FOR JADE.
[2019-08-22] MEDS: BLOOD SUGAR DIAGNOSTIC 1 EACH STRIP IN SCH ×4 (06:30→21:05)
--- NOTE | 2019-08-22 07:25 | NUR ---
RN NOTES: ENDORSED TO RNNICA, FOR JADE.
--- NOTE | 2019-08-22 07:41 | NUR ---
MS/RN OPENING NOTE Patient is resting in bed, A/O x2, showing no signs of acute distress, stable on 2L NC. IV line in the LFA #20g is clean and intact s/l. Patient has no complaints at this time. Bed is in lowest position, side rails x3 in upright position, fall, safety and aspiration precautions enforced. Will continue with plan of care.
[2019-08-22] MEDS: IPRATROPIUM NEB FS 0.5 MG/2.5 ML AMPUL.NEB IH SCH ×4 (07:46→20:09)
[2019-08-22] MEDS: ALBUTEROL HALF STRENGTH 1.25 MG/3 ML VIAL.NEB IH SCH ×4 (07:47→20:09)
[2019-08-22 08:00] VITALS: BP 170/72
[2019-08-22] MEDS: GLUCERNA SHAKE 237 ML CAN PO SCH ×3 (08:00→16:14)
[2019-08-22] MEDS: FENOFIBRATE NANOCRYS (145 MG) 145 MG TABLET PO SCH (09:15)
[2019-08-22] MEDS: AMLODIPINE BESYLATE 10 MG TABLET PO SCH (09:15)
[2019-08-22] MEDS: CARVEDILOL 12.5 MG TABLET PO SCH ×2 (09:15→21:04)
[2019-08-22] MEDS: ATORVASTATIN 40 MG TABLET PO SCH (09:15)
[2019-08-22] MEDS: MEMANTINE HCL 5 MG TABLET PO SCH ×2 (09:15→16:12)
[2019-08-22] MEDS: LINAGLIPTIN 5 MG TABLET PO SCH (09:16)
[2019-08-22] MEDS: APIXABAN 5 MG TABLET PO SCH ×2 (09:17→16:13)
[2019-08-22] MEDS: PANTOPRAZOLE 40 MG TABLET.DR PO SCH (09:19)
[2019-08-22 09:42] LABS: CALCIUM, SERUM 8.9 mg/dL (8.5-10.1); CREATININE 1.3 mg/dL (0.6-1.3); POTASSIUM 4.7 mmol/L (3.5-5.1)
[2019-08-22 09:47] LABS: ALBUMIN 2.2 g/dL (3.4-5.0); BILIRUBIN,TOTAL 0.3 mg/dL (0.2-1.0); MAGNESIUM 2.6 mg/dL (1.8-2.4); PHOSPHORUS 3.2 mg/dL (2.5-4.9); TOTAL PROTEIN, SERUM 7.3 g/dL (6.4-8.2)
[2019-08-22 10:23] VITALS: BP 145/70
[2019-08-22 11:18] LABS: EOSINOPHILS % (AUTO) 2.3 % (0.0-6.0); HEMATOCRIT 24 % (33-45); HEMOGLOBIN 7.8 g/dL (11.5-14.8); LYMPHOCYTES # (AUTO) 0.7 /CMM (0.8-4.8); LYMPHOCYTES % (AUTO) 15.1 % (20.0-44.0); MEAN CORPUSCULAR HGB CONC 32 g/dl (31.0-36.0); MEAN CORPUSCULAR VOLUME 90 fL (82-100); MONOCYTES # (AUTO) 0.7 /CMM (0.1-1.30); NEUTROPHILS % (AUTO) 65.6 % (43.0-81.0); PLATELET COUNT (AUTO) 319 /CMM (150-450); RED BLOOD CELL COUNT(AUTO) 2.71 MIL/uL (4.0-5.2); WHITE BLOOD COUNT (AUTO) 4.6 K/uL (4.3-11.0)
[2019-08-22] MEDS: NITROGLYCERIN 30 GM TUBE TP SCH ×2 (11:30→21:04)
[2019-08-22] MEDS: ACETAMINOPHEN 325 MG TABLET PO PRN (11:57)
--- NOTE | 2019-08-22 12:30 | NUR ---
MS/RN NOTE Family requested for patient to be changed. YAMIL Gagnon and I were giving the patient a bed bath and I stepped out of the room to get the patient a clean gown. When I came back to the room and as I was donning PPE outside of the room, the patient's daughter raised her voice and asked the FRAME FEEDER to leave the room. I walked into the room and asked what was going on, the family stated that they felt that Chelsi was speaking to them with an attitude and Chelsi stated that the daughter was raising her voice at her and the daughter was claiming that Chelsi lied about cleaning the patient this morning. Security was called to the scene and security spoke with the patient's family. FRAME FEEDER's assignment was changed and a new FRAME FEEDER was assigned to the patient. We changed the patient's mattress as well. Patient remains stable and comfortable.
--- NOTE | 2019-08-22 12:31 | NUR ---
MS/RN NON-ADMIN INSULIN Patient and family refuse insulin for lunch due to patient not eating at this time.
[2019-08-22] MEDS: MEROPENEM 500 MG in IV NS 0.9% 50 ML IV SCH ×2 (12:45→23:55)
--- NOTE | 2019-08-22 13:00 | NUR ---
MS/RN NOTE Patient is sleeping in bed comfortably, in no acute distress.
[2019-08-22] MEDS: DIGOXIN 0.125 MG TABLET PO SCH (13:06)
--- NOTE | 2019-08-22 19:25 | NUR ---
MS RN NOTES RECEIVED ON BED ON LEFT SIDE POSITION,BREATHING NON LABORED,HOB ELEVATED.SPEAK HUNGARIAN,SALINE LOCK LFA INTACT AND PATENT.ISOLATION PRECAUTION FOR ESBL URINE.FALL RISK ,BED ALARM ON,CALL LIGHT IN REACH,NEEDS ANTICIPATED.
--- NOTE | 2019-08-22 19:26 | NUR ---
MS/RN CLOSING NOTE Patient is resting in bed, A/O x2, showing no signs of acute distress, no SOB, stable on 2L NC. IV line in the LFA #20g is clean and intact s/l. Patient has no complaints at during my shift. Patient kept clean and dry throughout shift. All patient needs met, all due meds given. Communicated closely with family at the bedside. Bed is in lowest position, side rails x3 in upright position, fall, safety and aspiration precautions enforced. Will endorse to night baker.
[2019-08-22 20:00] VITALS: BP 128/62
[2019-08-22 20:03] VITALS: BP 128/62
--- NOTE | 2019-08-22 21:30 | NUR ---
MS RN NOTES ACCU-CHECK BLOOD SUGAR CHECK 111,NO INSULIN COVERAGE.
[2019-08-23] MEDS: ACETAMINOPHEN 325 MG TABLET PO PRN ×2 (03:03→20:17)
--- NOTE | 2019-08-23 03:03 | NUR ---
MS RN NOTES AWAKE,SKIN WARM TO THE TOUCH.ORAL TEMP 0F 99.7.MEDICATED WITH TYLENOL 650MG PO ORDERED.FLUID INCREASED OFFERED ORALLY.
[2019-08-23] MEDS: BLOOD SUGAR DIAGNOSTIC 1 EACH STRIP IN SCH ×4 (05:31→21:18)
--- NOTE | 2019-08-23 05:37 | NUR ---
MS RN NOTES ACCU-CHECK BLOOD SUGAR CHECK 104,NO INSULIN COVERAGE
--- NOTE | 2019-08-23 06:50 | NUR ---
MS RN NOTES LATEST TEMP 98.7,MORNING CARE RENDERED BY DONAVAN LOBO,TOLERATED WELL.FOR D/C PLANNING AWAITING PLACEMENT.
--- NOTE | 2019-08-23 07:30 | NUR ---
RN MS NOTES PT IN BED, AWAKE, ALERT AND VERBALLY RESPONSIVE, DENIES PAIN, NOT IN DISTRESS, CALL LIGHT WITHIN REACH, KEPT CHILD LIFE ASSISTANT BED.
[2019-08-23] MEDS: ALBUTEROL HALF STRENGTH 1.25 MG/3 ML VIAL.NEB IH SCH ×4 (07:46→19:10)
[2019-08-23] MEDS: IPRATROPIUM NEB FS 0.5 MG/2.5 ML AMPUL.NEB IH SCH ×4 (07:46→19:10)
[2019-08-23 08:00] VITALS: BP 124/60
[2019-08-23] MEDS: PANTOPRAZOLE 40 MG TABLET.DR PO SCH (08:33)
[2019-08-23] MEDS: FENOFIBRATE NANOCRYS (145 MG) 145 MG TABLET PO SCH (08:33)
[2019-08-23] MEDS: MEMANTINE HCL 5 MG TABLET PO SCH ×2 (08:34→16:35)
[2019-08-23] MEDS: CARVEDILOL 12.5 MG TABLET PO SCH ×2 (08:34→20:17)
[2019-08-23] MEDS: ATORVASTATIN 40 MG TABLET PO SCH (08:34)
[2019-08-23] MEDS: AMLODIPINE BESYLATE 10 MG TABLET PO SCH (08:34)
[2019-08-23] MEDS: LINAGLIPTIN 5 MG TABLET PO SCH (08:34)
[2019-08-23] MEDS: APIXABAN 5 MG TABLET PO SCH ×2 (08:35→16:35)
[2019-08-23] MEDS: GLUCERNA SHAKE 237 ML CAN PO SCH ×3 (08:36→16:37)
[2019-08-23] MEDS: NITROGLYCERIN 30 GM TUBE TP SCH ×2 (09:41→20:18)
[2019-08-23] MEDS: GABAPENTIN 100 MG CAPSULE PO SCH ×3 (11:11→16:35)
[2019-08-23] MEDS: MEROPENEM 500 MG in IV NS 0.9% 50 ML IV SCH ×2 (12:52→23:41)
[2019-08-23] MEDS: DIGOXIN 0.125 MG TABLET PO SCH (12:53)
[2019-08-23] MEDS: INSULIN REGULAR, HUMAN 100 UNIT/ML 3 ML VIAL SQ PRN ×3 (12:55→21:19)
--- NOTE | 2019-08-23 13:00 | NUR ---
RN MS NOTES PT IN BED, AWAKE, ALERT, VERBALLY RESPONSIVE, NO COMPLAINT OF PAIN, DUE MEDS GIVEN ORDERED, KEPT CLEAN AND DRY, PERINEAL CARE PROVIDED NEEDED, KEPT BUILDING MATERIALS SALES ATTENDANT BED, SEEN BY DR. MOHR.
[2019-08-23 13:01] VITALS: BP 112/53
[2019-08-23 16:00] VITALS: BP 130/61
--- NOTE | 2019-08-23 18:20 | NUR ---
RN MS NOTES PT IN BED, RESTING, NO COMPLAINT OF PAIN, NOT IN DISTRESS, PM MEDS GIVEN ORDERED, DAUGHTER AT BEDSIDE, NOTED IV ACCESS ACCIDENTALLY OUT, DTR IS REQUESTING IF IV CAN BE INSERTED LATER IN THE NIGHT BECAUSE SHE WANTS HER MOM TO REST FIRST AFTER DINNER, PM CARE PROVIDED, KEPT PT CLEAN AND DRY, ALL NEEDS ATTENDED.
--- NOTE | 2019-08-23 19:50 | NUR ---
SHIPPER/RECEIVER: RECEIVED REPORT FROM KATHRINE RUSSELL AT 1930. PT IN BED, AWAKE, A/O X2, ON 2L OXYGEN VIA NC, MET WITH PT'S FAMILY AT BED SIDE, DISCUSSED PLAN OF CARE. NEW IV ACCESS RESTARTED ON LEFT HAND USING G 22, GOOD BLOOD RETURN NOTED, TRANSPARENT DRESSING APPLIED, PROPER LABEL ATTACHED. PUBLIC SAFETY DIRECTOR AT BED SIDE FOR CHECKING VITAL SIGNS. BLE KEPT OFFLOADED ON PILLOWS. PPE UTILIZED PT ON ISOLATION ESBL URINE. SAFETY PRECAUTIONS FOR FALL INITIATED, CALL LIGHT IN REACH, WILL CONTINUE MONITORING PT.
[2019-08-23 20:00] VITALS: BP 140/80
--- NOTE | 2019-08-23 20:19 | NUR ---
prn tylenol: pt noted to have temp of 100.7, recheck same result obtained, prn tylenol administered at this time, cooling measures provided, removed excess blanket. will continue to monitor.
[2019-08-23 20:44] VITALS: BP 140/80
--- NOTE | 2019-08-23 21:30 | NUR ---
rn notes: restarted new iv access on left hand g 22, good blood return noted, easily flush with normal saline, transparent dressing applied, proper label attached, placed on saline lock.
--- NOTE | 2019-08-24 05:37 | NUR ---
rn notes: communicated using kyrgyz translation pt refusing blood draw, instructed computer typesetter to please send another tech after breakfast maybe pt will have a change of mind, or possibly will listen to her daughter.
[2019-08-24] MEDS: BLOOD SUGAR DIAGNOSTIC 1 EACH STRIP IN SCH ×4 (06:03→22:19)
[2019-08-24] MEDS: ACETAMINOPHEN 325 MG TABLET PO PRN ×3 (06:03→20:42)
[2019-08-24] MEDS: INSULIN REGULAR, HUMAN 100 UNIT/ML 3 ML VIAL SQ PRN ×2 (06:09→22:20)
--- NOTE | 2019-08-24 06:10 | NUR ---
accu check 93, prn tylenol: pt c/o leg pain 08/17, translated by sami electrical engineering professor, prn tylenol 650 mg tab po administered to pt at this time. blood sugar check performed, obtained result of 93. no insulin coverage given per sliding scale.
--- NOTE | 2019-08-24 06:51 | NUR ---
end of shift report: prn tylenol administered last night for episode of fever, latest temp 99.0 . iv access remains patent and flushing well, on hl, no s/s of iv infiltration noted. iv merrem administered as ordered. ble kept offloaded on pillows. accu check achs performed and given insulin per sliding scale. order with case manger to help with hospital bed and caregiver, as plan is dc home with caregiver. vs remains stable, needs attended, safety precautions for fall remains engaged, call light in reach, will endorse to day rn for continuity of care.
[2019-08-24 08:00] VITALS: BP 138/64
[2019-08-24] MEDS: IPRATROPIUM NEB FS 0.5 MG/2.5 ML AMPUL.NEB IH SCH ×4 (08:24→19:03)
[2019-08-24] MEDS: ALBUTEROL HALF STRENGTH 1.25 MG/3 ML VIAL.NEB IH SCH ×4 (08:25→19:03)
[2019-08-24] MEDS: ATORVASTATIN 40 MG TABLET PO SCH (08:28)
[2019-08-24] MEDS: FENOFIBRATE NANOCRYS (145 MG) 145 MG TABLET PO SCH (08:28)
[2019-08-24] MEDS: CARVEDILOL 12.5 MG TABLET PO SCH ×2 (08:28→21:03)
[2019-08-24] MEDS: GABAPENTIN 100 MG CAPSULE PO SCH ×3 (08:28→18:08)
[2019-08-24] MEDS: LINAGLIPTIN 5 MG TABLET PO SCH (08:28)
[2019-08-24] MEDS: MEMANTINE HCL 5 MG TABLET PO SCH ×2 (08:29→18:08)
[2019-08-24] MEDS: APIXABAN 5 MG TABLET PO SCH ×2 (08:29→18:09)
[2019-08-24] MEDS: PANTOPRAZOLE 40 MG TABLET.DR PO SCH (08:30)
[2019-08-24] MEDS: GLUCERNA SHAKE 237 ML CAN PO SCH ×3 (08:30→18:08)
[2019-08-24] MEDS: AMLODIPINE BESYLATE 10 MG TABLET PO SCH (08:51)
[2019-08-24] MEDS: NITROGLYCERIN 30 GM TUBE TP SCH ×2 (08:51→21:27)
[2019-08-24] MEDS ORDERED: NITR100C PO (11:15)
[2019-08-24 11:54] LABS: BASOPHILS % (AUTO) 0.5 % (0.0-2.0); EOSINOPHILS % (AUTO) 4.1 % (0.0-6.0); HEMATOCRIT 23 % (33-45); HEMOGLOBIN 7.1 g/dL (11.5-14.8); LYMPHOCYTES % (AUTO) 22.4 % (20.0-44.0); MEAN CORPUSCULAR HGB CONC 31 g/dl (31.0-36.0); MEAN CORPUSCULAR VOLUME 91 fL (82-100); MONOCYTES # (AUTO) 0.5 /CMM (0.1-1.30); MONOCYTES % (AUTO) 12.1 % (2.0-12.0); NEUTROPHILS # (AUTO) 2.7 /CMM (1.8-8.9); NEUTROPHILS % (AUTO) 60.9 % (43.0-81.0); PLATELET COUNT (AUTO) 279 /CMM (150-450); RED BLOOD CELL COUNT(AUTO) 2.53 MIL/uL (4.0-5.2); WHITE BLOOD COUNT (AUTO) 4.4 K/uL (4.3-11.0)
[2019-08-24] MEDS: DIGOXIN 0.125 MG TABLET PO SCH (12:32)
[2019-08-24] MEDS: MEROPENEM 500 MG in IV NS 0.9% 50 ML IV SCH (12:32)
[2019-08-24 17:13] VITALS: BP 121/63
--- NOTE | 2019-08-24 19:13 | NUR ---
Patient stable , on room air, saturating above 95%. Patient afebrile . All needs attended. patient assisted with feeding. SAfety precautions in place , call light within reach.D/C tomorrow. Will endorse to next shift for JADE
--- NOTE | 2019-08-24 19:29 | NUR ---
MS RN OPENING NOTES PATIENT RECEIVED RESTING IN BED A/O X 2, POLISH SPEAKING. STABLE ON RA WITH BREATHING EVEN AND UNLABORED, NO SOB NOTED. NO SIGNS OF ACUTE DISTRESS. NO COMPLAINTS OF PAIN OR DISCOMFORT AT THE MOMENT, NO FACIAL GRIMACING NOTED. IV LOCATED ON L HAND #22 HL. SAFETY PRECAUTIONS IN PLACE WITH BED IN LOWEST POSITION, CALL LIGHT WITHIN REACH, BED LOCKED, AND SIDE RAILS UP. WILL CONTINUE TO MONITOR THROUGHOUT THE NIGHT.
[2019-08-24 20:00] VITALS: BP 139/89
--- NOTE | 2019-08-24 20:47 | NUR ---
MS RN NOTES PRN TYLENOL GIVEN FOR TEMPERATURE OF 110.8 COOLING MEASURES INITIATED. WILL CONTINUE TO MONITOR.
[2019-08-24 23:03] LABS: CALCIUM, SERUM 8.1 mg/dL (8.5-10.1); CREATININE 1.2 mg/dL (0.6-1.3); MAGNESIUM 2.3 mg/dL (1.8-2.4); POTASSIUM 4.6 mmol/L (3.5-5.1)
[2019-08-25] MEDS: MEROPENEM 500 MG in IV NS 0.9% 50 ML IV SCH ×2 (00:04→12:14)
--- NOTE | 2019-08-25 06:36 | NUR ---
MS RN CLOSING NOTES PATIENT RESTING IN BED A/O X 2, HUNGARIAN SPEAKING. STABLE ON RA WITH BREATHING EVEN AND UNLABORED, NO SOB NOTED. NO SIGNS OF ACUTE DISTRESS. NO COMPLAINTS OF PAIN OR DISCOMFORT AT THE MOMENT, NO FACIAL GRIMACING NOTED. IV LOCATED ON L HAND #22 HL. SAFETY PRECAUTIONS IN PLACE WITH BED IN LOWEST POSITION, CALL LIGHT WITHIN REACH, BED LOCKED, AND SIDE RAILS UP. PATIENT WAS KEPT CLEAN AND DRY THROUGHOUT THE NIGHT. ALL NEEDS ATTENDED TO. WILL ENDORSE TO ONCOMING SHIFT ABOUT JADE.
[2019-08-25] MEDS: BLOOD SUGAR DIAGNOSTIC 1 EACH STRIP IN SCH ×3 (06:42→17:04)
[2019-08-25 08:00] VITALS: BP 143/74
[2019-08-25 08:00] LABS: BASOPHILS % (AUTO) 0.7 % (0.0-2.0); EOSINOPHILS % (AUTO) 3.2 % (0.0-6.0); HEMATOCRIT 25 % (33-45); HEMOGLOBIN 7.9 g/dL (11.5-14.8); LYMPHOCYTES # (AUTO) 1.2 /CMM (0.8-4.8); LYMPHOCYTES % (AUTO) 25.7 % (20.0-44.0); MEAN CORPUSCULAR HGB CONC 32 g/dl (31.0-36.0); MEAN CORPUSCULAR VOLUME 90 fL (82-100); MONOCYTES # (AUTO) 0.6 /CMM (0.1-1.30); MONOCYTES % (AUTO) 12.7 % (2.0-12.0); NEUTROPHILS # (AUTO) 2.7 /CMM (1.8-8.9); NEUTROPHILS % (AUTO) 57.7 % (43.0-81.0); PLATELET COUNT (AUTO) 319 /CMM (150-450); RED BLOOD CELL COUNT(AUTO) 2.77 MIL/uL (4.0-5.2); WHITE BLOOD COUNT (AUTO) 4.6 K/uL (4.3-11.0)
[2019-08-25 08:13] LABS: CALCIUM, SERUM 8.2 mg/dL (8.5-10.1); CREATININE 1.1 mg/dL (0.6-1.3); MAGNESIUM 2.5 mg/dL (1.8-2.4); PHOSPHORUS 2.8 mg/dL (2.5-4.9); POTASSIUM 4.4 mmol/L (3.5-5.1)
[2019-08-25] MEDS: IPRATROPIUM NEB FS 0.5 MG/2.5 ML AMPUL.NEB IH SCH ×3 (08:41→15:57)
[2019-08-25] MEDS: ALBUTEROL HALF STRENGTH 1.25 MG/3 ML VIAL.NEB IH SCH ×3 (08:41→15:57)
[2019-08-25] MEDS: CARVEDILOL 12.5 MG TABLET PO SCH (09:00)
[2019-08-25] MEDS: NITROGLYCERIN 30 GM TUBE TP SCH (09:00)
[2019-08-25] MEDS: MEMANTINE HCL 5 MG TABLET PO SCH ×2 (09:22→16:54)
[2019-08-25] MEDS: FENOFIBRATE NANOCRYS (145 MG) 145 MG TABLET PO SCH (09:22)
[2019-08-25] MEDS: ATORVASTATIN 40 MG TABLET PO SCH (09:22)
[2019-08-25] MEDS: AMLODIPINE BESYLATE 10 MG TABLET PO SCH (09:22)
[2019-08-25] MEDS: LINAGLIPTIN 5 MG TABLET PO SCH (09:23)
[2019-08-25] MEDS: PANTOPRAZOLE 40 MG TABLET.DR PO SCH (09:23)
[2019-08-25] MEDS: GABAPENTIN 100 MG CAPSULE PO SCH ×3 (09:23→16:54)
[2019-08-25] MEDS: GLUCERNA SHAKE 237 ML CAN PO SCH ×3 (09:24→16:54)
[2019-08-25] MEDS: ALENDRONATE 70 MG TABLET PO SCH (09:30)
[2019-08-25] MEDS: APIXABAN 5 MG TABLET PO SCH ×2 (09:31→16:57)
[2019-08-25] MEDS: DIGOXIN 0.125 MG TABLET PO SCH (13:15)
--- NOTE | 2019-08-25 14:20 | NUR ---
Paged Terrence GAS OPERATIONS SUPERINTENDENT to review discharge summary and medication list patient going home with
--- NOTE | 2019-08-25 15:00 | NUR ---
Patient will be piking up by transportation company arranged by pt's family. Patient D/C to home per Jessica case therapist
[2019-08-25 16:00] VITALS: BP 155/80
--- NOTE | 2019-08-25 18:00 | NUR ---
Patient cleared for d/c to home with home health. Patient awake , oriented x1 , with episodes of confusion and forgetfulness.Last BS reading is 111, VS are stable and within base line. Breathing unlabored and even on 2l O2 saturating 97%. D/C papers and belongings list sighed by 2 nurses due to patient's confusion. All belongings with the patient. IV line removed and ID wrist band removed. D/C pictures taken within 24 hr. All needs attended and meds are administrated. Patient picked up by [employer].
== END 2019-08-25 18:00 | disposition home health service (06) | DRG 291 ==
LOC: ER 09:12 → TELE 12:03 → MED 08-20 09:26
PROVIDERS: ATTEND Nurse Practitioner Acute Care
DX: I13.0 Hypertensive heart and chronic kidney disease with heart failure and stage 1 through stage 4 chronic kidney disease, or unspecified chronic kidney disease (principal); I50.33 Acute on chronic diastolic (congestive) heart failure; N17.0 Acute kidney failure with tubular necrosis; J15.6 Pneumonia due to other Gram-negative bacteria; N39.0 Urinary tract infection, site not specified; Z16.12 Extended spectrum beta lactamase (ESBL) resistance; I82.432 Acute embolism and thrombosis of left popliteal vein; G61.81 Chronic inflammatory demyelinating polyneuritis; C79.9 Secondary malignant neoplasm of unspecified site; J96.10 Chronic respiratory failure, unspecified whether with hypoxia or hypercapnia; I48.0 Paroxysmal atrial fibrillation; N18.3 Chronic kidney disease, stage 3 (moderate); E11.22 Type 2 diabetes mellitus with diabetic chronic kidney disease; D63.8 Anemia in other chronic diseases classified elsewhere; E66.01 Morbid (severe) obesity due to excess calories; I25.10 Atherosclerotic heart disease of native coronary artery without angina pectoris; G89.29 Other chronic pain; Z79.01 Long term (current) use of anticoagulants; Z79.4 Long term (current) use of insulin; Z85.3 Personal history of malignant neoplasm of breast; E83.41 Hypermagnesemia; E78.5 Hyperlipidemia, unspecified; F03.90 Unspecified dementia, unspecified severity, without behavioral disturbance, psychotic disturbance, mood disturbance, and anxiety; Z86.718 Personal history of other venous thrombosis and embolism; Z90.11 Acquired absence of right breast and nipple; R53.1 Weakness; M19.90 Unspecified osteoarthritis, unspecified site; N25.0 Renal osteodystrophy; Z68.34 Body mass index [BMI] 34.0-34.9, adult; C50.911 Malignant neoplasm of unspecified site of right female breast
CPT/HCPCS: 36415; 36600; 71045-TC; 73110; 80048-TC; 80053-TC; 80061-TC; 80076-TC; 80162-TC; 82803-TC; 82962-TC; 83605-TC; 83735-TC; 83880; 84100-TC; 84443-TC; 84484-TC; 85025-TC; 85730-TC; 86300; 86850-TC; 86921-TC; 87040-TC; 87081-TC; 87086-TC; 87186-TC; 94799-TC; 97110-TC; 97112-TC; 97530-TC; A4216; G0378; J0696; J1815; J2185; J2405; J7050; J7060

== ENCOUNTER 2019-08-29 05:32 | Inpatient (IN) | payer MEDICARE, MEDICAID ==
[~2019-08-29] VITALS: Ht 152.4 cm; Wt 83.9 kg
[~2019-08-29 05:32] MED LIST changes: +ACET-868 PO; +ALBU1.257 IH; +AMLO10TA4 PO; -AMLO10TA7 PO; +APIX5TAB4 PO; +ATOR40TA PO; +BLOO-668 IN; +CEFT1FRO2 IV; +DEXT50DI8 IV; -FURO40TA5 PO; -IBUP-1955 PO; +INSU100V3 SQ; +IPRA0.2S9 IH; +MEMA10TA PO; -MEMA28CA5 PO; -METF-834 PO; +NITR100C PO; +NITR1OIN2 TD; -OMEP1CAP25 PO; +PANT40TA2 PO; -POTA8TAB3 PO; -ROSU40TA23 PO
--- NOTE | 2019-08-29 05:35 | NUR ---
PT BIBRA FROM HOME C/O SOB AND FEVER X1 DAY. PER RA, O2 SAT 88% ROOM AIR ON SCENE, PT ARRIVED TO ER ON NONREBREATHER. PT PLACED ON FACE MASK 8L, TOLERATING WELL, O2 SAT NOW 97%. PT FEBRILE ON ARRIVAL, NO MEDS GIVEN HOSPICE [facility] AWARE. [facility]NEUMONIA X5 DAYS AGO. PT AAOX4. RESPIRATIONS EVEN AND UNLABORED. SKIN WARM AND INTACT. NO ACUTE DISTRESS NOTED AT THIS TIME. PT PLACED IN GOWN AND ON MONITOR. AWARE.
[2019-08-29] MEDS ORDERED: VANCOMYCIN 1 GM VIAL ONE (05:52)
[2019-08-29] MEDS ORDERED: PIPERACILLIN /TAZOBACTAM 3.375 G VIAL IV ONE (05:52)
[2019-08-29] MEDS ORDERED: VANCOMYCIN 1 GM in IV D5W 250 ML IV ONE (06:00)
[2019-08-29] MEDS ORDERED: PIPERACILLIN /TAZOBACTAM 3.375 G in IV D5W 50 ML IV ONE (06:00)
[2019-08-29 06:24] LABS: BASOPHILS # (AUTO) 0.1 /CMM (0.0-0.2); BASOPHILS % (AUTO) 0.8 % (0.0-2.0); EOSINOPHILS % (AUTO) 1.3 % (0.0-6.0); HEMATOCRIT 23 % (33-45); HEMOGLOBIN 7.3 g/dL (11.5-14.8); LYMPHOCYTES % (AUTO) 14.2 % (20.0-44.0); MEAN CORPUSCULAR HGB CONC 32 g/dl (31.0-36.0); MEAN CORPUSCULAR VOLUME 89 fL (82-100); MONOCYTES # (AUTO) 0.6 /CMM (0.1-1.30); MONOCYTES % (AUTO) 8.8 % (2.0-12.0); NEUTROPHILS # (AUTO) 5.3 /CMM (1.8-8.9); NEUTROPHILS % (AUTO) 74.9 % (43.0-81.0); PLATELET COUNT (AUTO) 265 /CMM (150-450); RED BLOOD CELL COUNT(AUTO) 2.58 MIL/uL (4.0-5.2); WHITE BLOOD COUNT (AUTO) 7.1 K/uL (4.3-11.0)
[2019-08-29] MEDS ORDERED: ACETAMINOPHEN 325 MG TABLET ONE (06:26)
[2019-08-29] MEDS ORDERED: ACETAMINOPHEN 325 MG TABLET PO ONE (06:30)
[2019-08-29 06:34] LABS: CALCIUM, SERUM 9.5 mg/dL (8.5-10.1); CARBON DIOXIDE 30 mmol/L (21-32); CHLORIDE 105 mmol/L (98-107); CREATININE 1.1 mg/dL (0.6-1.3); GLUCOSE 152 mg/dL (74-106); POTASSIUM 4.3 mmol/L (3.5-5.1); SODIUM SERUM 143 mmol/L (136-145); UREA NITROGEN, BLOOD 34 mg/dL (7-18)
[2019-08-29 06:45] LABS: APPEARANCE,URINE SL CLOUDY (CLEAR); BILIRUBIN,URINE NEGATIVE (NEGATIVE); BLOOD, URINE NEGATIVE Ery/uL (NEGATIVE); COLOR,URINE YELLOW (YELLOW); KETONES,URINE NEGATIVE (NEGATIVE); LEUKOCYTE ESTERASE ,URINE NEGATIVE (NEGATIVE); NITRITE, URINE NEGATIVE (NEGATIVE); PH,URINE 5.5 (5.0-8.0); PROTEIN,URINE TRACE mg/dl (NEGATIVE); UGLUCOSE NEGATIVE (NEGATIVE); UROBILINOGEN,URINE 0.2 EU/dL (0.2)
--- NOTE | 2019-08-29 06:46 | NUR ---
BLOOD CULTURES, RVP, MRSA, FLU SAMPLE SENT TO LAB
[2019-08-29 06:47] LABS: ALANINE AMINOTRANSFERASE 35 U/L (12-78); ALBUMIN 2.3 g/dL (3.4-5.0); ALKALINE PHOSPHATASE 89 U/L (46-116); ASPARTATE AMINOTRANSFERASE 31 U/L (15-37); B-TYPE NATRIURETIC PEPTIDE 11418 PG/ML (0-125); BILIRUBIN,DIRECT 0.2 mg/dL (0.0-0.2); BILIRUBIN,TOTAL 0.5 mg/dL (0.2-1.0); TOTAL PROTEIN, SERUM 7.2 g/dL (6.4-8.2)
[2019-08-29 06:58] LABS: BACTERIA,URINE None seen /HPF (None Seen); RBC,URINE NONE SEEN /HPF (0-2); SQUAMOUS EPITHELIAL CELL,UR Few /HPF (None Seen); WBC,URINE NONE SEEN /HPF (0-3)
[2019-08-29 06:59] LABS: URINE AMORPHOUS URATE Few /HPF (None Seen)
--- NOTE | 2019-08-29 07:45 | NUR ---
CALLED [facility]ARTMANY[facility]
--- NOTE | 2019-08-29 08:31 | NUR ---
dr. peterson called back and accepted patient. Called nursing supervisor money room requested for Tele bed.
[2019-08-29] MEDS ORDERED: METF500T20 PO (08:41)
[2019-08-29] MEDS ORDERED: ASPI-992 PO (08:41)
[2019-08-29] MEDS ORDERED: HYDR-4384 PO (08:42)
[2019-08-29] MEDS ORDERED: FURO-144 PO (08:42)
[2019-08-29] MEDS ORDERED: *INSULIN REGULAR(HUMULIN R)HUM 100 UNIT/ML VIAL SQ PRN (09:00)
[2019-08-29] MEDS ORDERED: ATORVASTATIN 40 MG TABLET PO SCH (09:00)
[2019-08-29] MEDS ORDERED: DEXTROSE 50%-WATER 50 ML DISP.SYRIN IV PRN (09:00)
[2019-08-29] MEDS ORDERED: CLONIDINE HCL 0.1 MG TABLET PO PRN ×2 (09:00→09:30)
[2019-08-29] MEDS: AMLODIPINE BESYLATE 10 MG TABLET PO SCH (09:00)
[2019-08-29] MEDS ORDERED: INSULIN REGULAR, HUMAN 100 UNIT/ML 3 ML VIAL SQ PRN (09:00)
[2019-08-29] MEDS ORDERED: PANTOPRAZOLE 40 MG TABLET.DR PO PRN (09:00)
[2019-08-29] MEDS ORDERED: NITROGLYCERIN 0.4 MG/TAB BOTTLE SL PRN (09:00)
[2019-08-29] MEDS ORDERED: ASPIRIN 325 MG TABLET PO SCH (09:00)
--- NOTE | 2019-08-29 09:00 | NUR ---
PATIENT A/OX4, NO VOMITING NOTED AT THIST NITO. PATIENTS RESTLESS. NEEDS ATTENDED. KEPT COMFORTABLE.
[2019-08-29 09:27] LABS: BASOPHILS % (AUTO) 0.4 % (0.0-2.0); EOSINOPHILS % (AUTO) 0.6 % (0.0-6.0); HEMATOCRIT 22 % (33-45); LYMPHOCYTES # (AUTO) 1.1 /CMM (0.8-4.8); LYMPHOCYTES % (AUTO) 18.9 % (20.0-44.0); MEAN CORPUSCULAR HGB CONC 31 g/dl (31.0-36.0); MEAN CORPUSCULAR VOLUME 90 fL (82-100); MONOCYTES # (AUTO) 0.5 /CMM (0.1-1.30); MONOCYTES % (AUTO) 9.3 % (2.0-12.0); NEUTROPHILS # (AUTO) 4.1 /CMM (1.8-8.9); NEUTROPHILS % (AUTO) 70.8 % (43.0-81.0); PLATELET COUNT (AUTO) 233 /CMM (150-450); RED BLOOD CELL COUNT(AUTO) 2.48 MIL/uL (4.0-5.2); WHITE BLOOD COUNT (AUTO) 5.7 K/uL (4.3-11.0)
[2019-08-29] MEDS ORDERED: Z GUARD REMEDY 2 OZ OINT TP PRN (09:30)
[2019-08-29] MEDS ORDERED: MAG HYDROX/AL HYDROX/SIMETH 30 ML UDC PO PRN (09:30)
[2019-08-29] MEDS ORDERED: MAGNESIUM HYDROXIDE 30 ML UDC PO PRN (09:30)
[2019-08-29] MEDS ORDERED: ONDANSETRON HCL/PF 4 MG/2 ML VIAL IVP PRN (09:30)
[2019-08-29] MEDS ORDERED: HYDROCODONE/APAP 5/325MG 1 EACH TABLET PO PRN (09:30)
[2019-08-29] MEDS ORDERED: ACETAMINOPHEN 325 MG TABLET PO PRN (09:30)
[2019-08-29 09:34] LABS: HEMOGLOBIN 6.9 g/dL (11.5-14.8)
[2019-08-29 09:39] LABS: CREATININE 1.1 mg/dL (0.6-1.3); MAGNESIUM 1.9 mg/dL (1.8-2.4); PHOSPHORUS 4.3 mg/dL (2.5-4.9)
[2019-08-29 10:02] LABS: ABG BASE EXCESS 2.8 mmol/L; ABG OXYGEN SATURATION 98.7 % (92.0-98.5); ABG PCO2 53.2 mmHg (35.0-45.0); ABG PH 7.351 (7.350-7.450); ABG PO2 189.1 mmHg (75.0-100.0); AaDO2 107.6 mmHg; COHb 1.2 % (0.5-1.5); MetHb 0.6 % (0.0-1.5); O2Hb 96.9 % (94.0-97.0); SITE, ABG Right Radial
--- NOTE | 2019-08-29 10:09 | NUR ---
PATIENT ON 2LPM VIA NC WITH SPO2 OF 92-97%.
--- NOTE | 2019-08-29 10:15 | NUR ---
ABG result relayed to Dr. Strickland, [facility] Bed [facility].
--- NOTE | 2019-08-29 10:43 | NUR ---
GOT BED 307-1
[2019-08-29 11:00] VITALS: BP 138/70
--- NOTE | 2019-08-29 11:10 | NUR ---
Patient transferred to room 307-1 via acls protocol. No distress noted. Bedside report given to Farrah RUSSELL. IV line inserted on RFA G20 iv.
[2019-08-29] MEDS ORDERED: BLOOD SUGAR DIAGNOSTIC 1 EACH STRIP IN SCH (12:00)
[2019-08-29 12:12] LABS: LYMPHOCYTES % (MANUAL) 14 % (16-48); MONOCYTES % (MANUAL) 6 % (0-11.0); NEUTROPHILS % (MANUAL) 80 (42-76)
[2019-08-29] MEDS: CARVEDILOL 12.5 MG TABLET PO SCH ×2 (12:17→21:56)
[2019-08-29] MEDS: NITROGLYCERIN PACKET 1 GM PACKET TD SCH ×2 (12:17→21:57)
[2019-08-29] MEDS: FUROSEMIDE 40 MG/4 ML VIAL IV SCH ×3 (12:17→17:52)
[2019-08-29] MEDS: BLOOD SUGAR DIAGNOSTIC 1 EACH STRIP VI SCH ×3 (12:31→22:01)
[2019-08-29] MEDS: FENOFIBRATE NANOCRYS (145 MG) 145 MG TABLET PO SCH (12:50)
[2019-08-29] MEDS: DIGOXIN 0.125 MG TABLET PO SCH (13:00)
[2019-08-29] MEDS: PIPERACILLIN /TAZOBACTAM 3.375 G in IV D5W 100 ML IV SCH ×2 (13:09→23:48)
--- NOTE | 2019-08-29 13:16 | NUR ---
WEB MOBILE DESIGNER NOTES DIGOXIN HELD. HR 55
[2019-08-29] MEDS: IPRATROPIUM NEB FS 0.5 MG/2.5 ML AMPUL.NEB IH SCH (15:40)
--- NOTE | 2019-08-29 15:46 | NUR ---
HISTORIC SITES SUPERVISOR NOTES RECEIVED PATIENT VIA GURNEY AT 1110. PATIENT ON OXYGENT THERAPY 2 LPM, MEDICALLY STABLE. RFA IV ACCESS GAUGE # 22 PRESENT AND INTACT; FLUSHING WELL. PATIENT DENIES PAIN. CONNECTED HER TO EXTERNAL OIL BURNER TECHNICIAN; READING A-FIB 63 BPM. SAFETY PRECAUTIONS IN PLACE; BED IN LOW POSITION AND LOCKED, RAILS UP X 2, CALL LIGHT WITHIN REACH. WILL CONTINUE TO MONITOR PATIENT.
[2019-08-29 16:00] VITALS: BP 94/52
--- NOTE | 2019-08-29 16:04 | NUR ---
MOTOR POLARIZER NOTES AT [address] VILLANUEVA ABOUT PATIENTS LOW HGB LEVEL OF 6.9 AND MY TXT WAS ACKNOWLEDGED. TWO MORE TXTS REGARDING THIS MATTER HAVE BEEN SENT. NO NEW ORDERS RECEIVED. CHARGE NURSE AWARE AND NOTIFIED. WILL CONTINUE TO MONITOR.
[2019-08-29] MEDS: MEMANTINE HCL 5 MG TABLET PO SCH (17:14)
--- NOTE | 2019-08-29 19:00 | NUR ---
EFFICIENCY EXPERT CLOSING NOTES PATIENT AT THE MOMENT IN BED, AWAKE, LAYING DOWN AND WATCHING TV. BREATHING ON O2 AT 2 LPM. BREATHING EVEN WITH NO SOB PRESENT. NO COMPLAINS OF PAIN AT THIS TIME. EXTERNAL HEART MONITORING WITH A READING OF A-FIB CONTROLLED AT 68. RFA IV ACCESS PATENT AND INTACT INFUSING ZOSYN AT 25 MLS/HR. PATIENT HAS BEEN CLEANED AND TAKEN CARE OF THROUGHOUT THE DAY. SAFETY PRECAUTIONS IN PLACE; BED IN LOW POSITION AND LOCKED, RAILS UP X2, CALL LIGHT WITHIN REACH, ISOLATION PRECAUTIONS AT PLACE. WILL ENDORSE TO REPAIRER MAINTENANCE BUILDING NURSE.
--- NOTE | 2019-08-29 19:30 | NUR ---
SOLUTION MAKER NOTES PATIENT IN BED, RESTING ALERT AND ORIENTED X2, MAINLY MALAY SPEAKING. PATIENT PLACED ON ISOLATION PRECAUTIONS. PATIENT ON 2L, NASAL CANNULA, TOLERATING SETTING WELL, WITH NO SIGNS OF RESPIRATORY DISTRESS, NO SOB, AND WITH EVEN NON-LABORED BREATHING. IV WAS PULLED OUT BY PATIENT, APPLIED PRESSURE AND COVERED THE SITE WITH GAUZE. PATIENT SKIN INTACT. PROVIDED COMFORT MEASURES TO PATIENT. SAFETY PRECAUTIONS IMPLEMENTED WITH BED IN THE LOWEST POSITION, BILATERAL SIDE RAILS UP, BED LOCKED, BED ALARM ON, AND CALL LIGHT WITHIN EASY REACH OF THE PATIENT. WILL CONTINUE TO MONITOR PATIENT.
--- NOTE | 2019-08-29 19:31 | NUR ---
COTTON TIER NOTES PATIENT'S ON MOCK UP BUILDER, CONTROLLED A-FIB 60'S. WILL CONTINUE TO MONITOR PATIENT.
[2019-08-29 20:00] VITALS: BP 112/43
--- NOTE | 2019-08-29 23:30 | NUR ---
STRUCTURAL IRONWORKER NOTES PATIENT PULLED ON IV SITE AROUND 1929, INSERT NEW IV SITE AROUND 2029. PATIENT PULLED OUT IV SITE AGAIN, APPLIED PRESSURE TO THE SITE AND COVERED UP WITH GAUZE. INSERT NEW IV PLACEMENT ON LEFT THUMB, 22 G CURRENTLY RUNNING IV ANTIBIOTICS, ZOSYN AT 25ml/hr. COVERED IV SITE, HIDE THE TUBINGS, AND SLEEVE ON TO PROTECT THE AREA. WILL CONTINUE TO MONITOR PATIENT.
[2019-08-30] VITALS (10 sets, daily range): BP systolic 140–160; BP diastolic 74–90
--- NOTE | 2019-08-30 02:35 | NUR ---
MANAGER GARDEN NOTES PATIENT PULLED OUT IV ON LEFT THUMB, IV ANTIBIOTICS STOPPED. INFORMED NELSON AYALA NP, DUE TO PATIENT PULLING OUT HER IV LINES MULTIPLE TIMES, PULLING TELE MONITOR LEADS, AND BEING NON-COMPLAINT TO MEDICATION ADMINISTRATIONS. INFORMED PATIENT MULTIPLE TIMES AND REDUCES STIMULI. NELSON MINA NP, ORDERED BILATERAL SOFT WRIST RESTRAINTS. APPLIED THE RESTRAINTS, SKIN INTACT WITH ADEQUATE CIRCULATIONS, BILATERAL PULSE PRESENT, TWO FINGER SPACE, AND WILL VISUAL CHECKS DONE EVERY 15 MINUTES. WILL CONTINUE TO MONITOR PATIENT.
[2019-08-30] MEDS: ACETAMINOPHEN 325 MG TABLET PO PRN (02:40)
[2019-08-30] MEDS: PIPERACILLIN /TAZOBACTAM 3.375 G in IV D5W 100 ML IV SCH ×4 (04:55→19:46)
--- NOTE | 2019-08-30 05:15 | NUR ---
MANAGER ELECTRICAL NOTES PATIENT MANAGED TO REMOVE SOFT- WRIST RESTRAINT FROM HER LEFT HAND, AND DISLODGE IV ACCESS, UNABLE TO FLUSH IV ACCESS ON LEFT HAND. PATIENT WAS GETTING ANXIOUS, BLOOD PRESSURE 160/74 PULSE 92, RESPIRATORY RATE 20, ADMINISTERED PRN PO MEDICATION ATIVAN 0.5mg. WILL CONTINUE TO MONITOR PATIENT.
[2019-08-30] MEDS: LORAZEPAM 0.5 MG TABLET PO PRN ×2 (05:17→13:22)
[2019-08-30 06:36] LABS: BASOPHILS % (AUTO) 0.7 % (0.0-2.0); EOSINOPHILS % (AUTO) 2.2 % (0.0-6.0); LYMPHOCYTES # (AUTO) 1.1 /CMM (0.8-4.8); LYMPHOCYTES % (AUTO) 23.4 % (20.0-44.0); MEAN CORPUSCULAR HGB CONC 32 g/dl (31.0-36.0); MEAN CORPUSCULAR VOLUME 87 fL (82-100); MONOCYTES # (AUTO) 0.4 /CMM (0.1-1.30); MONOCYTES % (AUTO) 8.9 % (2.0-12.0); NEUTROPHILS # (AUTO) 3.1 /CMM (1.8-8.9); NEUTROPHILS % (AUTO) 64.8 % (43.0-81.0); PLATELET COUNT (AUTO) 235 /CMM (150-450); RED BLOOD CELL COUNT(AUTO) 2.32 MIL/uL (4.0-5.2); WHITE BLOOD COUNT (AUTO) 4.8 K/uL (4.3-11.0)
--- NOTE | 2019-08-30 07:11 | NUR ---
NATIONAL SECRETARY NOTES PATIENT IN BED RESTING, ALERT AND ORIENTED X 2, MAINLY CZECH SPEAKING. PATIENT PLACED ON ISOLATION PRECAUTIONS. PATIENT ON 2L NASAL CANNULA NO SIGNS OF RESPIRATORY DISTRESS PRESENTS, WITH EVEN NON-LABORED BREATHING. BILATERAL WRIST RESTRAINTS IN PLACE, WITH ADEQUATE CIRCULATION AND WITH 2 FINGER SPACE, AND BILATERAL PULSES PRESENT. IV ACCESS ON RIGHT FOREARM, 20 GAUGE INTACT AND PATENT. PATIENT SKIN KEPT CLEAN AND DRY, MET ALL OF PATIENT'S NEEDS AND PROVIDED COMFORT MEASURES TO PATIENT. SAFETY PRECAUTIONS IMPLEMENTED WITH BED IN THE LOWEST POSITION, BED LOCKED, BED ALARM ON, BILATERAL SIDE RAILS UP, AND CALL LIGHT WITH IN EASY REACH. 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
[2019-08-30 07:16] LABS: ALANINE AMINOTRANSFERASE 32 U/L (12-78); ALBUMIN 2.2 g/dL (3.4-5.0); ALKALINE PHOSPHATASE 74 U/L (46-116); ASPARTATE AMINOTRANSFERASE 23 U/L (15-37); BILIRUBIN,TOTAL 0.4 mg/dL (0.2-1.0); CARBON DIOXIDE 30 mmol/L (21-32); CHLORIDE 104 mmol/L (98-107); CREATINE KINASE, TOTAL 37 U/L (26-192); CREATININE 1.2 mg/dL (0.6-1.3); GLUCOSE 116 mg/dL (74-106); MAGNESIUM 1.9 mg/dL (1.8-2.4); PHOSPHORUS 3.7 mg/dL (2.5-4.9); POTASSIUM 3.3 mmol/L (3.5-5.1); SODIUM SERUM 144 mmol/L (136-145); TOTAL PROTEIN, SERUM 6.5 g/dL (6.4-8.2); UREA NITROGEN, BLOOD 34 mg/dL (7-18)
[2019-08-30 07:16] LABS: CREATININE, URINE 33.8 MG/DL (30.0-125.0); URINE TOTAL PROTEIN 18.5 mg/dL (0-11.9)
[2019-08-30] MEDS: BLOOD SUGAR DIAGNOSTIC 1 EACH STRIP VI SCH ×4 (07:30→21:01)
--- NOTE | 2019-08-30 07:30 | NUR ---
MS/RN NOTE Received call from lab Hgb 6.6, Hct 20. AWARE.
[2019-08-30 07:40] LABS: HEMATOCRIT 20 % (33-45); HEMOGLOBIN 6.6 g/dL (11.5-14.8)
--- NOTE | 2019-08-30 07:40 | NUR ---
MS/RN OPENING NOTE Patient is resting in bed, A/O x2, confused and agitated. Breathing is even and unlabored, stable on 2L NC. Patient has no complaints of pain at this time. IV line in the RFA #20g is clean and intact s/l. Patient is on isolation precautions to r/o COVID-19. Bilateral soft wrist restraints are in place, circulation checked, bilateral pulses present. Bed is in lowest position, side rails x3 in upright position, fall, safety, and aspiration precautions enforced. Will continue with plan of care.
[2019-08-30 07:56] LABS: APPEARANCE,URINE CLEAR (CLEAR); BILIRUBIN,URINE NEGATIVE (NEGATIVE); BLOOD, URINE NEGATIVE Ery/uL (NEGATIVE); COLOR,URINE YELLOW (YELLOW); KETONES,URINE NEGATIVE (NEGATIVE); LEUKOCYTE ESTERASE ,URINE NEGATIVE (NEGATIVE); NITRITE, URINE NEGATIVE (NEGATIVE); PH,URINE 5.5 (5.0-8.0); PROTEIN,URINE NEGATIVE (NEGATIVE); UGLUCOSE NEGATIVE (NEGATIVE); UROBILINOGEN,URINE 0.2 EU/dL (0.2)
[2019-08-30 08:00] LABS: BAND % (MANUAL) 2 % (0.0-5.0); EOSINOPHILS % (MANUAL) 3 % (0-4); LYMPHOCYTES % (MANUAL) 24 % (16-48); MONOCYTES % (MANUAL) 8 % (0-11.0); NEUTROPHILS % (MANUAL) 63 (42-76)
[2019-08-30] MEDS: IPRATROPIUM NEB FS 0.5 MG/2.5 ML AMPUL.NEB IH SCH ×4 (08:15→19:49)
[2019-08-30] MEDS: FENOFIBRATE NANOCRYS (145 MG) 145 MG TABLET PO SCH (08:30)
[2019-08-30] MEDS: GLUCERNA SHAKE 237 ML CAN PO SCH ×2 (08:30→16:50)
[2019-08-30] MEDS: FUROSEMIDE 40 MG/4 ML VIAL IV SCH (08:30)
[2019-08-30] MEDS: MEMANTINE HCL 5 MG TABLET PO SCH ×2 (08:30→16:50)
[2019-08-30] MEDS: CARVEDILOL 12.5 MG TABLET PO SCH ×2 (08:33→20:50)
[2019-08-30] MEDS: NITROGLYCERIN PACKET 1 GM PACKET TD SCH ×2 (08:33→20:50)
[2019-08-30] MEDS: AMLODIPINE BESYLATE 10 MG TABLET PO SCH (08:33)
[2019-08-30 08:55] LABS: EOSINOPHIL,URINE None Seen
[2019-08-30] MEDS: POTASSIUM CHLORIDE 20 MEQ TAB.PRT.SR PO SCH ×3 (10:01→11:47)
--- NOTE | 2019-08-30 11:56 | NUR ---
MS/RN NOTE BS 128. non-admin insulin per sliding scale.
[2019-08-30] MEDS: DIGOXIN 0.125 MG TABLET PO SCH (13:22)
--- NOTE | 2019-08-30 14:20 | NUR ---
MS/RN NOTE Midline inserted by Asad RUSSELL. Addendum: 08/30/19 at 2363 by NICA SAMS RN MIDLINE LOCATED IN [facility]
--- NOTE | 2019-08-30 17:26 | NUR ---
MS/RN TRANSFUSION COMPLETE Blood transfusion complete. VS WNL, patient stable. NO s/sx of transfusion reaction.
--- NOTE | 2019-08-30 19:34 | NUR ---
MS/RN CLOSING NOTE Patient is resting in bed, A/O x2, confused and agitated. Breathing is even and unlabored, stable on 2L NC. Patient has no complaints of pain at this time. IV line in the RFA #20g is clean and intact s/l. RYAN midline #18g noted. S/P blood tranfusion, patient tolerated well. All patient needs met, all due meds given, patient kept clean and comfortable throughout shift. Patient is on isolation precautions to r/o COVID-19. Bilateral soft wrist restraints are in place, circulation checked, bilateral pulses present. Bed is in lowest position, side rails x3 in upright position, fall, safety, and aspiration precautions enforced. Will endorse to mine shifter.
--- NOTE | 2019-08-30 19:35 | NUR ---
HISTOTECHNOLOGIST NOTES PATIENT RECEIVED IN BED LAYING COMFORTABLY. ALERT AND ORIENTED X 2. MAINLY GRENADIAN SPEAKING. PLACED ON ISOLATION PRECAUTIONS, RULE OUT COVID-19. ON RECEIVING SPECIALIST; A-FIB WITH UNIFOCAL PVC'S, 80'S. PATIENT ON 2L NASAL CANNULA, WITH EVEN NON-LABORED BREATHING, PATIENT PRESENTS NO SIGNS OF SOB OR RESPIRATORY DISTRESS. PATIENT SKIN DRY AND INTACT. BILATERAL SOFT WRIST RESTRAINTS IN PLACE WITH ADEQUATE CIRCULATION AND 2 FINGER SPACE. PATIENT IV ACCESS ON RIGHT FA IN PLACE AND RYAN MIDLINE INTACT AND PATENT. SAFETY PRECAUTIONS IMPLEMENTED WITH BILATERAL SIDE RAILS UP, BED IN THE LOWEST POSITION, BED LOCKED, BED ALARM ON, AND CALL LIGHT WITHIN EASY REACH OF PATIENT. WILL CONTINUE TO MONITOR PATIENT.
--- NOTE | 2019-08-30 21:19 | NUR ---
ELECTRONIC INSTALLER NOTES PATIENT'S BLOOD SUGAR 101, PER PRN SLIDING SCALE PROTOCOL, NO INSULIN GIVEN, WILL CONTINUE TO MONITOR PATIENT.
[2019-08-31 00:01] VITALS: BP 149/77
--- NOTE | 2019-08-31 00:15 | NUR ---
WOOD BOATBUILDER NOTES REPORT GIVEN TO DREW MANCIA. PATIENT IN BED RESTING, ON 2L NASAL CANNULA, NO SIGNS OF RESPIRATORY DISTRESS, NO SIGNS OF SOB. 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 PATIENT HAS BILATERAL SOFT WRIST RESTRAINTS, ADEQUATE CIRCULATION, AND SKIN INTACT. IV ACCESS PATENT AND INTACT. SAFETY PRECAUTIONS IMPLEMENTED WITH BED IN THE LOWEST POSITION, BILATERAL SIDE RAILS UP, BED LOCKED, AND BED ALARM ON. ENDORSE JADE TO NIGHTSHIFT RN.
--- NOTE | 2019-08-31 00:26 | NUR ---
THERAPEUTIC RECREATION LEADER NOTES RECEIVED REPORT FROM DREW LANDA FOR CONTINUITY OF CARE. PATIENT IS LAYING IN BED. BED IS IN LOWEST LOCKED POSITION WITH SIDE RAILS UP, SEMI FOWLERS. CALL LIGHT IS WITHIN REACH. WILL CONTINUE TO MONITOR.
[2019-08-31] MEDS: LORAZEPAM 0.5 MG TABLET PO PRN (01:54)
--- NOTE | 2019-08-31 01:54 | NUR ---
COTTON BROKER NOTES PATIENT GIVEN ATIVAN 0.5 MG PRN. WILL CONTINUE TO MONITOR.
[2019-08-31] MEDS: PIPERACILLIN /TAZOBACTAM 3.375 G in IV D5W 100 ML IV SCH ×3 (03:21→19:59)
[2019-08-31 04:00] VITALS: BP 152/94
[2019-08-31 05:05] VITALS: BP 152/94
--- NOTE | 2019-08-31 06:20 | NUR ---
MARKETING ASSISTANT RETAIL DIVISION CLOSING NOTES PATIENT IS LAYING IN BED, BED IS IN LOWEST LOCKED POSITION WITH SIDE RAILS UP, SEMI FOWLERS. BED ALARM ON. CALL LIGHT IS WITHIN REACH. ON NASAL CANULA 2L NO SOB/ ACUTE RESPIRATORY DISTRESS NOTED. NO COMPLAINTS OF PAIN AT THIS TIME. ON SOFT WRIST RESTRAINTS. A/O X2. WILL ENDORSE TO AM NURSE.
[2019-08-31 06:48] LABS: BASOPHILS % (AUTO) 0.5 % (0.0-2.0); EOSINOPHILS % (AUTO) 2.1 % (0.0-6.0); HEMATOCRIT 26 % (33-45); HEMOGLOBIN 8.3 g/dL (11.5-14.8); LYMPHOCYTES # (AUTO) 1.3 /CMM (0.8-4.8); LYMPHOCYTES % (AUTO) 28.7 % (20.0-44.0); MEAN CORPUSCULAR HGB CONC 32 g/dl (31.0-36.0); MEAN CORPUSCULAR VOLUME 87 fL (82-100); MONOCYTES # (AUTO) 0.5 /CMM (0.1-1.30); MONOCYTES % (AUTO) 12.1 % (2.0-12.0); NEUTROPHILS # (AUTO) 2.5 /CMM (1.8-8.9); NEUTROPHILS % (AUTO) 56.6 % (43.0-81.0); PLATELET COUNT (AUTO) 252 /CMM (150-450); RED BLOOD CELL COUNT(AUTO) 2.97 MIL/uL (4.0-5.2); WHITE BLOOD COUNT (AUTO) 4.4 K/uL (4.3-11.0)
[2019-08-31] MEDS: BLOOD SUGAR DIAGNOSTIC 1 EACH STRIP VI SCH ×4 (06:52→21:45)
[2019-08-31 07:14] LABS: ALBUMIN 2.3 g/dL (3.4-5.0); BILIRUBIN,TOTAL 0.6 mg/dL (0.2-1.0); CREATININE 1.3 mg/dL (0.6-1.3); MAGNESIUM 1.8 mg/dL (1.8-2.4); PHOSPHORUS 3.4 mg/dL (2.5-4.9); POTASSIUM 3.6 mmol/L (3.5-5.1); TOTAL PROTEIN, SERUM 6.7 g/dL (6.4-8.2)
--- NOTE | 2019-08-31 07:30 | NUR ---
TELE/RN NOTE THE PATIENT IS RECEIVED IN BED. THE PATIENT IS ALERT AND ORIENTED X2. DENIES SOB. RECEIVING OXYGEN AT 2L/MIN VIA NASAL CANNULA AND DENIES SOB. RESPIRATION REGULAR AND UNLABORED. DENIES PAIN. THE PATIENT IS IN NO APPARENT DISTRESS. RYAN MIDLINE PATENT AND SALINE LOCKED. RFA G 20 PATENT AND SALINE LOCKED. COVID-19 PRECAUTIONS TAKE AT ALL TIMES. BED LOW AND LOCKED. SIDE RAILS UP X3. CALL LIGHT WITHIN REACH. WILL CONTINUE TO MONITOR.
[2019-08-31] MEDS: IPRATROPIUM NEB FS 0.5 MG/2.5 ML AMPUL.NEB IH SCH ×4 (07:37→19:30)
[2019-08-31] MEDS: GLUCERNA SHAKE 237 ML CAN PO SCH ×2 (08:00→17:00)
[2019-08-31] MEDS: MEMANTINE HCL 5 MG TABLET PO SCH ×2 (10:07→17:57)
[2019-08-31] MEDS: NITROGLYCERIN PACKET 1 GM PACKET TD SCH ×2 (10:08→20:17)
[2019-08-31] MEDS: AMLODIPINE BESYLATE 10 MG TABLET PO SCH (10:08)
[2019-08-31] MEDS: FUROSEMIDE 40 MG/4 ML VIAL IV SCH (10:08)
[2019-08-31] MEDS: FENOFIBRATE NANOCRYS (145 MG) 145 MG TABLET PO SCH (10:08)
[2019-08-31] MEDS: ACETAMINOPHEN 325 MG TABLET PO PRN (10:09)
[2019-08-31] MEDS: CARVEDILOL 12.5 MG TABLET PO SCH ×2 (10:09→20:16)
--- NOTE | 2019-08-31 10:09 | NUR ---
RN NOTE THE PATIENT IS NOTED WITH TEMP OF 100.4. TYLENOL 650 MG PO GIVEN. WILL CONTINUE TO MONITOR.
--- NOTE | 2019-08-31 10:40 | NUR ---
RN NOTE TEMPERATURE DECREASED TO 98.9. THE PATIENT STABLE.
[2019-08-31] MEDS: DIGOXIN 0.125 MG TABLET PO SCH (13:17)
--- NOTE | 2019-08-31 13:48 | NUR ---
MS/RN NOTE ASSESSED THE PATIENT AND NOTED THAT THE PATIENT DOES NOT REQUITE SOFT-WRIST RESTRAINS ANYMORE. RECEIVED ORDER FROM DR VILLANUEVA TO DISCONTINUE THE RESTRAINS. THE ORDER IS READ BACK, VERIFIED. NOTED AND CARRIED OUT.
[2019-08-31 16:00] VITALS: BP 130/66
--- NOTE | 2019-08-31 17:00 | NUR ---
MS/RN NOTE DR VILLANUEVA IS MADE AWARE OF PATIENT`S VTE SCORE>5 AND PER MD NO NEW ORDERS DUE TO PATIENT WITH HX OF ANEMIA.
--- NOTE | 2019-08-31 18:01 | NUR ---
MS/RN NOTE THE PATIENT`S BLOOD SUGAR IS 134. THE PATIENT REFUSED SLIDING SCALE INSULIN DESPITE EXPLAINING RISKS AND BENEFITS MULTIPLE TIMES.
--- NOTE | 2019-08-31 18:07 | NUR ---
MS/RN NOTE THE PATIENT IS ALERT AND ORIENTED X2. DENIES PAIN. THE PATIENT IS RECEIVING OXYGEN AT 2L/MIN VIA NASAL CANNULA AND SATURATION IS AT 95%. DENIES SOB. THE PATIENT IN NO APPARENT DISTRESS. ISOLATION PRECAUTIONS FOR COVID IS OBSERVED AT ALL TIMES. RFA G 20 PATENT AND SALINE LOCKED. RYAN MIDLINE PATIENT AND SALINE LOCKED. BED LOW AND LOCKED. SIDE RAILS UP X3. CALL LIGHT WITHIN REACH. WILL ENDORSE TO OPTOMETRIC ASSISTANT.
--- NOTE | 2019-08-31 19:10 | NUR ---
MS RN NOTES PATIENT RECEIVED IN BED RESTING, ALERT AND ORIENTED X 2. MAINLY JAPANESE SPEAKING. PATIENT ON 2L NASAL CANNULA, WITH NO SIGNS OF RESPIRATORY DISTRESS, NO SIGNS OF SOB, AND WITH EVEN NON-LABORED BREATHING. SKIN INTACT AND DRY, IV ACCESS INTACT AND PATENT. PATIENT PLACED ON ISOLATION PRECAUTIONS FOR RULE COVID-19. PROVIDED COMFORT MEASURES TO PATIENT. SAFETY PRECAUTIONS IMPLEMENTED WITH THE BED IN THE LOWEST POSITION, BED LOCKED, BILATERAL SIDE RAILS UP, BED ALARM ON, AND CALL LIGHT WITHIN EASY REACH OF PATIENT. WILL CONTINUE TO MONITOR PATIENT.
[2019-08-31 20:00] VITALS: BP 128/64
--- NOTE | 2019-08-31 21:45 | NUR ---
MS RN NOTES PATIENT'S BLOOD SUGAR 105, PER SLIDING SCALE PROTOCOL, NO INSULIN GIVEN. WILL CONTINUE TO MONITOR PATIENT.
[2019-09-01] MEDS: PIPERACILLIN /TAZOBACTAM 3.375 G in IV D5W 100 ML IV SCH ×3 (03:44→20:42)
--- NOTE | 2019-09-01 06:52 | NUR ---
MS RN NOTES PATIENT SLEEPING COMFORTABLY IN BED EASILY AWAKEN BY NAME AND LIGHT TOUCH. PLACED ON ISOLATION PRECAUTIONS. PATIENT ON 2L NASAL CANNULA,WITH NO SIGNS OF SOB, RESPIRATORY DISTRESS AND WITH EVEN NON-LABORED BREATHING. PATIENT IV ACCESS INTACT AND PATENT. SKIN KEPT CLEAN AND DRY. MET ALL OF PATIENT NEEDS AND PROVIDED COMFORT MEASURES TO PATIENT. SAFETY PRECAUTIONS IMPLEMENTED WITH THE BED IN THE LOWEST POSITION, BED LOCKED, BED ALARM ON, BILATERAL SIDE RAILS UP, AND THE CALL LIGHT WITHIN EASY REACH OF THE PATIENT. WILL ENDORSE PLAN OF CARE TO UPCOMING DAYSHIFT NURSE.
[2019-09-01 07:06] LABS: PTH, INTACT 99 pg/mL (15-65)
--- NOTE | 2019-09-01 07:58 | NUR ---
MS/RN OPENING NOTE Patient is resting in bed, A/O x3, shopwing no signs of acute distress or SOB. Breathing is even and unlabored, stable on 2L NC. Patient has no complaints of pain at this time. Midline in the right upper arm noted s/l. Patient is on isolation precautions to r/o COVID-19. Patient is off of tele monitoring per Dr. Jimenez's recommendation. Bed is in lowest position, side rails x3 in upright position, fall, safety, and aspiration precautions enforced. Will continue with plan of care.
[2019-09-01] MEDS: IPRATROPIUM NEB FS 0.5 MG/2.5 ML AMPUL.NEB IH SCH ×4 (08:12→20:45)
[2019-09-01 08:28] LABS: ALANINE AMINOTRANSFERASE 26 U/L (12-78); ALBUMIN 2.3 g/dL (3.4-5.0); ALKALINE PHOSPHATASE 69 U/L (46-116); ASPARTATE AMINOTRANSFERASE 19 U/L (15-37); BILIRUBIN,TOTAL 0.5 mg/dL (0.2-1.0); CARBON DIOXIDE 33 mmol/L (21-32); CHLORIDE 105 mmol/L (98-107); CREATININE 1.3 mg/dL (0.6-1.3); GLUCOSE 134 mg/dL (74-106); MAGNESIUM 2.1 mg/dL (1.8-2.4); PHOSPHORUS 3.8 mg/dL (2.5-4.9); POTASSIUM 3.4 mmol/L (3.5-5.1); SODIUM SERUM 146 mmol/L (136-145); TOTAL PROTEIN, SERUM 6.6 g/dL (6.4-8.2); UREA NITROGEN, BLOOD 29 mg/dL (7-18)
[2019-09-01 08:29] LABS: BASOPHILS % (AUTO) 0.7 % (0.0-2.0); EOSINOPHILS % (AUTO) 2.6 % (0.0-6.0); HEMATOCRIT 25 % (33-45); HEMOGLOBIN 8.3 g/dL (11.5-14.8); LYMPHOCYTES # (AUTO) 1.3 /CMM (0.8-4.8); LYMPHOCYTES % (AUTO) 34.4 % (20.0-44.0); MEAN CORPUSCULAR HGB CONC 33 g/dl (31.0-36.0); MEAN CORPUSCULAR VOLUME 88 fL (82-100); MONOCYTES # (AUTO) 0.4 /CMM (0.1-1.30); MONOCYTES % (AUTO) 11.3 % (2.0-12.0); NEUTROPHILS # (AUTO) 1.9 /CMM (1.8-8.9); PLATELET COUNT (AUTO) 228 /CMM (150-450); RED BLOOD CELL COUNT(AUTO) 2.87 MIL/uL (4.0-5.2); WHITE BLOOD COUNT (AUTO) 3.6 K/uL (4.3-11.0)
[2019-09-01 08:30] LABS: *SPE A/G RATIO 0.6 (0.7-1.7); *SPE ALBUMIN 2.2 g/dL (2.9-4.4); *SPE ALPHA-1-GLOBULIN 0.4 g/dL (0.0-0.4); *SPE BETA GLOBULIN 1.1 g/dL (0.7-1.3); *SPE GLOBULIN, TOTAL 3.4 g/dL (2.2-3.9); *SPE M-SPIKE Not Observed g/dL (Not Observed); *SPEGAMMA GLOBULIN 0.8 g/dL (0.4-1.8)
[2019-09-01] MEDS: BLOOD SUGAR DIAGNOSTIC 1 EACH STRIP VI SCH ×4 (08:39→21:09)
[2019-09-01] MEDS: GLUCERNA SHAKE 237 ML CAN PO SCH ×2 (08:41→18:38)
[2019-09-01] MEDS: FUROSEMIDE 40 MG/4 ML VIAL IV SCH (08:44)
[2019-09-01] MEDS: MEMANTINE HCL 5 MG TABLET PO SCH ×2 (08:45→18:36)
[2019-09-01] MEDS: AMLODIPINE BESYLATE 10 MG TABLET PO SCH (08:45)
[2019-09-01] MEDS: CARVEDILOL 12.5 MG TABLET PO SCH ×2 (08:45→20:41)
[2019-09-01] MEDS: NITROGLYCERIN PACKET 1 GM PACKET TD SCH ×2 (08:46→20:41)
[2019-09-01] MEDS: FENOFIBRATE NANOCRYS (145 MG) 145 MG TABLET PO SCH (08:46)
--- NOTE | 2019-09-01 09:06 | NUR ---
MS/RN NOTE Patient given back to Nettie RUSSELL
--- NOTE | 2019-09-01 09:20 | NUR ---
ms rn received on bed, awake,alert,oriented x 3,not in any form of distress, respirations even and unlabored,no sob noted. lungs are diminish,positive bowel sounds,denies pain at this time, will monitor patient.
--- NOTE | 2019-09-01 09:50 | NUR ---
ms rivas breakfast served,due meds given,tolerated well.
[2019-09-01] MEDS: HYDROCODONE/APAP 5/325MG 1 EACH TABLET PO PRN ×2 (11:02→20:44)
[2019-09-01 11:17] VITALS: BP 142/61
[2019-09-01] MEDS ORDERED: POTASSIUM CHLORIDE 20 MEQ TAB.PRT.SR PO SCH ×2 (11:30→16:00)
--- NOTE | 2019-09-01 12:00 | NUR ---
ms rn blood sugar - 140 - did not gave coverage,patient is not eating much.
[2019-09-01] MEDS: DIGOXIN 0.125 MG TABLET PO SCH (15:00)
[2019-09-01 16:11] VITALS: BP 139/69
--- NOTE | 2019-09-01 17:30 | NUR ---
ms rn bs - 140- no coverage given, patient refused dinner.
--- NOTE | 2019-09-01 18:56 | NUR ---
ms rn on bed, no distress noted.
--- NOTE | 2019-09-01 19:25 | NUR ---
RN OPEN NOTES RECEIVED PATIENT AWAKE IN BED. A/OX1-2. NO SIGNS OF DISTRESS OR DISCOMFORT. BREATHING EVEN AND UNLABORED. ON 2LPM O2 VIA NC. HAS IV ACCESS IN RFA AND RYAN MIDLINE PATENT AND INTACT, NO SIGNS OF REDNESS OR INFILTRATION. BED IN LOW LOCKED POSITION WITH SIDE RAILS X3. CALL LIGHT WITHIN REACH. WILL CONTINUE TO MONITOR.
[2019-09-01 19:51] VITALS: BP 135/73
[2019-09-02] MEDS: PIPERACILLIN /TAZOBACTAM 3.375 G in IV D5W 100 ML IV SCH ×2 (04:46→11:53)
[2019-09-02 06:31] LABS: CREATININE 1.2 mg/dL (0.6-1.3); POTASSIUM 3.5 mmol/L (3.5-5.1)
[2019-09-02] MEDS: BLOOD SUGAR DIAGNOSTIC 1 EACH STRIP VI SCH ×2 (06:33→11:48)
[2019-09-02] MEDS: HYDROCODONE/APAP 5/325MG 1 EACH TABLET PO PRN (06:34)
--- NOTE | 2019-09-02 07:00 | NUR ---
RN CLOSING NOTES PATIENT AWAKE IN BED. A/OX1-2. NO SIGNS OF DISTRESS OR DISCOMFORT. BREATHING EVEN AND UNLABORED. ON 2LPM O2 VIA NC. HAS IV ACCESS IN RFA AND RYAN MIDLINE WITH ZOSYN INFUSING, PATENT AND INTACT, NO SIGNS OF REDNESS OR INFILTRATION. ALL NEEDS MET. NO SIGNIFICANT CHANGES THROUGH THE NIGHT. PATIENT KEPT CLEAN DRY AND COMFORTABLE. ASSISTED WITH REPOSITIONING Q2H AND PRN. BED IN LOW LOCKED POSITION WITH SIDE RAILS X3. CALL LIGHT WITHIN REACH. WILL ENDORSE TO AM SHIFT FOR JADE.
[2019-09-02] MEDS: IPRATROPIUM NEB FS 0.5 MG/2.5 ML AMPUL.NEB IH SCH ×3 (07:39→14:53)
[2019-09-02 07:55] VITALS: BP 136/68
[2019-09-02 08:00] VITALS: BP 136/68
--- NOTE | 2019-09-02 08:00 | NUR ---
RN NOTES RECEIVED PATIENT IN THE BED. A/OX1-2 WITH PRESENTLY CONFUSED. NO SIGNS OF RESPIRATORY DISTRESS OR DISCOMFORT. BREATHING EVEN AND UNLABORED. ON 2L- O2L VIA NC. HAS IV ACCESS IN RFA AND RYAN MIDLINE WITH ZOSYN INFUSING, PATENT AND INTACT, NO SIGNS OF REDNESS OR INFILTRATION. ALL NEEDS MET. V/S STABLE, ADMINISTERED SCHEDULED MEDICATION. PATIENT REFUSED BREAKFAST. PATIENT STATE" I AM NOT HUNGRY AT THIS TIME". PATIENT KEPT CLEAN DRY AND COMFORTABLE. ASSISTED WITH REPOSITIONING Q2H AND PRN. BED IN LOW LOCKED POSITION WITH SIDE RAILS X3. CALL LIGHT WITHIN REACH. CONTINUED MONITORING.
[2019-09-02] MEDS: FUROSEMIDE 40 MG/4 ML VIAL IV SCH ×2 (08:44→12:00)
[2019-09-02] MEDS: AMLODIPINE BESYLATE 10 MG TABLET PO SCH (08:45)
[2019-09-02] MEDS: FENOFIBRATE NANOCRYS (145 MG) 145 MG TABLET PO SCH (08:45)
[2019-09-02] MEDS: MEMANTINE HCL 5 MG TABLET PO SCH (08:45)
[2019-09-02] MEDS: POTASSIUM CHLORIDE 20 MEQ TAB.PRT.SR PO SCH ×3 (08:45→10:14)
[2019-09-02] MEDS: LORAZEPAM 0.5 MG TABLET PO PRN (08:46)
[2019-09-02] MEDS: CARVEDILOL 12.5 MG TABLET PO SCH (08:46)
--- NOTE | 2019-09-02 08:46 | NUR ---
rn notes ADMINISTERED ATIVAN 0.5 MH PO PRN FOR ANXIETY, CRYING, TRYING TO GET OUT OF BED. BP 136/60, P-60.
[2019-09-02] MEDS: GLUCERNA SHAKE 237 ML CAN PO SCH (08:47)
[2019-09-02] MEDS ORDERED: DABIGATRAN ETEXILATE MESYLATE 150 MG CAPSULE PO SCH (09:00)
[2019-09-02 10:07] VITALS: BP 140/70
[2019-09-02] MEDS: NITROGLYCERIN PACKET 1 GM PACKET TD SCH (10:07)
[2019-09-02] MEDS: DIGOXIN 0.125 MG TABLET PO SCH (11:58)
--- NOTE | 2019-09-02 12:00 | NUR ---
rn notes bs-125 mg/dl no coverage given, infusing Zosyn 25 ml/hr on right FA intact, held digoxin because of HR 59, administered scheduled other medication, v/s taken bp 135/70, p-59. per case management patient will go home today call light within to reach. safety precaution maintained all the time.
--- NOTE | 2019-09-02 15:46 | NUR ---
BATTERY INSTALLER NOTES PATIENT DISCHARGE PATIENT AT THIS TIME GOING HOME WITH HOSPICE. PATIENT A/O X2 CONFUSED, . MEDICALLY STABLE, V/S WNL, REFUSED PAIN AT THIS TIME. MED RECONCILIATION AND DISCHARGE ORDER REVIEWED AND EXPLAINED TO PATIENT AND FAMILY. PATIENT WILL FOLLOW PRIMARY MD, AND HOSPICE. PATIENT REFUSED SIGN PAPERWORK, AND REFUSED PICTURE TO BE TAKEN. BELONGING WITH THE PATIENT. PATIENT CELL GENETICIST BY AMBULANCE.
== END 2019-09-02 15:45 | disposition hospice, home (50) | DRG 177 ==
LOC: ER 05:34 → TELE 10:50 → MED 08-31 10:26
PROVIDERS: ADMIT Internal Medicine; ATTEND Nurse Practitioner Acute Care
PROC: 30233N1 Transfusion of Nonautologous Red Blood Cells into Peripheral Vein, Percutaneous Approach (ICD-10-PCS; principal; 2019-08-30)
PROC: 05H933Z Insertion of Infusion Device into Right Brachial Vein, Percutaneous Approach (ICD-10-PCS; 2019-08-30)
DX: J15.6 Pneumonia due to other Gram-negative bacteria (principal); G93.41 Metabolic encephalopathy; I50.33 Acute on chronic diastolic (congestive) heart failure; J96.20 Acute and chronic respiratory failure, unspecified whether with hypoxia or hypercapnia; N17.0 Acute kidney failure with tubular necrosis; J96.21 Acute and chronic respiratory failure with hypoxia; J96.22 Acute and chronic respiratory failure with hypercapnia; I13.0 Hypertensive heart and chronic kidney disease with heart failure and stage 1 through stage 4 chronic kidney disease, or unspecified chronic kidney disease; D68.69 Other thrombophilia; J98.11 Atelectasis; I82.4Z2 Acute embolism and thrombosis of unspecified deep veins of left distal lower extremity; N18.3 Chronic kidney disease, stage 3 (moderate); M19.90 Unspecified osteoarthritis, unspecified site; I25.10 Atherosclerotic heart disease of native coronary artery without angina pectoris; K21.9 Gastro-esophageal reflux disease without esophagitis; Z90.11 Acquired absence of right breast and nipple; Z85.3 Personal history of malignant neoplasm of breast; Z86.718 Personal history of other venous thrombosis and embolism; Z79.899 Other long term (current) drug therapy; E11.22 Type 2 diabetes mellitus with diabetic chronic kidney disease; E11.42 Type 2 diabetes mellitus with diabetic polyneuropathy; G89.29 Other chronic pain; D64.9 Anemia, unspecified; E66.9 Obesity, unspecified; E78.5 Hyperlipidemia, unspecified; Z79.84 Long term (current) use of oral hypoglycemic drugs; Z79.82 Long term (current) use of aspirin; Z79.51 Long term (current) use of inhaled steroids; I48.0 Paroxysmal atrial fibrillation; F09 Unspecified mental disorder due to known physiological condition
CPT/HCPCS: 36415; 36600; 71045-TC; 80048-TC; 80053-TC; 80076-TC; 80162-TC; 81000-TC; 82550-TC; 82570-TC; 82962-TC; 83605-TC; 83735-TC; 83880; 83970; 84100-TC; 84155; 84155-TC; 84165; 84300-TC; 84484-TC; 85025-TC; 85730-TC; 86850-TC; 86921-TC; 87040-TC; 87081-TC; 87086-TC; 93970-TC; 94799-TC; G0378; J1815; J1940; J2543; J3370; J7050; J7060; J7070; P9016-BL; U0002

== ENCOUNTER 2019-12-01 22:49 | Emergency (ER) | payer MEDICARE, OTHER ==
[~2019-12-01] VITALS: Ht 165.1 cm; Wt 68.5 kg
[~2019-12-01 22:49] MED LIST changes: -APIX5TAB4 PO; +ASPI-992 PO; -CEFT1FRO2 IV; -DEXT50DI8 IV; +FURO-144 PO; +HYDR-4384 PO; -INSU100V3 SQ; -LINA5TAB PO; +METF-881 PO
--- NOTE | 2019-12-01 23:19 | NUR ---
PT BIB RA WITH A C/O GENERALIZED WEAKNESS. PT IS ESTONIAN SPEAKING ONLY AND IS NOT ABLE TO GIVE HX. PT WAS TRIAGED AND TAKEN TO ER1. PT WAS PLACED ON THE MONITOR AND POX. 18G IV STARTED IN L WRIST. BLOOD WAS DRAWN AND SENT TO LAB.
[2019-12-01] MEDS ORDERED: IV NS 0.9% 500 ML BAG IV ONE (23:30)
[2019-12-01 23:31] LABS: BASOPHILS # (AUTO) 0.1 /CMM (0.0-0.2); BASOPHILS % (AUTO) 1.2 % (0.0-2.0); EOSINOPHILS % (AUTO) 3.6 % (0.0-6.0); HEMATOCRIT 29 % (33-45); HEMOGLOBIN 9.4 g/dL (11.5-14.8); LYMPHOCYTES # (AUTO) 1.9 /CMM (0.8-4.8); LYMPHOCYTES % (AUTO) 24.4 % (20.0-44.0); MEAN CORPUSCULAR HGB CONC 33 g/dl (31.0-36.0); MEAN CORPUSCULAR VOLUME 88 fL (82-100); MONOCYTES # (AUTO) 0.9 /CMM (0.1-1.30); MONOCYTES % (AUTO) 11.2 % (2.0-12.0); NEUTROPHILS # (AUTO) 4.6 /CMM (1.8-8.9); NEUTROPHILS % (AUTO) 59.6 % (43.0-81.0); PLATELET COUNT (AUTO) 261 /CMM (150-450); RED BLOOD CELL COUNT(AUTO) 3.26 MIL/uL (4.0-5.2); WHITE BLOOD COUNT (AUTO) 7.7 K/uL (4.3-11.0)
--- NOTE | 2019-12-01 23:40 | NUR ---
PT'S DAUGHTER, MARIO, CALLED. SHE IS OUTSIDE AND WANTS TO COME IN. MARIO WAS TOLD THAT IT WAS NOT ALLOWED AT THIS TIME DUE TO COVID 19 RESTRICTIONS. MARIO CAN BE REACHED AT
[2019-12-01 23:49] LABS: CALCIUM, SERUM 9.3 mg/dL (8.5-10.1); CARBON DIOXIDE 28 mmol/L (21-32); CHLORIDE 102 mmol/L (98-107); GLUCOSE 116 mg/dL (74-106); POTASSIUM 4.1 mmol/L (3.5-5.1); SODIUM SERUM 138 mmol/L (136-145); UREA NITROGEN, BLOOD 30 mg/dL (7-18)
--- NOTE | 2019-12-02 | NUR ---
IN AND OUT CATH DONE. 100 ML CLOUDY URINE OUTPUT NOTED. PT TOLERATED PROCEDURE WELL.
[2019-12-02 00:02] LABS: ALANINE AMINOTRANSFERASE 22 U/L (12-78); ALBUMIN 2.8 g/dL (3.4-5.0); ALKALINE PHOSPHATASE 100 U/L (46-116); ASPARTATE AMINOTRANSFERASE 19 U/L (15-37); B-TYPE NATRIURETIC PEPTIDE 11896 PG/ML (0-125); BILIRUBIN,TOTAL 0.5 mg/dL (0.2-1.0); TOTAL PROTEIN, SERUM 6.9 g/dL (6.4-8.2)
--- NOTE | 2019-12-02 00:09 | NUR ---
PT IS YELLING THAT SHE WANTS TO GO HOME. PT WAS TOLD THAT SHE HAS TO STAY RIGHT NOW.
[2019-12-02 00:19] LABS: APPEARANCE,URINE Cloudy (CLEAR); BILIRUBIN,URINE Negative (NEGATIVE); BLOOD, URINE Moderate Ery/uL (NEGATIVE); COLOR,URINE Yellow (YELLOW); KETONES,URINE Negative (NEGATIVE); LEUKOCYTE ESTERASE ,URINE Large (NEGATIVE); NITRITE, URINE Negative (NEGATIVE); PH,URINE 5.5 (5.0-8.0); PROTEIN,URINE 100 mg/dl (NEGATIVE); UGLUCOSE Negative (NEGATIVE)
[2019-12-02 00:26] LABS: BACTERIA,URINE Many /HPF (None Seen); RBC,URINE 21-50 /HPF (0-2); SQUAMOUS EPITHELIAL CELL,UR Few /HPF (None Seen); WBC,URINE TOO NUMEROUS TO COUN /HPF (0-3); YEAST,URINE Moderate /HPF (None Seen)
[2019-12-02 00:29] LABS: CREATINE KINASE, TOTAL 9 U/L (26-192); FERRITIN 279 ng/mL (8-388)
[2019-12-02 00:34] LABS: D-DIMER 35.2 mg/L(FEU (0.17-0.50)
[2019-12-02 00:35] LABS: C-REACTIVE PROTEIN 12.3 mg/dL (0.0-0.9)
--- NOTE | 2019-12-02 00:51 | NUR ---
CALLED [facility] FOR TRANSPORT TO HOME. ETA 0200.
[2019-12-02] MEDS ORDERED: FUROSEMIDE 40 MG TABLET PO ONE (01:00)
[2019-12-02] MEDS ORDERED: FUROSEMIDE 40 MG TABLET ONE (01:16)
--- NOTE | 2019-12-02 01:20 | NUR ---
PT REC'D A WARM BLANKET. PT IS AWARE THAT SHE IS GOING HOME. VSS.
--- NOTE | 2019-12-02 01:52 | NUR ---
PT APPEARS TO BE RESTING COMFORTABLY WITH NO S/S OF PAIN OR DISTRESS. RESP ARE EVEN AND UNLABORED. WILL CONTINUE TO MONITOR THE PT.
[2019-12-02 02:10] VITALS: BP 121/64
--- NOTE | 2019-12-02 02:14 | NUR ---
REPORT GIVEN TO MEETA MARQUIS EMT. PT'S RX, ACI, AND LABWORK RESULTS GIVEN TO EMT. PT'S VSS. Patient discharged to home in stable condition. Written and verbal after care instructions given.
== END 2019-12-02 02:14 | disposition home or self-care (01) ==
LOC: ER 22:50
DX: N39.0 Urinary tract infection, site not specified (principal); I11.0 Hypertensive heart disease with heart failure; I50.9 Heart failure, unspecified; E11.9 Type 2 diabetes mellitus without complications; E78.00 Pure hypercholesterolemia, unspecified; G89.29 Other chronic pain; Z90.49 Acquired absence of other specified parts of digestive tract; Z98.890 Other specified postprocedural states; Z79.899 Other long term (current) drug therapy; Z79.82 Long term (current) use of aspirin; Z79.84 Long term (current) use of oral hypoglycemic drugs
CPT/HCPCS: 36415; 71045; 80053; 81001; 82550; 82728; 83605; 83615; 83880; 84145; 84484; 85025; 85378; 85730; 86140; 87040; 87086; 87106; 93005; 99285; J7040; 81000-TC

== ENCOUNTER 2019-12-24 10:56 | Inpatient (IN) | payer MEDICARE, OTHER ==
[~2019-12-24] VITALS: Ht 152.4 cm; Wt 64.7 kg
[2019-12-24] MEDS: IPRATROPIUM NEB FS 0.5 MG/2.5 ML AMPUL.NEB IH SCH (07:35)
[2019-12-24 11:25] LABS: BASOPHILS # (AUTO) 0.1 /CMM (0.0-0.2); BASOPHILS % (AUTO) 0.8 % (0.0-2.0); EOSINOPHILS % (AUTO) 2.8 % (0.0-6.0); HEMATOCRIT 34 % (33-45); HEMOGLOBIN 11.3 g/dL (11.5-14.8); LYMPHOCYTES # (AUTO) 2.2 /CMM (0.8-4.8); LYMPHOCYTES % (AUTO) 28.3 % (20.0-44.0); MEAN CORPUSCULAR HGB CONC 33 g/dl (31.0-36.0); MEAN CORPUSCULAR VOLUME 87 fL (82-100); MONOCYTES # (AUTO) 0.7 /CMM (0.1-1.30); MONOCYTES % (AUTO) 8.9 % (2.0-12.0); NEUTROPHILS # (AUTO) 4.6 /CMM (1.8-8.9); NEUTROPHILS % (AUTO) 59.2 % (43.0-81.0); PLATELET COUNT (AUTO) 301 /CMM (150-450); WHITE BLOOD COUNT (AUTO) 7.7 K/uL (4.3-11.0)
[2019-12-24] MEDS ORDERED: IV NS 0.9% 1,000 ML BAG IV ONE (11:30)
[2019-12-24] MEDS ORDERED: LORAZEPAM INJ 2 MG/ML VIAL IV ONE (11:30)
[2019-12-24 11:34] LABS: APPEARANCE,URINE TURBID (CLEAR)
[2019-12-24 11:35] LABS: COLOR,URINE YELLOW (YELLOW); PROTEIN,URINE TRACE mg/dl (NEGATIVE); UGLUCOSE NEG (NEGATIVE)
[2019-12-24 11:36] LABS: BILIRUBIN,URINE NEG (NEGATIVE); BLOOD, URINE 1+ Ery/uL (NEGATIVE); KETONES,URINE NEG (NEGATIVE); NITRITE, URINE POS (NEGATIVE); UROBILINOGEN,URINE 0.2 EU/dL (0.2)
[2019-12-24 11:37] LABS: LEUKOCYTE ESTERASE ,URINE 3+ (NEGATIVE)
[2019-12-24] MEDS ORDERED: TEMA15CA PO (11:37)
[2019-12-24] MEDS ORDERED: ASPI-605 PO (11:37)
[2019-12-24 11:38] LABS: BACTERIA,URINE 2+ /HPF (None Seen); SQUAMOUS EPITHELIAL CELL,UR Moderate /HPF (None Seen); WBC,URINE 51-80 /HPF (0-3)
[2019-12-24 11:38] LABS: ALANINE AMINOTRANSFERASE 19 U/L (12-78); ALKALINE PHOSPHATASE 110 U/L (46-116); ASPARTATE AMINOTRANSFERASE 21 U/L (15-37); BILIRUBIN,DIRECT 0.3 mg/dL (0.0-0.2); BILIRUBIN,TOTAL 0.6 mg/dL (0.2-1.0); CALCIUM, SERUM 10.3 mg/dL (8.5-10.1); CARBON DIOXIDE 28 mmol/L (21-32); CHLORIDE 102 mmol/L (98-107); CREATININE 1.1 mg/dL (0.6-1.3); GLUCOSE 137 mg/dL (74-106); POTASSIUM 4.1 mmol/L (3.5-5.1); SODIUM SERUM 140 mmol/L (136-145); TOTAL PROTEIN, SERUM 7.7 g/dL (6.4-8.2); UREA NITROGEN, BLOOD 38 mg/dL (7-18)
[2019-12-24] MEDS ORDERED: LORAZEPAM INJ 2 MG/ML VIAL ONE (12:07)
[2019-12-24] MEDS ORDERED: CEFTRIAXONE 1GM BAG (ER ONLY) 50 ML IV ONE ×2 (13:00→13:49)
--- NOTE | 2019-12-24 13:00 | NUR ---
Medicated as ordered. Comfort measures initiated.
--- NOTE | 2019-12-24 14:00 | NUR ---
Dozing on/off No obvious distress O2 applied to keep sats >94 Status quo, NO acute changes
[2019-12-24] MEDS ORDERED: LORAZEPAM 0.5 MG TABLET PO PRN (14:30)
[2019-12-24] MEDS ORDERED: HYDROCODONE/APAP 5/325MG 1 EACH TABLET PO PRN (14:30)
[2019-12-24] MEDS ORDERED: ONDANSETRON HCL/PF 4 MG/2 ML VIAL IVP PRN (14:30)
[2019-12-24] MEDS ORDERED: CLONIDINE HCL 0.1 MG TABLET PO PRN (14:30)
[2019-12-24] MEDS ORDERED: Z GUARD REMEDY 2 OZ OINT TP PRN (14:30)
--- NOTE | 2019-12-24 15:26 | NUR ---
COVID Test Result Negative. production control supervisor aware -Await room assignment
[2019-12-24 16:30] VITALS: BP 148/70
[2019-12-24] MEDS ORDERED: DEXTROSE 50%-WATER 50 ML DISP.SYRIN IV PRN (16:30)
--- NOTE | 2019-12-24 16:30 | NUR ---
SPECIALTY DEPARTMENT SUPERVISOR NOTES PATIENT ADMITTED FROM ER ON MED SURGE A/O X1/2 WITH CONFUSION. PATIENT HAS NO ACUTE RESPIRATORY DISTRESS. V/S TAKEN BP-148/70,P-71,R-20,R-20, O2-97 NC. PATIENT WAS COMPLAINING OF PAIN BLE 5/10 PER PAIN SCALE. SKIN ASSESSMENT DONE INTACT. IV ACCESS ON RIGHT FA INTACT. PATIENT INCONTINENT USING DIAPER. HOSPITALIST AWARE OF NEW PATIENT, AND MEDICATION. CALL LIGHT WITHIN TO REACH. CONTINUED MONITORING.
--- NOTE | 2019-12-24 16:31 | NUR ---
Report given to DREW Gusman. Transported per [facility] NO obvious distress.
[2019-12-24] MEDS: IV 1/2NS 1000 ML 1,000 ML IV PRN (18:16)
[2019-12-24] MEDS: ACETAMINOPHEN 325 MG TABLET PO PRN (18:16)
[2019-12-24] MEDS: BLOOD SUGAR DIAGNOSTIC 1 EACH STRIP VI SCH ×2 (18:38→22:14)
--- NOTE | 2019-12-24 18:40 | NUR ---
rn notes BS-122 MG/DL, PATIENT CONFUSED, DELUSIONAL,YELLING. REFUSED TO EAT, UNABLE TO ADMINISTERED PO PAIN MEDICATION, BECAUSE OF SPED OUT.. INFUSING 1/2 NS AT 75 ML/HR ON RIGHT FA INTACT. CALL LIGHT WITHIN TO REACH, DVT PUMP ON, CALL LIGHT WITHIN TO REACH,. ENDORSED ONCOMING NURSE FOLLOW PLAN OF CARE.
[2019-12-24 20:00] VITALS: BP 158/77
--- NOTE | 2019-12-24 20:00 | NUR ---
RN PM MS NOTES REPORT RECIEVED FROM АЛЕКСАНДР MCWILLIAMS. PER REPORT PATIENT CONFUSED ICELANDIC SPEAKING AND WAS DELUSIONAL,YELLING DURING PREVIOUS SHIFT. IV INFUSING 1/2 NS AT 75 ML/HR ON RIGHT FA INTACT WITH SLEEVES COVERING. PATIENT AWAKE AND WATCHING TV AND IS CALM AWAKE AND ALERT. CALL LIGHT WITHIN TO REACH, DVT PUMP ON BILATERAL LEGS. HX OF MEDICATION NON COMPLIANCE WILL CONT TO MONITOR.
[2019-12-24] MEDS ORDERED: ENOXAPARIN SODIUM 30 MG/0.3 ML DISP.SYRIN SQ SCH (21:00)
[2019-12-24] MEDS ORDERED: TEMAZEPAM 15 MG CAPSULE PO PRN (22:00)
[2019-12-24] MEDS: ATORVASTATIN 40 MG TABLET PO SCH (22:12)
[2019-12-24] MEDS: HYDROCODONE/APAP 5/325MG 1 EACH TABLET PO PRN (22:12)
[2019-12-25] MEDS: HYDROCODONE/APAP 5/325MG 1 EACH TABLET PO PRN ×3 (03:10→22:01)
[2019-12-25] MEDS: INSULIN REGULAR, HUMAN 100 UNIT/ML 3 ML VIAL SQ PRN (06:19)
[2019-12-25] MEDS: BLOOD SUGAR DIAGNOSTIC 1 EACH STRIP VI SCH ×4 (06:19→21:58)
[2019-12-25] MEDS: IV 1/2NS 1000 ML 1,000 ML IV PRN (06:29)
--- NOTE | 2019-12-25 06:55 | NUR ---
326-1 RN PM MS CLOSING NOTE PATIENT CONFUSED ETHIOPIAN SPEAKING. REORIENTED TO SURROUNDINGS IV INFUSING 1/2 NS AT 75 ML/HR ON RIGHT FA INTACT WITH SLEEVES COVERING NO S/S OF COMPLICATIONS. PATIENT EASILY AROUSABLE AND IS CALM AND ALERT. TOOK ALL MEDICATIONS APPETITE IS POOR BUT ATE 75 PERCENT OF SNAKC WITH CONTINUED ENCOURAGEMENT LAS NIGHT. CALL LIGHT WITHIN TO REACH, DVT PUMP ON BILATERAL LEGS.
[2019-12-25] MEDS ORDERED: PANTOPRAZOLE 40 MG TABLET.DR PO PRN (07:30)
[2019-12-25] MEDS: IPRATROPIUM NEB FS 0.5 MG/2.5 ML AMPUL.NEB IH SCH ×4 (07:35→19:30)
[2019-12-25 07:36] LABS: ALBUMIN 2.9 g/dL (3.4-5.0); BILIRUBIN,TOTAL 0.5 mg/dL (0.2-1.0); CALCIUM, SERUM 9.6 mg/dL (8.5-10.1); CREATININE 0.8 mg/dL (0.6-1.3); MAGNESIUM 2.2 mg/dL (1.8-2.4); PHOSPHORUS 2.7 mg/dL (2.5-4.9); POTASSIUM 2.9 mmol/L (3.5-5.1); TOTAL PROTEIN, SERUM 7.2 g/dL (6.4-8.2)
[2019-12-25 07:40] LABS: BASOPHILS % (AUTO) 0.6 % (0.0-2.0); EOSINOPHILS % (AUTO) 1.8 % (0.0-6.0); HEMATOCRIT 30 % (33-45); HEMOGLOBIN 9.7 g/dL (11.5-14.8); LYMPHOCYTES % (AUTO) 13.7 % (20.0-44.0); MEAN CORPUSCULAR HGB CONC 33 g/dl (31.0-36.0); MEAN CORPUSCULAR VOLUME 88 fL (82-100); MONOCYTES # (AUTO) 0.8 /CMM (0.1-1.30); MONOCYTES % (AUTO) 10.4 % (2.0-12.0); NEUTROPHILS # (AUTO) 5.4 /CMM (1.8-8.9); NEUTROPHILS % (AUTO) 73.5 % (43.0-81.0); PLATELET COUNT (AUTO) 250 /CMM (150-450); RED BLOOD CELL COUNT(AUTO) 3.37 MIL/uL (4.0-5.2); WHITE BLOOD COUNT (AUTO) 7.3 K/uL (4.3-11.0)
[2019-12-25 07:43] LABS: THYROID STIMULATING HORMONE 1.775 uIU/mL (0.358-3.74)
[2019-12-25 08:00] VITALS: BP 128/71
[2019-12-25] MEDS: METFORMIN XR 500 MG TAB.SR.24H PO SCH (08:37)
[2019-12-25] MEDS: MEMANTINE HCL 5 MG TABLET PO SCH ×2 (08:38→17:11)
[2019-12-25] MEDS: CARVEDILOL 12.5 MG TABLET PO SCH (08:38)
[2019-12-25] MEDS: FUROSEMIDE 40 MG TABLET PO SCH (08:38)
[2019-12-25] MEDS: ASPIRIN EC 81 MG TABLET.DR PO SCH (08:39)
[2019-12-25] MEDS: AMLODIPINE BESYLATE 10 MG TABLET PO SCH (08:39)
[2019-12-25] MEDS: FENOFIBRATE NANOCRYS (145 MG) 145 MG TABLET PO SCH (08:39)
[2019-12-25] MEDS ORDERED: POTASSIUM CHLORIDE 20 MEQ TAB.PRT.SR PO ONE (09:30)
[2019-12-25] MEDS: *INSULIN REGULAR(HUMULIN R)HUM 100 UNIT/ML VIAL SQ PRN (11:51)
[2019-12-25] MEDS ORDERED: DIGOXIN 0.125 MG TABLET PO SCH (13:00)
[2019-12-25] MEDS: POTASSIUM CHLORIDE 20 MEQ TAB.PRT.SR PO SCH ×2 (15:00→16:00)
[2019-12-25 16:00] VITALS: BP 126/53
[2019-12-25] MEDS: APIXABAN 5 MG TABLET PO SCH (17:12)
--- NOTE | 2019-12-25 19:15 | NUR ---
RN PM MS NOTES REPORT RECIEVED FROM noemi rivas. PER REPORT PATIENT CONFUSED BELARUSIAN SPEAKING REPORTED TO BE SOMEWHAT COOPERATIV. IV INFUSING 1/2 NS AT 75 ML/HR ON RIGHT FA INTACT WITH SLEEVES COVERING. PATIENT AWAKE AND WATCHING TV AND IS CALM AWAKE AND ALERT. CALL LIGHT WITHIN TO REACH, DVT PUMP ON BILATERAL LEGS. HX OF MEDICATION NON COMPLIANCE WILL CONT TO MONITOR.
[2019-12-25 20:00] VITALS: BP 140/67
--- NOTE | 2019-12-25 22:00 | NUR ---
SPOKE WITH PATIENT CHASIDY PEÑA UPDATED WITH POC. REQUESTING UPDATE DROM DOCTOR WHEN HE COMES IN TOMMORROW.
[2019-12-25] MEDS: ATORVASTATIN 40 MG TABLET PO SCH (22:01)
[2019-12-26] MEDS: IV 1/2NS 1000 ML 1,000 ML IV PRN ×2 (02:46→15:56)
--- NOTE | 2019-12-26 04:12 | NUR ---
spoke with rt roche and inquired about past due breathing treatment. states she was given atrovent at around 730 pm . states he has been givimng treatments at desired times per orders. Addendum: 12/26/19 at 0415 by JENNIFER LEOS RN wrote on wrong patient error
--- NOTE | 2019-12-26 06:42 | NUR ---
RN PM MS CLOSING NOTE PATIENT CONFUSED PALESTINIAN SPEAKING. REORIENTED TO SURROUNDINGS IV INFUSING 1/2 NS AT 75 ML/HR ON RIGHT AC INTACT WITH SLEEVE COVERING NO S/S OF COMPLICATIONS. PATIENT EASILY AROUSABLE AND IS CALM AND ALERT. TOOK ALL MEDICATIONS APPETITE IS POOR BUT ATE HANDFUL OF GRAPES AND ONE APPLESAUCE WITH CONTINUED ENCOURAGEMENT LAS NIGHT. CALL LIGHT WITHIN TO REACH, DVT PUMP ON BILATERAL LEGS.
--- NOTE | 2019-12-26 07:30 | NUR ---
MS/RN Opening note Patient received from grain packer. A/O to self, vital signs stable, no fevers. Does not appear in any pain or distress at this time. IV FLUIDS INFUSING AT 75ml/hr via right forearm heplock, no signs of infiltration seen. Bed in low setting, side rails X3 in upright position, call light within reach. Bed alarm in working order, will continue to monitor and ensure safety.
[2019-12-26 08:00] VITALS: BP 162/58
[2019-12-26 08:12] LABS: BASOPHILS % (AUTO) 0.5 % (0.0-2.0); HEMATOCRIT 28 % (33-45); HEMOGLOBIN 9.4 g/dL (11.5-14.8); LYMPHOCYTES # (AUTO) 1.1 /CMM (0.8-4.8); LYMPHOCYTES % (AUTO) 16.1 % (20.0-44.0); MEAN CORPUSCULAR HGB CONC 33 g/dl (31.0-36.0); MEAN CORPUSCULAR VOLUME 88 fL (82-100); MONOCYTES # (AUTO) 0.7 /CMM (0.1-1.30); MONOCYTES % (AUTO) 10.7 % (2.0-12.0); NEUTROPHILS # (AUTO) 4.5 /CMM (1.8-8.9); NEUTROPHILS % (AUTO) 68.7 % (43.0-81.0); PLATELET COUNT (AUTO) 254 /CMM (150-450); RED BLOOD CELL COUNT(AUTO) 3.21 MIL/uL (4.0-5.2); WHITE BLOOD COUNT (AUTO) 6.6 K/uL (4.3-11.0)
[2019-12-26] MEDS: ASPIRIN EC 81 MG TABLET.DR PO SCH (08:31)
[2019-12-26] MEDS: FUROSEMIDE 40 MG TABLET PO SCH (08:31)
[2019-12-26] MEDS: CARVEDILOL 12.5 MG TABLET PO SCH (08:32)
[2019-12-26] MEDS: FENOFIBRATE NANOCRYS (145 MG) 145 MG TABLET PO SCH (08:32)
[2019-12-26] MEDS: MEMANTINE HCL 5 MG TABLET PO SCH ×2 (08:32→16:24)
[2019-12-26] MEDS: AMLODIPINE BESYLATE 10 MG TABLET PO SCH (08:33)
[2019-12-26] MEDS: APIXABAN 5 MG TABLET PO SCH ×2 (08:33→16:25)
[2019-12-26] MEDS: BLOOD SUGAR DIAGNOSTIC 1 EACH STRIP VI SCH ×4 (08:33→22:35)
[2019-12-26] MEDS: METFORMIN XR 500 MG TAB.SR.24H PO SCH (08:35)
--- NOTE | 2019-12-26 09:00 | NUR ---
MS/RN S/B Dr Jimenez Seen by Dr Jimenez - discharge planning per internal medicine MD.
[2019-12-26 09:03] LABS: ALBUMIN 2.8 g/dL (3.4-5.0); BILIRUBIN,TOTAL 0.6 mg/dL (0.2-1.0); CALCIUM, SERUM 9.4 mg/dL (8.5-10.1); CREATININE 0.8 mg/dL (0.6-1.3); MAGNESIUM 1.9 mg/dL (1.8-2.4); POTASSIUM 3.7 mmol/L (3.5-5.1); TOTAL PROTEIN, SERUM 7.1 g/dL (6.4-8.2)
--- NOTE | 2019-12-26 09:39 | NUR ---
MS/RN Medications Morning medications administered as ordered, crushed with apple sauce.
[2019-12-26 10:00] VITALS: BP 134/60
--- NOTE | 2019-12-26 11:21 | NUR ---
MS/RN Labs Morning labs reviewed, all within normal range for patient.
--- NOTE | 2019-12-26 12:24 | NUR ---
MS/RN Blood sugar Blood sugar at noon 97, no coverage needed, will assist patient with lunch to ensure glucose level does not drop.
[2019-12-26] MEDS: DIGOXIN 0.125 MG TABLET PO SCH (13:52)
--- NOTE | 2019-12-26 13:59 | NUR ---
MS/RN S/B Dr Kahn Seen by Dr Kahn - patient to be discharged back to this afternoon. Addendum: 12/26/19 at 1822 by MIGUELANGEL GODINEZ Error, wrong patient
--- NOTE | 2019-12-26 14:00 | NUR ---
MS/RN S/B Dr Mantilla Seen by Dr Mantilla - discharge planning back to SNF in morning.
[2019-12-26] MEDS: CEFTAZIDIME 1 G in IV D5W 50 ML IV SCH ×2 (15:50→21:53)
[2019-12-26 16:00] VITALS: BP 130/58
[2019-12-26] MEDS: ACETAMINOPHEN 325 MG TABLET PO PRN (16:24)
--- NOTE | 2019-12-26 17:00 | NUR ---
MS/RN Blood sugar Blood sugar at 5p - 101.
--- NOTE | 2019-12-26 18:14 | NUR ---
MS/RN End note Patient remains in stable condition. No new needs at this time. Will endorse to coat presser.
--- NOTE | 2019-12-26 19:30 | NUR ---
MS RN RECEIVE PT IN BED AWAKE WATCHING TV A/O X 1 STABLE, NO S/S OF DISTRESS, SAFETY MEASURES AT ALL TIMES. WILL CONT TO MONITOR PT
[2019-12-26 20:00] VITALS: BP 131/53
[2019-12-26] MEDS: ATORVASTATIN 40 MG TABLET PO SCH (21:47)
[2019-12-26] MEDS: *INSULIN REGULAR(HUMULIN R)HUM 100 UNIT/ML VIAL SQ PRN (22:36)
--- NOTE | 2019-12-26 23:00 | NUR ---
SPOKE TO DAUGHTER REGARDING PLAN OF CARE SHE WANTED TO ASK IF M.D CAN D/C LIPITOR I TOLD THEM WE WILL FF UP IN AM. EXPLAINED RISKS AND BENEFITS TRENT PERLA VERBALIZED UNDERSTANDING AND APPRECIATIVE TO NURSES.
--- NOTE | 2019-12-27 02:00 | NUR ---
PT SLEEPING AT THIS TIME NO S/S OF DISTRESS
[2019-12-27] MEDS: IV 1/2NS 1000 ML 1,000 ML IV PRN ×2 (05:48→16:41)
--- NOTE | 2019-12-27 06:21 | NUR ---
MS RN MONITORED PT ACCORDINGLY, SLEPT WELL 9 HOURS. NO S/S OF DISTRESS, ALL NEEDS ATTENDED AND ANTICIPATED. REPOSITION EVERY 2 HOURS, KEPT CLEAN, DRY AND COMFORT AT ALL TIMES. AM CARE RENDERED, APPLE JUICE PROVIDED TO THE PT 8 OZ. SAFETY MEASURES AT ALL TIMES. ENDORSE NEXT SHIFT POC.
[2019-12-27] MEDS: INSULIN REGULAR, HUMAN 100 UNIT/ML 3 ML VIAL SQ PRN (06:33)
[2019-12-27] MEDS: BLOOD SUGAR DIAGNOSTIC 1 EACH STRIP VI SCH ×4 (06:33→22:00)
--- NOTE | 2019-12-27 07:12 | NUR ---
MS RN NOTES PATIENT RECEIVED IN BED SLEEPING, EASILY AWAKEN BY NAME AND LIGHT TOUCH. ALERT AND ORIENTED X 1, NORTHERN IRISH SPEAKING. PATIENT ON ROOM AIR, WITH NO SIGNS OF RESPIRATORY DISTRESS AT THIS TIME, WITH EVEN NON-LABORED BREATHING, AND PATIENT PRESENTS NO SOB. PATIENT SKIN WARM AND DRY TO TOUCH. PATIENT IV ACCESS INTACT AND PATENT, INFUSING 1/2 NORMAL SALINE AT 75ml/hr. PATIENT PRESENTS NO PAIN OR DISCOMFORT AT THIS TIME. SAFETY PRECAUTIONS IMPLEMENTED WITH BED LOCKED, BED IN THE LOWEST POSITION, HEAD OF BED ELEVATED, BED ALARM ON, BILATERAL SIDE RAILS UP, AND CALL LIGHT WITHIN EASY REACH OF PATIENT. WILL CONTINUE TO MONITOR PATIENT.
[2019-12-27] MEDS: IPRATROPIUM NEB FS 0.5 MG/2.5 ML AMPUL.NEB IH SCH ×4 (07:35→19:37)
[2019-12-27 08:00] VITALS: BP 135/60
[2019-12-27 08:17] VITALS: BP 135/60
[2019-12-27] MEDS: CEFTAZIDIME 1 G in IV D5W 50 ML IV SCH ×2 (08:44→22:28)
[2019-12-27] MEDS: FUROSEMIDE 40 MG TABLET PO SCH (08:46)
[2019-12-27] MEDS: MEMANTINE HCL 5 MG TABLET PO SCH ×2 (08:46→16:34)
[2019-12-27] MEDS: FENOFIBRATE NANOCRYS (145 MG) 145 MG TABLET PO SCH (08:46)
[2019-12-27] MEDS: ASPIRIN EC 81 MG TABLET.DR PO SCH (08:46)
[2019-12-27] MEDS: CARVEDILOL 12.5 MG TABLET PO SCH (08:47)
[2019-12-27] MEDS: AMLODIPINE BESYLATE 10 MG TABLET PO SCH (08:48)
[2019-12-27] MEDS: APIXABAN 5 MG TABLET PO SCH ×2 (08:49→16:35)
[2019-12-27] MEDS: METFORMIN XR 500 MG TAB.SR.24H PO SCH (09:06)
--- NOTE | 2019-12-27 09:06 | NUR ---
MS RN NOTES PER NIGHTSHIFT, DAUGHTER REQUESTED TO DISCONTINUE ATORVASTATIN, LIPITOR 40mg PO. SPOKE WITH DR. JUANIS MD MADE AWARE AND STATED HE WILL REVIEW PATIENT'S CHART AND DETERMINE IF NEEDED. AT THIS TIME NO NEW ORDERS. WILL CONTINUE TO MONITOR PATIENT.
[2019-12-27] MEDS: DIGOXIN 0.125 MG TABLET PO SCH (12:04)
--- NOTE | 2019-12-27 12:04 | NUR ---
MS RN NOTES PATIENT BLOOD SUGAR 102, PER SLIDING SCALE, NO INSULIN COVERAGE NEEDED. PROVIDED JUICE AND LUNCH TRAY TO PATIENT. WILL CONTINUE TO MONITOR PATIENT.
[2019-12-27 16:00] VITALS: BP 137/55
[2019-12-27 16:39] VITALS: BP 137/55
--- NOTE | 2019-12-27 16:47 | NUR ---
MS RN NOTES PATIENT'S BLOOD SUGAR 97, PER SLIDING SCALE, NO INSULIN COVERAGE NEEDED. PROVIDED JUICE AND SNACK TO THE PATIENT. WILL CONTINUE TO MONITOR PATIENT.
--- NOTE | 2019-12-27 18:30 | NUR ---
MS RN NOTES WHEN CHANGING PATIENT NOTED OPEN WOUND IN SACROCOCCYX. OBSERVED PATIENT CONSTANTLY MOVING IN BED. KEPT SITE CLEAN, DRY AND APPLIED MEPILEX. WOUND CONSULT IN PLACE. WILL CONTINUE TO MONITOR PATIENT AND ENDORSE PLAN OF CARE.
--- NOTE | 2019-12-27 18:50 | NUR ---
MS RN NOTES PATIENT IN BED RESTING, EASILY AWAKEN BY NAME AND LIGHT TOUCH. ALERT AND ORIENTED X 1, CHINESE SPEAKING. PATIENT ON ROOM AIR, WITH NO SIGNS OF RESPIRATORY DISTRESS AT THIS TIME, WITH EVEN NON-LABORED BREATHING, AND PATIENT PRESENTS NO SOB. PATIENT SKIN KEPT CLEAN, WARM AND DRY TO TOUCH. PATIENT IV ACCESS INTACT AND PATENT, INFUSING 1/2 NORMAL SALINE AT 75ml/hr. PATIENT PRESENTS NO PAIN OR DISCOMFORT AT THIS TIME. MET ALL OF PATIENT'S NEEDS. SAFETY PRECAUTIONS IMPLEMENTED WITH BED LOCKED, BED IN THE LOWEST POSITION, HEAD OF BED ELEVATED, BED ALARM ON, BILATERAL SIDE RAILS UP, AND CALL LIGHT WITHIN EASY REACH OF PATIENT. WILL ENDORSE PLAN OF CARE TO UPCOMING NIGHTSHIFT NURSE.
--- NOTE | 2019-12-27 19:10 | NUR ---
MS RN OPENING NOTES: RECEIVED PATIENT IN BED, AWAKE, A/O X1. NO SOB NOTED. NO COMPLAIN OF PAIN. CALL LIGHT WITHIN REACH. BED ALARM ON. BED IN LOWEST AND LOCKED POSITION. HOB ELEVATED. NO BP, IV ON THE RIGHT ARM, WITH SIGN ON THE ROOM, SENIOR ACCOUNTING MANAGER MADE AWARE.
[2019-12-27 19:53] VITALS: BP 119/52
[2019-12-27 20:00] VITALS: BP 119/52
[2019-12-27] MEDS: ATORVASTATIN 40 MG TABLET PO SCH (22:28)
--- NOTE | 2019-12-27 22:37 | NUR ---
blood sugar= 105, no insulin given.
--- NOTE | 2019-12-28 06:00 | NUR ---
MS RN CLOSING NOTES: PATIENT IN BED, AWAKE, NO SOB NOTED. NO COMPLAIN OF PAIN. CALL LIGHT WITHIN REACH. FOR D/C HOME TODAY AT 0800, WILL BE PICKED UP BY THE AMBULANCE ALREADY ARRANGED BY THE CM, CHARGE NURSE AWARE. D/C PACKET ALREADY PREPARED, WILL ENDORSE TO THE NEXT SHIFT RN FOR THE REVIEW.
[2019-12-28] MEDS: IV 1/2NS 1000 ML 1,000 ML IV PRN (06:39)
[2019-12-28] MEDS: BLOOD SUGAR DIAGNOSTIC 1 EACH STRIP VI SCH (06:46)
--- NOTE | 2019-12-28 06:46 | NUR ---
blood sugar=89, no insulin given.
--- NOTE | 2019-12-28 07:20 | NUR ---
MS RN NOTES PATIENT RECEIVED IN BED SLEEPING COMFORTABLY, AND EASILY AWAKEN BY NAME AND LIGHT TOUCH. ALERT AND ORIENTED X 1, INDONESIAN SPEAKING. PATIENT ON ROOM AIR, WITH NO SIGNS OF RESPIRATORY DISTRESS AT THIS TIME, WITH EVEN NON-LABORED BREATHING, AND PATIENT PRESENTS NO SOB. PATIENT SKIN WARM AND DRY TO TOUCH. PATIENT IV ACCESS INTACT AND PATENT, INFUSING 1/2 NORMAL SALINE AT 75ml/hr. PATIENT PRESENTS NO PAIN OR DISCOMFORT AT THIS TIME. SAFETY PRECAUTIONS IMPLEMENTED WITH BED LOCKED, BED IN THE LOWEST POSITION, HEAD OF BED ELEVATED, BED ALARM ON, BILATERAL SIDE RAILS UP, AND CALL LIGHT WITHIN EASY REACH OF PATIENT. WILL CONTINUE TO MONITOR PATIENT.
[2019-12-28] MEDS: IPRATROPIUM NEB FS 0.5 MG/2.5 ML AMPUL.NEB IH SCH (07:35)
[2019-12-28 08:04] VITALS: BP 139/56
--- NOTE | 2019-12-28 08:32 | NUR ---
MS RN NOTES PATIENT ALERT AND ORIENTED X 1. ON ROOM AIR, WITH NO SIGNS OF RESPIRATORY DISTRESS AT THIS TIME, WITH EVEN NON-LABORED BREATHING, AND NO SOB NOTED. PATIENT LEFT IN STABLE CONDITION. VITAL SIGNS WITHIN NORMAL LIMIT. PATIENT SKIN CLEAN AND DRY. IV ACCESS REMOVED WITH CATHETER TIP INTACT, AND APPLIED PRESSURE TO SITE. REMOVED ID BAND. PATIENT PRESENTS NO SIGN OR PAIN OR DISCOMFORT. PROVIDED EDUCATION TO PATIENT AND PROVIDED DISCHARGE PACKET TO PATIENT. PATIENT LEFT THE UNIT VIA GURNEY ACCOMPANIED BY TRANSPORTATION SERVICE.
[2019-12-29] MEDS ORDERED: ALENDRONATE 70 MG TABLET PO SCH (07:30)
== END 2019-12-28 08:30 | disposition home health service (06) | DRG 682 ==
LOC: ER 10:58 → TELE 16:26 → MED 16:34
PROVIDERS: ADMIT Internal Medicine; ATTEND Internal Medicine
DX: N17.0 Acute kidney failure with tubular necrosis (principal); G93.41 Metabolic encephalopathy; N39.0 Urinary tract infection, site not specified; I13.0 Hypertensive heart and chronic kidney disease with heart failure and stage 1 through stage 4 chronic kidney disease, or unspecified chronic kidney disease; I50.32 Chronic diastolic (congestive) heart failure; D68.59 Other primary thrombophilia; I82.4Z2 Acute embolism and thrombosis of unspecified deep veins of left distal lower extremity; N18.9 Chronic kidney disease, unspecified; E11.22 Type 2 diabetes mellitus with diabetic chronic kidney disease; I25.10 Atherosclerotic heart disease of native coronary artery without angina pectoris; I48.91 Unspecified atrial fibrillation; E66.9 Obesity, unspecified; D64.9 Anemia, unspecified; E78.5 Hyperlipidemia, unspecified; Z85.3 Personal history of malignant neoplasm of breast; I70.0 Atherosclerosis of aorta; G89.29 Other chronic pain; E11.42 Type 2 diabetes mellitus with diabetic polyneuropathy; M19.90 Unspecified osteoarthritis, unspecified site; E78.00 Pure hypercholesterolemia, unspecified; Z90.11 Acquired absence of right breast and nipple; Z90.49 Acquired absence of other specified parts of digestive tract; Z79.84 Long term (current) use of oral hypoglycemic drugs; Z79.899 Other long term (current) drug therapy; Z79.51 Long term (current) use of inhaled steroids; Z79.82 Long term (current) use of aspirin; Z79.01 Long term (current) use of anticoagulants; E87.6 Hypokalemia; B96.89 Other specified bacterial agents as the cause of diseases classified elsewhere
CPT/HCPCS: 36415; 71045-TC; 80048-TC; 80053-TC; 80076-TC; 80162-TC; 81000-TC; 82962-TC; 83605-TC; 83735-TC; 84100-TC; 84443-TC; 84484-TC; 85025-TC; 85730-TC; 87040-TC; 87081-TC; 87086-TC; 87186-TC; G0378; J0696; J0713; J1650; J1815; J2060; J3490; J7030; J7060

== ENCOUNTER 2020-01-18 01:56 | Inpatient (IN) | payer MEDICARE, OTHER ==
[~2020-01-18] VITALS: Ht 152.4 cm; Wt 64.4 kg
[~2020-01-18 01:56] MED LIST changes: +ASPI-605 PO; -ASPI-992 PO; -ATOR40TA PO; -NITR100C PO; +TEMA15CA PO
--- NOTE | 2020-01-18 02:10 | NUR ---
PT BIBA FROM HOME C/O R SIDED FLANK PAIN RADIATING TO BACK. RECEIVED NORCO AT HOME W/ NO RELIEF. NO RECENT TRAUMA PER REPORT. PT HAS R SIDED BREAST CANCER. PT AAOX4, VSS, RESPIRATIONS EVEN AND UNLABORED ON RA W/ NAD NOTED. PT CONNECTED TO THE MONITOR AND POX
--- NOTE | 2020-01-18 02:15 | NUR ---
BLOOD COLLECTED AND SENT TO LAB
[2020-01-18] MEDS ORDERED: MORPHINE SULFATE INJ 4 MG/ML DISP.SYRIN ONE (02:18)
[2020-01-18] MEDS ORDERED: ONDANSETRON HCL/PF 4 MG/2 ML VIAL ONE (02:18)
--- NOTE | 2020-01-18 02:29 | NUR ---
URINE COLLECTED AND SENT TO LAB
[2020-01-18] MEDS ORDERED: MORPHINE SULFATE INJ 2 MG/ML DISP.SYRIN IV ONE (02:30)
[2020-01-18] MEDS ORDERED: ONDANSETRON HCL/PF 4 MG/2 ML VIAL IVP ONE (02:30)
[2020-01-18] MEDS ORDERED: HYDROMORPHONE INJ 2 MG/ML DISP.SYRIN IV ONE (02:30)
--- NOTE | 2020-01-18 02:30 | NUR ---
PT TAKEN TO CT
[2020-01-18 02:31] LABS: CALCIUM, SERUM 9.9 mg/dL (8.5-10.1); POTASSIUM 3.7 mmol/L (3.5-5.1)
[2020-01-18 02:37] LABS: BILIRUBIN,DIRECT 0.2 mg/dL (0.0-0.2); BILIRUBIN,TOTAL 0.5 mg/dL (0.2-1.0); TOTAL PROTEIN, SERUM 7.1 g/dL (6.4-8.2)
--- NOTE | 2020-01-18 02:42 | NUR ---
PT BACK FROM CT
[2020-01-18 02:48] LABS: BASOPHILS # (AUTO) 0.1 /CMM (0.0-0.2); BASOPHILS % (AUTO) 0.9 % (0.0-2.0); EOSINOPHILS % (AUTO) 3.2 % (0.0-6.0); HEMATOCRIT 30 % (33-45); LYMPHOCYTES # (AUTO) 2.2 /CMM (0.8-4.8); LYMPHOCYTES % (AUTO) 37.4 % (20.0-44.0); MEAN CORPUSCULAR HGB CONC 33 g/dl (31.0-36.0); MEAN CORPUSCULAR VOLUME 88 fL (82-100); MONOCYTES # (AUTO) 0.6 /CMM (0.1-1.30); MONOCYTES % (AUTO) 10.9 % (2.0-12.0); NEUTROPHILS # (AUTO) 2.8 /CMM (1.8-8.9); NEUTROPHILS % (AUTO) 47.6 % (43.0-81.0); PLATELET COUNT (AUTO) 265 /CMM (150-450); RED BLOOD CELL COUNT(AUTO) 3.45 MIL/uL (4.0-5.2); WHITE BLOOD COUNT (AUTO) 5.9 K/uL (4.3-11.0)
[2020-01-18 02:55] LABS: APPEARANCE,URINE CLOUDY (CLEAR); BILIRUBIN,URINE NEGATIVE (NEGATIVE); BLOOD, URINE TRACE-INTA Ery/uL (NEGATIVE); COLOR,URINE YELLOW (YELLOW); KETONES,URINE NEGATIVE (NEGATIVE); LEUKOCYTE ESTERASE ,URINE LARGE (NEGATIVE); NITRITE, URINE NEGATIVE (NEGATIVE); PROTEIN,URINE NEGATIVE (NEGATIVE); UGLUCOSE NEGATIVE (NEGATIVE); UROBILINOGEN,URINE 0.2 EU/dL (0.2)
[2020-01-18 02:56] LABS: BACTERIA,URINE Few /HPF (None Seen); SQUAMOUS EPITHELIAL CELL,UR Few /HPF (None Seen); WBC,URINE 51-80 /HPF (0-3)
[2020-01-18] MEDS ORDERED: HYDROCODONE/APAP 5/325MG 1 EACH TABLET PO PRN ×2 (03:30→09:30)
[2020-01-18] MEDS ORDERED: MAG HYDROX/AL HYDROX/SIMETH 30 ML UDC PO PRN (03:30)
[2020-01-18] MEDS ORDERED: PIPERACILLIN /TAZOBACTAM 3.375 G in IV D5W 50 ML IV ONE (03:30)
[2020-01-18] MEDS ORDERED: ONDANSETRON HCL/PF 4 MG/2 ML VIAL IVP PRN (03:30)
[2020-01-18] MEDS ORDERED: Z GUARD REMEDY 2 OZ OINT TP PRN (03:30)
[2020-01-18] MEDS ORDERED: ACETAMINOPHEN 325 MG TABLET PO PRN ×2 (03:30→09:30)
[2020-01-18] MEDS ORDERED: TEMAZEPAM 15 MG CAPSULE PO PRN ×2 (03:30→09:30)
[2020-01-18] MEDS ORDERED: PIPERACILLIN /TAZOBACTAM 3.375 G VIAL IV ONE (03:32)
--- NOTE | 2020-01-18 03:32 | NUR ---
COVID SWAB SAMPLE COLLECTED AND SENT TO THE LAB.
--- NOTE | 2020-01-18 04:06 | NUR ---
REPORT GIVEN TO DREW CHAMBERS
--- NOTE | 2020-01-18 04:14 | NUR ---
REC'D NEG COVID RESULTS
--- NOTE | 2020-01-18 04:32 | NUR ---
PT TRANSFERRED TO ROOM IN STABLE CONDITION
[2020-01-18 04:40] VITALS: BP 128/88
--- NOTE | 2020-01-18 04:40 | NUR ---
MS VALANCE CUTTER NOTE RECEIVED PATIENT VIA GURNEY. TRANSFERRED TO BED. A/OX3, IT[place] SPEAKING. TOLERATING ROOM AIR. RESPIRATIONS ARE EVEN AND UNLABORED. NO S/SS OB NOTED. NO C/O PAIN AT THIS TIME. IN NO APPARENT DISTRESS. IV ACCESS IN LEFT WRIST #20 PATENT AND SALINE LOCKED. INATAL PHYSICAL ASSESSMENT COMPLETED AT THIS ITME. SKIN ASSESSMENT COMPLETED AT THIS TIME AND PHOTOS PLACED IN CHART. HEATSET WINDER OPERATOR OBTAINED VITALS AND COMPLETED BELONGINGS LIST. BED IS LOW AND LOCKED, HOB ELEVATED IN SEMI FOWLERS, SIDE RIALS UP X2. PATRICIA LIGHT WITHIN REACH. WILL CONTINUE TO MONITOR.
[2020-01-18] MEDS: IV NS 0.9% 1,000 ML IV PRN ×2 (04:53→21:31)
[2020-01-18] MEDS ORDERED: PIPERACILLIN /TAZOBACTAM 3.375 G in IV D5W 50 ML IV SCH (05:00)
--- NOTE | 2020-01-18 06:12 | NUR ---
ms rn note informed personal computer specialist MD Barnes that patient VTE score is >5 and if he would like to order any chemical prophylaxis. stated to endorse to day hospitalist. will endorse to next shift to obtain order for chemical prophylaxis.
--- NOTE | 2020-01-18 07:30 | NUR ---
MS RN CLOSING NOTE PATIENT IN BED. A/OX3, BERMUDIAN SPEAKING. TOLERATING ROOM AIR. NO RESP DISTRESS. NO PAIN. IV ACCESS MAINTAINED IN LEFT WRIST #20 RUNNING NS@75ML/HR. BED REMAINS LOW AND LOCKED, HOB ELEVATED IN SEMI FOWLERS, SIDE RIALS UP X2. PATRICIA LIGHT WITHIN REACH. WILL ENDORSE TO NEXT SHIFT.
--- NOTE | 2020-01-18 07:45 | NUR ---
MS RN NOTES PATIENT RECEIVED IN BED AWAKE, ALERT AND ORIENTED X 2-3. ON ROOM AIR WITH NO SIGNS OF RESPIRATORY DISTRESS AT THIS TIME, WITH EVEN NON-LABORED BREATHING, AND NO SOB NOTED. SKIN WARM AND DRY TO TOUCH. IV ACCESS INTACT PATENT. PROVIDED COMFORT MEASURES TO PATIENT. SAFETY PRECAUTIONS IMPLEMENTED WITH BED LOCKED, BED IN THE LOWEST POSITION, BILATERAL SIDE RAILS UP, BED ALARM ON AND CALL LIGHT WITHIN EASY REACH. WILL CONTINUE TO MONITOR PATIENT.
[2020-01-18] MEDS ORDERED: LISI10TA5 PO (07:58)
[2020-01-18] MEDS ORDERED: ALLO100T PO (07:58)
[2020-01-18] MEDS ORDERED: POTA8TAB3 PO (07:58)
[2020-01-18 08:00] VITALS: BP 126/60
[2020-01-18] MEDS: PANTOPRAZOLE 40 MG TABLET.DR PO SCH (08:48)
--- NOTE | 2020-01-18 09:00 | NUR ---
MS RN NOTES INFORMED MEGAN MOHR DNP, ABOUT PATIENT'S MED RECON. ALSO INFORMED ABOUT PATIENT'S VTE SCORE >5, NO NEW ORDERS AT THIS TIME. WILL CONTINUE TO MONITOR PATIENT AT THIS TIME.
[2020-01-18] MEDS ORDERED: CLONIDINE HCL 0.1 MG TABLET PO PRN (09:30)
[2020-01-18] MEDS ORDERED: NITROGLYCERIN 0.4 MG/TAB BOTTLE SL PRN (09:30)
[2020-01-18] MEDS ORDERED: PANTOPRAZOLE 40 MG TABLET.DR PO PRN (09:30)
[2020-01-18] MEDS ORDERED: LORAZEPAM 0.5 MG TABLET PO PRN (09:30)
[2020-01-18] MEDS: METFORMIN XR 500 MG TAB.SR.24H PO SCH (11:08)
[2020-01-18] MEDS: PIPERACILLIN /TAZOBACTAM 3.375 G in IV D5W 100 ML IV SCH ×2 (11:08→20:02)
[2020-01-18] MEDS: LISINOPRIL (10MG) 10 MG TABLET PO SCH (11:09)
[2020-01-18] MEDS: IPRATROPIUM NEB FS 0.5 MG/2.5 ML AMPUL.NEB IH SCH (11:30)
[2020-01-18] MEDS: ALBUTEROL HALF STRENGTH 1.25 MG/3 ML VIAL.NEB IH SCH (11:30)
[2020-01-18] MEDS: BLOOD SUGAR DIAGNOSTIC 1 EACH STRIP IN SCH ×3 (12:16→23:28)
[2020-01-18] MEDS ORDERED: DIGOXIN 0.125 MG TABLET PO SCH ×2 (13:00)
[2020-01-18 16:00] VITALS: BP 124/64
[2020-01-18] MEDS: CARVEDILOL 12.5 MG TABLET PO SCH (17:00)
[2020-01-18] MEDS: ENSURE ENLIVE 237 ML LIQUID (VANILLA) PO SCH (17:29)
[2020-01-18] MEDS: ALLOPURINOL 100 MG TABLET PO SCH (17:29)
[2020-01-18] MEDS: MEMANTINE HCL 5 MG TABLET PO SCH (17:29)
--- NOTE | 2020-01-18 19:35 | NUR ---
MS RN NOTES PATIENT IN BED RESTING COMFORTABLY. ALERT AND ORIENTED X 2-3. NICARAGUAN SPEAKING. PATIENT ON ROOM AIR WITH NO SIGNS OF RESPIRATORY DISTRESS AT THIS TIME, WITH EVEN NON-LABORED BREATHING, AND NO SOB NOTED. PATIENT SKIN KEPT CLEAN AND DRY. IV ACCESS REMAINS INTACT AND PATENT, INFUSING 75ml/hr of NORMAL SALINE. PROVIDED COMFORT MEASURES TO PATIENT. SAFETY PRECAUTIONS IMPLEMENTED WITH BED LOCKED, BED IN THE LOWEST POSITION, BILATERAL SIDE RAILS UP, BED ALARM ON, AND CALL LIGHT WITHIN EASY REACH OF PATIENT. WILL ENDORSE PLAN OF CARE TO UPCOMING CRUSHER FEEDER NURSE.
[2020-01-18 20:00] VITALS: BP 164/68
--- NOTE | 2020-01-18 20:21 | NUR ---
MS/RN OPENING NOTE Patient awake in bed. A/O x2. Speaks Syrian only. Breath sounds clear, even, unlabored. Patient on room air. No signs of acute distress or SOB. Skin warm, pink, dry, appropriate for ethnicity. Healed surgical wound under right breast noted. IV site left wrist 20g, patent and intact running NS @ 75 ml/hr. No signs of redness or infiltration. Bed in low position, wheels locked, side rails up x2, call light within reach.
[2020-01-18 20:56] VITALS: BP 164/68
[2020-01-18] MEDS: MORPHINE SULFATE INJ 2 MG/ML DISP.SYRIN IV PRN (21:46)
--- NOTE | 2020-01-18 22:34 | NUR ---
MS/RN NOTE Patient pulled out IV. Patient is very agitated. Will continue to monitor.
--- NOTE | 2020-01-18 22:53 | NUR ---
MS/RN CLOSING NOTE Patient awake in bed. A/O x2. Breath sounds clear, even, unlabored. Patient on room air. No signs of acute distress or SOB. Healed surgical wound under right breast noted. Patient has no IV access at this time d/t patient pulling out. Waiting for midline nurse to attempt midline. MD made aware. Bed in low position, wheels locked, side rails up x2, call light within reach.
--- NOTE | 2020-01-18 23:24 | NUR ---
RN NOTES Received patient awake, on RA, no s/sx of distress noted. Combative, kicking/punching staff. No present peripheral IV line at this time, awaiting for Midline to be inserted. Checked blood sugar at this time per order. Kept on bed clean, dry and comfortable. On fall and aspiration precautions. Will continue to monitor accordingly.
--- NOTE | 2020-01-19 01:00 | NUR ---
RN NOTES DREW Kamara at bedside for midline insertion. G#18 RYAN midline secured accordingly. Resume IV ATB as ordered. Will continue to monitor accordingly.
[2020-01-19] MEDS: MORPHINE SULFATE INJ 2 MG/ML DISP.SYRIN IV PRN (02:04)
[2020-01-19] MEDS: PIPERACILLIN /TAZOBACTAM 3.375 G in IV D5W 100 ML IV SCH ×3 (03:59→20:11)
--- NOTE | 2020-01-19 04:11 | NUR ---
RT NOTES WILL ENDORSE WA TX TO DAY SHIFT. NO DISTRESS NOTED
[2020-01-19] MEDS: BLOOD SUGAR DIAGNOSTIC 1 EACH STRIP IN SCH ×4 (06:36→21:22)
[2020-01-19] MEDS: PANTOPRAZOLE 40 MG TABLET.DR PO SCH (06:37)
[2020-01-19 07:00] LABS: BASOPHILS % (AUTO) 0.6 % (0.0-2.0); EOSINOPHILS % (AUTO) 1.8 % (0.0-6.0); HEMATOCRIT 30 % (33-45); HEMOGLOBIN 10.2 g/dL (11.5-14.8); LYMPHOCYTES # (AUTO) 1.7 /CMM (0.8-4.8); MEAN CORPUSCULAR HGB CONC 33 g/dl (31.0-36.0); MEAN CORPUSCULAR VOLUME 88 fL (82-100); MONOCYTES # (AUTO) 0.6 /CMM (0.1-1.30); MONOCYTES % (AUTO) 8.4 % (2.0-12.0); NEUTROPHILS # (AUTO) 4.7 /CMM (1.8-8.9); NEUTROPHILS % (AUTO) 65.2 % (43.0-81.0); PLATELET COUNT (AUTO) 280 /CMM (150-450); RED BLOOD CELL COUNT(AUTO) 3.47 MIL/uL (4.0-5.2); WHITE BLOOD COUNT (AUTO) 7.2 K/uL (4.3-11.0)
[2020-01-19 07:08] LABS: CALCIUM, SERUM 9.8 mg/dL (8.5-10.1); CREATININE 1.2 mg/dL (0.6-1.3); MAGNESIUM 1.7 mg/dL (1.8-2.4); PHOSPHORUS 2.9 mg/dL (2.5-4.9); POTASSIUM 3.4 mmol/L (3.5-5.1)
--- NOTE | 2020-01-19 07:29 | NUR ---
RN CLOSING NOTES Pt on bed asleep, easily awaken. With bilateral soft wrist restraints. No new complaints noted. All nursing needs attended. Kept on bed clean, dry and comfortable. Endorsed.
[2020-01-19] MEDS ORDERED: ALENDRONATE 70 MG TABLET PO SCH (07:30)
--- NOTE | 2020-01-19 07:30 | NUR ---
MS/RN OPENING NOTE Patient in bed, A/O x2, Malian speaking. No complaints of pain/discomfort noted. Breathing even and non-labored on RA. No respiratory or cardiac distress noted. IV access noted on RYAN Midline #18, patent and intact, and running NS 75 mls/hr. No s/s of infiltration/bleeding/infection noted on site. Sensation from all peripheral extremities intact. Bilateral soft wrist restraints in place, will continue to monitor skin and circulation every 15 minutes. Currently, skin and sensation from both extremities are intact. Fall precautions maintained. Will continue with current plan of care.
[2020-01-19] MEDS: ALBUTEROL HALF STRENGTH 1.25 MG/3 ML VIAL.NEB IH SCH ×4 (07:56→20:02)
[2020-01-19] MEDS: IPRATROPIUM NEB FS 0.5 MG/2.5 ML AMPUL.NEB IH SCH ×4 (07:56→20:02)
[2020-01-19 08:00] VITALS: BP 136/79
[2020-01-19] MEDS: ASPIRIN EC 81 MG TABLET.DR PO SCH (08:15)
[2020-01-19] MEDS: POTASSIUM CHLORIDE 10 MEQ TABLET.SA PO SCH (08:15)
[2020-01-19] MEDS: FENOFIBRATE NANOCRYS (145 MG) 145 MG TABLET PO SCH (08:15)
[2020-01-19] MEDS: METFORMIN XR 500 MG TAB.SR.24H PO SCH (08:15)
[2020-01-19] MEDS: CARVEDILOL 12.5 MG TABLET PO SCH ×2 (08:16→17:00)
[2020-01-19] MEDS: ALLOPURINOL 100 MG TABLET PO SCH ×2 (08:16→17:39)
[2020-01-19] MEDS: MEMANTINE HCL 5 MG TABLET PO SCH ×2 (08:16→17:38)
[2020-01-19] MEDS: FUROSEMIDE 40 MG TABLET PO SCH (08:16)
[2020-01-19] MEDS: AMLODIPINE BESYLATE 10 MG TABLET PO SCH (08:17)
[2020-01-19] MEDS: LISINOPRIL (10MG) 10 MG TABLET PO SCH (08:17)
[2020-01-19] MEDS: ENSURE ENLIVE 237 ML LIQUID (VANILLA) PO SCH ×2 (08:17→16:55)
[2020-01-19] MEDS ORDERED: CARVEDILOL 25 MG TABLET PO SCH (09:00)
--- NOTE | 2020-01-19 09:30 | NUR ---
WOUND CARE CONSULT: PT PRESENTS WITH REDDENED THICKENED SKIN TO RT CHEST AREA, PRESENT ON ADMISSION. PT HAS HISTORY OF RT BREAST CANCER TREATMENT. PT NOTED TO BE INCONTINENT. RECOMMENDATIONS MADE FOR SKIN PROTECTION. DISCUSSED WITH NURSING STAFF. WILL SEE PRN. CORONA IN AGREEMENT WITH PLAN OF CARE. Addendum: 01/19/20 at 0931 by KAROL MELENDEZ WNDNU Amended: Links added.
[2020-01-19] MEDS: Magnesium 1GM/D5W 100ML PREMIX 100 ML IV SCH ×2 (09:50→10:59)
--- NOTE | 2020-01-19 10:22 | NUR ---
MS/RN NOTES Merlene Ferrell NP at bedside, okay to d/c restraints. Will continue to monitor patient for any changes of condition.
[2020-01-19] MEDS: POTASSIUM CHLORIDE 20 MEQ TAB.PRT.SR PO SCH ×2 (12:41→14:02)
[2020-01-19 16:00] VITALS: BP 103/57
--- NOTE | 2020-01-19 19:41 | NUR ---
MS/RN CLOSING NOTE S Patient resting in bed, A/O x2, remained calm for the rest of the day. Denies any pain/discomfort throughout shift. Breathing even and non-labored on RA. No respiratory or cardiac distress noted. IV access noted on RYAN Midline #18, patent and intact, and running NS 75 mls/hr. Sensation from all peripheral extremities intact. Fall precautions maintained. Will endorse to rn night nurse.
--- NOTE | 2020-01-19 19:45 | NUR ---
MS/RN OPENING NOTES RECEIVED PATIENT IN BED, ASLEEP BUT AROUSES, CALM AND COOPERATIVE TO CARE, BED LOCKED, CALL LIGHTS WITHIN REACH, ON ROOM AIR RESPIRATIONS EVEN AND UNLABORED,BURUNDIAN SPEAKING, BED REST REQUIRE EXTENSIVE ASSIST, PATIENT WITH RYAN MIDLINE TO MONITOR AND ON IV FLUIDS, WILL MONITOR. BED LOCKED, CALL LIGHTS WITHIN REACH, WILL MONITOR.
[2020-01-19 20:00] VITALS: BP 100/61
--- NOTE | 2020-01-19 22:00 | NUR ---
BLOOD SUGAR CHECK AT 91.
[2020-01-20] MEDS: IV NS 0.9% 1,000 ML IV PRN (03:23)
[2020-01-20] MEDS: PIPERACILLIN /TAZOBACTAM 3.375 G in IV D5W 100 ML IV SCH ×3 (03:24→20:00)
[2020-01-20] MEDS: BLOOD SUGAR DIAGNOSTIC 1 EACH STRIP IN SCH ×3 (06:12→17:39)
--- NOTE | 2020-01-20 06:27 | NUR ---
325-2 MS/RN NOTES PATIENT IN BED, ABLE TO SLEEP DURING THE NIGHT, ASSISTED AND REPOSITIONED, MONITORED FOR ANY CHANGES, OFFERED AND PROVIDED FLUIDS, KEPT COMFORTABLE, ON IV HYDRATION, ALERT X2, BED LOCKED,CALL LIGHTS WITHIN REACH, WILL MONITOR.
[2020-01-20 07:03] LABS: BASOPHILS % (AUTO) 0.5 % (0.0-2.0); EOSINOPHILS % (AUTO) 3.4 % (0.0-6.0); HEMATOCRIT 28 % (33-45); LYMPHOCYTES # (AUTO) 1.2 /CMM (0.8-4.8); LYMPHOCYTES % (AUTO) 26.3 % (20.0-44.0); MEAN CORPUSCULAR HGB CONC 33 g/dl (31.0-36.0); MEAN CORPUSCULAR VOLUME 89 fL (82-100); MONOCYTES # (AUTO) 0.4 /CMM (0.1-1.30); MONOCYTES % (AUTO) 8.7 % (2.0-12.0); NEUTROPHILS # (AUTO) 2.9 /CMM (1.8-8.9); NEUTROPHILS % (AUTO) 61.1 % (43.0-81.0); PLATELET COUNT (AUTO) 247 /CMM (150-450); RED BLOOD CELL COUNT(AUTO) 3.09 MIL/uL (4.0-5.2); WHITE BLOOD COUNT (AUTO) 4.7 K/uL (4.3-11.0)
[2020-01-20 07:17] LABS: CALCIUM, SERUM 9.1 mg/dL (8.5-10.1); CREATININE 1.1 mg/dL (0.6-1.3); MAGNESIUM 2.3 mg/dL (1.8-2.4); PHOSPHORUS 3.9 mg/dL (2.5-4.9); POTASSIUM 4.2 mmol/L (3.5-5.1)
--- NOTE | 2020-01-20 07:25 | NUR ---
RN OPENING NOTE Patient is resting in bed, A/O x2, responsive, showing no signs of acute distress or SOB, stable on RA. Patient has no complaints of pain at this time. RYAN midline noted clean and intact running NS @ 75mls/hour. Will turn and reposition patient every 2 hours. Bed is in lowest position, side rails x3 in upright position, fall safety and aspiration precautions enforced. Will continue with plan of care.
[2020-01-20 08:00] VITALS: BP 119/59
[2020-01-20] MEDS: FENOFIBRATE NANOCRYS (145 MG) 145 MG TABLET PO SCH (08:07)
[2020-01-20] MEDS: POTASSIUM CHLORIDE 10 MEQ TABLET.SA PO SCH (08:07)
[2020-01-20] MEDS: CARVEDILOL 12.5 MG TABLET PO SCH ×2 (08:07→16:05)
[2020-01-20] MEDS: ASPIRIN EC 81 MG TABLET.DR PO SCH (08:07)
[2020-01-20] MEDS: FUROSEMIDE 40 MG TABLET PO SCH (08:07)
[2020-01-20] MEDS: ALLOPURINOL 100 MG TABLET PO SCH ×2 (08:07→16:06)
[2020-01-20] MEDS: MEMANTINE HCL 5 MG TABLET PO SCH ×2 (08:07→16:05)
[2020-01-20] MEDS: PANTOPRAZOLE 40 MG TABLET.DR PO SCH (08:07)
[2020-01-20] MEDS: ENSURE ENLIVE 237 ML LIQUID (VANILLA) PO SCH ×2 (08:08→16:06)
[2020-01-20] MEDS: METFORMIN XR 500 MG TAB.SR.24H PO SCH (08:08)
[2020-01-20] MEDS: IPRATROPIUM NEB FS 0.5 MG/2.5 ML AMPUL.NEB IH SCH ×4 (08:41→20:14)
[2020-01-20] MEDS: ALBUTEROL HALF STRENGTH 1.25 MG/3 ML VIAL.NEB IH SCH ×4 (08:41→20:14)
[2020-01-20] MEDS: LISINOPRIL (10MG) 10 MG TABLET PO SCH (09:00)
[2020-01-20] MEDS: AMLODIPINE BESYLATE 10 MG TABLET PO SCH (09:00)
--- NOTE | 2020-01-20 11:59 | NUR ---
RN NOTE Patient pulled out midline line, COMPOSING MACHINE OPERATOR at bedside, stated that patient is plan to DC today and no need for IV. Addendum: 01/20/20 at 1200 by NICA SAMS RN OK per COMPOSING MACHINE OPERATOR to nonadmin the IV zosyn
[2020-01-20] MEDS ORDERED: LEVO500T23 PO (12:16)
[2020-01-20] MEDS ORDERED: CARV12.52 PO (12:16)
[2020-01-20 16:00] VITALS: BP 130/70
[2020-01-20 16:17] VITALS: BP 130/70
--- NOTE | 2020-01-20 18:47 | NUR ---
RN CLOSING NOTE Patient is resting in bed, A/O x2, responsive, showing no signs of acute distress or SOB, stable on RA. Patient has no complaints of pain at this time. IV line removed, MD aware. Patient turned and repositioned every 2 hours. All patient needs met, all due medications given, patient kept clean and dry throughout shift. Bed is in lowest position, side rails x3 in upright position, fall safety and aspiration precautions enforced. Patient is discharged. DC paperwork completed. Expected slate picker time is 1900. Skin assessed, photos taken and placed in chart. Will endorse to fast food shift lead.
--- NOTE | 2020-01-20 20:00 | NUR ---
MS/RN NOTES PATIENT AWAITING FOR TRANSPORT PATIENT IS GOING TO BE DISCHARGE TO HOME PER EDUIN CORONA CONTACTED SAID THEY ASRE RUNNING LATE WILL BE ARRIVING AROUND 830PM, LETI HUFF WAS MADE AWARE, PATIENT ALERT X2, BEING CHANGE B AND ASSESSED SKIN AND REPOSITION INTACT, WILL MONITOR,ON OXYGEN VIA NC AT 2 LITER TO MONITOR.
[2020-01-20 21:00] VITALS: BP 154/58
--- NOTE | 2020-01-20 21:00 | NUR ---
MS/RN NOTES DISCHARGE AGENT BASED MODELER BY AMBULANCE JACKELYN ON A GURNEY ACCOMPANIED BY 2 EMT, PATIENT ALERT X2, UKRAINIAN SPEAKING, BELONGINGS RECEIVED, VITAL SIGNS CHECK, ID BAND AND IV SITE REMOVED, NO PAIN OBSERVED AND REPORTED. PATIENT TO BE DISCHAGR TO HOME WITH HOME HEALTH DAUGHTER MADE AWARE REPORT GIVEN TO AMBULANCE.
== END 2020-01-20 21:05 | disposition home health service (06) | DRG 689 ==
LOC: ER 01:58 → MED 03:57
PROVIDERS: ADMIT Nurse Practitioner Acute Care; ATTEND Registered Nurse
PROC: 05H933Z Insertion of Infusion Device into Right Brachial Vein, Percutaneous Approach (ICD-10-PCS; principal; 2020-01-19)
DX: N30.90 Cystitis, unspecified without hematuria (principal); N17.0 Acute kidney failure with tubular necrosis; D68.59 Other primary thrombophilia; N12 Tubulo-interstitial nephritis, not specified as acute or chronic; E86.0 Dehydration; Z85.3 Personal history of malignant neoplasm of breast; Z90.11 Acquired absence of right breast and nipple; I48.91 Unspecified atrial fibrillation; D63.8 Anemia in other chronic diseases classified elsewhere; Z86.718 Personal history of other venous thrombosis and embolism; Z90.49 Acquired absence of other specified parts of digestive tract; Z79.82 Long term (current) use of aspirin; E87.6 Hypokalemia; I25.10 Atherosclerotic heart disease of native coronary artery without angina pectoris; Z79.899 Other long term (current) drug therapy; E11.9 Type 2 diabetes mellitus without complications; Z79.84 Long term (current) use of oral hypoglycemic drugs; Z79.51 Long term (current) use of inhaled steroids; T46.0X5A Adverse effect of cardiac-stimulant glycosides and drugs of similar action, initial encounter; Y92.9 Unspecified place or not applicable; I50.9 Heart failure, unspecified; I11.0 Hypertensive heart disease with heart failure; J45.909 Unspecified asthma, uncomplicated; G89.29 Other chronic pain; E78.00 Pure hypercholesterolemia, unspecified; E66.9 Obesity, unspecified; N20.0 Calculus of kidney; Z98.890 Other specified postprocedural states
CPT/HCPCS: 36415; 71045-TC; 80048-TC; 80076-TC; 80162-TC; 81000-TC; 82962-TC; 83605-TC; 83690-TC; 83735-TC; 84100-TC; 85025-TC; 85730-TC; 87040-TC; 87081-TC; 87086-TC; 94799-TC; 97530-TC; G0378; J2270; J2405; J2543; J3475; J7030; J7060

== ENCOUNTER 2020-01-28 07:10 | Inpatient (IN) | payer MEDICARE, OTHER ==
[~2020-01-28] VITALS: Ht 157.5 cm; Wt 65.3 kg
[~2020-01-28 07:10] MED LIST changes: +ALLO100T PO; +CARV12.52 PO; -DIGO125T PO; +LEVO500T23 PO; +LISI10TA5 PO; +POTA8TAB3 PO
--- NOTE | 2020-01-28 07:15 | NUR ---
florencio 878 from home for c/o R sided ABD pain since last night. +N/V. Patient a/ox3, tajik speaking, breathing even and unlabored, no sob noted, attached to the refinery process engineer.
[2020-01-28] MEDS ORDERED: MORPHINE SULFATE INJ 4 MG/ML DISP.SYRIN ONE ×2 (07:52→12:36)
[2020-01-28] MEDS ORDERED: ONDANSETRON HCL/PF 4 MG/2 ML VIAL ONE (07:52)
[2020-01-28] MEDS ORDERED: ONDANSETRON HCL/PF 4 MG/2 ML VIAL IVP ONE (08:00)
[2020-01-28] MEDS ORDERED: IV NS 0.9% 1,000 ML BAG IV ONE (08:00)
[2020-01-28] MEDS ORDERED: MORPHINE SULFATE INJ 2 MG/ML DISP.SYRIN IV ONE (08:00)
[2020-01-28 08:07] LABS: BASOPHILS % (AUTO) 0.4 % (0.0-2.0); EOSINOPHILS % (AUTO) 0.9 % (0.0-6.0); HEMATOCRIT 30 % (33-45); HEMOGLOBIN 9.7 g/dL (11.5-14.8); LYMPHOCYTES # (AUTO) 1.4 /CMM (0.8-4.8); LYMPHOCYTES % (AUTO) 20.8 % (20.0-44.0); MEAN CORPUSCULAR HGB CONC 33 g/dl (31.0-36.0); MEAN CORPUSCULAR VOLUME 89 fL (82-100); MONOCYTES # (AUTO) 0.7 /CMM (0.1-1.30); MONOCYTES % (AUTO) 10.4 % (2.0-12.0); NEUTROPHILS # (AUTO) 4.4 /CMM (1.8-8.9); NEUTROPHILS % (AUTO) 67.5 % (43.0-81.0); PLATELET COUNT (AUTO) 231 /CMM (150-450); RED BLOOD CELL COUNT(AUTO) 3.32 MIL/uL (4.0-5.2); WHITE BLOOD COUNT (AUTO) 6.5 K/uL (4.3-11.0)
--- NOTE | 2020-01-28 08:07 | NUR ---
Iv line established, blood drawn and sent to lab.
[2020-01-28 08:23] LABS: CALCIUM, SERUM 9.4 mg/dL (8.5-10.1); CARBON DIOXIDE 28 mmol/L (21-32); CHLORIDE 101 mmol/L (98-107); CREATININE 1.2 mg/dL (0.6-1.3); GLUCOSE 126 mg/dL (74-106); POTASSIUM 3.5 mmol/L (3.5-5.1); SODIUM SERUM 139 mmol/L (136-145); UREA NITROGEN, BLOOD 33 mg/dL (7-18)
[2020-01-28 08:36] LABS: ALANINE AMINOTRANSFERASE 14 U/L (12-78); ALBUMIN 2.7 g/dL (3.4-5.0); ALKALINE PHOSPHATASE 95 U/L (46-116); ASPARTATE AMINOTRANSFERASE 15 U/L (15-37); BILIRUBIN,DIRECT 0.2 mg/dL (0.0-0.2); BILIRUBIN,TOTAL 0.5 mg/dL (0.2-1.0); LIPASE 140 U/L (73-393); TOTAL PROTEIN, SERUM 7.5 g/dL (6.4-8.2)
[2020-01-28 08:58] LABS: APPEARANCE,URINE CLOUDY (CLEAR); BILIRUBIN,URINE NEGATIVE (NEGATIVE); BLOOD, URINE SMALL Ery/uL (NEGATIVE); COLOR,URINE YELLOW (YELLOW); KETONES,URINE NEGATIVE (NEGATIVE); LEUKOCYTE ESTERASE ,URINE LARGE (NEGATIVE); NITRITE, URINE NEGATIVE (NEGATIVE); PH,URINE 7.5 (5.0-8.0); PROTEIN,URINE TRACE mg/dl (NEGATIVE); UGLUCOSE NEGATIVE (NEGATIVE)
[2020-01-28 09:08] LABS: BACTERIA,URINE 1+ /HPF (None Seen); SQUAMOUS EPITHELIAL CELL,UR Few /HPF (None Seen); WBC,URINE TOO NUMEROUS TO COUN /HPF (0-3)
--- NOTE | 2020-01-28 10:35 | NUR ---
Patient resting, repositioned for comfort. Vitals stable.
[2020-01-28] MEDS ORDERED: PIPERACILLIN /TAZOBACTAM 3.375 G in IV D5W 50 ML IV ONE (11:00)
[2020-01-28] MEDS ORDERED: CARV12.52 PO (11:11)
[2020-01-28] MEDS ORDERED: DIGO125T PO (11:11)
[2020-01-28] MEDS ORDERED: OLME1TAB34 PO (11:11)
[2020-01-28] MEDS ORDERED: LEVO500T23 PO (11:11)
--- NOTE | 2020-01-28 11:16 | NUR ---
Patient accepted by Dr. Holly.
[2020-01-28] MEDS ORDERED: ACETAMINOPHEN 325 MG TABLET PO PRN (11:30)
[2020-01-28] MEDS ORDERED: MAGNESIUM HYDROXIDE 30 ML UDC PO PRN (11:30)
[2020-01-28] MEDS ORDERED: MORPHINE SULFATE INJ 2 MG/ML DISP.SYRIN IV PRN (11:30)
[2020-01-28] MEDS ORDERED: ZOLPIDEM TARTRATE 5 MG TABLET PO PRN (11:30)
[2020-01-28] MEDS ORDERED: Z GUARD REMEDY 2 OZ OINT TP PRN (11:30)
[2020-01-28] MEDS ORDERED: HYDROCODONE/APAP 10/325MG TABLET PO PRN (11:30)
[2020-01-28] MEDS ORDERED: ONDANSETRON HCL/PF 4 MG/2 ML VIAL IVP PRN (11:30)
[2020-01-28] MEDS ORDERED: MAG HYDROX/AL HYDROX/SIMETH 30 ML UDC PO PRN (11:30)
--- NOTE | 2020-01-28 11:43 | NUR ---
covid swab sent to lab.
[2020-01-28] MEDS ORDERED: MORPHINE SULFATE INJ 10 MG/ML DISP.SYRIN IV ONE (12:30)
--- NOTE | 2020-01-28 13:00 | NUR ---
CALLED SUPER FOR BED ASSIGNMENT
--- NOTE | 2020-01-28 13:53 | NUR ---
ROOM 203 REPORT GIVEN TO BHUMI RUSSELL.
--- NOTE | 2020-01-28 14:26 | NUR ---
PATIENT A/OX4, BURUNDIAN SPEAKING, NO DISTRESS NOTED, TRANSFERRED TO ROOM 203, IN NO DISTRESS.
--- NOTE | 2020-01-28 14:40 | NUR ---
MS RN ADMITTING NOTE PATIENT ARRIVED FROM ER BY GURNEY AND TRANSFERRED TO BED. PATIENT IN BED RESTING COMFORTABLY. PATIENT IN NO ACUTE DISTRESS. NO SOB NOTED. PATIENT BREATHING IS EVEN AND UNLABORED. PATIENT VITAL SIGNS WNL. PATIENT BED ALARM IS ON. HOB IS ELEVATED. SAFETY PRECAUTIONS IN PLACE. PATIENT WITH SUN CATHETER HANGING TO GRAVITY DRAINING CLEAR YELLOW URINE. PATIENT BED IS LOCKED AND IN LOWEST POSITION. CALL LIGHT WITHIN REACH. WILL CONTINUE TO MONITOR. MD AWARE OF PATIENT ARRIVAL, ORDERS PLACED.
[2020-01-28 14:45] VITALS: BP 118/73
[2020-01-28] MEDS: IV NS 0.9% 1,000 ML IV PRN (15:07)
--- NOTE | 2020-01-28 16:07 | NUR ---
MS RN NOTE SPOKE WITH THE DAUGHTER NADIYA NGUYEN TO NOTIFY AND WISHES FOR PATIENT TO BE DNR AND ALLOW NATURAL . SPOKE WITH DR. FORMAN AND INFORMED HIM AND PER MD, ORDER FOR DNR ORDER TO BE PLACED.
[2020-01-28 16:50] VITALS: BP 116/58
--- NOTE | 2020-01-28 16:50 | NUR ---
MS RN NOTE DISCUSSED WITH DR. FORMAN ABOUT CONTINUING PATIENT HOME MEDICATIONS. PER DR. FORMAN HE STATED HE IS AWARE AND WILL TAKE CARE OF MED RECON.
[2020-01-28] MEDS: PIPERACILLIN /TAZOBACTAM 3.375 G in IV D5W 100 ML IV SCH (16:58)
--- NOTE | 2020-01-28 17:03 | NUR ---
MS RN NOTE SPOKE WITH DR. FORMAN REGARDING PATIENT HISTORY OF DM. PER DR. DICKSON CORONA ORDER FOR MILD SLIDING SCALE ACHS TO BE PLACED.
[2020-01-28] MEDS: BLOOD SUGAR DIAGNOSTIC 1 EACH STRIP IN SCH ×2 (17:22→22:17)
--- NOTE | 2020-01-28 17:23 | NUR ---
MS RN NOTE PATIENT BLOOD SUGAR IS 123. NO INSULIN COVERAGE NEEDED PER PROTOCOL.
[2020-01-28] MEDS ORDERED: DEXTROSE 50%-WATER 50 ML DISP.SYRIN IV PRN (17:30)
--- NOTE | 2020-01-28 18:44 | NUR ---
MS RN CLOSING NOTE PATIENT IN BED RESTING COMFORTABLY. PATIENT IN NO ACUTE DISTRESS. NO SOB NOTED. PATIENT BREATHING IS EVEN AND UNLABORED. BED ALARM IS ON. HOB IS ELEVATED. PATIENT TURNED AND REPOSITIONED Q2H. NOTIFIED DR. FORMAN REGARDING MED RECON AGAIN, NO MEDICATIONS CONTINUED YET. HAD ALREADY SPOKEN TO ME IN THE AFTERNOON AND IS AWARE. PATIENT KEPT CLEAN, DRY, AND COMFORTABLE THROUGHOUT SHIFT. SAFETY PRECAUTIONS IN PLACE. PATIENT BED IS LOCKED AND IN LOWEST POSITION. CALL LIGHT WITHIN REACH. WILL ENDORSE CARE TO PM SHIFT FOR JADE.
--- NOTE | 2020-01-28 19:57 | NUR ---
MS RN NOTES PATIENT IN BED, AWAKE, ALERT AND ORIENTED X 1-2. FIJIAN SPEAKING. BREATHING EVEN AND UNLABORED ON ROOM AIR. SHOWS NO SIGNS OF ACUTE RESPIRATORY DISTRESS. NO ACUTE PAIN. TENDER ABDOMEN AND REDNESS ON CHEST. FC CLEAN DRY AND INTACT. FLOWING YELLOW URINE. PT WITH L HAND 22G SL. SHOWS NO SIGNS OF INFILTRATION, NO REDNESS. SAFETY PRECAUTIONS IN PLACE. BED IN LOWEST POSITION, LOCKED, AND CALL LIGHT KEPT WITHIN REACH. WILL CONTINUE TO MONITOR.
[2020-01-28 20:00] VITALS: BP 132/76
[2020-01-28] MEDS: ENOXAPARIN SODIUM 30 MG/0.3 ML DISP.SYRIN SQ SCH (22:17)
[2020-01-29] MEDS: PIPERACILLIN /TAZOBACTAM 3.375 G in IV D5W 100 ML IV SCH ×3 (00:04→16:02)
[2020-01-29] MEDS: HYDROCODONE/APAP 5/325MG TABLET PO PRN (03:59)
--- NOTE | 2020-01-29 04:00 | NUR ---
MS RN NOTES PATIENT COMPLAINING OF PAIN. TOOK NORCO OUT OF OMNICELL AND CRUSHED MEDICATION. PT REFUSED TO TAKE MEDICATION. MED PROPERLY WASTED AND WITNESSED BY GAVINO RUSSELL.
--- NOTE | 2020-01-29 05:30 | NUR ---
MS RN NOTES RECEIVED CALL FROM LAB REGARDING BLOOD CULTURE. PRELIMINARY RESULTS SHOW GRAM POSITIVE COCCI
[2020-01-29] MEDS: BLOOD SUGAR DIAGNOSTIC 1 EACH STRIP IN SCH ×4 (06:37→21:26)
--- NOTE | 2020-01-29 06:38 | NUR ---
MS RN NOTES PATIENT IN BED, ASLEEP, ALERT AND ORIENTED X 1-2. GRENADIAN SPEAKING. BREATHING EVEN AND UNLABORED ON ROOM AIR. SHOWS NO SIGNS OF ACUTE RESPIRATORY DISTRESS. NO ACUTE PAIN. TENDER ABDOMEN AND REDNESS ON CHEST. FC CLEAN DRY AND INTACT. FLOWING DARK YELLOW URINE. PT WITH L HAND 22G WITH NS AT 75ML/HR RUNNING. SHOWS NO SIGNS OF INFILTRATION. ALL DUE MEDICATIONS GIVEN. NO REDNESS. SAFETY PRECAUTIONS IN PLACE. BED IN LOWEST POSITION, LOCKED, AND CALL LIGHT KEPT WITHIN REACH. WILL ENDORSE TO ONCOMING NURSE.
[2020-01-29 07:00] LABS: BASOPHILS % (AUTO) 0.7 % (0.0-2.0); EOSINOPHILS % (AUTO) 1.8 % (0.0-6.0); HEMATOCRIT 27 % (33-45); HEMOGLOBIN 8.8 g/dL (11.5-14.8); LYMPHOCYTES # (AUTO) 0.9 /CMM (0.8-4.8); LYMPHOCYTES % (AUTO) 19.3 % (20.0-44.0); MEAN CORPUSCULAR HGB CONC 33 g/dl (31.0-36.0); MEAN CORPUSCULAR VOLUME 91 fL (82-100); MONOCYTES # (AUTO) 0.5 /CMM (0.1-1.30); MONOCYTES % (AUTO) 9.5 % (2.0-12.0); NEUTROPHILS # (AUTO) 3.3 /CMM (1.8-8.9); NEUTROPHILS % (AUTO) 68.7 % (43.0-81.0); PLATELET COUNT (AUTO) 220 /CMM (150-450); RED BLOOD CELL COUNT(AUTO) 2.93 MIL/uL (4.0-5.2); WHITE BLOOD COUNT (AUTO) 4.8 K/uL (4.3-11.0)
--- NOTE | 2020-01-29 07:15 | NUR ---
MS RN NOTES RECEIVED PATIENT IN BED ALERT AND AWAKE ORIENTED X1-2. HOB ELEVATED. NO SOB. DENIES ANY /CO PAIN NOR DISCOMFORT AT THIS TIME. SUN CATHETER INTACT AND PATENT DRAINING YELLOW COLORED URINE VIA BEDSIDE. LT HAND # 22 INTACT AND PATENT INFUSING NS AT 100ML/HR GUNNAR WELL. BED IN LOWEST POSITION, LOCKED. BED ALARM ON. CALL LIGHT WITHIN REACH. Addendum: 01/30/20 at 0831 by GABE ALMANZA RN CORRECTION: IV 0.9% NS INFUSING AT 75ML/HR GUNNAR WELL.
[2020-01-29 07:26] LABS: CREATININE 1.2 mg/dL (0.6-1.3); MAGNESIUM 1.9 mg/dL (1.8-2.4); PHOSPHORUS 3.7 mg/dL (2.5-4.9); POTASSIUM 3.5 mmol/L (3.5-5.1)
[2020-01-29 07:36] LABS: THYROID STIMULATING HORMONE 1.511 uIU/mL (0.358-3.74)
[2020-01-29 08:00] VITALS: BP 141/85
--- NOTE | 2020-01-29 11:45 | NUR ---
MS RN NOTES INFORMED DR. SPRING REGARDING MED RECON, LDL RESULT OF 149 AND PATIENT VERY RESTLESS AND PULLED OUT IV LINE. RECEIVED ORDER FOR ATIVAN 0.5 MG PRN Q6H.
[2020-01-29] MEDS ORDERED: LORAZEPAM INJ 2 MG/ML VIAL IV PRN (12:00)
[2020-01-29] MEDS: INSULIN REGULAR, HUMAN 100 UNIT/ML 3 ML VIAL SQ PRN ×2 (12:17→17:35)
[2020-01-29 17:00] VITALS: BP 128/79
[2020-01-29] MEDS: ENSURE CLEAR 237 ML LIQUID (MIX BERRY) PO SCH (17:58)
--- NOTE | 2020-01-29 19:10 | NUR ---
MS RN NOTES RECEIVED PT IN BED AND AWAKE. PT A/O X1-2 WITH PERIODS OF CONFUSION, NIGERIAN SPEAKING WITH SOME MICRONESIAN. RESPIRATIONS EVEN AND UNLABORED WITH NO S/S OF ACUTE DISTRESS OR SOB NOTED. NO COMPLAINTS OF PAIN AT THIS TIME. PT NOTED WITH SUN CATHETER INTACT AND PATENT DRAINING WELL. PT NOTED WITH IV ON LFA# 22G INTACT AND PATENT INFUSING NS AT 75ML/HR. SAFETY MEASURES IN PLACE WITH BED IN LOWEST LOCKED POSITION WITH SIDE RAILS UP X2. CALL LIGHT WITHIN REACH. WILL CONTINUE TO MONITOR.
--- NOTE | 2020-01-29 19:25 | NUR ---
MS RN NOTES PATIENT RESTING COMFORTABLY IN BED, ASLEEP. AROUSABLE TO VERBAL AND TACTILE STIMULI. HOB ELEVATED. NO SOB. DENIES ANY /CO PAIN NOR DISCOMFORT AT THIS TIME. NOTED DURING THE SHIFT PATIENT WITH EPISODES OF SCRATCHING, PULLING OUT IV TUBINGS, REMOVES DRESSING, HITS STAFF WHEN RENDERING CARE AND WITH EPISODE OF RESTLESSNESS. SUN CATHETER INTACT AND PATENT DRAINING YELLOW COLORED URINE VIA BEDSIDE. LT FA# 22 INTACT AND PATENT INFUSING NS AT 100ML/HR GUNNAR WELL. BED IN LOWEST POSITION, LOCKED. BED ALARM ON. CALL LIGHT WITHIN REACH. IN NO APPARENT DISTRESS. Addendum: 01/29/20 at 1930 by GABE ALMANZA RN RIGHT WRIST RESTRAINT IN PLACE WITH GOOD CIRCULATION AND SKIN CHECK DONE. Addendum: 01/30/20 at 0831 by GABE ALMANZA RN CORRECTION: IV 0.9% NS INFUSING AT 75ML/HR GUNNAR WELL.
[2020-01-29] MEDS: IV NS 0.9% 1,000 ML IV PRN (19:36)
[2020-01-29 20:00] VITALS: BP 130/67
[2020-01-29] MEDS: ENOXAPARIN SODIUM 30 MG/0.3 ML DISP.SYRIN SQ SCH (21:26)
[2020-01-30] MEDS: PIPERACILLIN /TAZOBACTAM 3.375 G in IV D5W 100 ML IV SCH ×3 (00:15→16:51)
[2020-01-30 06:39] LABS: BASOPHILS % (AUTO) 0.6 % (0.0-2.0); HEMATOCRIT 26 % (33-45); HEMOGLOBIN 8.2 g/dL (11.5-14.8); LYMPHOCYTES # (AUTO) 1.3 /CMM (0.8-4.8); LYMPHOCYTES % (AUTO) 23.6 % (20.0-44.0); MEAN CORPUSCULAR HGB CONC 32 g/dl (31.0-36.0); MEAN CORPUSCULAR VOLUME 92 fL (82-100); MONOCYTES # (AUTO) 0.6 /CMM (0.1-1.30); MONOCYTES % (AUTO) 11.4 % (2.0-12.0); NEUTROPHILS # (AUTO) 3.5 /CMM (1.8-8.9); NEUTROPHILS % (AUTO) 61.4 % (43.0-81.0); PLATELET COUNT (AUTO) 192 /CMM (150-450); RED BLOOD CELL COUNT(AUTO) 2.79 MIL/uL (4.0-5.2); WHITE BLOOD COUNT (AUTO) 5.6 K/uL (4.3-11.0)
[2020-01-30] MEDS: BLOOD SUGAR DIAGNOSTIC 1 EACH STRIP IN SCH ×4 (06:51→21:13)
[2020-01-30 07:05] LABS: CALCIUM, SERUM 8.9 mg/dL (8.5-10.1); CREATININE 1.1 mg/dL (0.6-1.3); PHOSPHORUS 3.1 mg/dL (2.5-4.9); POTASSIUM 3.1 mmol/L (3.5-5.1)
--- NOTE | 2020-01-30 07:16 | NUR ---
MS RN NOTES PT IN BED AND AWAKE. PT A/O X1-2 WITH PERIODS OF CONFUSION, TURKISH SPEAKING WITH SOME SOUTH AFRICAN. RESPIRATIONS EVEN AND UNLABORED WITH NO S/S OF ACUTE DISTRESS OR SOB NOTED THROUGHOUT SHIFT. NO COMPLAINTS OF PAIN AT THIS TIME. PT NOTED WITH SUN CATHETER INTACT AND PATENT DRAINING WELL. PT NOTED WITH IV ON LFA# 22G INTACT AND PATENT INFUSING NS AT 75ML/HR. PT KEPT CLEAN, DRY, AND COMFORTABLE. SAFETY MEASURES IN PLACE WITH BED IN LOWEST LOCKED POSITION WITH SIDE RAILS UP X2. CALL LIGHT WITHIN REACH. WILL ENDORSE TO ONCOMING NURSE FOR JADE.
--- NOTE | 2020-01-30 07:40 | NUR ---
MS DREW NOTES RECEIVED PATIENT IN BED ASLEEP. AROUSABLE TO VERBAL AND TACTILE STIMULI. HOB ELEVATED. NO SOB. DENIES ANY /CO PAIN NOR DISCOMFORT AT THIS TIME. SUN CATHETER INTACT AND PATENT DRAINING YELLOW COLORED URINE VIA BEDSIDE. LT FA# 22 INTACT AND PATENT INFUSING NS AT 100ML/HR GUNNAR WELL. BED IN LOWEST POSITION, LOCKED. BED ALARM ON. CALL LIGHT WITHIN REACH. Addendum: 01/30/20 at 0830 by GABE ALMANZA RN CORRECTION: IV 0.9% NS INFUSING AT 75ML/HR GUNNAR WELL.
[2020-01-30 08:00] VITALS: BP 119/71
[2020-01-30] MEDS: ENSURE CLEAR 237 ML LIQUID (MIX BERRY) PO SCH ×2 (08:15→17:20)
[2020-01-30 08:32] LABS: IRON, SERUM 38 ug/dl (50-175); TOTAL IRON BINDING CAPACITY 619 ug/dl (250-450)
[2020-01-30 08:49] LABS: FERRITIN 377 ng/mL (8-388)
[2020-01-30] MEDS: POTASSIUM CHLORIDE 20 MEQ POWDER PACKET PO SCH ×2 (11:17→12:24)
[2020-01-30] MEDS: INSULIN REGULAR, HUMAN 100 UNIT/ML 3 ML VIAL SQ PRN ×2 (11:21→17:21)
[2020-01-30] MEDS ORDERED: HYDROCODONE/APAP 5/325MG TABLET PO PRN (15:00)
[2020-01-30] MEDS ORDERED: LORAZEPAM 0.5 MG TABLET PO PRN (15:00)
[2020-01-30] MEDS ORDERED: ACETAMINOPHEN 325 MG TABLET PO PRN (15:00)
[2020-01-30] MEDS ORDERED: TEMAZEPAM 15 MG CAPSULE PO PRN (15:00)
[2020-01-30] MEDS ORDERED: CARVEDILOL 12.5 MG TABLET PO PRN (15:00)
[2020-01-30] MEDS ORDERED: NITROGLYCERIN 0.4 MG/TAB BOTTLE SL PRN (15:00)
[2020-01-30] MEDS ORDERED: CLONIDINE HCL 0.1 MG TABLET PO PRN (15:00)
[2020-01-30] MEDS: IV NS 0.9% 1,000 ML IV PRN (16:51)
[2020-01-30 17:00] VITALS: BP 131/74
[2020-01-30] MEDS ORDERED: BLOOD SUGAR DIAGNOSTIC 1 EACH STRIP IN SCH (17:30)
--- NOTE | 2020-01-30 18:46 | NUR ---
MS RN NOTES PATIENT RESTING COMFORTABLY IN BED, ASLEEP.ALERT AND AWAKE. HOB ELEVATED. NO SOB. DENIES ANY /CO PAIN NOR DISCOMFORT AT THIS TIME. SUN CATHETER INTACT AND PATENT DRAINING YELLOW COLORED URINE VIA BEDSIDE. LT FA# 22 INTACT AND PATENT INFUSING NS AT 75ML/HR GUNNAR WELL. RIGHT WRIST RESTRAINT IN PLACE.SKIN AND CIRCULATION CHECK DONE WITH RELEASE [id number] ADL'S. BED IN LOWEST POSITION, LOCKED. BED ALARM ON. CALL LIGHT WITHIN REACH. IN NO APPARENT DISTRESS.
--- NOTE | 2020-01-30 19:05 | NUR ---
MS RN NOTES RECEIVED PT IN BED AND AWAKE. PT A/O X1-2 WITH PERIODS OF CONFUSION, CYMRO SPEAKING WITH SOME BULGARIAN. RESPIRATIONS EVEN AND UNLABORED WITH NO S/S OF ACUTE DISTRESS OR SOB NOTED. NO COMPLAINTS OF PAIN AT THIS TIME. PT NOTED WITH SUN CATHETER INTACT AND PATENT DRAINING WELL. PT NOTED WITH IV ON LFA# 22G INTACT AND PATENT INFUSING NS AT 75ML/HR. SAFETY MEASURES IN PLACE WITH BED IN LOWEST LOCKED POSITION WITH SIDE RAILS UP X2. CALL LIGHT WITHIN REACH. WILL CONTINUE TO MONITOR.
[2020-01-30 20:00] VITALS: BP 158/70
[2020-01-30] MEDS: ENOXAPARIN SODIUM 30 MG/0.3 ML DISP.SYRIN SQ SCH (21:14)
[2020-01-31] MEDS: PIPERACILLIN /TAZOBACTAM 3.375 G in IV D5W 100 ML IV SCH ×3 (00:12→17:29)
[2020-01-31] MEDS: IV NS 0.9% 1,000 ML IV PRN ×2 (05:16→22:08)
[2020-01-31] MEDS: BLOOD SUGAR DIAGNOSTIC 1 EACH STRIP IN SCH ×4 (06:30→21:30)
[2020-01-31] MEDS: INSULIN REGULAR, HUMAN 100 UNIT/ML 3 ML VIAL SQ PRN ×3 (06:31→17:30)
--- NOTE | 2020-01-31 06:34 | NUR ---
MS RN NOTES PT REFUSED LAB DRAW AT THIS TIME. PT STATED "COME BACK IN A BIT." LAB WILL SEND ANOTHER TECH TO DRAW THE LAB. WILL CONTINUE TO MONITOR.
--- NOTE | 2020-01-31 07:12 | NUR ---
MS RN NOTES PT IN BED AND AWAKE. PT A/O X1-2 WITH PERIODS OF CONFUSION, SERBIAN SPEAKING WITH SOME VATICAN CITIZEN. RESPIRATIONS EVEN AND UNLABORED WITH NO S/S OF ACUTE DISTRESS OR SOB NOTED THROUGHOUT SHIFT. NO COMPLAINTS OF PAIN AT THIS TIME. PT NOTED WITH SUN CATHETER INTACT AND PATENT DRAINING WELL. PT NOTED WITH IV ON LFA# 22G INTACT AND PATENT INFUSING NS AT 75ML/HR. PT KEPT CLEAN, DRY, AND COMFORTABLE. SAFETY MEASURES IN PLACE WITH BED IN LOWEST LOCKED POSITION WITH SIDE RAILS UP X2. CALL LIGHT WITHIN REACH. WILL ENDORSE TO ONCOMING NURSE FOR JADE.
--- NOTE | 2020-01-31 07:30 | NUR ---
MS RN NOTES RECEIVED PATIENT IN BED ALERT AND AWAKE ORIENTED X1-2. HOB ELEVATED. NO SOB. DENIES ANY /CO PAIN NOR DISCOMFORT AT THIS TIME. SUN CATHETER INTACT AND PATENT DRAINING YELLOW COLORED URINE VIA BEDSIDE. LT FA# 22 INTACT AND PATENT INFUSING NS AT 75ML/HR GUNNAR WELL. BED IN LOWEST POSITION, LOCKED. BED ALARM ON. CALL LIGHT WITHIN REACH.
[2020-01-31 07:40] LABS: BASOPHILS % (AUTO) 0.4 % (0.0-2.0); EOSINOPHILS % (AUTO) 2.1 % (0.0-6.0); HEMATOCRIT 25 % (33-45); HEMOGLOBIN 7.8 g/dL (11.5-14.8); LYMPHOCYTES # (AUTO) 1.1 /CMM (0.8-4.8); LYMPHOCYTES % (AUTO) 18.8 % (20.0-44.0); MEAN CORPUSCULAR HGB CONC 32 g/dl (31.0-36.0); MEAN CORPUSCULAR VOLUME 92 fL (82-100); MONOCYTES # (AUTO) 0.6 /CMM (0.1-1.30); MONOCYTES % (AUTO) 9.6 % (2.0-12.0); NEUTROPHILS % (AUTO) 69.1 % (43.0-81.0); PLATELET COUNT (AUTO) 211 /CMM (150-450); RED BLOOD CELL COUNT(AUTO) 2.68 MIL/uL (4.0-5.2); WHITE BLOOD COUNT (AUTO) 5.8 K/uL (4.3-11.0)
[2020-01-31 07:44] LABS: CALCIUM, SERUM 8.7 mg/dL (8.5-10.1); MAGNESIUM 1.7 mg/dL (1.8-2.4); PHOSPHORUS 2.6 mg/dL (2.5-4.9)
[2020-01-31 07:46] LABS: DIGOXIN 1.09 ng/mL (0.90-2.00)
[2020-01-31 08:00] VITALS: BP 158/72
[2020-01-31] MEDS: ENSURE CLEAR 237 ML LIQUID (MIX BERRY) PO SCH ×2 (08:31→17:29)
[2020-01-31] MEDS: FUROSEMIDE 40 MG TABLET PO SCH (08:40)
[2020-01-31] MEDS: HYDROCODONE/APAP 5/325MG TABLET PO PRN (08:40)
[2020-01-31] MEDS: LISINOPRIL (10MG) 10 MG TABLET PO SCH (08:41)
[2020-01-31] MEDS ORDERED: DIGOXIN 0.125 MG TABLET PO SCH (09:00)
[2020-01-31] MEDS: POTASSIUM CHLORIDE 20 MEQ TAB.PRT.SR PO SCH ×3 (09:46→12:15)
[2020-01-31] MEDS: Magnesium 1GM/D5W 100ML PREMIX 100 ML IV SCH ×2 (09:46→11:03)
--- NOTE | 2020-01-31 11:17 | NUR ---
MS RN NOTES BS 205MG/DL HELD INSULIN DUE TO POOR PO INTAKE. PATIENT DOES NOT LIKE FOOD BUT DRINKS ENSURE.
--- NOTE | 2020-01-31 18:48 | NUR ---
MS RN NOTES PATIENT RESTING COMFORTABLY IN BED, ASLEEP. ALERT AND AWAKE ORIENTED X 1-2. HOB ELEVATED. NO SOB. DENIES ANY /CO PAIN NOR DISCOMFORT AT THIS TIME. SUN CATHETER REMOVED ORDERED. VOIDED WITHOUT DIFFICULTY. LT FA# 22 INTACT AND PATENT INFUSING NS AT 75ML/HR GUNNAR WELL. RIGHT WRIST RESTRAINT IN PLACE WITH SKIN AND CIRCULATION CHECK DONE WITH RELEASE Q2H AND DURING ADL'S. BED IN LOWEST POSITION, LOCKED. BED ALARM ON. CALL LIGHT WITHIN REACH. IN NO APPARENT DISTRESS.
--- NOTE | 2020-01-31 19:10 | NUR ---
MS RN NOTES RECEIVED PT IN BED AND AWAKE. PT A/O X1-2 WITH PERIODS OF CONFUSION, OMANI SPEAKING WITH SOME BRAZILIAN. RESPIRATIONS EVEN AND UNLABORED WITH NO S/S OF ACUTE DISTRESS OR SOB NOTED. NO COMPLAINTS OF PAIN AT THIS TIME. PT NOTED WITH SUN CATHETER INTACT AND PATENT DRAINING WELL. PT NOTED WITH IV ON LFA# 22G INTACT AND PATENT INFUSING NS AT 75ML/HR. SAFETY MEASURES IN PLACE WITH BED IN LOWEST LOCKED POSITION WITH SIDE RAILS UP X2. CALL LIGHT WITHIN REACH. WILL CONTINUE TO MONITOR.
--- NOTE | 2020-01-31 19:30 | NUR ---
MS RN NOTES PT REFUSED PHOTOS AT THIS TIME. WILL CONTINUE TO MONITOR.
[2020-01-31 20:29] VITALS: BP 142/80
[2020-01-31] MEDS: ENOXAPARIN SODIUM 30 MG/0.3 ML DISP.SYRIN SQ SCH (21:30)
[2020-02-01] MEDS: PIPERACILLIN /TAZOBACTAM 3.375 G in IV D5W 100 ML IV SCH ×3 (00:28→17:06)
[2020-02-01] MEDS: BLOOD SUGAR DIAGNOSTIC 1 EACH STRIP IN SCH ×3 (07:05→17:06)
[2020-02-01] MEDS: HYDROCODONE/APAP 5/325MG TABLET PO PRN (07:06)
--- NOTE | 2020-02-01 07:10 | NUR ---
MS RN NOTES PT IN BED AND AWAKE. PT A/O X1-2 WITH PERIODS OF CONFUSION, ARABIC SPEAKING WITH SOME [place] Z[place]ANDER. RESPIRATIONS EVEN AND UNLABORED WITH NO S/S OF ACUTE DISTRESS OR SOB NOTED THROUGHOUT SHIFT. NO COMPLAINTS OF PAIN AT THIS TIME. PT NOTED WITH SUN CATHETER INTACT AND PATENT DRAINING WELL. PT NOTED WITH IV ON LFA# 22G INTACT AND PATENT INFUSING NS AT 75ML/HR. PT KEPT CLEAN, DRY, AND COMFORTABLE. SAFETY MEASURES IN PLACE WITH BED IN LOWEST LOCKED POSITION WITH SIDE RAILS UP X2. CALL LIGHT WITHIN REACH. WILL ENDORSE TO ONCOMING NURSE FOR JADE.
[2020-02-01 08:00] VITALS: BP 141/69
[2020-02-01] MEDS: ENSURE CLEAR 237 ML LIQUID (MIX BERRY) PO SCH ×2 (08:12→17:06)
[2020-02-01] MEDS: LISINOPRIL (10MG) 10 MG TABLET PO SCH (08:39)
[2020-02-01] MEDS: FUROSEMIDE 40 MG TABLET PO SCH (08:39)
[2020-02-01 09:55] LABS: BASOPHILS % (AUTO) 0.3 % (0.0-2.0); EOSINOPHILS % (AUTO) 1.4 % (0.0-6.0); HEMATOCRIT 23 % (33-45); HEMOGLOBIN 7.5 g/dL (11.5-14.8); LYMPHOCYTES % (AUTO) 15.7 % (20.0-44.0); MEAN CORPUSCULAR HGB CONC 32 g/dl (31.0-36.0); MEAN CORPUSCULAR VOLUME 92 fL (82-100); MONOCYTES # (AUTO) 0.5 /CMM (0.1-1.30); MONOCYTES % (AUTO) 8.5 % (2.0-12.0); NEUTROPHILS # (AUTO) 4.7 /CMM (1.8-8.9); NEUTROPHILS % (AUTO) 74.1 % (43.0-81.0); PLATELET COUNT (AUTO) 213 /CMM (150-450); RED BLOOD CELL COUNT(AUTO) 2.53 MIL/uL (4.0-5.2); WHITE BLOOD COUNT (AUTO) 6.4 K/uL (4.3-11.0)
[2020-02-01 10:09] LABS: CALCIUM, SERUM 8.3 mg/dL (8.5-10.1); CREATININE 0.8 mg/dL (0.6-1.3); POTASSIUM 3.2 mmol/L (3.5-5.1)
[2020-02-01 10:15] LABS: ALBUMIN 2.1 g/dL (3.4-5.0); BILIRUBIN,TOTAL 0.6 mg/dL (0.2-1.0); MAGNESIUM 1.9 mg/dL (1.8-2.4); PHOSPHORUS 2.3 mg/dL (2.5-4.9); TOTAL PROTEIN, SERUM 6.4 g/dL (6.4-8.2)
--- NOTE | 2020-02-01 10:54 | NUR ---
WOUND CARE CONSULT: PT PRESENTS WITH BLANCHABLE REDNESS TO HEELS AND SOME RED SPOTS (DISCOLORATION) TO SACRAL AREA, PRESENT ON ADMISSION. RECOMMENDATIONS MADE FOR SKIN PROTECTION. DISCUSSED WITH NURSING STAFF. WILL SEE PRN. CORONA IN AGREEMENT WITH PLAN OF CARE. CURRENT GEOVANNY SCORE IS 14. Addendum: 02/01/20 at 1056 by KAROL MELENDEZ WNDNU Amended: Links added.
[2020-02-01] MEDS ORDERED: DIGOXIN 0.125 MG TABLET PO SCH (13:00)
[2020-02-01] MEDS ORDERED: K PHOS NEUTRAL 250 MG TABLET PO ONE (14:00)
[2020-02-01] MEDS ORDERED: NEUTRA PHOS 1 POWD.PACKET NG ONE (15:30)
[2020-02-01 16:00] VITALS: BP 166/76
--- NOTE | 2020-02-01 16:08 | NUR ---
Patient is being discharge to home today. Spoke with daughter Ivelisse [phone], aware and agreed with dc plan. Patient has adequate DME at home, spoke with [facility] [phone] and faxed dc summary and clinicals. [facility] will resume services in am. Daughter will arrange patient prescription and pcp f/u with Dr.Michael Garcia [phone]. Arranged transportation with [facility] [phone],pick up and delivery driver @ 7pm. F/U appointment arranged with [facility] on 02/05/20 2pm Address: [address] [place], [place] [address], [address] [facility] [address] TEL: [phone] Addendum: 02/01/20 at 1610 by HINA HERNANDEZ RN Amended: Links added.
--- NOTE | 2020-02-01 18:16 | NUR ---
Patient cleared for D/C home with home health by . Patient awake , oriented x1 , confused at baseline . Patient calm and cooperative, not in any distress. No s/s pain noted at this time. D/C pictures taken and placed to chart. D/C instructions provided to pt' daughter via phone; she verbalized understanding. Prescription provided and in pt's d/c folder; daughter is aware. All needs attended, patient kept clean and dry. Will endorse to next shift for JADE . speech pathology supervisor time 1900 pm.
[2020-02-01 19:05] VITALS: BP 147/87
--- NOTE | 2020-02-01 19:20 | NUR ---
FARM TRACTOR MECHANIC NOTES PATIENT PICKED UP BY EMT'S VIA GURNEY. PATIENT STABLE ON RA. MEDICALLY STABLE. NO SIGNS OF ACUTE DISTRESS. DISCHARGE PACKET GIVEN TO EMT ALONG WITH BELONGINGS. IV REMOVED. ID BAND REMOVED. DAUGHTER INFORMED ABOUT RN LVN. Addendum: 02/01/20 at 1942 by LUL TOTH RN PATIENT PICKED UP BY EMT'S VIA GURNEY. PATIENT STABLE ON RA. MEDICALLY STABLE. NO SIGNS OF ACUTE DISTRESS. DISCHARGE PACKET GIVEN TO EMT ALONG WITH BELONGINGS. IV REMOVED. ID BAND REMOVED. DISCHARGE COMPLETED BY AM SHIFT. DAUGHTER INFORMED ABOUT RN LVN.
== END 2020-02-01 19:20 | disposition home health service (06) | DRG 758 ==
LOC: ER 07:16 → MEDSG2 14:13
DX: B37.49 Other urogenital candidiasis (principal); K57.32 Diverticulitis of large intestine without perforation or abscess without bleeding; D68.59 Other primary thrombophilia; J98.11 Atelectasis; N12 Tubulo-interstitial nephritis, not specified as acute or chronic; D63.8 Anemia in other chronic diseases classified elsewhere; E11.9 Type 2 diabetes mellitus without complications; I25.10 Atherosclerotic heart disease of native coronary artery without angina pectoris; I11.0 Hypertensive heart disease with heart failure; I48.91 Unspecified atrial fibrillation; I50.9 Heart failure, unspecified; D25.9 Leiomyoma of uterus, unspecified; Z85.3 Personal history of malignant neoplasm of breast; Z90.11 Acquired absence of right breast and nipple; Z90.49 Acquired absence of other specified parts of digestive tract; Z86.718 Personal history of other venous thrombosis and embolism; Z79.899 Other long term (current) drug therapy; Z79.82 Long term (current) use of aspirin; E78.00 Pure hypercholesterolemia, unspecified; G89.29 Other chronic pain; E66.9 Obesity, unspecified; Z68.26 Body mass index [BMI] 26.0-26.9, adult; Z79.4 Long term (current) use of insulin; Z79.84 Long term (current) use of oral hypoglycemic drugs; Z79.51 Long term (current) use of inhaled steroids; Z79.83 Long term (current) use of bisphosphonates; D50.9 Iron deficiency anemia, unspecified; I70.0 Atherosclerosis of aorta; J45.909 Unspecified asthma, uncomplicated; K83.8 Other specified diseases of biliary tract; M85.80 Other specified disorders of bone density and structure, unspecified site; M43.16 Spondylolisthesis, lumbar region; M48.061 Spinal stenosis, lumbar region without neurogenic claudication; M41.9 Scoliosis, unspecified; M51.34 Other intervertebral disc degeneration, thoracic region; Z87.19 Personal history of other diseases of the digestive system
CPT/HCPCS: 36415; 71045-TC; 80048-TC; 80053-TC; 80061-TC; 80076-TC; 80162-TC; 81000-TC; 82728-TC; 82962-TC; 83540-TC; 83605-TC; 83690-TC; 83735-TC; 84100-TC; 84443-TC; 84484-TC; 85025-TC; 85730-TC; 87040-TC; 87081-TC; 87086-TC; 93307-TC; 97112-TC; 97530-TC; C9803-CS; G0378; J1650; J1815; J2060; J2270; J2405; J2543; J3475; J7030; J7060

== ENCOUNTER 2020-05-15 00:21 | Inpatient (IN) | payer MEDICARE, OTHER ==
[~2020-05-15] VITALS: Ht 157.5 cm; Wt 65.3 kg
[~2020-05-15 00:21] MED LIST changes: -ALBU1.257 IH; -ALEN70TA6 PO; -ALLO100T PO; -AMLO10TA4 PO; +DIGO125T PO; -FENO145T21 PO; -IPRA0.2S9 IH; -METF-881 PO; +OLME1TAB34 PO; -PANT40TA2 PO; -POTA8TAB3 PO
--- NOTE | 2020-05-15 00:26 | NUR ---
PT [id number] FROM HOME CP MID STERNAL 03/19, GIVEN [id number], 1SPR NTG. PT PLACED IN BED 6 ON SHELL TRIM TOOL SETTER AND PULSE OX. MD AT BEDSIDE FOR EVAL. AWAITING ORDERS. WILL CONTINUE TO MONITOR.
[2020-05-15] MEDS ORDERED: NITROGLYCERIN 0.4 MG/TAB BOTTLE SL ONE (00:30)
[2020-05-15] MEDS ORDERED: NITROGLYCERIN 0.4 MG/TAB BOTTLE ONE (00:32)
--- NOTE | 2020-05-15 00:35 | NUR ---
RADIOLOGY AT BEDSIDE.
--- NOTE | 2020-05-15 00:38 | NUR ---
PT DENIES CP. VSS.
[2020-05-15 00:42] LABS: BASOPHILS % (AUTO) 0.7 % (0.0-2.0); EOSINOPHILS % (AUTO) 2.4 % (0.0-6.0); HEMATOCRIT 30 % (33-45); HEMOGLOBIN 10.1 g/dL (11.5-14.8); LYMPHOCYTES # (AUTO) 2.4 /CMM (0.8-4.8); LYMPHOCYTES % (AUTO) 39.3 % (20.0-44.0); MEAN CORPUSCULAR HGB CONC 34 g/dl (31.0-36.0); MEAN CORPUSCULAR VOLUME 91 fL (82-100); MONOCYTES # (AUTO) 0.5 /CMM (0.1-1.30); MONOCYTES % (AUTO) 8.3 % (2.0-12.0); NEUTROPHILS % (AUTO) 49.3 % (43.0-81.0); PLATELET COUNT (AUTO) 278 /CMM (150-450); RED BLOOD CELL COUNT(AUTO) 3.27 MIL/uL (4.0-5.2); WHITE BLOOD COUNT (AUTO) 6.1 K/uL (4.3-11.0)
[2020-05-15 00:51] LABS: CALCIUM, SERUM 9.6 mg/dL (8.5-10.1); CARBON DIOXIDE 29 mmol/L (21-32); CHLORIDE 101 mmol/L (98-107); CREATININE 1.2 mg/dL (0.6-1.3); GLUCOSE 143 mg/dL (74-106); POTASSIUM 3.8 mmol/L (3.5-5.1); SODIUM SERUM 139 mmol/L (136-145); UREA NITROGEN, BLOOD 37 mg/dL (7-18)
--- NOTE | 2020-05-15 00:55 | NUR ---
T[place] [phone]
[2020-05-15 01:05] LABS: B-TYPE NATRIURETIC PEPTIDE 10437 PG/ML (0-125)
[2020-05-15] MEDS ORDERED: FUROSEMIDE 40 MG/4 ML VIAL IV ONE (01:30)
--- NOTE | 2020-05-15 01:32 | NUR ---
ADMISSION PACKET GIVEN TO ADMITTING
[2020-05-15] MEDS ORDERED: FUROSEMIDE 40 MG/4 ML VIAL ONE (01:40)
--- NOTE | 2020-05-15 01:53 | NUR ---
CALLED [facility] FOR PANEL ADMISSION. WAITING FOR DR. ZEPEDA CALL BACK
--- NOTE | 2020-05-15 01:57 | NUR ---
DR. VILLANUEVA SPEAKING TO DR PADRON REGARDING PLAN OF CARE
--- NOTE | 2020-05-15 01:58 | NUR ---
LEE ANNID SWABBED, SENT TO LAB.
--- NOTE | 2020-05-15 01:58 | NUR ---
MED LIST UPDATED.
--- NOTE | 2020-05-15 02:32 | NUR ---
NEGATIVE COVID RESULTS PER LAB
--- NOTE | 2020-05-15 02:34 | NUR ---
CALLED RN SUP FOR TELE BED
--- NOTE | 2020-05-15 03:21 | NUR ---
CALLED RN SUP FOR TELE BED, NO BEDS AVAILABLE AT THIS TIME.
[2020-05-15] MEDS ORDERED: *INSULIN REGULAR(HUMULIN R)HUM 100 UNIT/ML VIAL SQ PRN (03:30)
[2020-05-15] MEDS ORDERED: ACETAMINOPHEN 325 MG TABLET PO PRN (03:30)
[2020-05-15] MEDS ORDERED: CLONIDINE HCL 0.1 MG TABLET PO PRN (03:30)
[2020-05-15] MEDS ORDERED: NITROGLYCERIN 0.4 MG/TAB BOTTLE SL PRN (03:30)
[2020-05-15] MEDS ORDERED: MAG HYDROX/AL HYDROX/SIMETH 30 ML UDC PO PRN (03:30)
[2020-05-15] MEDS ORDERED: ONDANSETRON HCL/PF 4 MG/2 ML VIAL IVP PRN (03:30)
[2020-05-15] MEDS ORDERED: LORAZEPAM 0.5 MG TABLET PO PRN (03:30)
[2020-05-15] MEDS ORDERED: MAGNESIUM HYDROXIDE 30 ML UDC PO PRN (03:30)
[2020-05-15] MEDS ORDERED: TEMAZEPAM 15 MG CAPSULE PO PRN (03:30)
[2020-05-15] MEDS ORDERED: Z GUARD REMEDY 2 OZ OINT TP PRN (03:30)
[2020-05-15] MEDS ORDERED: DEXTROSE 50%-WATER 50 ML DISP.SYRIN IV PRN (03:30)
--- NOTE | 2020-05-15 03:38 | NUR ---
[employer] AT BEDSIDE FOR BLOODDRAW
--- NOTE | 2020-05-15 03:53 | NUR ---
PT PROVIDED WITH MORE BLANKETS.
--- NOTE | 2020-05-15 04:50 | NUR ---
PT REMAINS IN BED, PROVIDED WITH MORE BLANKETS. VSS. REMAINS ON MONITOR AND PULSE OX.
--- NOTE | 2020-05-15 05:27 | NUR ---
Rachel ruiz in ED - 05/15/20 at 0527 by ALEX PATIENT TAKEN TO CT.
--- NOTE | 2020-05-15 05:35 | NUR ---
pt assigned [id number]
--- NOTE | 2020-05-15 06:09 | NUR ---
REPORT GIVEN TO HARRIS RUSSELL FOR JADE
--- NOTE | 2020-05-15 06:43 | NUR ---
PT TRANSFERED PER ACLS PROTOCOL
[2020-05-15 06:52] VITALS: BP 134/83
[2020-05-15] MEDS: BLOOD SUGAR DIAGNOSTIC 1 EACH STRIP VI SCH ×4 (07:23→22:10)
[2020-05-15] MEDS: INSULIN REGULAR, HUMAN 100 UNIT/ML 3 ML VIAL SQ PRN (07:35)
--- NOTE | 2020-05-15 07:52 | NUR ---
MARKET CONSULTANT OPENING NOTES RECEIVED PATIENT RESTING IN BED, AWAKE AND A/OX1, PT CONFUSED, BOTSWANAN SPEAKING. PT IS ON RA WITH NO S/S OF SOB, BREATHING EVEN AND UNLABORED AND IN NO ACUTE RESPIRATORY DISTRESS. IV TO LT HAND #20G PATENT AND INTACT, FLUSHING WELL KEPT S/L. SKIN IS INTACT, NON AMBULATORY, BEDREST. ON TELE MONITOR READING CONTROLLED AFIB HR RANGING IN THE 70'S, BED IS AT LOWEST AND LOCKED POSITION WITH SIDE RAILS UPX3 AND CALL LIGHT WITH IN REACH, WILL CONTINUE TO MONITOR PATIENT THROUGH SHIFT.
[2020-05-15 08:00] VITALS: BP 134/83
[2020-05-15] MEDS ORDERED: ASPIRIN EC 81 MG TABLET.DR PO SCH (09:00)
[2020-05-15] MEDS ORDERED: FUROSEMIDE 40 MG TABLET PO SCH (09:00)
[2020-05-15] MEDS: ENOXAPARIN SODIUM 30 MG/0.3 ML DISP.SYRIN SQ SCH (09:29)
[2020-05-15] MEDS: MEMANTINE HCL 5 MG TABLET PO SCH ×2 (09:30→16:26)
[2020-05-15] MEDS: LISINOPRIL (10MG) 10 MG TABLET PO SCH (09:31)
[2020-05-15] MEDS: CARVEDILOL 12.5 MG TABLET PO SCH (09:32)
[2020-05-15 11:30] LABS: IRON, SERUM 40 ug/dl (50-175); TOTAL IRON BINDING CAPACITY 223 ug/dl (250-450)
[2020-05-15 11:42] LABS: FERRITIN 313 ng/mL (8-388)
[2020-05-15 12:00] VITALS: BP 111/70
[2020-05-15] MEDS: NITROGLYCERIN 30 GM TUBE TD SCH (12:27)
[2020-05-15] MEDS: DIGOXIN 0.125 MG TABLET PO SCH (12:28)
[2020-05-15] MEDS: HYDROCODONE/APAP 5/325MG TABLET PO PRN (14:31)
[2020-05-15 16:00] VITALS: BP 111/65
--- NOTE | 2020-05-15 18:18 | NUR ---
FEED CRUSHER OPERATOR CLOSING NOTES PATIENT RESTING IN BED , A/OX1, LAO SPEAKER, ON RA WITH NO S/S OF SOB, BREATHING EVEN AND UNLABORED AND IN NO ACUTE RESPIRATORY DISTRESS. IV TO LT HAND #20G PATENT AND INTACT, FLUSHING WELL KEPT S/L. PATIENT ON TELE MONITOR WITH CONTROLLED AFIB HR RANGING IN THE 70'S, BED IS AT LOWEST AND LOCKED POSITION WITH SIDE RAILS UPX3 AND CALL LIGHT WITH IN REACH, WILL CONTINUE ENDORSE TO ONCOMING SHIFT.
--- NOTE | 2020-05-15 19:30 | NUR ---
TELE/RN OPENING NOTES RECEIVED PATIENT IN BED SLEEPING EASY TO AROUSE. PATIENT IS ALERT AND ORIENTED X 1. PATIENT IS TOLERATING ROOM AIR WELL, NO SIGNS OF SOB OR RESPIRATORY DISTRESS NOTED. BREATHING IS EVEN AND UNLABORED. TELE READING NSR. PATIENT HAS IV ACCESS ON LEFT HAND #20G SL FLUSHING WELL. PATIENT IN NO DISTRESS OF DISTRESS. SAFETY MEASURES ARE IN PLACE, BED IS LOCKED AND PLACED IN THE LOW POSITION, SIDE RAILS UP X 3, CALL LIGHT IS WITHIN REACH. WILL CONTINUE TO MONITOR THROUGH OUT SHIFT.
[2020-05-15 20:57] VITALS: BP 122/79
[2020-05-16 00:23] VITALS: BP 109/62
[2020-05-16] MEDS: HYDROCODONE/APAP 5/325MG TABLET PO PRN (02:59)
--- NOTE | 2020-05-16 03:00 | NUR ---
TELE/RN NOTES PATIENT POINTING AT PAIN AT RIGHT HEEL. GIVEN NORCO 5 MG PO. VITALS SIGNS ARE STABLE.
[2020-05-16 03:30] LABS: ALANINE AMINOTRANSFERASE 21 U/L (12-78); ALBUMIN 3.1 g/dL (3.4-5.0); ALKALINE PHOSPHATASE 108 U/L (46-116); ASPARTATE AMINOTRANSFERASE 16 U/L (15-37); BILIRUBIN,TOTAL 0.5 mg/dL (0.2-1.0); CALCIUM, SERUM 9.7 mg/dL (8.5-10.1); CARBON DIOXIDE 29 mmol/L (21-32); CHLORIDE 100 mmol/L (98-107); CREATININE 1.2 mg/dL (0.6-1.3); GLUCOSE 106 mg/dL (74-106); MAGNESIUM 2.1 mg/dL (1.8-2.4); PHOSPHORUS 4.4 mg/dL (2.5-4.9); POTASSIUM 3.7 mmol/L (3.5-5.1); SODIUM SERUM 139 mmol/L (136-145); TOTAL PROTEIN, SERUM 7.8 g/dL (6.4-8.2); UREA NITROGEN, BLOOD 37 mg/dL (7-18)
[2020-05-16 03:39] LABS: BASOPHILS % (AUTO) 0.7 % (0.0-2.0); EOSINOPHILS % (AUTO) 3.4 % (0.0-6.0); HEMATOCRIT 30 % (33-45); HEMOGLOBIN 10.2 g/dL (11.5-14.8); LYMPHOCYTES # (AUTO) 1.7 /CMM (0.8-4.8); LYMPHOCYTES % (AUTO) 30.7 % (20.0-44.0); MEAN CORPUSCULAR HGB CONC 33 g/dl (31.0-36.0); MEAN CORPUSCULAR VOLUME 92 fL (82-100); MONOCYTES # (AUTO) 0.5 /CMM (0.1-1.30); MONOCYTES % (AUTO) 9.8 % (2.0-12.0); NEUTROPHILS % (AUTO) 55.4 % (43.0-81.0); PLATELET COUNT (AUTO) 275 /CMM (150-450); RED BLOOD CELL COUNT(AUTO) 3.32 MIL/uL (4.0-5.2); WHITE BLOOD COUNT (AUTO) 5.5 K/uL (4.3-11.0)
[2020-05-16 04:33] VITALS: BP 112/53
--- NOTE | 2020-05-16 06:40 | NUR ---
TELE/RN CLOSING NOTES PATIENT IN BED AWAKE RESTING. PATIENT IS ALERT AND ORIENTED X 1. PATIENT IS TOLERATING ROOM AIR WELL, NO SIGNS OF SOB OR RESPIRATORY DISTRESS NOTED. BREATHING IS EVEN AND UNLABORED. TELE READING AFIB CONTROLLED 70'S. PATIENT HAS IV ACCESS ON LEFT HAND #20G SL FLUSHING WELL. PATIENT IN NO DISTRESS OF DISTRESS. ALL NEEDS HAVE BEEN DURING SHIFT. SAFETY MEASURES ARE IN PLACE, BED IS LOCKED AND PLACED IN THE LOW POSITION, SIDE RAILS UP X 3, CALL LIGHT IS WITHIN REACH. WILL ENDORSE CARE TO DAY SHIFT NURSE.
--- NOTE | 2020-05-16 07:34 | NUR ---
DRY HEAT CABINET ATTENDANT OPENING NOTES RECEIVED PATIENT AWAKE IN BED IN NO ACUTE SIGNS OF DISTRESS. HOB ELEVATED. A/O X1. CROATIAN SPEAKING, APPEARS COMFORTABLE AND SMILING WITH NO S/S OF PAIN OR ANY DISCOMFORTS NOTED AT THIS TIME. ON ROOM AIR, TOLERATING WELL, BREATHING IS EVEN AND UNLABORED. TELE-MONITORING READING SHOWS AFIB CONTROLLED WITH HR ON THE 80'S, NO S/S OF CARDIAC DISTRESS NOTED. IV SL ON LEFT HAND #20G INTACT, PATENT AND FLUSHING WELL. SAFETY MEASURES IN PLACE: BED IS LOCKED AND IN LOW POSITION, SIDE RAILS UP X 2, ALARM ON AND CALL LIGHT IS WITHIN REACH. WILL CONTINUE TO MONITOR PT ACCORDINGLY.
[2020-05-16 08:00] VITALS: BP 137/75
[2020-05-16] MEDS: BLOOD SUGAR DIAGNOSTIC 1 EACH STRIP VI SCH ×3 (08:09→17:17)
[2020-05-16] MEDS: LISINOPRIL (10MG) 10 MG TABLET PO SCH (08:45)
[2020-05-16] MEDS: CARVEDILOL 12.5 MG TABLET PO SCH (08:45)
[2020-05-16] MEDS: MEMANTINE HCL 5 MG TABLET PO SCH ×2 (08:45→16:27)
[2020-05-16] MEDS: NITROGLYCERIN 30 GM TUBE TD SCH (08:46)
[2020-05-16] MEDS: ENOXAPARIN SODIUM 30 MG/0.3 ML DISP.SYRIN SQ SCH (08:47)
--- NOTE | 2020-05-16 09:31 | NUR ---
RN NOTES PT TRANSFERRED FROM TELE TO MS, NO C/O CARDIAC DISTRESS OR CHEST PAIN VOICED. WILL CONTINUE TO MONITOR
[2020-05-16] MEDS: INSULIN REGULAR, HUMAN 100 UNIT/ML 3 ML VIAL SQ PRN ×2 (11:45→17:17)
[2020-05-16] MEDS: DIGOXIN 0.125 MG TABLET PO SCH (13:27)
--- NOTE | 2020-05-16 15:50 | NUR ---
RN NOTES PT FOR DISCHARGE HOME TODAY, PICK-UP TIME IS 1830 BY AMBULANCE. CALLED PT'S DAUGHTER NADIYA AT [facility] # [phone] AND GAVE DISCHARGE INSTRUCTION WITH VERBALIZATION OF UNDERSTANDING.
[2020-05-16 16:00] VITALS: BP 106/50
--- NOTE | 2020-05-16 18:13 | NUR ---
RN DISCHARGED NOTES PT DISCHARGED HOME WITH HOME HEALTH IN STABLE CONDITION. A/O X2. WELSH SPEAKING, NO C/O CHEST PAIN DURING SHIFT. V/S TAKEN, STABLE AND RECORDED. PHOTOS OF SKIN ISSUES TAKEN BY PREVIOUS SHIFT. IV ACCES ON LEFT HAND REMOVED WITH NO ACTIVE BLEEDING NOTED, APPLIED DRY DRESSING TO SITE AND TAPED. NAME ARMBAND REMOVED. HEALTH TEACHINGS GIVEN TO DAUGHTER NADIYA VIA TELEPHONE AND VERBALIZED UNDERSTANDING. EXIT FOLDER HANDED TO EMT'S. PT LEFT UNIT AT 1810 VIA RNEY AWAKE AND ALERT ACCOMPANIED BY 2 EMT'S FROM MD PHUONG AND CHARGE NURSE AWARE OF DISCHARGE.
== END 2020-05-16 18:07 | disposition home health service (06) | DRG 291 ==
LOC: ER 00:24 → TELE 05:49 → MED 05-16 11:14
PROVIDERS: ADMIT Nurse Practitioner Acute Care; ATTEND Nurse Practitioner Acute Care
DX: I13.0 Hypertensive heart and chronic kidney disease with heart failure and stage 1 through stage 4 chronic kidney disease, or unspecified chronic kidney disease (principal); N17.0 Acute kidney failure with tubular necrosis; I50.33 Acute on chronic diastolic (congestive) heart failure; D68.69 Other thrombophilia; D63.8 Anemia in other chronic diseases classified elsewhere; I48.91 Unspecified atrial fibrillation; E11.22 Type 2 diabetes mellitus with diabetic chronic kidney disease; N18.9 Chronic kidney disease, unspecified; E11.42 Type 2 diabetes mellitus with diabetic polyneuropathy; E61.1 Iron deficiency; E78.5 Hyperlipidemia, unspecified; I25.10 Atherosclerotic heart disease of native coronary artery without angina pectoris; Z90.49 Acquired absence of other specified parts of digestive tract; Z85.3 Personal history of malignant neoplasm of breast; Z90.11 Acquired absence of right breast and nipple; F03.90 Unspecified dementia, unspecified severity, without behavioral disturbance, psychotic disturbance, mood disturbance, and anxiety; Z79.4 Long term (current) use of insulin; E66.9 Obesity, unspecified; G89.29 Other chronic pain; Z68.26 Body mass index [BMI] 26.0-26.9, adult; R07.89 Other chest pain
CPT/HCPCS: 36415; 71045-TC; 80048-TC; 80053-TC; 80162-TC; 82728-TC; 82962-TC; 83540-TC; 83735-TC; 83880; 84100-TC; 84484-TC; 85025-TC; 87081-TC; C9803; G0378; J1650; J1815; J1940

== ENCOUNTER 2020-05-24 17:38 | Emergency (ER) | payer MEDICARE, OTHER ==
[~2020-05-24] VITALS: Ht 152.4 cm; Wt 61.7 kg
--- NOTE | 2020-05-24 17:56 | NUR ---
BIB RA C/O BODY PAIN AND ABDOMINAL PAIN, TO ER BED 9, HOOKED TO MONITOR, CHANGED TO HOSP GOWN, WARM BLANKET PROVIDED, PATIENT AAO x 2. BREATHING EVEN AND UNLABORED. AWAITING MD RODRIGUEZ
--- NOTE | 2020-05-24 18:20 | NUR ---
BUTT WELDER AT BEDSIDE
[2020-05-24 18:24] LABS: BASOPHILS % (AUTO) 0.4 % (0.0-2.0); HEMATOCRIT 29 % (33-45); HEMOGLOBIN 9.9 g/dL (11.5-14.8); LYMPHOCYTES # (AUTO) 1.5 /CMM (0.8-4.8); LYMPHOCYTES % (AUTO) 42.3 % (20.0-44.0); MEAN CORPUSCULAR HGB CONC 34 g/dl (31.0-36.0); MEAN CORPUSCULAR VOLUME 92 fL (82-100); MONOCYTES # (AUTO) 0.4 /CMM (0.1-1.30); MONOCYTES % (AUTO) 11.8 % (2.0-12.0); NEUTROPHILS # (AUTO) 1.5 /CMM (1.8-8.9); NEUTROPHILS % (AUTO) 43.5 % (43.0-81.0); PLATELET COUNT (AUTO) 170 /CMM (150-450); WHITE BLOOD COUNT (AUTO) 3.5 K/uL (4.3-11.0)
[2020-05-24 18:41] LABS: ALANINE AMINOTRANSFERASE 25 U/L (12-78); ALBUMIN 3.1 g/dL (3.4-5.0); ALKALINE PHOSPHATASE 95 U/L (46-116); ASPARTATE AMINOTRANSFERASE 32 U/L (15-37); BILIRUBIN,DIRECT 0.1 mg/dL (0.0-0.2); BILIRUBIN,TOTAL 0.3 mg/dL (0.2-1.0); CALCIUM, SERUM 9.8 mg/dL (8.5-10.1); CARBON DIOXIDE 28 mmol/L (21-32); CHLORIDE 99 mmol/L (98-107); CREATININE 1.4 mg/dL (0.6-1.3); GLUCOSE 117 mg/dL (74-106); LIPASE 496 U/L (73-393); POTASSIUM 3.6 mmol/L (3.5-5.1); SODIUM SERUM 141 mmol/L (136-145); TOTAL PROTEIN, SERUM 7.3 g/dL (6.4-8.2); UREA NITROGEN, BLOOD 45 mg/dL (7-18)
[2020-05-24] MEDS: IV NS 0.9% 1,000 ML BAG IV ONE (19:00)
[2020-05-24] MEDS ORDERED: ONDANSETRON HCL/PF 4 MG/2 ML VIAL ONE (19:08)
[2020-05-24] MEDS ORDERED: MORPHINE SULFATE INJ 2 MG/ML DISP.SYRIN ONE (19:08)
[2020-05-24] MEDS: ONDANSETRON HCL/PF 4 MG/2 ML VIAL IVP ONE (19:14)
[2020-05-24] MEDS: MORPHINE SULFATE INJ 2 MG/ML DISP.SYRIN IV ONE (19:14)
--- NOTE | 2020-05-24 20:54 | NUR ---
SPOKE TO THE DAUGHTER REGARDING PT BEING DISCHARGED. PT'S MOTHER REQUESTED THE PT TO BE COVID SWABBED, MD AWARE. PT WAS SWABBED, PT WILL BE DISCHARGED.
--- NOTE | 2020-05-24 21:05 | NUR ---
CALLED [facility] ETA [phone]
--- NOTE | 2020-05-24 21:39 | NUR ---
REPORT GIVEN TO MEETA MARQUIS. CALLED PT'S DAUGHTER REGARDING PT BEING DISCHARGED. DISCHARGE INSTRUCTIONS GIVEN TO PT'S DAUGHTER DUE TO PT BEING ARMENINA SPEAKING. I DID EDUCATE THE DAUGHTER REGARDING THE PT TAKINGT THE RX. VSS. DAVISON CALL DAUGHTER BACK REGARDING COVID SWAB RESULTS.
--- NOTE | 2020-05-24 22:54 | NUR ---
SPOKE TO THE DAUGHTER REGARDING THE PT BEING POSITIVE FOR COVID. I DID INSTRUCT THE DAUGHTER TO QUARENTINE THE PT.
[2020-05-24 22:55] VITALS: BP 138/73
== END 2020-05-24 22:56 | disposition home or self-care (01) ==
LOC: ER 17:46
DX: K57.32 Diverticulitis of large intestine without perforation or abscess without bleeding (principal); U07.1 COVID-19; Z90.49 Acquired absence of other specified parts of digestive tract; N28.1 Cyst of kidney, acquired; D25.9 Leiomyoma of uterus, unspecified; J98.11 Atelectasis; I48.91 Unspecified atrial fibrillation; Z85.3 Personal history of malignant neoplasm of breast; Z90.11 Acquired absence of right breast and nipple; I11.9 Hypertensive heart disease without heart failure; E11.9 Type 2 diabetes mellitus without complications; Z79.82 Long term (current) use of aspirin; Z79.899 Other long term (current) drug therapy; E78.00 Pure hypercholesterolemia, unspecified
CPT/HCPCS: 36415; 71045; 74176; 80048; 80076; 83605; 83690; 84484; 85025; 85730; 87040 ×2; 87426; 93005; 96361; 96374; 96375; 99285; J2270; J2405; J7030; C9803

== ENCOUNTER 2020-08-28 05:24 | Inpatient (IN) | payer MEDICARE, OTHER ==
[~2020-08-28] VITALS: Ht 152.4 cm; Wt 60.8 kg
[~2020-08-28 05:24] MED LIST changes: +LISI10TA29 PO; -LISI10TA5 PO
--- NOTE | 2020-08-28 05:30 | NUR ---
PT BIBRA FROM HOME C/O ABDOMINAL PAIN X2 HRS. PER RA, PT'S DAUGHTER ADMINISTERED NORCO 5/325MG X1HR TREER, NO RELIEF OF PAIN. PT AWAKE, CYMRO SPEAKING. VITAL SIGNS STABLE. RESPIRATIONS EVEN AND UNLABORED. NO ACUTE DISTRESS NOTED AT THIS TIME. PLACED IN GOWN AND ON MONITOR, WILL CONTINUE TO MONITOR.
--- NOTE | 2020-08-28 05:40 | NUR ---
IV INITIATED LAC 20G. LABS DRAWN FROM SITE, CALLED LAB FOR ROD MACHINE OPERATOR. IV INTACT AND PATENT, PLACED ON SALINE LOCK.
[2020-08-28] MEDS ORDERED: ONDANSETRON HCL/PF 4 MG/2 ML VIAL ONE (06:27)
[2020-08-28] MEDS ORDERED: HYDROCODONE/APAP 5/325MG TABLET ONE (06:28)
[2020-08-28 06:30] LABS: BASOPHILS % (AUTO) 0.2 % (0.0-2.0); EOSINOPHILS % (AUTO) 1.8 % (0.0-6.0); HEMATOCRIT 27 % (33-45); HEMOGLOBIN 8.9 g/dL (11.5-14.8); LYMPHOCYTES # (AUTO) 1.7 /CMM (0.8-4.8); LYMPHOCYTES % (AUTO) 25.8 % (20.0-44.0); MEAN CORPUSCULAR HGB CONC 33 g/dl (31.0-36.0); MEAN CORPUSCULAR VOLUME 89 fL (82-100); MONOCYTES # (AUTO) 0.6 /CMM (0.1-1.30); MONOCYTES % (AUTO) 9.3 % (2.0-12.0); NEUTROPHILS % (AUTO) 62.9 % (43.0-81.0); PLATELET COUNT (AUTO) 284 /CMM (150-450); RED BLOOD CELL COUNT(AUTO) 2.98 MIL/uL (4.0-5.2); WHITE BLOOD COUNT (AUTO) 6.4 K/uL (4.3-11.0)
[2020-08-28] MEDS ORDERED: ONDANSETRON HCL/PF - ER 4 MG/2 ML VIAL IV ONE (06:30)
[2020-08-28] MEDS ORDERED: HYDROCODONE/APAP 5/325MG TABLET PO ONE (06:30)
--- NOTE | 2020-08-28 07:05 | NUR ---
GAVE REPORT TO DREW LEONE FOR JADE.
--- NOTE | 2020-08-28 07:15 | NUR ---
RECEIVED REPORT FROM DREW TORRES FOR JADE. PT IS AAOX1, NOT IN RESPIRATORY DISTRESS V/S STABLE, KEPT RESTED AND COMFORTABLE. WILL CONTINUE TO MONITOR.
[2020-08-28] MEDS ORDERED: MORPHINE SULFATE INJ 2 MG/ML DISP.SYRIN ONE (07:21)
[2020-08-28] MEDS ORDERED: IV NS 0.9% 500 ML BAG IV ONE (07:30)
[2020-08-28] MEDS ORDERED: MORPHINE SULFATE INJ 2 MG/ML DISP.SYRIN IV ONE (07:30)
--- NOTE | 2020-08-28 07:32 | NUR ---
PER DAUGHTER, NADIYA, PT HAS HS OF RT BREAST CA. 3 YEARS AGO THE CA CAME BACK TO THE RT BREAST. OF 2WEEKS, PT HAS HAD HER LEFT BREAST BECOME SORE. PT HAS PAIN FROM LOWER RIBS TO ARMPIT AND REACHING HER NECK. DAUGHTER STATES THAT PT IS CONFUSED AND UNABLE TO CARE FOR HERSELF
[2020-08-28 07:41] LABS: ALBUMIN 2.7 g/dL (3.4-5.0); BILIRUBIN,DIRECT 0.1 mg/dL (0.0-0.2); BILIRUBIN,TOTAL 0.3 mg/dL (0.2-1.0); CALCIUM, SERUM 9.6 mg/dL (8.5-10.1); CREATININE 1.3 mg/dL (0.6-1.3); POTASSIUM 4.1 mmol/L (3.5-5.1); TOTAL PROTEIN, SERUM 7.4 g/dL (6.4-8.2)
--- NOTE | 2020-08-28 07:55 | NUR ---
PT TO CT VIA [facility].
--- NOTE | 2020-08-28 08:04 | NUR ---
PT IS BACK FROM THE CT SCAN.
--- NOTE | 2020-08-28 08:52 | NUR ---
URINE SPECIMEN COLLECTED AND SENT TO LAB.
[2020-08-28 09:06] LABS: BILIRUBIN,URINE NEGATIVE (NEGATIVE); COLOR,URINE YELLOW (YELLOW); LEUKOCYTE ESTERASE ,URINE LARGE (NEGATIVE); NITRITE, URINE NEGATIVE (NEGATIVE); PROTEIN,URINE NEGATIVE (NEGATIVE); UGLUCOSE NEGATIVE (NEGATIVE); UROBILINOGEN,URINE 0.2 EU/dL (0.2)
[2020-08-28] MEDS ORDERED: Z GUARD REMEDY 2 OZ OINT TP PRN (10:30)
[2020-08-28] MEDS ORDERED: LORAZEPAM 0.5 MG TABLET PO PRN (10:30)
[2020-08-28] MEDS ORDERED: ACETAMINOPHEN 325 MG TABLET PO PRN (10:30)
[2020-08-28] MEDS ORDERED: CARVEDILOL 12.5 MG TABLET PO PRN (10:30)
[2020-08-28] MEDS ORDERED: ONDANSETRON HCL/PF 4 MG/2 ML VIAL IVP PRN (10:30)
[2020-08-28] MEDS ORDERED: HYDROCODONE/APAP 5/325MG TABLET PO PRN (10:30)
[2020-08-28 10:44] LABS: BACTERIA,URINE Moderate /HPF (None Seen); SQUAMOUS EPITHELIAL CELL,UR Few /HPF (None Seen); WBC,URINE 21-50 /HPF (0-3)
--- NOTE | 2020-08-28 11:00 | NUR ---
ROOM GIVEN [phone]
[2020-08-28 11:09] LABS: B-TYPE NATRIURETIC PEPTIDE 8506 PG/ML (0-125)
--- NOTE | 2020-08-28 11:43 | NUR ---
REPORT GIVEN TO DREW TALLEY FOR JADE.
[2020-08-28 12:00] VITALS: BP 113/58
--- NOTE | 2020-08-28 12:08 | NUR ---
HAND ROUTER OPERATOR OPENING NOTE PT ARRIVED ON UNIT AT 12:03PM VIA GURNEY ACCOMPANIED BY LOUNGE CAR ATTENDANT. PT IS A/O X 2, VERBAL, TURKISH SPEAKING ONLY BUT IS ABLE TO MAKE NEEDS KNOWN. NO C/O PAIN AT THIS TIME. VITAL SIGNS STABLE. PT IS ON ROOM AIR WITH NO S/SX OF RESPIRATORY DISTRESS OR SOB AT THIS TIME. TELE MONITOR SHOWS NSR 83 BPM AT THIS TIME WITH NO CARDIAC DISTRESS NOTED. PT HAS AN IV ACCESS ON LEFT HAND G#20 SL, PATENT, INTACT AND FLUSHING WELL WITH ON S/SX OF INFECTION, INFILTRATION OR IRRITATION. PT ORIENTED TO UNIT AND ROOM. PT EDUCATED ON IMPORTANCE AND USE OF CALL LIGHT WITH SUCCESSFUL RETURN DEMONSTRATION. SAFETY MEASURES IN PLACE: BED IN LOWEST POSITION AND LOCKED WITH BOTH UPPER SIDE RAILS UP X 2. CALL LIGHT PLACED WITHIN REACH. WILL CONTINUE TO MONITOR.
[2020-08-28] MEDS: DIGOXIN 0.125 MG TABLET PO SCH (13:57)
[2020-08-28 16:00] VITALS: BP 132/56
--- NOTE | 2020-08-28 16:59 | NUR ---
COMMERCIAL DIVER NOTE PER WOOD ROOM HAND, PT C/O TIGHT CHEST PAIN RATED 2/10. ADMINISTERED TYLENOL 650MG PO Q6H PRN PER PT REQUEST. WILL CONTINUE TO MONITOR.
--- NOTE | 2020-08-28 18:18 | NUR ---
FISH NET STRINGER CLOSING NOTE PT AWAKE, AROUSABLE AND RESPONSIVE. PT IS A/O X 2, VERBAL, PORTUGUESE SPEAKING ONLY BUT IS ABLE TO MAKE NEEDS KNOWN WITH NO C/O PAIN AT THIS TIME. PT IS ON ROOM AIR WITH NO S/SX OF RESPIRATORY DISTRESS OR SOB AT THIS TIME. TELE MONITOR SHOWS A. FIB AT 83 BPM WITH NO CARDIAC DISTRESS NOTED. PT HAS AN IV ACCESS ON LEFT AC G#20 SL, PATENT, INTACT AND FLUSHING WELL WITH ON S/SX OF INFECTION, INFILTRATION OR IRRITATION. ALL CARE, NEEDS, MEDICATIONS AND TREATMENTS GIVEN TO PATIENT ON TIME ORDERED PER FACILITY PROTOCOL. SAFETY MEASURES MAINTAINED: BED IN LOWEST, LOCKED POSITION WITH BOTH UPPER SIDE RAILS UP X 2. CALL LIGHT PLACED WITHIN REACH. WILL ENDORSE TO FLAVORINGS COMPOUNDER NURSE.
--- NOTE | 2020-08-28 19:30 | NUR ---
TELE/RN OPENING NOTES RECEIVED PATIENT RESTING IN BED. PATIENT IS ALERT AND ORIENTED X 1. NO SIGNS OF SOB OR RESPIRATORY DISTRESS NOTED. PATIENTS BREATHING IS EVEN AND UNLABORED. PATIENT STATES NO PAIN AT THIS TIME. IV ACCESS IN PLACE FLUSHING WELL. SAFETY MEASURES ARE IN PLACE, BED IS LOCKED AND PLACED IN THE LOW POSITION,CALL LIGHT IS WITHIN REACH. WILL CONTINUE WITH PATIENT PLAN OF CARE.
[2020-08-28 20:00] VITALS: BP 106/58
--- NOTE | 2020-08-29 02:40 | NUR ---
TELE/RN NOTES PATIENT RESTLESS, PULLING LINES, YELLING TRYING TO GET OUT OF BED. PATIENT GIVEN ATIVAN 0.5 MG PO. V/S ARE WITHIN NORMAL LIMITS. WILL CONTINUE TO MONITOR.
[2020-08-29 04:00] VITALS: BP 110/55
--- NOTE | 2020-08-29 06:40 | NUR ---
TELE/RN CLOSING NOTES PATIENT RESTING IN BED. PATIENT IS ALERT AND ORIENTED X 1. NO SIGNS OF SOB OR RESPIRATORY DISTRESS NOTED. PATIENTS BREATHING IS EVEN AND UNLABORED. IV ACCESS IN PLACE FLUSHING WELL, SL. ALL PATIENT NEEDS HAVE BEEN MET DURING SHIFT. SAFETY MEASURES ARE IN PLACE, BED IS LOCKED AND PLACED IN THE LOW POSITION,CALL LIGHT IS WITHIN REACH. WILL ENDORSE CARE TO DAY SHIFT NURSE.
--- NOTE | 2020-08-29 07:28 | NUR ---
FOSTER CARE CASE MANAGER OPENING NOTE PT AWAKE IN BED AND RESPONSIVE. PT IS A/O X 2, VERBAL, GUAMANIAN SPEAKING ONLY BUT IS ABLE TO MAKE NEEDS KNOWN. NO C/O PAIN AT THIS TIME. PT IS ON ROOM AIR WITH NO S/SX OF RESPIRATORY DISTRESS OR SOB AT THIS TIME. TELE MONITOR SHOWS A. FIB WITH PVC'S AT 92 BPM AT THIS TIME WITH NO CARDIAC DISTRESS NOTED. PT HAS AN IV ACCESS ON LEFT AC G#20 SL, PATENT, INTACT AND FLUSHING WELL WITH ON S/SX OF INFECTION, INFILTRATION OR IRRITATION. SAFETY MEASURES IN PLACE: BED IN LOWEST POSITION AND LOCKED WITH BOTH UPPER SIDE RAILS UP X 2. CALL LIGHT PLACED WITHIN REACH. WILL CONTINUE TO MONITOR.
[2020-08-29 07:33] LABS: BASOPHILS % (AUTO) 0.2 % (0.0-2.0); EOSINOPHILS % (AUTO) 2.1 % (0.0-6.0); HEMATOCRIT 29 % (33-45); HEMOGLOBIN 9.5 g/dL (11.5-14.8); LYMPHOCYTES % (AUTO) 33.1 % (20.0-44.0); MEAN CORPUSCULAR HGB CONC 33 g/dl (31.0-36.0); MEAN CORPUSCULAR VOLUME 90 fL (82-100); MONOCYTES # (AUTO) 0.7 /CMM (0.1-1.30); MONOCYTES % (AUTO) 10.7 % (2.0-12.0); NEUTROPHILS # (AUTO) 3.3 /CMM (1.8-8.9); NEUTROPHILS % (AUTO) 53.9 % (43.0-81.0); PLATELET COUNT (AUTO) 329 /CMM (150-450); RED BLOOD CELL COUNT(AUTO) 3.23 MIL/uL (4.0-5.2); WHITE BLOOD COUNT (AUTO) 6.2 K/uL (4.3-11.0)
[2020-08-29] MEDS: PANTOPRAZOLE 40 MG TABLET.DR PO SCH (08:10)
[2020-08-29] MEDS: CARVEDILOL 12.5 MG TABLET PO SCH (08:11)
[2020-08-29] MEDS: AMLODIPINE BESYLATE 10 MG TABLET PO SCH (08:12)
[2020-08-29 08:16] LABS: CHOLESTEROL 308 mg/dL (<200); HDL CHOLESTEROL 34 mg/dL (40-60); LDL 200 mg/dL (0-99); TRIGLYCERIDES 337 mg/dL (30-150)
[2020-08-29 08:18] LABS: ALANINE AMINOTRANSFERASE 18 U/L (12-78); ALBUMIN 2.8 g/dL (3.4-5.0); ALKALINE PHOSPHATASE 130 U/L (46-116); ASPARTATE AMINOTRANSFERASE 24 U/L (15-37); BILIRUBIN,TOTAL 0.5 mg/dL (0.2-1.0); CALCIUM, SERUM 10.1 mg/dL (8.5-10.1); CARBON DIOXIDE 27 mmol/L (21-32); CHLORIDE 103 mmol/L (98-107); CREATININE 1.4 mg/dL (0.6-1.3); GLUCOSE 94 mg/dL (74-106); MAGNESIUM 2.3 mg/dL (1.8-2.4); PHOSPHORUS 4.7 mg/dL (2.5-4.9); POTASSIUM 4.2 mmol/L (3.5-5.1); SODIUM SERUM 142 mmol/L (136-145); TOTAL PROTEIN, SERUM 7.7 g/dL (6.4-8.2); UREA NITROGEN, BLOOD 38 mg/dL (7-18)
[2020-08-29 08:19] VITALS: BP 133/72
--- NOTE | 2020-08-29 08:26 | NUR ---
PASS WORKER NOTE SEEN BY KAROL WOUND CARE NURSE WITH ORDERS TO PUT MEPILEX ON BILATERAL HEELS, AND PODIATRY CONSULT. WILL CARRY OUT AND CONTINUE WITH PLAN OF CARE.
--- NOTE | 2020-08-29 08:54 | NUR ---
WOUND CARE CONSULT: PT PRESENTS WITH RT HEEL WOUND, LEFT HEEL REDNESS WITH DRY SCAB TO ANKLE, PRESENT ON ADMISSION. RECOMMEND DPM CONSULT. DR TRORES NOTIFIED OF CONSULT REQUEST. PT IS INCONTINENT. RECOMMENDATIONS MADE FOR SKIN PROTECTION. DISCUSSED WITH NURSING STAFF. PT IS ON TUNG ISOFLEX LOW AIRLOSS BED. MD IN AGREEMENT WITH PLAN OF CARE.
[2020-08-29] MEDS ORDERED: FUROSEMIDE 40 MG TABLET PO SCH (09:00)
[2020-08-29] MEDS ORDERED: HYDROCHLOROTHIAZIDE 25 MG TABLET PO SCH (09:00)
[2020-08-29] MEDS ORDERED: LOSARTAN POTASSIUM 50 MG TABLET PO SCH (09:00)
[2020-08-29] MEDS ORDERED: PANTOPRAZOLE 40 MG VIAL IV SCH (09:00)
[2020-08-29] MEDS ORDERED: Medication Not On Formulary EA (Olmesartan Med/Amlodipine/Hctz (Tribenzor 40-10-25 Mg Ta PO SCH (09:00)
[2020-08-29] MEDS ORDERED: ENOXAPARIN SODIUM 40 MG/0.4 ML DISP.SYRIN SQ SCH (09:00)
[2020-08-29] MEDS: ENOXAPARIN SODIUM 30 MG/0.3 ML DISP.SYRIN SQ SCH (09:18)
[2020-08-29] MEDS: DIGOXIN 0.125 MG TABLET PO SCH (12:07)
[2020-08-29 16:13] VITALS: BP 144/68
[2020-08-29] MEDS: HYDROCODONE/APAP 5/325MG TABLET PO PRN (18:18)
--- NOTE | 2020-08-29 18:22 | NUR ---
MS RN NOTE PT SCHEDULED FOR DEBRIDEMENT TODAY BY DR. BAIRD. CONSENT GIVEN BY FAMILY, WITNESSED AND FILED IN CHART. PT PREMEDICATED WITH NORCO 5-325 1 TAB PO Q6H PRN AT 18:18 PER MD ORDER PRIOR TO DEBRIDEMENT. WILL CONTINUE TO MONITOR.
--- NOTE | 2020-08-29 19:20 | NUR ---
MS RN CLOSING NOTE PT ASLEEP IN BED B UT AROUSABLE AND RESPONSIVE. PT IS A/O X 2, VERBAL, ESTONIAN SPEAKING ONLY BUT IS ABLE TO MAKE NEEDS KNOWN. NO C/O PAIN AT THIS TIME. PT IS ON ROOM AIR WITH NO S/SX OF RESPIRATORY DISTRESS OR SOB AT THIS TIME. D/C FROM TELEMETRY WITH NO CARDIAC DISTRESS NOTED AT THIS TIME. PT HAS AN IV ACCESS ON LEFT AC G#20 SL, PATENT, INTACT AND FLUSHING WELL WITH ON S/SX OF INFECTION, INFILTRATION OR IRRITATION. PT TOLERATED BEDSIDE WOUND DEBRIDEMENT BY . BILATERAL FOOT DRESSINGS ARE CLEAN, DRY AND INTACT. ALL CARE, NEEDS, MEDICATIONS AND TREATMENTS GIVEN ON TIME ORDERED PER FACILITY PROTOCOL. SAFETY MEASURES MAINTAINED: BED IN LOWEST, LOCKED POSITION WITH BOTH UPPER SIDE RAILS UP X 2. CALL LIGHT PLACED WITHIN REACH. WILL ENDORSE TO DROP FORGER HELPER NURSE.
[2020-08-29 20:00] VITALS: BP 104/50
--- NOTE | 2020-08-29 20:23 | NUR ---
MS RN OPENING NOTE PATIENT LYING IN BED; A/OX1; ABLE TO MAKE NEEDS KNOWN. ON ROOM AIR; TOLERATING WELL WITH NO SOB. IV TO LAC #20G S/L; PATENT AND INTACT. NO S/S OF PAIN OR DISCOMFORT AT THIS TIME. DRESSING TO BILATERAL FEET KEPT C/D/I. SAFETY MEASURES IN PLACE: BED IN LOWEST LOCKED POSITION, CALL LIGHT WITHIN EASY REACH, SIDE RAILS UP X2, BED ALARMS ON. PATIENT IS CALM AND MEDICALLY STABLE AT THIS TIME. WILL CONTINUE PATIENT'S PLAN OF CARE.
[2020-08-30] MEDS: HYDROCODONE/APAP 5/325MG TABLET PO PRN (03:12)
--- NOTE | 2020-08-30 04:12 | NUR ---
MS RN NOTES - PAIN PATIENT NOTES WITH CRYING, FACIAL GRIMACE, AND MOANING. ADMINISTERED NORCO 5-325MG ORDERED. WILL CONTINUE TO MONITOR FOR PAIN.
--- NOTE | 2020-08-30 07:41 | NUR ---
MS RN CLOSING NOTE PATIENT LYING IN BED; A/OX2; ABLE TO MAKE SIMPLE NEEDS KNOWN. ON ROOM AIR; TOLERATING WELL WITH NO SOB. IV TO RFA #22G S/L; PATENT AND INTACT. NO S/S OF PAIN OR DISCOMFORT AT THIS TIME. DRESSING TO BILATERAL FEET KEPT C/D/I. SAFETY MEASURES IN PLACE: BED IN LOWEST LOCKED POSITION, CALL LIGHT WITHIN EASY REACH, SIDE RAILS UP X2, BED ALARMS ON. PATIENT IS CALM AND MEDICALLY STABLE AT THIS TIME. WILL CONTINUE PATIENT'S PLAN OF CARE.
--- NOTE | 2020-08-30 07:50 | NUR ---
MS/RN OPENING NOTES RECEIVED PATIENT IS ON BED AWAKE ALERT AND ORIENTED X2. PATIENT IS ON ROOM AIR SATURATION 98%. PATIENT IN APPARENT RESPIRATORY DISTRESS NOTED. PATIENT HAD A SIGN AND SYMPTOM OF PAIN NOTED FACIAL GRIMACE, SCREAMING AND RESTLESS. WILL CONTINUE TO MONITOR.
[2020-08-30] MEDS: PANTOPRAZOLE 40 MG TABLET.DR PO SCH (08:00)
[2020-08-30] MEDS: HYDROMORPHONE 1 MG/1 ML DISP.SYRIN IV PRN ×2 (08:01→19:44)
--- NOTE | 2020-08-30 08:05 | NUR ---
MS/RN NOTES PATIENT HAD A SIGN AND SYMPTOM OF PAIN NOTED FACIAL GRIMACE. SCREAMING AND RESTLESS DILAUDID 1 MG IV WAS GIVEN. WILL CONTINUE TO MONITOR.
[2020-08-30 08:20] VITALS: BP 107/65
[2020-08-30] MEDS: ASPIRIN EC 81 MG TABLET.DR PO SCH (08:25)
[2020-08-30] MEDS: CARVEDILOL 12.5 MG TABLET PO SCH (08:26)
[2020-08-30] MEDS: AMLODIPINE BESYLATE 10 MG TABLET PO SCH (08:26)
[2020-08-30] MEDS: ENOXAPARIN SODIUM 30 MG/0.3 ML DISP.SYRIN SQ SCH (08:27)
--- NOTE | 2020-08-30 08:40 | NUR ---
MS/RN NOTES PATIENT WAS CALM NO SIGN AND SYMPTOM OF PAIN NOTED AT THIS TIME. WILL CONTINUE TO MONITOR.
--- NOTE | 2020-08-30 08:44 | NUR ---
MS/RN NOTES BP 107/65 P 70 COREG 12.5 1 TAB P.O. AND NORVASC 10MG 1 TAB PO WAS NOT ADMINISTERED. WILL CONTINUE O MONITOR.
[2020-08-30] MEDS ORDERED: Hydrocodone/Apap 10/325MG PO (10:06)
--- NOTE | 2020-08-30 11:01 | NUR ---
MS/RN NOTES DISCHARGE ORDER WAS CANCELLED PER VIVIANA OFFICE COPY SELECTOR.
--- NOTE | 2020-08-30 11:36 | NUR ---
MS/RN NOTES SHAILA BAIRD DMP ORDER HEEL PROTECTOR. NOTED AND CARRIED OUT.
[2020-08-30] MEDS: DIGOXIN 0.125 MG TABLET PO SCH (12:53)
[2020-08-30] MEDS: HYDROCODONE/APAP 10/325MG TABLET PO PRN (12:53)
--- NOTE | 2020-08-30 12:54 | NUR ---
MS/RN NOTES PATIENT HAD A SIGN AND SYMPTOM OF PAIN NOTED FACIAL GRIMACE, SCREAMING AND RESTLESS NORCO 10MG 1 TAB P.O WAS GIVEN. WILL CONTINUE TO MONITOR.
--- NOTE | 2020-08-30 14:15 | NUR ---
MS/RN NOTES PATIENT CANNOT TOLERATE REGULAR DIET. PATIENT HAD NO UPPER TEETH WAS NOTED, REGULAR DIET CHANGE TO MECHANICAL SOFT.
[2020-08-30 16:14] VITALS: BP 117/58
--- NOTE | 2020-08-30 18:52 | NUR ---
MS/R CLOSING NOTES PATIENT IS ON BED AWAKE ALERT AND ORIENTED X2. PATIENT IS ON ROOM AIR SATURATION 98%. PATIENT IN NO APPARENT RESPIRATORY DISTRESS NOTED. NO COMPLAINED OF PAIN NOTED AT THIS TIME. IV ACCESS AT RIGHT FOREARM # 22 G PATENT AND INTACT. SEEN AND EXAMINED BY MD WITH ORDERS MADE AND CARRIED OUT. ALL DUE MEDICATIONS WAS GIVEN. SAFETY PRECAUTIONS WAS IN PLACED. BED IN LOWEST POSITION AND LOCKED. CALL LIGHT WITH IN REACH. WILL ENDORSED TO IT ADMINISTRATIVE ASSISTANT FOR JADE.
--- NOTE | 2020-08-30 19:45 | NUR ---
MS/RN OPENING NOTE RECEIVED PATIENT RESTING IN BED. AWAKE, ALERT AND ORIENTED X 2. COMPLAINTS OF PAIN TO RLE. GIVEN PRN DILAUDID WITH PENDING EFFECT. IV ACCESS TO RIGHT FOREARM INTACT AND PATENT. OFFLOADING TO BILATERAL HEELS. CONTINUES ON MECHANICAL SOFT DIET WITH NO SIGNS OR SYMPTOMS OF ASPIRATION NOTED. CALL LIGHT WITHIN REACH. ASPIRATION, FALL AND SAFETY PRECAUTIONS MAINTAINED. WILL CONTINUE TO MONITOR.
[2020-08-30 20:00] VITALS: BP 142/70
[2020-08-31] MEDS: HYDROMORPHONE 1 MG/1 ML DISP.SYRIN IV PRN ×2 (05:44→15:34)
--- NOTE | 2020-08-31 06:20 | NUR ---
MS/RN CLOSING NOTE PATIENT CURRENTLY SLEEPING IN BED. ALERT AND ORIENTED X 2. NO COMPLAINTS OF PAIN AT THIS TIME. IV ACCESS TO RIGHT FOREARM INTACT AND PATENT. OFFLOADING TO BILATERAL HEELS. CONTINUES ON MECHANICAL SOFT DIET WITH NO SIGNS OR SYMPTOMS OF ASPIRATION NOTED. CALL LIGHT WITHIN REACH. ASPIRATION, FALL AND SAFETY PRECAUTIONS MAINTAINED. WILL ENDORSE PLAN OF CARE TO ONCOMING RN.
[2020-08-31] MEDS: PANTOPRAZOLE 40 MG TABLET.DR PO SCH (07:40)
--- NOTE | 2020-08-31 07:49 | NUR ---
MS/RN OPENING NOTES RECEIVED PATIENT IS ON BED, SLEEPING EASILY AROUSABLE BY NAME AND LIGHT TOUCH, ALERT AND ORIENTED X2. PATIENT IS ON ROOM AIR SATURATING WELL. PATIENT IN APPARENT RESPIRATORY DISTRESS NOTED. NO SIGN AND SYMPTOM OF PAIN NOTED AT THIS TIME. WILL CONTINUE TO MONITOR.
[2020-08-31 08:00] VITALS: BP 125/67
[2020-08-31] MEDS: AMLODIPINE BESYLATE 10 MG TABLET PO SCH (08:50)
[2020-08-31] MEDS: CARVEDILOL 12.5 MG TABLET PO SCH (08:51)
[2020-08-31] MEDS: ENOXAPARIN SODIUM 30 MG/0.3 ML DISP.SYRIN SQ SCH (08:52)
[2020-08-31] MEDS: DIGOXIN 0.125 MG TABLET PO SCH (12:24)
[2020-08-31] MEDS: HYDROCODONE/APAP 10/325MG TABLET PO PRN (14:22)
--- NOTE | 2020-08-31 14:25 | NUR ---
MS/RN NOTES PATIENT HAD A SIGN AND SYMPTOM OF PAIN NOTED FACIAL GRIMACE. SCREAMING AND RESTLESS NORCO 10/325 MG 1 TAB P.O. WAS GIVEN. WILL CONTINUE TO MONITOR.
[2020-08-31 16:00] VITALS: BP 120/53
[2020-08-31] MEDS: ENSURE ENLIVE 237 ML LIQUID (VANILLA) PO SCH (17:11)
[2020-08-31 18:00] VITALS: BP 120/53
--- NOTE | 2020-08-31 19:15 | NUR ---
MS/RN CLOSING NOTES PATIENT IS ON BED AWAKE ALERT AND ORIENTED X2. PATIENT IS ON ROOM AIR SATURATION 94%. PATIENT IN NO APPARENT RESPIRATORY DISTRESS NOTED. NO SIGN AND SYMPTOM OF PAIN NOTED AT THIS TIME. IV ACCESS AT RIGHT FOREARM # 22 G PATENT AND INTACT. SEEN AND EXAMINED BY MD WITH ORDERS MADE AND CARRIED OUT. ALL DUE MEDICATIONS WAS GIVEN. NOTED PATIENT IS NOT EATING WELL ENSURE 237ML P.O. 3 TIME A DAY WAS ORDER MD IS AWARE. WOUND DRESSING WAS DONE. SAFETY PRECAUTIONS WAS IN PLACED. BED IN LOWEST POSITION AND LOCKED. CALL LIGHT WITH IN REACH. WILL ENDORSED TO ACCESS SERVICES ASSISTANT FOR JADE.
--- NOTE | 2020-08-31 19:25 | NUR ---
MS/RN OPENING NOTE RECEIVED PATIENT RESTING IN BED. AWAKE, ALERT AND ORIENTED X 2. ABLE TO MAKE NEEDS KNOWN. PRIMARY LANGUAGE IS DANISH. NO COMPLAINTS OF PAIN AT THIS TIME. IV ACCESS TO RIGHT FOREARM INTACT AND PATENT. WOUND DRESSINGS C/D/I. CONTINUES ON MECHANICAL SOFT DIET. NO SIGNS OR SYMPTOMS OF NAUSEA/VOMITING. CALL LIGHT WITHIN REACH. ASPIRATION, FALL AND SAFETY PRECAUTIONS MAINTAINED. WILL CONTINUE TO MONITOR.
[2020-08-31 20:00] VITALS: BP 123/52
[2020-09-01] MEDS: HYDROMORPHONE 1 MG/1 ML DISP.SYRIN IV PRN ×2 (03:24→11:22)
--- NOTE | 2020-09-01 06:15 | NUR ---
MS/RN CLOSING NOTE PATIENT CURRENTLY SLEEPING IN BED. ALERT AND ORIENTED X 2. ABLE TO MAKE NEEDS KNOWN. PRIMARY LANGUAGE IS AUSTRIAN. NO COMPLAINTS OF PAIN AT THIS TIME. IV ACCESS TO RIGHT FOREARM INTACT AND PATENT. WOUND DRESSINGS C/D/I. CONTINUES ON MECHANICAL SOFT DIET. NO SIGNS OR SYMPTOMS OF NAUSEA/VOMITING. CALL LIGHT WITHIN REACH. ASPIRATION, FALL AND SAFETY PRECAUTIONS MAINTAINED. WILL ENDORSE PLAN OF CARE TO ONCOMING SHIFT.
[2020-09-01 08:00] VITALS: BP 97/64
--- NOTE | 2020-09-01 08:05 | NUR ---
MS RN OPENING NOTE PATIENT IS IN BED RESTING, PATIENT IS IN NO ACUTE DISTRESS. PATIENT IS ON ROOM AIR, TOLERATING WELL. NO SOB NOTE. SAFETY PRECAUTIONS ARE ON, BED IS LOCKED AND IN THE LOWEST POSITION WITH SIDE RAILS UP. CALL LIGHT WITHIN REACH. WILL CONTINUE TO MONITOR CLOSELY THROUGHOUT THE SHIFT.
[2020-09-01] MEDS: AMLODIPINE BESYLATE 10 MG TABLET PO SCH (09:00)
[2020-09-01] MEDS: CARVEDILOL 12.5 MG TABLET PO SCH (09:00)
[2020-09-01] MEDS: HYDROCODONE/APAP 5/325MG TABLET PO PRN (09:42)
[2020-09-01] MEDS: ASPIRIN EC 81 MG TABLET.DR PO SCH (09:42)
[2020-09-01] MEDS: PANTOPRAZOLE 40 MG TABLET.DR PO SCH (09:42)
[2020-09-01] MEDS: ENSURE ENLIVE 237 ML LIQUID (VANILLA) PO SCH ×3 (09:43→16:19)
[2020-09-01] MEDS: ENOXAPARIN SODIUM 30 MG/0.3 ML DISP.SYRIN SQ SCH (09:46)
--- NOTE | 2020-09-01 10:20 | NUR ---
MS RN NOTE PATIENT IS EXPERIENCING PAIN, ADMINISTER NORCO PRN ORALLY, PATIENT DID NOT WANT TO TAKE IT, DISSOLVED PILL IN THE APPLE SAUCE, PATIENT STILL REFUSED. UNABLE TO ADMINISTER AND RETURN MEDICATION. UNDID MEDICATION ADMINISTRATION OF NORCO. WILL ADMINISTER DILAUDID PRN VIA IV, PATIENT IS IN A LOT OF PAIN.
[2020-09-01] MEDS: DIGOXIN 0.125 MG TABLET PO SCH (13:48)
--- NOTE | 2020-09-01 19:42 | NUR ---
RN NOTES PATIENT IS IN BED RESTING, PATIENT IS IN NO ACUTE DISTRESS. PATIENT IS ON ROOM AIR, TOLERATING WELL. NO SOB NOTE. SAFETY PRECAUTIONS ARE ON, BED IS LOCKED AND IN THE LOWEST POSITION WITH SIDE RAILS UP. CALL LIGHT WITHIN REACH. ALL NURSING NEEDS MET AT THIS TIME. WILL CONTINUE TO MONITOR CLOSELY THROUGHOUT THE SHIFT.
--- NOTE | 2020-09-01 19:45 | NUR ---
MS RN CLOSING NOTE PATIENT IS IN BED RESTING, PATIENT IS IN NO ACUTE DISTRESS. PATIENT IS ON ROOM AIR, TOLERATING WELL. NO SOB NOTED. SAFETY PRECAUTIONS ARE ON, BED IS LOCKED AND IN THE LOWEST POSITION WITH SIDE RAILS UP. CALL LIGHT WITHIN REACH. ENDORSE PATIENT TO BOOK TRIMMER NURSE FOR JADE.
[2020-09-01 20:00] VITALS: BP 121/67
[2020-09-01] MEDS: HYDROCODONE/APAP 10/325MG TABLET PO PRN (21:16)
--- NOTE | 2020-09-02 07:01 | NUR ---
RN NOTES PATIENT IS IN BED RESTING, PATIENT IS IN NO ACUTE DISTRESS. PATIENT IS ON ROOM AIR, TOLERATING WELL. NO SOB NOTE. SAFETY PRECAUTIONS ARE ON, BED IS LOCKED AND IN THE LOWEST POSITION WITH SIDE RAILS UP. CALL LIGHT WITHIN REACH. ALL NURSING NEEDS MET AT THIS TIME. WILL ENDORSE CARE TO DAY SHIFT NURSE.
--- NOTE | 2020-09-02 07:41 | NUR ---
MS RN OPENING NOTES RECEIVED PATIENT IN BED, RESTING. NO PAIN OR DISTRESS NOTED. A/O X2. PATIENT IS ON ROOM AIR, TOLERATING WELL. SAFETY PRECAUTIONS IMPLEMENTED. BED IS LOCKED AND IN THE LOWEST POSITION. SIDE RAILS X3. CALL LIGHT WITHIN REACH. WILL CONTINUE TO MONITOR.
[2020-09-02 08:00] VITALS: BP 146/60
[2020-09-02] MEDS: PANTOPRAZOLE 40 MG TABLET.DR PO SCH (08:29)
[2020-09-02] MEDS: CARVEDILOL 12.5 MG TABLET PO SCH (08:30)
[2020-09-02] MEDS: AMLODIPINE BESYLATE 10 MG TABLET PO SCH (08:31)
[2020-09-02] MEDS: ENSURE ENLIVE 237 ML LIQUID (VANILLA) PO SCH ×2 (08:32→12:45)
[2020-09-02] MEDS: ENOXAPARIN SODIUM 30 MG/0.3 ML DISP.SYRIN SQ SCH (08:36)
[2020-09-02] MEDS ORDERED: ATORVASTATIN 40 MG TABLET PO SCH (09:00)
[2020-09-02] MEDS: DIGOXIN 0.125 MG TABLET PO SCH (12:48)
[2020-09-02 16:02] VITALS: BP 125/42
--- NOTE | 2020-09-02 18:43 | NUR ---
MUSIC ASSISTANT NOTE PATIENT DISCHARGED HOME IN STABLE CONDITION VIA AMBULANCE. A/O X 1. VITALS STABLE. NO PAIN OR DISTRESS NOTED. IV ACCESS ON RIGHT HAND REMOVED, DRY PRESSURE DRESSING APPLIED TO SITE. WRISTBAND REMOVED. PATIENT REFUSED DRESSINGS TO BE TAKEN OFF. NO DISCHARGE PHOTOS AND NO WOUND CARE DONE. HEALTH EDUCATION AND EXITCARE GIVEN TO PATIENT. PATIENT LEFT UNIT VIA GURNEY ACCOMPANIED BY 2 EMT'S @ 1318. PATIENT IS GOING HOME. MD AND CHARGE NURSE AWARE OF DISCHARGE.
[2020-09-05 14:07] LABS: *SPE A/G RATIO 0.8 (0.7-1.7); *SPE ALBUMIN 3.1 g/dL (2.9-4.4); *SPE ALPHA-1-GLOBULIN 0.4 g/dL (0.0-0.4); *SPE ALPHA-2-GLOBULIN 1.4 g/dL (0.4-1.0); *SPE BETA GLOBULIN 1.2 g/dL (0.7-1.3); *SPE M-SPIKE Not Observed g/dL (Not Observed); *SPEGAMMA GLOBULIN 1.1 g/dL (0.4-1.8)
== END 2020-09-02 17:15 | disposition home health service (06) | DRG 939 ==
LOC: ER 05:28 → TELE 11:19 → MED 08-29 08:44
PROVIDERS: ADMIT Internal Medicine; ATTEND Internal Medicine
PROC: 0JBQ0ZZ Excision of Right Foot Subcutaneous Tissue and Fascia, Open Approach (ICD-10-PCS; principal; 2020-08-29)
DX: G89.3 Neoplasm related pain (acute) (chronic) (principal); I50.33 Acute on chronic diastolic (congestive) heart failure; N17.0 Acute kidney failure with tubular necrosis; I13.0 Hypertensive heart and chronic kidney disease with heart failure and stage 1 through stage 4 chronic kidney disease, or unspecified chronic kidney disease; L97.418 Non-pressure chronic ulcer of right heel and midfoot with other specified severity; L97.328 Non-pressure chronic ulcer of left ankle with other specified severity; E11.22 Type 2 diabetes mellitus with diabetic chronic kidney disease; E11.42 Type 2 diabetes mellitus with diabetic polyneuropathy; I25.10 Atherosclerotic heart disease of native coronary artery without angina pectoris; C50.919 Malignant neoplasm of unspecified site of unspecified female breast; E78.5 Hyperlipidemia, unspecified; E86.0 Dehydration; F03.90 Unspecified dementia, unspecified severity, without behavioral disturbance, psychotic disturbance, mood disturbance, and anxiety; F32.9 Major depressive disorder, single episode, unspecified; N18.9 Chronic kidney disease, unspecified; Z90.11 Acquired absence of right breast and nipple; Z90.49 Acquired absence of other specified parts of digestive tract; E66.9 Obesity, unspecified; Z68.26 Body mass index [BMI] 26.0-26.9, adult; M54.5 Low back pain; E11.621 Type 2 diabetes mellitus with foot ulcer; I48.91 Unspecified atrial fibrillation; N13.9 Obstructive and reflux uropathy, unspecified; R10.9 Unspecified abdominal pain; Z79.899 Other long term (current) drug therapy; Z20.822 Contact with and (suspected) exposure to COVID-19
CPT/HCPCS: 36415; 71045-TC; 73610-TC; 73650-TC; 80048-TC; 80053-TC; 80061-TC; 80076-TC; 80162-TC; 81001; 83690-TC; 83735-TC; 83880; 84100-TC; 84155; 84165; 84484-TC; 85025-TC; 87070-TC; 87081-TC; 87086-TC; 92521; 92526; 92611-TC; 93307-TC; A6403; C9803; G0378; J1170; J1650; J2270; J2405; J7040

== ENCOUNTER 2020-10-12 21:14 | Inpatient (IN) | payer MEDICARE, OTHER ==
[2020-10-11 23:15] VITALS: BP 101/52
[~2020-10-12] VITALS: Ht 162.6 cm; Wt 59.4 kg
[2020-10-12 01:40] VITALS: BP 101/52
[~2020-10-12 21:14] MED LIST changes: -ACET-868 PO; -BLOO-668 IN; -CLON0.1T PO; -FURO-144 PO; -HYDR-4384 PO; +Hydrocodone/Apap 10/325MG PO; -LEVO500T23 PO; -LISI10TA29 PO; -MEMA10TA PO; -NITR1OIN2 TD; -TEMA15CA PO
[2020-10-12 21:32] LABS: BASOPHILS # (AUTO) 0.1 /CMM (0.0-0.2); BASOPHILS % (AUTO) 0.9 % (0.0-2.0); EOSINOPHILS % (AUTO) 1.3 % (0.0-6.0); HEMATOCRIT 27 % (33-45); HEMOGLOBIN 8.9 g/dL (11.5-14.8); LYMPHOCYTES # (AUTO) 2.1 /CMM (0.8-4.8); LYMPHOCYTES % (AUTO) 28.3 % (20.0-44.0); MEAN CORPUSCULAR HGB CONC 33 g/dl (31.0-36.0); MEAN CORPUSCULAR VOLUME 89 fL (82-100); MONOCYTES # (AUTO) 0.8 /CMM (0.1-1.30); MONOCYTES % (AUTO) 10.7 % (2.0-12.0); NEUTROPHILS # (AUTO) 4.3 /CMM (1.8-8.9); NEUTROPHILS % (AUTO) 58.8 % (43.0-81.0); PLATELET COUNT (AUTO) 301 /CMM (150-450); RED BLOOD CELL COUNT(AUTO) 3.07 MIL/uL (4.0-5.2); WHITE BLOOD COUNT (AUTO) 7.3 K/uL (4.3-11.0)
--- NOTE | 2020-10-12 21:45 | NUR ---
called pt daughter isabela [phone]. vm left. waiting for call back.
--- NOTE | 2020-10-12 21:46 | NUR ---
florencio 89 from home for weakness x 3 days, pt ra family states unable to swallow water. to er bed 5, line started, blood sent to lab. pt A/O to name and can follow simple commands, left sided lower extremity immobility. will continue to monitor
[2020-10-12 21:48] LABS: ALANINE AMINOTRANSFERASE 22 U/L (12-78); ALBUMIN 2.8 g/dL (3.4-5.0); ALKALINE PHOSPHATASE 142 U/L (46-116); ASPARTATE AMINOTRANSFERASE 26 U/L (15-37); BILIRUBIN,DIRECT 0.1 mg/dL (0.0-0.2); BILIRUBIN,TOTAL 0.3 mg/dL (0.2-1.0); CARBON DIOXIDE 28 mmol/L (21-32); CHLORIDE 100 mmol/L (98-107); CREATININE 1.6 mg/dL (0.6-1.3); GLUCOSE 140 mg/dL (74-106); POTASSIUM 4.2 mmol/L (3.5-5.1); SODIUM SERUM 141 mmol/L (136-145); TOTAL PROTEIN, SERUM 7.6 g/dL (6.4-8.2); UREA NITROGEN, BLOOD 47 mg/dL (7-18)
[2020-10-12] MEDS ORDERED: PIPERACILLIN /TAZOBACTAM 3.375 G in IV D5W 50 ML IV ONE (22:00)
[2020-10-12] MEDS ORDERED: VANCOMYCIN 1 GM in IV D5W 250 ML IV ONE (22:00)
[2020-10-12] MEDS ORDERED: IV NS 0.9% 1,000 ML BAG IV ONE (22:00)
[2020-10-12] MEDS ORDERED: VANCOMYCIN 1 GM VIAL ONE (22:07)
[2020-10-12] MEDS ORDERED: PIPERACILLIN /TAZOBACTAM 3.375 G VIAL IV ONE (22:07)
--- NOTE | 2020-10-12 22:09 | NUR ---
CALLED [facility] PAGED NELSON AYALA TEACHER'S ASSISTANT
[2020-10-12 22:15] LABS: COLOR,URINE YELLOW (YELLOW)
[2020-10-12 22:16] LABS: BILIRUBIN,URINE SMALL (NEGATIVE); PROTEIN,URINE 2+ mg/dl (NEGATIVE); UGLUCOSE NEGATIVE (NEGATIVE)
[2020-10-12 22:17] LABS: LEUKOCYTE ESTERASE ,URINE LARGE (NEGATIVE); NITRITE, URINE POSITIVE (NEGATIVE); UROBILINOGEN,URINE 0.2 EU/dL (0.2)
[2020-10-12 22:20] LABS: BACTERIA,URINE Many /HPF (None Seen); RBC,URINE 21-50 /HPF (0-2); SQUAMOUS EPITHELIAL CELL,UR 0-2 /HPF (None Seen); WBC,URINE TOO NUMEROUS TO COUN /HPF (0-3)
[2020-10-12] MEDS ORDERED: LORAZEPAM 0.5 MG TABLET PO PRN (22:30)
[2020-10-12] MEDS ORDERED: NITROGLYCERIN 0.4 MG/TAB BOTTLE SL PRN (22:30)
[2020-10-12 22:38] LABS: DIGOXIN 2.08 ng/mL (0.90-2.00)
--- NOTE | 2020-10-12 22:39 | NUR ---
TELE [phone]
--- NOTE | 2020-10-12 23:02 | NUR ---
REPORT GIVEN TO LANA RUSSELL
--- NOTE | 2020-10-12 23:04 | NUR ---
CALL FROM LAB. RAPID COVID NEGATIVE.
--- NOTE | 2020-10-12 23:13 | NUR ---
PT TRANSFERED TO 3RD FLOOR ROOM 324
[2020-10-12 23:15] VITALS: BP 101/52
--- NOTE | 2020-10-12 23:35 | NUR ---
RAILROAD BRAKEMANVICE PRESIDENT QUALITY NOTE RECEIVED PATIENT, ALERT AND ORIENTED X 1, PATIENT FOLLOWS SIMPLE COMMANDS. PATIENT ADMITTED FOR ALTERED MENTAL STATUS. PATIENT SPEAKS [place]. PATIENT ON TELE MONITOR. NO ACUTE DISTRESS OR SHORTNESS OF BREATH NOTED. IV ACCESS LEFT HAND CLEAN, DRY AND INTACT. LEFT LOWER EXTREMITY IMMOBILE AT BASELINE. PATIENT HAS A RIGHT HEEL ULCER, LEFT FOOT ABRASIONS, AND REDNESS IN THE CHEST AND NECK, PHOTOS TAKEN AND PLACED IN CHART. SAFETY MEASURES IN PLACE, BED LOCKED IN LOWEST POSITION, BED ALARM ON, AND CALL LIGHT WITHIN REACH. WILL CONTINUE TO MONITOR
[2020-10-12] MEDS ORDERED: CEFTRIAXONE 1 G VIAL ONE (23:55)
[2020-10-13] MEDS: CEFTRIAXONE 1 G in IV D5W 50 ML IV SCH ×2 (00:17→22:03)
[2020-10-13 04:00] VITALS: BP 107/43
[2020-10-13 06:14] LABS: BASOPHILS % (AUTO) 0.3 % (0.0-2.0); EOSINOPHILS % (AUTO) 1.1 % (0.0-6.0); HEMATOCRIT 23 % (33-45); HEMOGLOBIN 7.7 g/dL (11.5-14.8); LYMPHOCYTES # (AUTO) 0.9 /CMM (0.8-4.8); LYMPHOCYTES % (AUTO) 19.6 % (20.0-44.0); MEAN CORPUSCULAR HGB CONC 33 g/dl (31.0-36.0); MEAN CORPUSCULAR VOLUME 91 fL (82-100); MONOCYTES # (AUTO) 0.5 /CMM (0.1-1.30); MONOCYTES % (AUTO) 10.3 % (2.0-12.0); NEUTROPHILS % (AUTO) 68.7 % (43.0-81.0); PLATELET COUNT (AUTO) 236 /CMM (150-450); RED BLOOD CELL COUNT(AUTO) 2.57 MIL/uL (4.0-5.2); WHITE BLOOD COUNT (AUTO) 4.4 K/uL (4.3-11.0)
--- NOTE | 2020-10-13 06:52 | NUR ---
TECHNICIAN [employer]OLOGICAL HE[employer] CLOSING NOTES PATIENT ALERT AND ORIENTED X 1, PATIENT ABLE TO FOLLOW SIMPLE COMMANDS. PATIENT SPEAKS [place]. NO ACUTE DISTRESS OR SHORTNESS OF BREATH NOTED. MEDICATIONS GIVEN ORDERED. PATIENT NEEDS ATTENDED TO THROUGHOUT SHIFT. SAFETY MEASURES IN PLACE, BED LOCKED IN LOWEST POSITION, BED ALARM ON, AND CALL LIGHT WITHIN REACH. PLAN FOR PT EVAL, ID CONSULT, AND F/U ON AM LABS. WILL ENDORSE TO DAY SHIFT NURSE FOR CONTINUITY OF CARE
--- NOTE | 2020-10-13 07:40 | NUR ---
RN OPENING NOTE PATIENT AWAKE IN BED RESTING. A/O X 1 AND KHMER SPEAKING ONLY. NO COMPLAINT OF PAIN OR NAUSEA. NO SIGNS OF PAIN. CURRENTLY ON RA WITH NO SOB OR RESPIRATORY DISTRESS PRESENT. ON FUR FARMER. ON BEDREST DUE TO ALTERED MENTAL STATUS. NO EDEMA. REDNESS, DTI, AND BRUISING PRESENT. HL PRESENT ON L HAND ON 18G SL. SAFETY MEASURES IN PLACE. SIDE RAILS RAISED. BED LOWERED. CALL LIGHT WITHIN REACH. WILL CONTINUE TO MONITOR.
[2020-10-13 07:47] LABS: ALANINE AMINOTRANSFERASE 17 U/L (12-78); ALBUMIN 2.3 g/dL (3.4-5.0); ALKALINE PHOSPHATASE 121 U/L (46-116); ASPARTATE AMINOTRANSFERASE 22 U/L (15-37); BILIRUBIN,TOTAL 0.3 mg/dL (0.2-1.0); CALCIUM, SERUM 9.8 mg/dL (8.5-10.1); CARBON DIOXIDE 21 mmol/L (21-32); CHLORIDE 103 mmol/L (98-107); CREATININE 1.5 mg/dL (0.6-1.3); GLUCOSE 135 mg/dL (74-106); MAGNESIUM 2.4 mg/dL (1.8-2.4); PHOSPHORUS 4.4 mg/dL (2.5-4.9); POTASSIUM 3.6 mmol/L (3.5-5.1); SODIUM SERUM 140 mmol/L (136-145); TOTAL PROTEIN, SERUM 6.8 g/dL (6.4-8.2); UREA NITROGEN, BLOOD 50 mg/dL (7-18)
[2020-10-13 07:50] LABS: CHOLESTEROL 233 mg/dL (<200); HDL CHOLESTEROL 29 mg/dL (40-60); LDL 141 mg/dL (0-99); THYROID STIMULATING HORMONE 1.192 uIU/mL (0.358-3.74); TRIGLYCERIDES 250 mg/dL (30-150)
--- NOTE | 2020-10-13 07:56 | NUR ---
NURSING SWALLOW EVAL. PATIENT ABLE TO CONSUME APPLE JUICE AND APPLESAUCE WITH NO SIGNS OF ASPIRATION. WILL CONTINUE TO MONITOR.
[2020-10-13 08:00] VITALS: BP 118/54
[2020-10-13] MEDS: CARVEDILOL 12.5 MG TABLET PO SCH (08:37)
[2020-10-13] MEDS: AZITHROMYCIN 250 MG TABLET PO SCH (08:38)
[2020-10-13] MEDS: AMLODIPINE BESYLATE 10 MG TABLET PO SCH (08:38)
[2020-10-13] MEDS ORDERED: Medication Not On Formulary EA (Olmesartan Med/Amlodipine/Hctz (Tribenzor 40-10-25 Mg Ta PO SCH (09:00)
[2020-10-13] MEDS ORDERED: LOSARTAN/HCTZ 50-12.5MG/ 1 EA TABLET PO SCH (09:00)
[2020-10-13] MEDS: DIGOXIN 0.125 MG TABLET PO SCH (13:02)
[2020-10-13] MEDS: HYDROCODONE/APAP 10/325MG TABLET PO PRN ×2 (14:15→23:05)
[2020-10-13 16:00] VITALS: BP 107/57
[2020-10-13] MEDS: ENSURE CLEAR 237 ML LIQUID (MIX BERRY) PO SCH (17:00)
--- NOTE | 2020-10-13 18:17 | NUR ---
RN CLOSING NOTE PATIENT AWAKE IN BED RESTING. A/O X 1 AND KINYARWANDA SPEAKING ONLY. NO COMPLAINT OF PAIN OR NAUSEA. NO SIGNS OF PAIN. CURRENTLY ON RA WITH NO SOB OR RESPIRATORY DISTRESS PRESENT. ON BEAD MAKER. ON BEDREST DUE TO ALTERED MENTAL STATUS. NO EDEMA. REDNESS, DTI, AND BRUISING PRESENT. HL PRESENT ON L HAND ON 18G SL. SAFETY MEASURES IN PLACE. SIDE RAILS RAISED. BED LOWERED. CALL LIGHT WITHIN REACH. REPORT TO BE GIVEN TO NIGHT NURSE.
--- NOTE | 2020-10-13 19:15 | NUR ---
MS RN NOTES RECEIVED ON BED A/O X2,SPEAK CITIZEN OF [place] ONLY,BREATHING EASY,NO SOB,O2 SAT 97% ON ROOM AIR,SALINE LOCK LEFT FORE ARM INTACT AND PATENT,FALL RISK,FALL PRECAUTION OBSERVED,BED ON LOWEST POSITION AND LOCKED,BED ALARM TRIGGERED.CALL LIGHT IN REACH,NEEDS ANTICIPATED.
[2020-10-13 20:00] VITALS: BP 110/54
--- NOTE | 2020-10-13 23:05 | NUR ---
MS RN NOTES PAIN MANAGEMENT C/O RIGHT SHOULDER PAIN 7/10 ON PAIN SCALE,NORCO 10/325MG,1 TAB PO GIVEN WITH APPLE SAUCE,TAKEN WELL.
[2020-10-14 06:28] LABS: BASOPHILS % (AUTO) 0.3 % (0.0-2.0); EOSINOPHILS % (AUTO) 2.8 % (0.0-6.0); HEMATOCRIT 25 % (33-45); HEMOGLOBIN 8.1 g/dL (11.5-14.8); LYMPHOCYTES # (AUTO) 1.3 /CMM (0.8-4.8); LYMPHOCYTES % (AUTO) 23.2 % (20.0-44.0); MEAN CORPUSCULAR HGB CONC 33 g/dl (31.0-36.0); MEAN CORPUSCULAR VOLUME 89 fL (82-100); MONOCYTES # (AUTO) 0.6 /CMM (0.1-1.30); MONOCYTES % (AUTO) 10.6 % (2.0-12.0); NEUTROPHILS # (AUTO) 3.6 /CMM (1.8-8.9); NEUTROPHILS % (AUTO) 63.1 % (43.0-81.0); PLATELET COUNT (AUTO) 243 /CMM (150-450); RED BLOOD CELL COUNT(AUTO) 2.75 MIL/uL (4.0-5.2); WHITE BLOOD COUNT (AUTO) 5.7 K/uL (4.3-11.0)
--- NOTE | 2020-10-14 06:45 | NUR ---
MS RN NOTES FAIRLY RESTED AT NIGHT.PAIN MANAGEMENT EFFECTIVE,DUE MEDS ADMINISTERED.REPOSITION PER PROTOCOL.IN NO ACUTE DISTRESS.
[2020-10-14 07:03] LABS: CALCIUM, SERUM 9.5 mg/dL (8.5-10.1); CREATININE 1.3 mg/dL (0.6-1.3); POTASSIUM 3.7 mmol/L (3.5-5.1)
[2020-10-14 08:00] VITALS: BP 112/70
--- NOTE | 2020-10-14 08:04 | NUR ---
MS RN OPENING NOTE PATIENT IS IN BED RESTING, PATIENT IS NO ACUTE DISTRESS, PATIENT IS ON ROOM AIR TOLERATING WELL. PATIENT IS AT RISK FOR FALLS, UNSTEADY GATE. SAFETY PRECAUTIONS ARE ON, BED IS LOCKED AND IN THE LOWEST POSITION, WITH SIDE RAILS UP, CALL LIGHT WITHIN REACH. WILL CONTINUE TO MONITOR THROUGHOUT THE SHIFT.
[2020-10-14] MEDS: AZITHROMYCIN 250 MG TABLET PO SCH (08:33)
[2020-10-14] MEDS: ENSURE CLEAR 237 ML LIQUID (MIX BERRY) PO SCH ×3 (08:34→16:13)
[2020-10-14] MEDS: ASPIRIN EC 81 MG TABLET.DR PO SCH (08:34)
[2020-10-14] MEDS: LOSARTAN POTASSIUM 50 MG TABLET PO SCH (08:35)
[2020-10-14] MEDS: CARVEDILOL 12.5 MG TABLET PO SCH (08:35)
[2020-10-14] MEDS: AMLODIPINE BESYLATE 10 MG TABLET PO SCH (08:36)
--- NOTE | 2020-10-14 08:36 | NUR ---
RN NOTE PATIENTS BLOOD PRESSURE IS ON THE LOW SIDE, 112/70, DID NOT ADMINISTER COZAAR AND NORVASC.
--- NOTE | 2020-10-14 09:43 | NUR ---
WOUND CARE CONSULT: PT PRESENTS WITH ESCHAR TO LEFT LATERAL ANKLE AREA AND WOUND TO RT FOOT, PRESENT ON ADMISSION. DR TORRES NOTIFIED OF CONSULT REQUEST. RECOMMENDATIONS MADE FOR SKIN PROTECTION. DISCUSSED WITH NURSING STAFF. PT IS ON TUNG ISOFLEX LOW AIRLOSS BED. MD IN AGREEMENT WITH PLAN OF CARE.
[2020-10-14] MEDS ORDERED: Z GUARD REMEDY 2 OZ OINT TP PRN (10:00)
[2020-10-14] MEDS: Z GUARD REMEDY 2 OZ OINT TP SCH (11:35)
[2020-10-14] MEDS: DIGOXIN 0.125 MG TABLET PO SCH (13:52)
[2020-10-14 16:00] VITALS: BP 132/72
[2020-10-14] MEDS ORDERED: MEROPENEM 500 MG in IV NS 0.9% 50 ML IV ONE (17:00)
--- NOTE | 2020-10-14 18:39 | NUR ---
MS RN CLOSING NOTE PATIENT IS IN BED RESTING, PATIENT IS NO ACUTE DISTRESS, PATIENT IS ON ROOM AIR TOLERATING WELL. PATIENT IS AT RISK FOR FALLS, UNSTEADY GATE. SAFETY PRECAUTIONS ARE ON, BED IS LOCKED AND IN THE LOWEST POSITION, WITH SIDE RAILS UP, CALL LIGHT WITHIN REACH. ENDORSE PATIENT TO NYLON MACHINE OPERATOR NURSE FOR JADE.
[2020-10-14 20:00] VITALS: BP 135/81
--- NOTE | 2020-10-14 20:00 | NUR ---
MS RN OPENING NOTE RECEIVED PT AWAKE IN BED. A/O X2. PT IS ENGLISH SPEAKING. NO SOB NOTED. NO S/S OF RESPIRATORY DISTRESS. PATIENT IS STABLE ON ROOM AIR. NO S/O PAIN SUCH FACIAL GRIMACING NOTED. PT AT RISK FOR FALLS, UNSTEADY GAIT. SAFETY MEASURES MAINTAINED. BED IN LOWEST LOCKED POSITION, HOB ELEVATED, SIDE RAILS UP X2. CALL LIGHT AND TABLE WITHIN REACH. WILL CONTINUE WITH PLAN OF CARE.
[2020-10-14] MEDS ORDERED: HYDROCODONE/APAP 5/325MG TABLET PO ONE (21:30)
--- NOTE | 2020-10-14 21:44 | NUR ---
MS RN PAIN PT C/O ACHING PAIN IN RIGHT SHOULDER, RATED 5/10 ON PAIN SCALE. VS BP 128/68, HR 94, RR 18, T 98.7, SPO2 98.7. RECEIVED ORDERS FROM NELSON AYALA NP TO ADMINISTER NORCO 5-325 1 TAB PO ONCE. ORDERS READ BACK AND CARRIED OUT. WILL CONTINUE TO MONITOR.
[2020-10-15] MEDS: MEROPENEM 500 MG in IV NS 0.9% 100 ML IV SCH ×2 (01:10→12:03)
--- NOTE | 2020-10-15 06:13 | NUR ---
MS RN CLOSING NOTE PT IS AWAKE IN BED AT THIS TIME. A/O X2. PT ON BEDREST. PT IS STABLE ON ROOM AIR. NO SOB NOTED. NO S/S OF RESPIRATORY DISTRESS. IV ACCESS IS INTACT, PATENT, AND FLUSHING WELL. ALL NEEDS HAVE BEEN MET. PAIN MANAGEMENT ADMINISTERED PER ORDER. SAFETY AND ASPIRATION PRECAUTIONS MAINTAINED AT ALL TIMES. BED IN LOWEST LOCKED POSITION, HOB ELEVATED, SIDE RAILS UP X2. CALL LIGHT AND TABLE WITHIN REACH. WILL ENDORSE TO ONCOMING NURSE FOR CONTINUITY OF CARE.
[2020-10-15 06:27] LABS: BASOPHILS % (AUTO) 0.4 % (0.0-2.0); EOSINOPHILS % (AUTO) 2.4 % (0.0-6.0); HEMATOCRIT 24 % (33-45); HEMOGLOBIN 7.9 g/dL (11.5-14.8); LYMPHOCYTES # (AUTO) 1.1 /CMM (0.8-4.8); LYMPHOCYTES % (AUTO) 17.7 % (20.0-44.0); MEAN CORPUSCULAR HGB CONC 33 g/dl (31.0-36.0); MEAN CORPUSCULAR VOLUME 90 fL (82-100); MONOCYTES # (AUTO) 0.7 /CMM (0.1-1.30); MONOCYTES % (AUTO) 11.3 % (2.0-12.0); NEUTROPHILS # (AUTO) 4.3 /CMM (1.8-8.9); NEUTROPHILS % (AUTO) 68.2 % (43.0-81.0); PLATELET COUNT (AUTO) 228 /CMM (150-450); RED BLOOD CELL COUNT(AUTO) 2.66 MIL/uL (4.0-5.2); WHITE BLOOD COUNT (AUTO) 6.4 K/uL (4.3-11.0)
[2020-10-15 07:04] LABS: CARBON DIOXIDE 23 mmol/L (21-32); CHLORIDE 102 mmol/L (98-107); CREATININE 1.1 mg/dL (0.6-1.3); GLUCOSE 103 mg/dL (74-106); POTASSIUM 3.5 mmol/L (3.5-5.1); SODIUM SERUM 140 mmol/L (136-145); UREA NITROGEN, BLOOD 44 mg/dL (7-18)
--- NOTE | 2020-10-15 07:46 | NUR ---
MS RN OPENING NOTE RECEIVED PATIENT IN BED. A/O X1-2. DANISH SPEAKING. ON ROOM AIR, TOLERATING WELL. NO SOB NOTED. NO S/S OF RESPIRATORY DISTRESS. DENIES ANY PAIN OR DISCOMFORT AT THIS TIME. IV ACCESS ON L FA #22 G, INTACT. SAFETY MEASURES MAINTAINED. BED IN LOWEST POSITION. BRAKES LOCKED. SIDE RAILS UP X2. CALL LIGHT WITHIN REACH. WILL CONTINUE PLAN OF CARE.
[2020-10-15 08:00] VITALS: BP 116/56
[2020-10-15] MEDS: AMLODIPINE BESYLATE 10 MG TABLET PO SCH (08:14)
[2020-10-15] MEDS: CARVEDILOL 12.5 MG TABLET PO SCH (08:14)
[2020-10-15] MEDS: Z GUARD REMEDY 2 OZ OINT TP SCH (08:15)
[2020-10-15] MEDS: LOSARTAN POTASSIUM 50 MG TABLET PO SCH (08:15)
[2020-10-15] MEDS: ENSURE CLEAR 237 ML LIQUID (MIX BERRY) PO SCH ×3 (08:15→16:11)
[2020-10-15] MEDS: AZITHROMYCIN 250 MG TABLET PO SCH (08:15)
[2020-10-15] MEDS: HYDROCODONE/APAP 5/325MG TABLET PO PRN ×2 (09:53→16:10)
--- NOTE | 2020-10-15 09:54 | NUR ---
MS DREW NOTE CALLED EPIC DR. PAULO SOMMER REGARDING PAIN MED FOR THE PATIENT. HE ORDERED 5/325 MG HYDROCODONE/NORCO Q4 PRN. ORDER WAS READ BACK AND CARRIED OUT. Addendum: 10/15/20 at 0917 by MONIKA BRUNO RN *TELEPHONE ORDER AT [id number]
[2020-10-15] MEDS: DIGOXIN 0.125 MG TABLET PO SCH (12:03)
[2020-10-15 16:00] VITALS: BP 99/44
[2020-10-15] MEDS ORDERED: MINERAL OIL/PETROLATUM,WHITE 120 GM JAR TP PRN (16:00)
[2020-10-15] MEDS: CLOTRIMAZOLE 1% 15 GM TUBE TP SCH (16:11)
--- NOTE | 2020-10-15 18:03 | NUR ---
MS RN CLOSING NOTE PATIENT RESTING IN BED. A/O X1-2. ON ROOM AIR, SATURATING WELL AT 97%. NO SOB NOTED. NO S/S OF RESPIRATORY DISTRESS. IV ACCESS ON L FA #22 G, INTACT AND PATENT. ALL DUE MEDS GIVEN ORDERED. ALL NEEDS HAVE BEEN MET AND ATTENDED. SAFETY MEASURES MAINTAINED. BED IN LOWEST POSITION. BRAKES LOCKED. SIDE RAILS UP X2. CALL LIGHT WITHIN REACH. WILL ENDORSE CONTINUITY OF CARE TO ONCOMING SHIFT.
--- NOTE | 2020-10-15 18:37 | NUR ---
MS RN NOTE PATIENT IS CONFUSED. PT PULLED OUT HER IV. REINSERTED A NEW LINE ON THE LEFT FOREARM #22 G, INTACT AND PATENT.
[2020-10-15 20:00] VITALS: BP 137/62
--- NOTE | 2020-10-15 20:00 | NUR ---
MS RN OPENING NOTE RECEIVED PT AWAKE IN BED. A/O X1-2. PT IS TAIWANESE SPEAKING. PT STABLE ON ROOM AIR. NO SOB NOTED. NO S/S OF RESPIRATORY DISTRESS. PT DENIES ANY PAIN OR DISCOMFORT AT THIS TIME. IV ACCESS NOTED IN LFA #22. IV IS INTACT, PATENT, AND FLUSHING WELL. SAFETY MEASURES MAINTAINED. BED IN LOWEST LOCKED POSITION, HOB ELEVATED, SIDE RAILS UP X2. CALL LIGHT AND TABLE WITHIN REACH. WILL CONTINUE PLAN OF CARE.
[2020-10-16] MEDS: MEROPENEM 500 MG in IV NS 0.9% 100 ML IV SCH ×2 (00:50→12:02)
--- NOTE | 2020-10-16 06:15 | NUR ---
MS RN CLOSING NOTE PT IS AWAKE IN BED AT THIS TIME. A/O X2. PT ON BEDREST. PT IS STABLE ON ROOM AIR. NO SOB NOTED. NO S/S OF RESPIRATORY DISTRESS. IV ACCESS IS INTACT, PATENT, AND FLUSHING WELL. ALL NEEDS HAVE BEEN MET. WOUND CARE ADMINISTERED PER ORDER. SAFETY AND ASPIRATION PRECAUTIONS MAINTAINED AT ALL TIMES. BED IN LOWEST LOCKED POSITION, HOB ELEVATED, SIDE RAILS UP X2. CALL LIGHT AND TABLE WITHIN REACH. WILL ENDORSE TO ONCOMING NURSE FOR CONTINUITY OF CARE.
[2020-10-16 06:35] LABS: BASOPHILS % (AUTO) 0.4 % (0.0-2.0); EOSINOPHILS % (AUTO) 2.6 % (0.0-6.0); HEMATOCRIT 23 % (33-45); HEMOGLOBIN 7.4 g/dL (11.5-14.8); LYMPHOCYTES # (AUTO) 1.3 /CMM (0.8-4.8); LYMPHOCYTES % (AUTO) 20.8 % (20.0-44.0); MEAN CORPUSCULAR HGB CONC 33 g/dl (31.0-36.0); MEAN CORPUSCULAR VOLUME 90 fL (82-100); MONOCYTES # (AUTO) 0.7 /CMM (0.1-1.30); MONOCYTES % (AUTO) 11.6 % (2.0-12.0); NEUTROPHILS # (AUTO) 3.9 /CMM (1.8-8.9); NEUTROPHILS % (AUTO) 64.6 % (43.0-81.0); PLATELET COUNT (AUTO) 223 /CMM (150-450)
--- NOTE | 2020-10-16 07:15 | NUR ---
M/S RN OPENING NOTES RECEIVED PT ON BED, AAOX1-2, RESPONSIVE TO ALL STIMULI. RESPIRATION EVEN AND NON LABORED WITH NO ACUTE RESPIRATORY DISTRESS. ABD SOFT AND NON DISTENDED WITH ACTIVE BOWEL SOUNDS. FLACC-0. SKIN WARM TO TOUCH AND DRY. BLE OFFLOAD. IV SITE AT LEFT FA#22 PATENT IN FLUSHING, NO S/SX OF INFILTRATION. ALL CONCERNS ATTENDED. SRX2 UP FOR SAFETY. CALL LIGHT WITHIN REACHED/NEAR NURSES STATION. WILL CONT TO MONITOR CARE
[2020-10-16 07:19] LABS: CALCIUM, SERUM 9.7 mg/dL (8.5-10.1); CREATININE 1.3 mg/dL (0.6-1.3); POTASSIUM 3.6 mmol/L (3.5-5.1)
[2020-10-16 08:00] VITALS: BP 117/50
[2020-10-16] MEDS: ENSURE CLEAR 237 ML LIQUID (MIX BERRY) PO SCH ×3 (08:08→16:43)
[2020-10-16] MEDS: ASPIRIN EC 81 MG TABLET.DR PO SCH (08:41)
[2020-10-16] MEDS: LOSARTAN POTASSIUM 50 MG TABLET PO SCH (08:41)
[2020-10-16] MEDS: AZITHROMYCIN 250 MG TABLET PO SCH (08:42)
[2020-10-16] MEDS: AMLODIPINE BESYLATE 10 MG TABLET PO SCH (08:42)
[2020-10-16] MEDS: Z GUARD REMEDY 2 OZ OINT TP SCH (08:42)
[2020-10-16] MEDS: CARVEDILOL 12.5 MG TABLET PO SCH (08:42)
[2020-10-16] MEDS: CLOTRIMAZOLE 1% 15 GM TUBE TP SCH ×2 (08:43→16:44)
[2020-10-16 08:52] VITALS: BP 124/67
[2020-10-16] MEDS: DIGOXIN 0.125 MG TABLET PO SCH (12:07)
[2020-10-16 16:00] VITALS: BP 119/48
--- NOTE | 2020-10-16 18:31 | NUR ---
M/S RN CLOSING NOTES PT AAOX1, POOR CONCENTRATION. NO SOB NOTED. ASSESSED NO PAIN AND DISCOMFORT, FLACC-0. NO NEW SKIN ISSUES. LBM TODAY. NTN INTAKE 20-30%, ABLE TO BE FED BY FAMILY MEMBER WITH STRICT ASPIRATION PRECAUTION MECHANICAL SOFT ORDERED. IV SITE AT [facility] #22 TKO, PATENT IN FLUSHING, NO S/SX OF INFILTRATION. ALL CARE ATTENDED, BED IN LOW LOCKED POSITION, SRX2 UP FOR SAFETY, NEAR NURSES STATION FOR MONITORING. ENDORSED TO NEXT SHIFT FOR CONTINUITY OF CARE.
[2020-10-16 20:00] VITALS: BP 137/57
--- NOTE | 2020-10-16 20:03 | NUR ---
MS RN OPENING NOTE RECEIVED PT AWAKE IN BED. A/O X1-2. PT IS GABONESE SPEAKING. PT STABLE ON ROOM AIR. NO SOB NOTED. NO S/S OF RESPIRATORY DISTRESS. PT DENIES ANY PAIN OR DISCOMFORT AT THIS TIME. IV ACCESS NOTED IN LFA #22. IV IS INTACT, PATENT, AND FLUSHING WELL. SAFETY MEASURES MAINTAINED. BED IN LOWEST LOCKED POSITION, HOB ELEVATED, SIDE RAILS UP X2. CALL LIGHT AND TABLE WITHIN REACH. WILL CONTINUE PLAN OF CARE.
[2020-10-17] MEDS: MEROPENEM 500 MG in IV NS 0.9% 100 ML IV SCH ×2 (01:13→13:18)
[2020-10-17 07:00] LABS: BASOPHILS % (AUTO) 0.4 % (0.0-2.0); EOSINOPHILS % (AUTO) 2.1 % (0.0-6.0); HEMATOCRIT 24 % (33-45); HEMOGLOBIN 7.8 g/dL (11.5-14.8); LYMPHOCYTES # (AUTO) 1.7 /CMM (0.8-4.8); LYMPHOCYTES % (AUTO) 25.2 % (20.0-44.0); MEAN CORPUSCULAR HGB CONC 33 g/dl (31.0-36.0); MEAN CORPUSCULAR VOLUME 90 fL (82-100); MONOCYTES # (AUTO) 0.7 /CMM (0.1-1.30); MONOCYTES % (AUTO) 10.8 % (2.0-12.0); NEUTROPHILS # (AUTO) 4.2 /CMM (1.8-8.9); NEUTROPHILS % (AUTO) 61.5 % (43.0-81.0); PLATELET COUNT (AUTO) 229 /CMM (150-450); RED BLOOD CELL COUNT(AUTO) 2.67 MIL/uL (4.0-5.2); WHITE BLOOD COUNT (AUTO) 6.9 K/uL (4.3-11.0)
[2020-10-17 07:31] LABS: CALCIUM, SERUM 9.6 mg/dL (8.5-10.1); CREATININE 1.1 mg/dL (0.6-1.3); POTASSIUM 3.4 mmol/L (3.5-5.1)
--- NOTE | 2020-10-17 07:43 | NUR ---
MS RN OPENING NOTE PATIENT IS IN BED SLEEPING AT THIS TIME, PATIENT IS NO ACUTE DISTRESS, PATIENT IS ON ROOM AIR TOLERATING WELL. PATIENT IS AT RISK FOR FALLS, UNSTEADY GATE. SAFETY PRECAUTIONS ARE ON, BED IS LOCKED AND IN THE LOWEST POSITION, WITH SIDE RAILS UP, CALL LIGHT WITHIN REACH. WILL CONTINUE TO MONITOR THROUGHOUT THE SHIFT.
[2020-10-17 08:00] VITALS: BP 126/62
[2020-10-17] MEDS ORDERED: POTASSIUM CHLORIDE 20 MEQ TAB.PRT.SR PO ONE (08:00)
[2020-10-17] MEDS: AZITHROMYCIN 250 MG TABLET PO SCH (08:35)
[2020-10-17] MEDS: LOSARTAN POTASSIUM 50 MG TABLET PO SCH (08:36)
[2020-10-17] MEDS: ENSURE CLEAR 237 ML LIQUID (MIX BERRY) PO SCH ×3 (08:36→16:53)
[2020-10-17] MEDS: CARVEDILOL 12.5 MG TABLET PO SCH (08:36)
[2020-10-17] MEDS: AMLODIPINE BESYLATE 10 MG TABLET PO SCH (08:37)
--- NOTE | 2020-10-17 08:37 | NUR ---
MS RN NOTE PATIENT HAD SCHEDULED BLOOD PRESSURE MEDICATIONS COZAAR AND NORVASC DID NOT ADMINISTER DUE TO DECREASED BLOOD PRESSURE OF 126/62 HEART RATE 73
[2020-10-17] MEDS: Z GUARD REMEDY 2 OZ OINT TP SCH (08:44)
[2020-10-17] MEDS: CLOTRIMAZOLE 1% 15 GM TUBE TP SCH ×2 (08:44→16:53)
[2020-10-17 09:19] LABS: IRON, SERUM 16 ug/dl (50-175); TOTAL IRON BINDING CAPACITY 137 ug/dl (250-450)
[2020-10-17 09:37] LABS: FERRITIN 394 ng/mL (8-388)
[2020-10-17] MEDS: DIGOXIN 0.125 MG TABLET PO SCH (13:12)
[2020-10-17] MEDS: HYDROCODONE/APAP 5/325MG TABLET PO PRN (15:11)
[2020-10-17 16:00] VITALS: BP 100/50
--- NOTE | 2020-10-17 18:56 | NUR ---
MS RN CLOSING NOTE PATIENT IS IN BED SLEEPING AT THIS TIME, PATIENT IS NO ACUTE DISTRESS, PATIENT IS ON ROOM AIR TOLERATING WELL. PATIENT IS AT RISK FOR FALLS, UNSTEADY GATE. SAFETY PRECAUTIONS ARE ON, BED IS LOCKED AND IN THE LOWEST POSITION, WITH SIDE RAILS UP, CALL LIGHT WITHIN REACH. ENDORSE PATIENT TO PEARL STRINGER NURSE FOR JADE.
[2020-10-17 20:00] VITALS: BP 109/48
--- NOTE | 2020-10-17 20:00 | NUR ---
MS RN OPENING NOTE PATIENT RESTING IN BED, ALERT AND ORIENTED TO NAME, PATIENT IS VIETNAMESE SPEAKING. NO SIGNS OF DISTRESS OR SHORTNESS OF BREATH NOTED, PATIENT STABLE ON ROOM AIR. NO REPORTS OF PAIN AT THIS TIME. LEFT FOREARM #22 SALINE LOCKED, INTACT AND PATENT. SAFETY MEASURES IN PLACE, BED LOCKED IN LOWEST POSITION, HOB ELEVATED, SIDE RAILS UP X 2, AND CALL LIGHT WITHIN REACH. WILL CONTINUE TO MONITOR
[2020-10-18] MEDS: MEROPENEM 500 MG in IV NS 0.9% 100 ML IV SCH ×2 (01:28→12:51)
[2020-10-18 06:16] LABS: BASOPHILS % (AUTO) 0.3 % (0.0-2.0); EOSINOPHILS % (AUTO) 1.5 % (0.0-6.0); HEMATOCRIT 24 % (33-45); HEMOGLOBIN 7.8 g/dL (11.5-14.8); LYMPHOCYTES # (AUTO) 1.8 /CMM (0.8-4.8); LYMPHOCYTES % (AUTO) 25.2 % (20.0-44.0); MEAN CORPUSCULAR HGB CONC 33 g/dl (31.0-36.0); MEAN CORPUSCULAR VOLUME 90 fL (82-100); MONOCYTES # (AUTO) 0.8 /CMM (0.1-1.30); MONOCYTES % (AUTO) 10.5 % (2.0-12.0); NEUTROPHILS # (AUTO) 4.6 /CMM (1.8-8.9); NEUTROPHILS % (AUTO) 62.5 % (43.0-81.0); PLATELET COUNT (AUTO) 242 /CMM (150-450); RED BLOOD CELL COUNT(AUTO) 2.66 MIL/uL (4.0-5.2); WHITE BLOOD COUNT (AUTO) 7.3 K/uL (4.3-11.0)
[2020-10-18 06:51] LABS: CALCIUM, SERUM 9.1 mg/dL (8.5-10.1)
--- NOTE | 2020-10-18 07:00 | NUR ---
MS RN CLOSING NOTE PATIENT RESTING IN BED, ALERT AND ORIENTED TO NAME. PATIENT SPEAKS MAURITANIAN. NO SIGNS OF DISTRESS OR SHORTNESS OF BREATH NOTED, PATIENT STABLE ON ROOM AIR. NO REPORTS OF PAIN AT THIS TIME. LEFT FOREARM #22 SALINE LOCKED, INTACT AND PATENT. MEDICATIONS GIVEN ORDERED. PATIENT NEEDS MET THROUGHOUT SHIFT. SAFETY MEASURES IN PLACE, BED LOCKED IN LOWEST POSITION, HOB ELEVATED, SIDE RAILS UP X 2, AND CALL LIGHT WITHIN REACH. WILL ENDORSE TO DAY SHIFT NURSE FOR CONTINUITY OF CARE
[2020-10-18 08:00] VITALS: BP 110/56
[2020-10-18] MEDS: ASPIRIN EC 81 MG TABLET.DR PO SCH (08:43)
[2020-10-18] MEDS: ENSURE CLEAR 237 ML LIQUID (MIX BERRY) PO SCH ×3 (08:43→17:24)
[2020-10-18] MEDS: AZITHROMYCIN 250 MG TABLET PO SCH (08:43)
[2020-10-18] MEDS: CLOTRIMAZOLE 1% 15 GM TUBE TP SCH (08:44)
[2020-10-18] MEDS: CARVEDILOL 12.5 MG TABLET PO SCH (08:44)
[2020-10-18] MEDS: Z GUARD REMEDY 2 OZ OINT TP SCH (08:44)
[2020-10-18] MEDS: AMLODIPINE BESYLATE 10 MG TABLET PO SCH (08:45)
[2020-10-18] MEDS: LOSARTAN POTASSIUM 50 MG TABLET PO SCH (08:45)
--- NOTE | 2020-10-18 08:46 | NUR ---
MS RN NOTE PATIENTS BLOOD PRESSURE IS 110/56 HEAR RATE 70, DID NOT ADMINISTER SCHEDULED MEDICATIONS CRAIG AJ NORVASC.
[2020-10-18] MEDS: HYDROCODONE/APAP 5/325MG TABLET PO PRN ×2 (09:35→14:16)
[2020-10-18] MEDS ORDERED: IV D5/ 0.9% NACL 1,000 ML IV PRN (12:30)
[2020-10-18 12:54] LABS: IRON, SERUM 19 ug/dl (50-175); TOTAL IRON BINDING CAPACITY 139 ug/dl (250-450)
[2020-10-18] MEDS: DIGOXIN 0.125 MG TABLET PO SCH (12:59)
[2020-10-18 16:00] VITALS: BP 105/61
--- NOTE | 2020-10-18 18:49 | NUR ---
MS RN CLOSING NOTE PATIENT IS IN BED SLEEPING AT THIS TIME, PATIENT IS NO ACUTE DISTRESS, PATIENT IS ON ROOM AIR TOLERATING WELL. PATIENT IS AT RISK FOR FALLS, UNSTEADY GATE. SAFETY PRECAUTIONS ARE ON, BED IS LOCKED AND IN THE LOWEST POSITION, WITH SIDE RAILS UP, CALL LIGHT WITHIN REACH. ENDORSE PATIENT TO MACHINE ASSEMBLER SUPERVISOR NURSE FOR JADE.
--- NOTE | 2020-10-18 19:40 | NUR ---
MS RN OPENING NOTES PATIENT WAS SEEN IN BED AWAKE RESTING IN BED. PATIENT IS ALERT AND ORIENTED X1. PATIENT IS ON ROOM AIR WITH NO RESPIRATORY DISTRESS AT THIS TIME. PATIENT HAS AN INTRAVENOUS ACCESS ON HER LEFT FOREARM GAUGE #22. PATIENT IS AT RISK FOR FALLS. SAFETY PRECAUTIONS ARE IN PLACE: BED IS LOCKED, SIDE RAILS X4, BED ALARM ON, AND CALL LIGHT IS WITHIN REACH OF THE PATIENT. WILL CONTINUE TO MONITOR THE PATIENT.
[2020-10-18 20:00] VITALS: BP 119/62
[2020-10-18 22:24] LABS: OCCULT BLOOD STOOL NEGATIVE (NEGATIVE)
[2020-10-19] MEDS: MEROPENEM 500 MG in IV NS 0.9% 100 ML IV SCH ×2 (01:08→12:03)
[2020-10-19 05:59] LABS: BASOPHILS % (AUTO) 0.4 % (0.0-2.0); HEMATOCRIT 25 % (33-45); HEMOGLOBIN 8.1 g/dL (11.5-14.8); LYMPHOCYTES # (AUTO) 1.8 /CMM (0.8-4.8); LYMPHOCYTES % (AUTO) 24.9 % (20.0-44.0); MEAN CORPUSCULAR HGB CONC 32 g/dl (31.0-36.0); MEAN CORPUSCULAR VOLUME 91 fL (82-100); MONOCYTES # (AUTO) 0.8 /CMM (0.1-1.30); MONOCYTES % (AUTO) 10.8 % (2.0-12.0); NEUTROPHILS # (AUTO) 4.4 /CMM (1.8-8.9); NEUTROPHILS % (AUTO) 61.9 % (43.0-81.0); PLATELET COUNT (AUTO) 249 /CMM (150-450); RED BLOOD CELL COUNT(AUTO) 2.78 MIL/uL (4.0-5.2); WHITE BLOOD COUNT (AUTO) 7.1 K/uL (4.3-11.0)
[2020-10-19 07:14] LABS: ALBUMIN 2.3 g/dL (3.4-5.0); BILIRUBIN,TOTAL 0.3 mg/dL (0.2-1.0); CALCIUM, SERUM 9.4 mg/dL (8.5-10.1); MAGNESIUM 2.1 mg/dL (1.8-2.4); PHOSPHORUS 4.3 mg/dL (2.5-4.9); POTASSIUM 3.8 mmol/L (3.5-5.1); TOTAL PROTEIN, SERUM 6.6 g/dL (6.4-8.2)
--- NOTE | 2020-10-19 07:35 | NUR ---
MS RN CLOSING NOTES PATIENT WAS SEEN IN BED AWAKE RESTING IN BED. PATIENT IS ALERT AND ORIENTED X1. PATIENT IS ON ROOM AIR WITH NO RESPIRATORY DISTRESS AT THIS TIME. PATIENT HAS AN INTRAVENOUS ACCESS ON HER LEFT FOREARM GAUGE #22. PATIENT IS AT RISK FOR FALLS. SAFETY PRECAUTIONS ARE IN PLACE: BED IS LOCKED, SIDE RAILS X4, BED ALARM ON, AND CALL LIGHT IS WITHIN REACH OF THE PATIENT. ENDORSED CARE TO DAY SHIFT NURSE.
--- NOTE | 2020-10-19 07:51 | NUR ---
MS RN OPENING NOTE RECEIVED PATIENT IN BED. A/O X1-2. ON ROOM AIR, TOLERATING WELL. NO SOB NOTED. IN NO APPARENT DISTRESS. DENIES ANY PAIN OR DISCOMFORT AT THIS TIME. IV ACCESS ON R FA #22 G, D5 NS CURRENTLY RUNNING AT 75 ML/HR. SAFETY MEASURES MAINTAINED. BED IN LOWEST POSITION, BRAKES LOCKED. SIDE RAILS UP X2. CALL LIGHT WITHIN REACH. WILL CONTINUE PLAN OF CARE.
[2020-10-19 08:00] VITALS: BP 148/52
[2020-10-19] MEDS: ENSURE CLEAR 237 ML LIQUID (MIX BERRY) PO SCH ×3 (08:41→16:18)
[2020-10-19] MEDS: CARVEDILOL 12.5 MG TABLET PO SCH (08:41)
[2020-10-19] MEDS: LOSARTAN POTASSIUM 50 MG TABLET PO SCH (08:41)
[2020-10-19] MEDS: AMLODIPINE BESYLATE 10 MG TABLET PO SCH (08:41)
[2020-10-19] MEDS: Z GUARD REMEDY 2 OZ OINT TP SCH (08:42)
[2020-10-19] MEDS ORDERED: CLOTRIMAZOLE 1% 15 GM TUBE TP SCH (09:00)
[2020-10-19] MEDS: DIGOXIN 0.125 MG TABLET PO SCH (12:03)
[2020-10-19] MEDS ORDERED: SOD FERRIC GLUC 125 MG in IV NS 0.9% 100 ML IV SCH (14:00)
[2020-10-19 16:00] VITALS: BP 118/61
--- NOTE | 2020-10-19 18:08 | NUR ---
MS RN CLOSING NOTE PATIENT RESTING IN BED. A/O X1. CONFUSED. ON ROOM AIR, SATURATING WELL AT 96%. NO SOB NOTED. NO S/S OF RESPIRATORY DISTRESS. PATIENT IS FOR DISCHARGE TONIGHT. PT WILL BE GOING TO HOME WITH HOME HEALTH. ALL DUE MEDS GIVEN ORDERED. ALL NEEDS HAVE BEEN MET AND ATTENDED. SAFETY MEASURES MAINTAINED. BED IN LOWEST POSITION, BRAKES LOCKED. SIDE RAILS UP X2. CALL LIGHT WITHIN REACH. WILL ENDORSE CONTINUITY OF CARE TO ONCOMING SHIFT.
--- NOTE | 2020-10-19 20:50 | NUR ---
MS HULL AND DECK REMOVER NOTES: RECEIVED RESIDENT AWAKE IN BED, BED IN LOW POSITION, CALL LIGHTS WITHIN REACH, NO COMPLAIN OF PAIN AND DISCOMFORT AT THIS TIME, PATIENT IS A/O X1, HOB AT 30 DEGREE, ON ROOM AIR, INCONTINENT,D/C IV LINE, REMOVED ID TAG, PATIENT WAS DISCHARGE TO HOME WITH D/C INSTRUCTION RELAYED, AND EXPLAINED, VITALS SIGN ARE WNR, PATIENT WAS KEPT CLEAN AND DRY, INVENTORIES WAS GIVEN, LEFT THE FACILITY AT 2044 VIA [facility].
== END 2020-10-19 20:45 | disposition home health service (06) | DRG 871 ==
LOC: ER 21:16 → TELE 22:51 → MED 10-13 10:06
PROVIDERS: ADMIT Registered Nurse
DX: A41.9 Sepsis, unspecified organism (principal); J15.9 Unspecified bacterial pneumonia; G92 Toxic encephalopathy; N17.0 Acute kidney failure with tubular necrosis; N39.0 Urinary tract infection, site not specified; I13.0 Hypertensive heart and chronic kidney disease with heart failure and stage 1 through stage 4 chronic kidney disease, or unspecified chronic kidney disease; I50.32 Chronic diastolic (congestive) heart failure; L97.419 Non-pressure chronic ulcer of right heel and midfoot with unspecified severity; E87.2 Acidosis; Z16.12 Extended spectrum beta lactamase (ESBL) resistance; J98.11 Atelectasis; N18.9 Chronic kidney disease, unspecified; I25.10 Atherosclerotic heart disease of native coronary artery without angina pectoris; D63.1 Anemia in chronic kidney disease; E11.22 Type 2 diabetes mellitus with diabetic chronic kidney disease; F03.90 Unspecified dementia, unspecified severity, without behavioral disturbance, psychotic disturbance, mood disturbance, and anxiety; B96.20 Unspecified Escherichia coli [E. coli] as the cause of diseases classified elsewhere; Z20.822 Contact with and (suspected) exposure to COVID-19; E11.42 Type 2 diabetes mellitus with diabetic polyneuropathy; E11.621 Type 2 diabetes mellitus with foot ulcer; B35.3 Tinea pedis; B35.1 Tinea unguium; R62.7 Adult failure to thrive; Z90.11 Acquired absence of right breast and nipple; E78.00 Pure hypercholesterolemia, unspecified; E78.5 Hyperlipidemia, unspecified; Z79.82 Long term (current) use of aspirin; Z79.899 Other long term (current) drug therapy; I70.0 Atherosclerosis of aorta; G89.4 Chronic pain syndrome; E87.6 Hypokalemia; E61.1 Iron deficiency; C50.919 Malignant neoplasm of unspecified site of unspecified female breast; I48.0 Paroxysmal atrial fibrillation
CPT/HCPCS: 36415; 71045-TC; 80048-TC; 80053-TC; 80061-TC; 80076-TC; 80162-TC; 81001; 82272-TC; 82728-TC; 83540-TC; 83605-TC; 83735-TC; 83880; 84100-TC; 84443-TC; 84484-TC; 85025-TC; 85730-TC; 87040-TC; 87081-TC; 87086-TC; 87186-TC; 97112-TC; 97530-TC; G0378; J0696; J2185; J2543; J2916; J3370; J7030; J7042; J7050; J7060

== ENCOUNTER 2020-11-10 22:35 | Inpatient (IN) | payer MEDICARE, OTHER ==
[~2020-11-10] VITALS: Ht 152.4 cm; Wt 66.0 kg
[~2020-11-10 22:35] MED LIST changes: -CARV12.52 PO
--- NOTE | 2020-11-10 22:50 | NUR ---
PATIENT CAME TO ER BED 11 BIBRA FROM HOME C/O WEAKNESS.PATIENT IS CONTRACTED WITH RIGHT SHOULDER COMING FORWARD. PATIENT IS AWAKE AND ALERT. PATIENT IS BREATHING EVENLY AND UNLABORED ON ROOM AIR.
--- NOTE | 2020-11-10 22:56 | NUR ---
COVID SWAB COLLECTED AND SENT TO LAB
[2020-11-10 23:02] LABS: BASOPHILS % (AUTO) 0.5 % (0.0-2.0); EOSINOPHILS % (AUTO) 0.5 % (0.0-6.0); HEMATOCRIT 26 % (33-45); HEMOGLOBIN 8.6 g/dL (11.5-14.8); LYMPHOCYTES # (AUTO) 1.8 /CMM (0.8-4.8); LYMPHOCYTES % (AUTO) 29.3 % (20.0-44.0); MEAN CORPUSCULAR HGB CONC 33 g/dl (31.0-36.0); MEAN CORPUSCULAR VOLUME 88 fL (82-100); MONOCYTES # (AUTO) 0.9 /CMM (0.1-1.30); MONOCYTES % (AUTO) 14.7 % (2.0-12.0); NEUTROPHILS # (AUTO) 3.3 /CMM (1.8-8.9); PLATELET COUNT (AUTO) 246 /CMM (150-450); RED BLOOD CELL COUNT(AUTO) 2.97 MIL/uL (4.0-5.2); WHITE BLOOD COUNT (AUTO) 6.1 K/uL (4.3-11.0)
--- NOTE | 2020-11-10 23:10 | NUR ---
XRAY AT BEDSIDE
[2020-11-10 23:13] LABS: CALCIUM, SERUM 10.2 mg/dL (8.5-10.1); CARBON DIOXIDE 28 mmol/L (21-32); CHLORIDE 100 mmol/L (98-107); CREATININE 1.7 mg/dL (0.6-1.3); GLUCOSE 149 mg/dL (74-106); POTASSIUM 3.9 mmol/L (3.5-5.1); SODIUM SERUM 139 mmol/L (136-145); UREA NITROGEN, BLOOD 48 mg/dL (7-18)
[2020-11-10 23:29] LABS: ALANINE AMINOTRANSFERASE 22 U/L (12-78); ALBUMIN 2.5 g/dL (3.4-5.0); ALKALINE PHOSPHATASE 154 U/L (46-116); ASPARTATE AMINOTRANSFERASE 27 U/L (15-37); BILIRUBIN,DIRECT 0.1 mg/dL (0.0-0.2); BILIRUBIN,TOTAL 0.3 mg/dL (0.2-1.0); NT-PRO BNP 16318 pg/mL (0-125); TOTAL PROTEIN, SERUM 7.5 g/dL (6.4-8.2)
--- NOTE | 2020-11-10 23:33 | NUR ---
LAB CALLED REGARDING NEGATIVE COVID RESULT.
--- NOTE | 2020-11-11 00:10 | NUR ---
ER SPOKE TO CHILO MOHR DNP REGARDING PT ADMISSION.
--- NOTE | 2020-11-11 00:10 | NUR ---
TELE 310-1
--- NOTE | 2020-11-11 00:16 | NUR ---
REPORT GIVEN TO PEDRITO RUSSELL FOR JADE.
[2020-11-11] MEDS ORDERED: Z GUARD REMEDY 2 OZ OINT TP PRN (01:00)
[2020-11-11] MEDS ORDERED: ONDANSETRON HCL/PF 4 MG/2 ML VIAL IVP PRN (01:00)
--- NOTE | 2020-11-11 01:06 | NUR ---
RN Admitting Notes Patient was brought up to the unit via [facility] accompanied by Nurse Weldon. Patient was transferred from [facility] to bed. Patient was awake and alert. Patient is on room air with no respiratory distress noted. Patient has a tele monitor with no cardiac distress noted. Patient has an IV access on her right forearm gauge #22, which is intact and patent. Safety precautions in place: Bed locked, bed alarm on, side rails up x3, and call light within easy reach of the patient. Will continue to monitor the patient.
[2020-11-11] MEDS ORDERED: BUMETANIDE INJ 0.25 MG/ML VIAL IV ONE (01:30)
[2020-11-11] MEDS: ENOXAPARIN SODIUM 40 MG/0.4 ML DISP.SYRIN SQ SCH ×2 (01:34→23:15)
[2020-11-11 01:45] VITALS: BP 111/72
[2020-11-11] MEDS ORDERED: DEXTROSE 50%-WATER 50 ML DISP.SYRIN IV PRN (03:00)
[2020-11-11 04:00] VITALS: BP 123/67
[2020-11-11 05:01] LABS: BASOPHILS % (AUTO) 0.4 % (0.0-2.0); EOSINOPHILS % (AUTO) 1.3 % (0.0-6.0); HEMATOCRIT 26 % (33-45); HEMOGLOBIN 8.4 g/dL (11.5-14.8); LYMPHOCYTES # (AUTO) 2.1 /CMM (0.8-4.8); LYMPHOCYTES % (AUTO) 30.4 % (20.0-44.0); MEAN CORPUSCULAR HGB CONC 33 g/dl (31.0-36.0); MEAN CORPUSCULAR VOLUME 89 fL (82-100); MONOCYTES # (AUTO) 0.9 /CMM (0.1-1.30); MONOCYTES % (AUTO) 13.5 % (2.0-12.0); NEUTROPHILS # (AUTO) 3.7 /CMM (1.8-8.9); NEUTROPHILS % (AUTO) 54.4 % (43.0-81.0); PLATELET COUNT (AUTO) 243 /CMM (150-450); RED BLOOD CELL COUNT(AUTO) 2.87 MIL/uL (4.0-5.2); WHITE BLOOD COUNT (AUTO) 6.8 K/uL (4.3-11.0)
[2020-11-11 05:16] LABS: ALANINE AMINOTRANSFERASE 22 U/L (12-78); ALBUMIN 2.5 g/dL (3.4-5.0); ALKALINE PHOSPHATASE 147 U/L (46-116); ASPARTATE AMINOTRANSFERASE 24 U/L (15-37); BILIRUBIN,TOTAL 0.4 mg/dL (0.2-1.0); CALCIUM, SERUM 10.1 mg/dL (8.5-10.1); CARBON DIOXIDE 27 mmol/L (21-32); CHLORIDE 101 mmol/L (98-107); CREATININE 1.6 mg/dL (0.6-1.3); GLUCOSE 120 mg/dL (74-106); MAGNESIUM 2.2 mg/dL (1.8-2.4); PHOSPHORUS 3.9 mg/dL (2.5-4.9); POTASSIUM 3.4 mmol/L (3.5-5.1); SODIUM SERUM 139 mmol/L (136-145); TOTAL PROTEIN, SERUM 7.5 g/dL (6.4-8.2); UREA NITROGEN, BLOOD 50 mg/dL (7-18)
[2020-11-11 05:17] LABS: DIGOXIN 2.26 ng/mL (0.90-2.00)
[2020-11-11 05:28] VITALS: BP 111/72
--- NOTE | 2020-11-11 06:14 | NUR ---
RN NOTES Patient's blood sugar at 0614 was 113 mg/dL.
--- NOTE | 2020-11-11 06:30 | NUR ---
RN Closing Notes Patient was seen awake and alert resting in her bed. Patient's on room air with no respiratory distress noted. Patient has a tele monitor with no cardiac distress noted. Patient has a saline lock on her right forearm gauge #18, which is intact and patent. Safety precautions in place: Bed locked, bed alarm on, side rails up x3, and call light within easy reach of the patient. Will endorse care to the day shift nurse.
[2020-11-11] MEDS: BLOOD SUGAR DIAGNOSTIC 1 EACH STRIP IN SCH ×4 (06:42→22:35)
--- NOTE | 2020-11-11 07:48 | NUR ---
PROJECT ASST OPENING NOTE PATIENT IS IN BED RESTING, PATIENT IS IN NO ACUTE DISTRESS. PATIENT IS ON ROOM AIR TOLERATING WELL, NO SOB NOTED. PATIENT IS IN TELE MONITOR, READING CONTROLLED ATRIAL FIBRILLATION HR OF 90s. SAFETY PRECAUTIONS ARE ON, BED IS LOCKED, IN THE LOWEST POSITION WITH SIDE RAILS UP. WILL CONTINUE TO MONITOR CLOSELY.
--- NOTE | 2020-11-11 07:55 | NUR ---
WOUND CARE CONSULT: PT PRESENTS WITH RT HEEL WOUND AND SACRAL SCARRING, PRESENT ON ADMISSION. DR BAIRD NOTIFIED OF DPM CONSULT REQUEST. PT IS INCONTINENT. PT TO BE PLACED OF TUNG ISOFLEX LOW AIRLOSS BED. RECOMMENDATIONS MADE FOR SKIN PROTECTION. DISCUSSED WITH NURSING STAFF. MD IN AGREEMENT WITH PLAN OF CARE.
[2020-11-11] MEDS: ENSURE ENLIVE 237 ML LIQUID (VANILLA) PO SCH ×3 (08:09→17:01)
[2020-11-11 08:56] VITALS: BP 118/61
[2020-11-11] MEDS: CARVEDILOL 12.5 MG TABLET PO SCH ×2 (09:00→16:59)
[2020-11-11] MEDS: LOSARTAN POTASSIUM 25 MG TABLET PO SCH (09:00)
[2020-11-11] MEDS: HYDROCHLOROTHIAZIDE 25 MG TABLET PO SCH (09:41)
[2020-11-11] MEDS: ASPIRIN EC 81 MG TABLET.DR PO SCH (09:41)
[2020-11-11] MEDS: AMLODIPINE BESYLATE 10 MG TABLET PO SCH (09:41)
[2020-11-11] MEDS: POTASSIUM CHLORIDE 20 MEQ TAB.PRT.SR PO SCH ×2 (09:41→09:51)
[2020-11-11] MEDS: IV NS 0.9% 1,000 ML IV PRN (09:52)
[2020-11-11] MEDS: PIPERACILLIN /TAZOBACTAM 2.25 G in IV D5W 50 ML IV SCH ×2 (13:35→21:43)
--- NOTE | 2020-11-11 15:57 | NUR ---
NAILING MACHINE FEEDER NOTE URINE ANALYSIS ORDERED BY MD. PATIENT IS INCONTINENT, PATIENT IS REFUSING WITH IN AND OUT CATHETER FOR URINE COLLECTION, SPOKE WITH FAMILY, FAMILY SAID SHE WILL NOT LET IT US DO IT.
[2020-11-11 16:10] VITALS: BP_SYST 103; BP_SYST 118; BP_DIAS 51; BP_DIAS 61
[2020-11-11] MEDS: CLOTRIMAZOLE 1% 15 GM TUBE TP SCH (17:11)
--- NOTE | 2020-11-11 18:37 | NUR ---
COIL SHAPER CLOSING NOTE PATIENT IS IN BED RESTING, PATIENT IS IN NO ACUTE DISTRESS. PATIENT IS ON ROOM AIR TOLERATING WELL, NO SOB NOTED. PATIENT IS IN TELE MONITOR, READING CONTROLLED ATRIAL FIBRILLATION WITH PVCs HR OF 90s. SAFETY PRECAUTIONS ARE ON, BED IS LOCKED, IN THE LOWEST POSITION WITH SIDE RAILS UP. ENDORSE PATIENT TO GRAD INTERN NURSE FOR JADE.
--- NOTE | 2020-11-11 19:58 | NUR ---
TELE OPENING RN PATIENT IN BED, AWAKE. GIBRALTARIAN SPEAKING ONLY. NO S/S OF DISTRESS. PAIN WHEN I RAISE HER FEET. TELE BOX NOTED. READING SR 80. L. FA #18 RUNNING NS 70 ML/HR. R. FOOT SCAB ON THE FOOT NOTED AND DRY FEET NOTED. OTHERWISE, NO OPEN WOUNDS NOTED. SCD PUMP NOTED. SAFETY IN PLACE: BED IN LOWEST, LOCKED POSITION; CALL LIGHT WITHIN REACH. WILL CONTINUE TO MONITOR.
[2020-11-11 20:00] VITALS: BP 123/64
--- NOTE | 2020-11-11 23:00 | NUR ---
MOUSE BREEDER NOTES PATIENT BS 164. GIVEN 3 UNITS OF REGULAR INSULIN PER SLIDING SCALE. WILL CONTINUE TO MONITOR.
[2020-11-12] VITALS: BP 129/65
[2020-11-12] MEDS: INSULIN REGULAR, HUMAN 100 UNIT/ML 3 ML VIAL SQ PRN ×3 (00:50→21:46)
[2020-11-12] MEDS: IV NS 0.9% 1,000 ML IV PRN ×2 (01:03→15:30)
[2020-11-12 04:00] VITALS: BP 135/69
[2020-11-12] MEDS: PIPERACILLIN /TAZOBACTAM 2.25 G in IV D5W 50 ML IV SCH ×3 (05:02→20:29)
--- NOTE | 2020-11-12 06:08 | NUR ---
TELE CLOSING NOTES PIANO CASE AND BENCH ASSEMBLER CLOSING 310 PATIENT IN BED. NO S/S OF DISTRESS. NO C/O PAIN SHIELA. TELE MONITOR IN PLACE READING A-FIB WITH PVC. L. FA IV RUNNING 70 ML/HR. SIGNAGE NOT TO USE R. ARM DUE TO MASTECTOMY IN PLACE. SCD PUMP IN PLACE RUNNING. CONTACT PRECAUTION SIGN IN PLACE. ALL SCHED MEDS ADMINISTERED. ALL NEEDS ATTENDED. WOUND SORE CLEANED. SAFETY KEPT IN PLACE THE WHOLE SHIFT: BED IN LOWEST, LOCKED POSITION; CALL LIGHT WITHIN REACH. WILL ENDORSE CARE TO MORNING SHIFT RN.
[2020-11-12 06:43] LABS: BASOPHILS % (AUTO) 0.3 % (0.0-2.0); EOSINOPHILS % (AUTO) 0.7 % (0.0-6.0); HEMATOCRIT 24 % (33-45); HEMOGLOBIN 7.7 g/dL (11.5-14.8); LYMPHOCYTES % (AUTO) 12.9 % (20.0-44.0); MEAN CORPUSCULAR HGB CONC 33 g/dl (31.0-36.0); MEAN CORPUSCULAR VOLUME 89 fL (82-100); MONOCYTES # (AUTO) 0.4 /CMM (0.1-1.30); MONOCYTES % (AUTO) 5.7 % (2.0-12.0); NEUTROPHILS # (AUTO) 6.2 /CMM (1.8-8.9); NEUTROPHILS % (AUTO) 80.4 % (43.0-81.0); PLATELET COUNT (AUTO) 241 /CMM (150-450); RED BLOOD CELL COUNT(AUTO) 2.65 MIL/uL (4.0-5.2); WHITE BLOOD COUNT (AUTO) 7.8 K/uL (4.3-11.0)
[2020-11-12] MEDS: BLOOD SUGAR DIAGNOSTIC 1 EACH STRIP IN SCH ×4 (06:48→21:34)
[2020-11-12 07:00] LABS: CREATINE KINASE, TOTAL 19 U/L (26-192)
[2020-11-12 07:04] LABS: ALANINE AMINOTRANSFERASE 21 U/L (12-78); ALBUMIN 2.4 g/dL (3.4-5.0); ALKALINE PHOSPHATASE 155 U/L (46-116); ASPARTATE AMINOTRANSFERASE 28 U/L (15-37); BILIRUBIN,TOTAL 0.5 mg/dL (0.2-1.0); CALCIUM, SERUM 10.1 mg/dL (8.5-10.1); CARBON DIOXIDE 26 mmol/L (21-32); CHLORIDE 104 mmol/L (98-107); CREATININE 1.5 mg/dL (0.6-1.3); GLUCOSE 105 mg/dL (74-106); MAGNESIUM 2.2 mg/dL (1.8-2.4); PHOSPHORUS 3.3 mg/dL (2.5-4.9); POTASSIUM 3.8 mmol/L (3.5-5.1); SODIUM SERUM 142 mmol/L (136-145); TOTAL PROTEIN, SERUM 7.1 g/dL (6.4-8.2); UREA NITROGEN, BLOOD 47 mg/dL (7-18)
--- NOTE | 2020-11-12 07:58 | NUR ---
TELE/RN OPENING NOTES RECEIVED PATIENT AWAKE ALERT AND ORIENTED X1. PATIENT IN ROOM AIR. PATIENT IN APPARENT RESPIRATORY DISTRESS NOTED. NO SIGN AND SYMPTOM OF PAIN NOTED AT THIS TIME. TELEMONITOR READING AFIB WITH PVC 90 BPM. WILL CONTINUE TO MONITOR.
[2020-11-12 08:00] VITALS: BP 112/61
[2020-11-12] MEDS: HYDROCHLOROTHIAZIDE 25 MG TABLET PO SCH (08:12)
[2020-11-12] MEDS: LOSARTAN POTASSIUM 25 MG TABLET PO SCH (08:14)
[2020-11-12] MEDS: CARVEDILOL 12.5 MG TABLET PO SCH ×2 (08:14→16:53)
[2020-11-12] MEDS: CLOTRIMAZOLE 1% 15 GM TUBE TP SCH ×2 (08:16→17:00)
[2020-11-12] MEDS: AMLODIPINE BESYLATE 10 MG TABLET PO SCH (08:16)
--- NOTE | 2020-11-12 08:18 | NUR ---
TELE/RN NOTES BP 112/61 P 100 COREG 12.5MG, COZAAR 25MG 1 TAB AND NORVASC 10MG 1 TAB. NOT ADMINISTERED WILL CONTINUE TO MONITOR.
[2020-11-12 12:00] VITALS: BP_SYST 118; BP_SYST 130; BP_DIAS 62
[2020-11-12] MEDS: ENSURE ENLIVE 237 ML LIQUID (VANILLA) PO SCH ×3 (12:36→17:00)
[2020-11-12 16:00] VITALS: BP 110/59
--- NOTE | 2020-11-12 16:54 | NUR ---
TELE/RN NOTES BP 110/59 PULSE 89 CARVEDILOL 12.5 MG 1 TAB P.O. NOT ADMINISTERED. WILL CONTINUE TO MONITOR.
--- NOTE | 2020-11-12 18:58 | NUR ---
LARGE ENGINE ASSEMBLER CLOSING NOTE PATIENT IS IN BED RESTING, PATIENT IS IN NO APPARENT RESPIRATORY DISTRESS. PATIENT IS ON ROOM AIR TOLERATING WELL, PATIENT IS IN TELE MONITOR, READING AFIB 85 BPM. IV ACCESS AT LEFT FOREARM #18G WITH IV FLUID OF NS 1L AT 70ML/HR ON AND INFUSING WELL. NO SIGN AND SYMPTOM OF PAIN NOTED AT THIS TIME. SAFETY PRECAUTIONS WAS IN PLACED, BED IS LOCKED, IN THE LOWEST POSITION WITH SIDE RAILS UP. WILL ENDORSED TO PROFESSOR OF EXERCISE SCIENCE NURSE FOR JADE
--- NOTE | 2020-11-12 19:45 | NUR ---
SPLITTING MACHINE TENDER OPENING NOTE RECEIVED PT AWAKE IN BED. A/O X1, CITIZEN OF [place] AND [place]-SPEAKING. PT STABLE ON ROOM AIR. NO SOB NOTED. NO S/S OF RESPIRATORY DISTRESS. PT IS ON EXTERNAL IRRIGATION LABORER READING AFIB 78. PT IS ON BEDREST. PT HAS NO C/O PAIN AT THIS TIME. IV ACCESS IN LFA #18, INFUSING NS @ 70 ML/HR. IV IS INTACT, PATENT, AND FLUSHING WELL. SAFETY MEASURES MAINTAINED. BED IN LOWEST LOCKED POSITION, HOB ELEVATED, SIDE RAILS UP X2. CALL LIGHT AND TABLE WITHIN REACH. WILL CONTINUE WITH PLAN OF CARE.
[2020-11-12] MEDS: ENOXAPARIN SODIUM 40 MG/0.4 ML DISP.SYRIN SQ SCH ×2 (21:13→21:27)
[2020-11-12 21:47] VITALS: BP 103/44
[2020-11-13] VITALS: BP 116/57
[2020-11-13 04:00] VITALS: BP 113/54
[2020-11-13] MEDS: PIPERACILLIN /TAZOBACTAM 2.25 G in IV D5W 50 ML IV SCH ×3 (04:26→20:16)
[2020-11-13 06:14] LABS: BASOPHILS % (AUTO) 0.4 % (0.0-2.0); EOSINOPHILS % (AUTO) 2.9 % (0.0-6.0); HEMATOCRIT 22 % (33-45); HEMOGLOBIN 7.1 g/dL (11.5-14.8); LYMPHOCYTES # (AUTO) 1.1 /CMM (0.8-4.8); MEAN CORPUSCULAR HGB CONC 33 g/dl (31.0-36.0); MEAN CORPUSCULAR VOLUME 90 fL (82-100); MONOCYTES # (AUTO) 0.6 /CMM (0.1-1.30); MONOCYTES % (AUTO) 8.1 % (2.0-12.0); NEUTROPHILS % (AUTO) 72.6 % (43.0-81.0); PLATELET COUNT (AUTO) 239 /CMM (150-450); RED BLOOD CELL COUNT(AUTO) 2.42 MIL/uL (4.0-5.2); WHITE BLOOD COUNT (AUTO) 6.9 K/uL (4.3-11.0)
[2020-11-13] MEDS: BLOOD SUGAR DIAGNOSTIC 1 EACH STRIP IN SCH ×4 (06:49→21:13)
--- NOTE | 2020-11-13 07:00 | NUR ---
ELIGIBILITY ANALYST CLOSING NOTE PT IS IN BED WITH EYES CLOSED, EASY TO AROUSE. A/O X1, MALAY-SPEAKING. PT STABLE ON ROOM AIR. NO SOB NOTED. NO S/S OF RESPIRATORY DISTRESS. PT IS ON EXTERNAL LOAN AUDITOR READING AFIB 90. PT IS ON BEDREST. PT HAS NO C/O PAIN AT THIS TIME. IV ACCESS IS INTACT, PATENT, AND FLUSHING WELL. ALL NEEDS HAVE BEEN MET. WOUND CARE ADMINISTERED PER ORDER. PT REPOSITIONED Q2H AND PRN. SAFETY MEASURES MAINTAINED AT ALL TIMES. BED IN LOWEST LOCKED POSITION, HOB ELEVATED, SIDE RAILS UP X2. CALL LIGHT AND TABLE WITHIN REACH. WILL ENDORSE TO ONCOMING NURSE FOR JADE.
[2020-11-13 07:05] LABS: CALCIUM, SERUM 9.4 mg/dL (8.5-10.1); CARBON DIOXIDE 25 mmol/L (21-32); CHLORIDE 106 mmol/L (98-107); CREATININE 1.4 mg/dL (0.6-1.3); GLUCOSE 107 mg/dL (74-106); MAGNESIUM 2.1 mg/dL (1.8-2.4); POTASSIUM 3.5 mmol/L (3.5-5.1); SODIUM SERUM 143 mmol/L (136-145); UREA NITROGEN, BLOOD 44 mg/dL (7-18)
--- NOTE | 2020-11-13 07:33 | NUR ---
NATIONAL FLATBED TRUCK DRIVER NOTES PATIENT RECEIVED BED SLEEPING EASILY AWAKEN, ALERT AND ORIENTED X 1-2 ESTONIAN SPEAKING. ON ROOM AIR NO RESPIRATORY DISTRESS NOTED, WITH EVEN NON-LABORED. ON VEGETABLE CANNER, AFIB CONTROLLED 91. IV ACCESS INTACT AND PATENT, SKIN WARM AND DRY TO TOUCH. PATIENT PRESENTS WITH NO PAIN OR DISCOMFORT AT THIS TIME. SAFETY PRECAUTIONS IMPLEMENTED WITH BED LOCKED, BILATERAL SIDE RAILS UP, BED ALARM ON, BED IN LOWEST POSITIONS, AND WILL CONTINUE TO MONITOR.
[2020-11-13 08:00] VITALS: BP 131/74
[2020-11-13 08:06] LABS: PTH, INTACT 60 pg/mL (15-65)
[2020-11-13] MEDS: ENSURE ENLIVE 237 ML LIQUID (VANILLA) PO SCH ×3 (08:29→17:17)
[2020-11-13] MEDS: ASPIRIN EC 81 MG TABLET.DR PO SCH (08:29)
[2020-11-13] MEDS: CARVEDILOL 12.5 MG TABLET PO SCH ×2 (08:31→16:45)
[2020-11-13] MEDS: HYDROCHLOROTHIAZIDE 25 MG TABLET PO SCH (08:31)
[2020-11-13] MEDS: LOSARTAN POTASSIUM 25 MG TABLET PO SCH (08:32)
[2020-11-13] MEDS: AMLODIPINE BESYLATE 10 MG TABLET PO SCH (08:32)
[2020-11-13] MEDS: CLOTRIMAZOLE 1% 15 GM TUBE TP SCH ×2 (08:38→16:45)
[2020-11-13 16:00] VITALS: BP 114/59
--- NOTE | 2020-11-13 19:00 | NUR ---
MS RN NOTES PATIENT IN BED RESTING COMFORTABLY, ALERT AND ORIENTED X 1-2 MONGOLIAN SPEAKING. ON ROOM AIR NO RESPIRATORY DISTRESS NOTED, WITH EVEN NON-LABORED. IV ACCESS INTACT AND PATENT CURRENTLY INFUSING IV FLUIDS, SKIN KEPT CLEAN WARM AND DRY TO TOUCH. PATIENT PRESENTS WITH NO PAIN OR DISCOMFORT AT THIS TIME. MET ALL OF PATIENT'S NEEDS. SAFETY PRECAUTIONS IMPLEMENTED WITH BED LOCKED, BILATERAL SIDE RAILS UP, BED ALARM ON, BED IN LOWEST POSITIONS, AND WILL ENDORSE PLAN OF CARE TO UPCOMING RN.
--- NOTE | 2020-11-13 19:25 | NUR ---
MS/RN OPENING NOTE RECEIVED PATIENT RESTING IN BED WITH FAMILY AT BEDSIDE. PATIENT IS ALERT AND ORIENTED X 1-2. ABLE TO MAKE NEEDS KNOWN. NO COMPLAINTS OF PAIN AT THIS TIME. IV ACCESS TO LEFT FOREARM INTACT AND PATENT. CONTINUES ON IVF NS 0.9% @ 70ML/HR. CONTINUES ON IV ABX. PATIENT IS ON ROOM AIR WITH NO S/SX OF RESPIRATORY DISTRESS NOTED. CONTINUES ON SOFT DIET WITH NO S/SX OF ASPIRATION NOTED. CALL LIGHT WITHIN REACH. ASPIRATION, FALL AND SAFETY PRECAUTIONS MAINTAINED. WILL CONTINUE TO MONITOR.
[2020-11-13 20:00] VITALS: BP 136/80
[2020-11-13] MEDS: ENOXAPARIN SODIUM 40 MG/0.4 ML DISP.SYRIN SQ SCH (21:18)
--- NOTE | 2020-11-13 21:56 | NUR ---
MS/RN NOTE PATIENTS BLOOD SUGAR IS 141. INSULIN SS BEING HELD D/T POOR PO INTAKE TODAY. WILL CONTINUE TO MONITOR.
[2020-11-13] MEDS: IV NS 0.9% 1,000 ML IV PRN (22:08)
[2020-11-14] MEDS: ACETAMINOPHEN 325 MG TABLET PO PRN ×2 (02:13→20:27)
[2020-11-14] MEDS: PIPERACILLIN /TAZOBACTAM 2.25 G in IV D5W 50 ML IV SCH ×3 (04:55→20:30)
--- NOTE | 2020-11-14 06:15 | NUR ---
MS/RN CLOSING NOTE PATIENT CURRENTLY RESTING IN BED. ALERT AND ORIENTED X 1-2. ABLE TO MAKE NEEDS KNOWN. NO COMPLAINTS OF PAIN AT THIS TIME. IV ACCESS TO LEFT FOREARM INTACT AND PATENT. CONTINUES ON IVF NS 0.9% @ 70ML/HR. CONTINUES ON IV ABX. PATIENT IS ON ROOM AIR WITH NO S/SX OF RESPIRATORY DISTRESS NOTED. CONTINUES ON SOFT DIET WITH NO S/SX OF ASPIRATION NOTED. BLOOD SUGAR THIS AM IS 97. CALL LIGHT WITHIN REACH. ASPIRATION, FALL AND SAFETY PRECAUTIONS MAINTAINED. WILL ENDORSE PLAN OF CARE TO ONCOMING SHIFT.
[2020-11-14] MEDS: BLOOD SUGAR DIAGNOSTIC 1 EACH STRIP IN SCH ×4 (06:27→22:00)
[2020-11-14 06:54] LABS: BASOPHILS % (AUTO) 0.4 % (0.0-2.0); EOSINOPHILS % (AUTO) 2.5 % (0.0-6.0); HEMATOCRIT 21 % (33-45); LYMPHOCYTES # (AUTO) 1.2 /CMM (0.8-4.8); MEAN CORPUSCULAR HGB CONC 32 g/dl (31.0-36.0); MEAN CORPUSCULAR VOLUME 90 fL (82-100); MONOCYTES # (AUTO) 0.6 /CMM (0.1-1.30); MONOCYTES % (AUTO) 10.4 % (2.0-12.0); NEUTROPHILS # (AUTO) 4.1 /CMM (1.8-8.9); NEUTROPHILS % (AUTO) 66.7 % (43.0-81.0); PLATELET COUNT (AUTO) 230 /CMM (150-450); RED BLOOD CELL COUNT(AUTO) 2.34 MIL/uL (4.0-5.2); WHITE BLOOD COUNT (AUTO) 6.1 K/uL (4.3-11.0)
--- NOTE | 2020-11-14 07:13 | NUR ---
MS/RN OPENING NOTE PATIENT CURRENTLY RESTING IN BED. ALERT AND ORIENTED X 1-2. ABLE TO MAKE NEEDS KNOWN. NO COMPLAINTS OF PAIN AT THIS TIME. IV ACCESS TO LEFT FOREARM INTACT AND PATENT. CONTINUES ON IVF NS 0.9% @ 70ML/HR. CONTINUES ON IV ABX. PATIENT IS ON ROOM AIR WITH NO S/SX OF RESPIRATORY DISTRESS NOTED. CONTINUES ON SOFT DIET WITH NO S/SX OF ASPIRATION NOTED. CALL LIGHT WITHIN EASY REACH AND ANSWERED PROPMTLY, FALL AND SAFETY PRECAUTIONS MAINTAINED.
[2020-11-14 07:30] LABS: CALCIUM, SERUM 8.9 mg/dL (8.5-10.1); CREATININE 1.3 mg/dL (0.6-1.3); PHOSPHORUS 2.8 mg/dL (2.5-4.9); POTASSIUM 3.5 mmol/L (3.5-5.1)
[2020-11-14 07:33] LABS: HEMOGLOBIN 6.8 g/dL (11.5-14.8)
[2020-11-14 08:00] VITALS: BP 119/64
[2020-11-14] MEDS: HYDROCHLOROTHIAZIDE 25 MG TABLET PO SCH (08:12)
[2020-11-14] MEDS: LOSARTAN POTASSIUM 25 MG TABLET PO SCH (08:13)
[2020-11-14] MEDS: ENSURE ENLIVE 237 ML LIQUID (VANILLA) PO SCH ×3 (08:13→17:17)
[2020-11-14] MEDS: CARVEDILOL 12.5 MG TABLET PO SCH ×2 (08:13→16:30)
[2020-11-14] MEDS: AMLODIPINE BESYLATE 10 MG TABLET PO SCH (08:13)
[2020-11-14] MEDS: CLOTRIMAZOLE 1% 15 GM TUBE TP SCH ×2 (08:14→16:25)
[2020-11-14 10:08] LABS: EOSINOPHILS % (MANUAL) 4 % (0-4); LYMPHOCYTES % (MANUAL) 26 % (16-48); MONOCYTES % (MANUAL) 5 % (0-11.0); NEUTROPHILS % (MANUAL) 65 (42-76)
[2020-11-14 12:10] VITALS: BP 115/70
[2020-11-14 12:30] VITALS: BP 113/58
[2020-11-14 13:30] VITALS: BP 108/57
[2020-11-14 14:07] LABS: *SPE A/G RATIO 0.6 (0.7-1.7); *SPE ALBUMIN 2.4 g/dL (2.9-4.4); *SPE ALPHA-1-GLOBULIN 0.5 g/dL (0.0-0.4); *SPE ALPHA-2-GLOBULIN 1.3 g/dL (0.4-1.0); *SPE BETA GLOBULIN 1.3 g/dL (0.7-1.3); *SPE GLOBULIN, TOTAL 4.1 g/dL (2.2-3.9); *SPE M-SPIKE Not Observed g/dL (Not Observed); *SPEGAMMA GLOBULIN 1.1 g/dL (0.4-1.8)
[2020-11-14 16:00] VITALS: BP_SYST 116; BP_SYST 94; BP_DIAS 64; BP_DIAS 75
[2020-11-14] MEDS: IV NS 0.9% 1,000 ML IV PRN (16:01)
--- NOTE | 2020-11-14 19:30 | NUR ---
RN OPENING NOTE PATIENT IN BED AWAKE, ETHIOPIAN SPEAKING. ABLE TO MAKE NEEDS KNOWN WHEN ASKED. DAUGHTER AT BEDSIDE. BREATHING EVEN AND UNLABORED, HOWEVER, O2 SATURATION 88%. 2 L O2 SUPPLEMENTATION VIA NC GIVEN. PATIENT ALSO HAS TEMPERATURE OF 99.5. COOLING MEASURES INITIATED. WILL RE-ASSESS. IV FLUIDS INFUSING WELL. DRESSING ON LOWER EXTREMITY C/D/I. SAFETY MEASURES IN PLACE: BED IN LOCKED AND LOWEST POSITION, CALL LIGHT WITHIN REACH, SIDE RAILS UP X 3, HOB ELEVATED. WILL MONITOR PATIENT CLOSELY.
[2020-11-14 20:00] VITALS: BP 131/73
--- NOTE | 2020-11-14 21:35 | NUR ---
PATIENT STILL HAS FEVER, 100.3 F AFTER TYLENOL GIVEN AT 2026. COOLING MEASURES STILL IN PLACE. WILL RE-ASSESS AGAIN
[2020-11-14] MEDS: INSULIN REGULAR, HUMAN 100 UNIT/ML 3 ML VIAL SQ PRN (22:03)
[2020-11-14] MEDS: ENOXAPARIN SODIUM 40 MG/0.4 ML DISP.SYRIN SQ SCH (22:08)
--- NOTE | 2020-11-14 22:10 | NUR ---
INFORMED SAMPLE WRAPPER DR. MEGAN MOHR THAT PATIENT HAS A LOVENOX DOSE 40 MG DUE TONIGHT, HOWEVER, PATIENT HAS HGB OF 6.8. MD SAYS KEEP DOSE AND OK TO GIVE. BS 162 MG/DL. 3 U INSULIN GIVEN FOR COVERAGE
--- NOTE | 2020-11-14 23:00 | NUR ---
TEMP NOW 99.2 F. WILL CONTINUE TO MONITOR PATIENT'S TEMPERATURE DURING THE SHIFT.
[2020-11-15] MEDS ORDERED: VANCOMYCIN 1 GM VIAL ONE (00:50)
[2020-11-15] MEDS ORDERED: CEFEPIME 1 GM in IV D5W 50 ML IV ONE (01:00)
[2020-11-15] MEDS ORDERED: VANCOMYCIN 1 GM in IV D5W 250ml IV ONE (01:00)
[2020-11-15] MEDS ORDERED: CEFEPIME 1 GM VIAL ONE (01:18)
[2020-11-15 06:29] LABS: BASOPHILS % (AUTO) 0.4 % (0.0-2.0); EOSINOPHILS % (AUTO) 1.4 % (0.0-6.0); HEMATOCRIT 26 % (33-45); HEMOGLOBIN 8.4 g/dL (11.5-14.8); LYMPHOCYTES # (AUTO) 1.8 /CMM (0.8-4.8); LYMPHOCYTES % (AUTO) 22.8 % (20.0-44.0); MEAN CORPUSCULAR HGB CONC 32 g/dl (31.0-36.0); MEAN CORPUSCULAR VOLUME 90 fL (82-100); MONOCYTES # (AUTO) 0.9 /CMM (0.1-1.30); MONOCYTES % (AUTO) 11.5 % (2.0-12.0); NEUTROPHILS % (AUTO) 63.9 % (43.0-81.0); PLATELET COUNT (AUTO) 251 /CMM (150-450); RED BLOOD CELL COUNT(AUTO) 2.89 MIL/uL (4.0-5.2); WHITE BLOOD COUNT (AUTO) 7.9 K/uL (4.3-11.0)
[2020-11-15] MEDS: IV NS 0.9% 1,000 ML IV PRN (06:32)
[2020-11-15 06:46] LABS: CALCIUM, SERUM 9.2 mg/dL (8.5-10.1); CREATININE 1.2 mg/dL (0.6-1.3); MAGNESIUM 2.2 mg/dL (1.8-2.4); PHOSPHORUS 3.1 mg/dL (2.5-4.9); POTASSIUM 3.8 mmol/L (3.5-5.1)
--- NOTE | 2020-11-15 07:21 | NUR ---
RN CLOSING NOTE PATIENT IN BED, SLEEPING. PATIENT IS NOW AFEBRILE WITH 98.0 F TEMP. PATIENT TOLERATING 2 L VIA NC OF OXYGEN SUPPLEMENTATION WITH 94-95% O2 SATURATION. BLE DRESSING STILL C/D/I. BS AT 0630 WAS 103 MG/DL. SAFETY MEASURES MAINTAINED WELL CONTACT PRECAUTIONS. ALL NEEDS MET AND ATTENDED. ALL ORDERS CARRIED OUT. ENDORSED TO DAY SHIFT NURSE FOR JADE.
--- NOTE | 2020-11-15 07:29 | NUR ---
MSRN OPENING NOTE PATIENT IN BED, SLEEPING. PATIENT IS NOW AFEBRILE WITH 98.0 F TEMP. PATIENT TOLERATING 2 L VIA NC OF OXYGEN SUPPLEMENTATION WITH 94-95% O2 SATURATION. SAFETY MEASURES BED LOW SIDE RAILS UP IN PLACE. CALL LIGHT WITHIN REACH AND ANSWERED PROPMTLY
[2020-11-15 08:00] VITALS: BP 147/75
[2020-11-15] MEDS: CARVEDILOL 12.5 MG TABLET PO SCH ×2 (08:56→16:47)
[2020-11-15] MEDS: LOSARTAN POTASSIUM 25 MG TABLET PO SCH (08:56)
[2020-11-15] MEDS: BLOOD SUGAR DIAGNOSTIC 1 EACH STRIP IN SCH ×4 (08:56→22:14)
[2020-11-15] MEDS: HYDROCHLOROTHIAZIDE 25 MG TABLET PO SCH (08:57)
[2020-11-15] MEDS: ASPIRIN EC 81 MG TABLET.DR PO SCH (08:57)
[2020-11-15] MEDS: ENSURE ENLIVE 237 ML LIQUID (VANILLA) PO SCH ×3 (08:57→18:00)
[2020-11-15] MEDS: CLOTRIMAZOLE 1% 15 GM TUBE TP SCH ×2 (08:57→16:47)
[2020-11-15] MEDS: AMLODIPINE BESYLATE 10 MG TABLET PO SCH (08:58)
[2020-11-15] MEDS: CEFEPIME 2 GM in IV D5W 100 ML IV SCH ×2 (10:25→21:27)
[2020-11-15] MEDS: DIGOXIN 0.125 MG TABLET PO SCH (13:11)
[2020-11-15 16:00] VITALS: BP 110/76
--- NOTE | 2020-11-15 18:22 | NUR ---
MSRN CLOSING NOTE PATIENT IN BED, SLEEPING. PATIENT IS NOW AFEBRILE WITH 98.0 F TEMP. PATIENT TOLERATING 2 L VIA NC OF OXYGEN SUPPLEMENTATION WITH 94-95% O2 SATURATION. SAFETY MEASURES BED LOW SIDE RAILS UP IN PLACE. CALL LIGHT WITHIN REACH AND ANSWERED PROPMTLY
[2020-11-15 19:02] LABS: BILIRUBIN,URINE NEGATIVE (NEGATIVE); COLOR,URINE YELLOW (YELLOW); LEUKOCYTE ESTERASE ,URINE LARGE (NEGATIVE); NITRITE, URINE NEGATIVE (NEGATIVE); PH,URINE 5.5 (5.0-8.0); PROTEIN,URINE 30 mg/dl (NEGATIVE); UGLUCOSE NEGATIVE (NEGATIVE); UROBILINOGEN,URINE 0.2 EU/dL (0.2)
[2020-11-15 19:18] LABS: RBC,URINE 0-2 /HPF (0-2)
[2020-11-15 19:20] LABS: CREATININE, URINE 46.8 MG/DL (30.0-125.0)
[2020-11-15 19:21] LABS: BACTERIA,URINE Moderate /HPF (None Seen); SQUAMOUS EPITHELIAL CELL,UR None Seen /HPF (None Seen); URIC ACID CRYSTALS,URINE Few /HPF (None Seen); YEAST,URINE Few /HPF (None Seen)
--- NOTE | 2020-11-15 19:30 | NUR ---
RN OPENING NOTE PATIENT IN BED AWAKE, MONTSERRATIAN SPEAKING. A/O X 1-2. PATIENT HAS MILD SOB 22 BREATHS/ MIN. O2 CURRENTLY AT 2 L VIA NC AND TOLERATING AT 94%. PATIENT AFIBRILE AT THIS TIME. LFA 22 G ACCESS LEAKING, WILL INSERT NEW IV ACCESS. DRESSING ON LOWER EXTREMITY C/D/I. SAFETY MEASURES IN PLACE: BED IN LOCKED AND LOWEST POSITION, CALL LIGHT WITHIN REACH, SIDE RAILS UP X 3, HOB ELEVATED. WILL MONITOR PATIENT CLOSELY.
[2020-11-15 20:00] VITALS: BP 128/67
[2020-11-15 20:22] LABS: EOSINOPHIL,URINE None Seen
[2020-11-15] MEDS: ACETAMINOPHEN 325 MG TABLET PO PRN (21:26)
[2020-11-15] MEDS: ENOXAPARIN SODIUM 40 MG/0.4 ML DISP.SYRIN SQ SCH (21:28)
--- NOTE | 2020-11-15 21:30 | NUR ---
PATIENT NOTICEABLY MORE SOB. HOB ELEVATED AND REPOSITIONED. PATIENT DESATTING 85% ON 2 L O2, PATIENT PUT ON 6L STILL BARELY AT 86%. CHARGE NOTIFIED, PUT ON NONREBREATHER MASK 15 L. TEMP IS ALSO 99.9 F. TYLENOL GIVEN. WILL RE-ASSESS. DR. POWER NOTIFIED. STAT ABG AND CXR ORDERED. ORDERS CARRIED OUT. Addendum: 11/16/20 at 0537 by IAN MONAHAN RN NEW MILD WHEEZING HEARD ON MAGY UPPER LOBES
--- NOTE | 2020-11-15 22:10 | NUR ---
RT PUT PATIENT ON 5L O2 SUPPLEMENTATION VIA NC WITH HUMIDIFIER. SATING AT 95-96%.
[2020-11-15 22:18] LABS: ABG BASE EXCESS -1.5 mmol/L; ABG OXYGEN SATURATION 99.7 % (92.0-98.5); ABG PCO2 35.2 mmHg (35.0-45.0); ABG PH 7.425 (7.350-7.450); ABG PO2 301.7 mmHg (75.0-100.0); AaDO2 376.1 mmHg; COHb 0.1 % (0.5-1.5); MetHb 0.2 % (0.0-1.5); O2Hb 99.4 % (94.0-97.0); SITE, ABG Left Radial; VENT MODE, BG NRB 100%
[2020-11-15] MEDS: INSULIN REGULAR, HUMAN 100 UNIT/ML 3 ML VIAL SQ PRN (22:52)
--- NOTE | 2020-11-16 00:20 | NUR ---
NOTIFIED MD REGARDING PATIENT REFUSING TO KEEP NC ON AND GETTING ANGRY WHEN WE TRY TO PUT IT BACK ON, PATIENT AGITATED. ORDERED ATIVAN 0.5 MG IV Q6H PRN. ORDER CARRIED OUT AND READ BACK. INFORMED MD OF CXR RESULTS AND ABG WELL.
[2020-11-16] MEDS: VANCOMYCIN 1 GM in IV D5W 250 ML IV SCH (00:34)
[2020-11-16] MEDS: LORAZEPAM INJ 2 MG/ML VIAL IV PRN (00:39)
[2020-11-16 06:44] LABS: BASOPHILS % (AUTO) 0.4 % (0.0-2.0); EOSINOPHILS % (AUTO) 0.9 % (0.0-6.0); HEMATOCRIT 26 % (33-45); HEMOGLOBIN 8.3 g/dL (11.5-14.8); LYMPHOCYTES # (AUTO) 1.8 /CMM (0.8-4.8); MEAN CORPUSCULAR HGB CONC 32 g/dl (31.0-36.0); MEAN CORPUSCULAR VOLUME 92 fL (82-100); MONOCYTES # (AUTO) 0.8 /CMM (0.1-1.30); MONOCYTES % (AUTO) 9.2 % (2.0-12.0); NEUTROPHILS # (AUTO) 5.7 /CMM (1.8-8.9); NEUTROPHILS % (AUTO) 68.5 % (43.0-81.0); PLATELET COUNT (AUTO) 253 /CMM (150-450); RED BLOOD CELL COUNT(AUTO) 2.82 MIL/uL (4.0-5.2); WHITE BLOOD COUNT (AUTO) 8.4 K/uL (4.3-11.0)
[2020-11-16] MEDS: BLOOD SUGAR DIAGNOSTIC 1 EACH STRIP IN SCH ×4 (07:04→21:15)
--- NOTE | 2020-11-16 07:24 | NUR ---
RN CLOSING NOTE PATIENT IN BED AWAKE, IRAQI SPEAKING. A/O X 1-2. PATIENT TOLERATES 5L OF OXYGEN SUPPLEMENT VIA NC. L WRIST 22 G INSERTED, PATENT AND INTACT. DRESSING ON LOWER EXTREMITY C/D/I. BS 102 AT 0630. SAFETY MEASURES MAINTAINED. ALL NEEDS MET AND ATTENDED. ALL ORDERS CARRIED OUT. ENDORSED TO DAY SHIFT NURSE FOR JADE.
--- NOTE | 2020-11-16 07:30 | NUR ---
ms rn received on bed, awake,alert,oriented x1,complaining of cold,on 5 liters o2 vial nasal cannula, saturating 96%,no sob noted, denies pain at this time, will monitor patient.
[2020-11-16 07:44] LABS: CALCIUM, SERUM 9.4 mg/dL (8.5-10.1); CREATININE 1.1 mg/dL (0.6-1.3); MAGNESIUM 2.1 mg/dL (1.8-2.4); PHOSPHORUS 3.3 mg/dL (2.5-4.9); POTASSIUM 3.4 mmol/L (3.5-5.1)
[2020-11-16] MEDS: ENSURE ENLIVE 237 ML LIQUID (VANILLA) PO SCH ×3 (08:00→17:30)
--- NOTE | 2020-11-16 09:30 | NUR ---
ms rivas breakfast served,due meds given,tolerated well.
[2020-11-16] MEDS: ASPIRIN EC 81 MG TABLET.DR PO SCH (09:33)
[2020-11-16] MEDS: LOSARTAN POTASSIUM 25 MG TABLET PO SCH (09:33)
[2020-11-16] MEDS: AMLODIPINE BESYLATE 10 MG TABLET PO SCH (09:33)
[2020-11-16] MEDS: HYDROCHLOROTHIAZIDE 25 MG TABLET PO SCH (09:33)
[2020-11-16] MEDS: CARVEDILOL 12.5 MG TABLET PO SCH ×2 (09:33→17:29)
[2020-11-16] MEDS: CEFEPIME 2 GM in IV D5W 100 ML IV SCH ×2 (09:39→20:27)
[2020-11-16] MEDS: CLOTRIMAZOLE 1% 15 GM TUBE TP SCH ×2 (09:40→17:31)
--- NOTE | 2020-11-16 11:13 | NUR ---
ms rn am care done w/ daughter at bedside.
[2020-11-16] MEDS ORDERED: POTASSIUM CHLORIDE 20 MEQ POWDER PACKET PO SCH (11:30)
[2020-11-16] MEDS: INSULIN REGULAR, HUMAN 100 UNIT/ML 3 ML VIAL SQ PRN ×2 (12:15→23:04)
--- NOTE | 2020-11-16 14:00 | NUR ---
ms rn patient refused to do dressing change at bilateral lower ext.
[2020-11-16] MEDS: IV NS 0.9% 1,000 ML IV PRN (16:55)
--- NOTE | 2020-11-16 19:03 | NUR ---
ms rn on bed, w/ daughters, belkis w/ dr. boyd.
--- NOTE | 2020-11-16 19:35 | NUR ---
MS/RN OPENING NOTE RECEIVED PATIENT RESTING IN BED. AWAKE, ALERT AND ORIENTED X 1-2. NO C/O PAIN AT THIS TIME. CONTINUES ON O2 5L VIA NC WITH NO S/SX OF RESPIRATORY DISTRESS NOTED. IV ACCESS TO LEFT WRIST #22G INTACT, PATENT AND SALINE LOCKED. CONTINUES ON IV ABX. FREQUENT REPOSITIONING FOR WOUNDS. CONTINUES ON MECHANICAL SOFT DIET WITH NO S/SX OF ASPIRATION NOTED. CALL LIGHT WITHIN REACH. ASPIRATION, FALL AND SAFETY PRECAUTIONS MAINTAINED. WILL CONTINUE TO MONITOR.
[2020-11-16 20:00] VITALS: BP 138/68
[2020-11-16] MEDS: ENOXAPARIN SODIUM 40 MG/0.4 ML DISP.SYRIN SQ SCH (21:23)
[2020-11-17] MEDS: VANCOMYCIN 1 GM in IV D5W 250 ML IV SCH (01:07)
[2020-11-17] MEDS: LORAZEPAM INJ 2 MG/ML VIAL IV PRN (05:11)
[2020-11-17] MEDS: BLOOD SUGAR DIAGNOSTIC 1 EACH STRIP IN SCH ×4 (06:12→21:32)
--- NOTE | 2020-11-17 06:20 | NUR ---
MS/RN CLOSING NOTE PATIENT CURRENTLY SLEEPING IN BED. ALERT AND ORIENTED X 1-2. NO C/O PAIN AT THIS TIME. CONTINUES ON O2 5L VIA NC WITH NO S/SX OF RESPIRATORY DISTRESS NOTED. IV ACCESS TO LEFT WRIST #22G INTACT, PATENT AND SALINE LOCKED. CONTINUES ON IV ABX. FREQUENT REPOSITIONING FOR WOUNDS. CONTINUES ON MECHANICAL SOFT DIET WITH NO S/SX OF ASPIRATION NOTED. CALL LIGHT WITHIN REACH. ASPIRATION, FALL AND SAFETY PRECAUTIONS MAINTAINED. WILL ENDORSE PLAN OF CARE TO ONCOMING SHIFT.
--- NOTE | 2020-11-17 07:30 | NUR ---
RN OPENING NOTES RECEIVED PT AWAKE IN BED AT THIS TIME. AOX1-2. NO SOB NOTED, NO C/O PAIN AT THIS TIME, NO S/O ANY ACUTE DISTRESS NOTED. PT ON 5L OXYGEN NC, RESPIRATIONS EVEN AND UNLABORED. IV ACCESS NOTED LWRIST#22G. SAFETY PRECAUTIONS IN PLACE AND MAINTAINED AT ALL TIMES. BED IN LOWEST LOCKED POSITION, HOB ELEVATED, SIDE RAILS UP X2, CALL LIGHT AND TABLE WITHIN REACH. WILL CONTINUE TO MONITOR
[2020-11-17 08:00] VITALS: BP 136/63
[2020-11-17] MEDS: HYDROCHLOROTHIAZIDE 25 MG TABLET PO SCH (08:40)
[2020-11-17] MEDS: CARVEDILOL 12.5 MG TABLET PO SCH ×2 (08:46→16:57)
[2020-11-17] MEDS: FUROSEMIDE 40 MG/4 ML VIAL IV SCH ×3 (08:47→16:55)
[2020-11-17] MEDS: ENSURE ENLIVE 237 ML LIQUID (VANILLA) PO SCH ×3 (08:47→17:50)
[2020-11-17] MEDS: POTASSIUM CHLORIDE 20 MEQ TAB.PRT.SR PO SCH ×2 (09:07→10:38)
[2020-11-17] MEDS: LOSARTAN POTASSIUM 25 MG TABLET PO SCH (09:08)
[2020-11-17] MEDS: CLOTRIMAZOLE 1% 15 GM TUBE TP SCH ×2 (09:09→17:15)
[2020-11-17] MEDS: CEFEPIME 2 GM in IV D5W 100 ML IV SCH ×2 (09:09→21:17)
[2020-11-17] MEDS: AMLODIPINE BESYLATE 10 MG TABLET PO SCH (09:09)
--- NOTE | 2020-11-17 10:55 | NUR ---
PHARMACY INFORMED NURSE NOT TO ADMINISTER KDUR AFTER MEDICATION WAS SCANNED AND CRUSHED. MEDICATION NON ADMINISTERED AND WASTED. MONIKA, CHARGE NURSE WITNESSED WASTE AND IS AWARE. WILL CONTINUE WITH PLAN OF CARE
[2020-11-17] MEDS ORDERED: POTASSIUM CHLORIDE 20 MEQ TAB.PRT.SR PO SCH (11:00)
[2020-11-17 11:22] LABS: BASOPHILS % (AUTO) 0.5 % (0.0-2.0); EOSINOPHILS % (AUTO) 1.7 % (0.0-6.0); HEMATOCRIT 23 % (33-45); HEMOGLOBIN 7.6 g/dL (11.5-14.8); LYMPHOCYTES # (AUTO) 1.4 /CMM (0.8-4.8); LYMPHOCYTES % (AUTO) 20.2 % (20.0-44.0); MEAN CORPUSCULAR HGB CONC 33 g/dl (31.0-36.0); MEAN CORPUSCULAR VOLUME 90 fL (82-100); MONOCYTES # (AUTO) 0.6 /CMM (0.1-1.30); MONOCYTES % (AUTO) 8.6 % (2.0-12.0); NEUTROPHILS # (AUTO) 4.8 /CMM (1.8-8.9); PLATELET COUNT (AUTO) 232 /CMM (150-450); RED BLOOD CELL COUNT(AUTO) 2.57 MIL/uL (4.0-5.2); WHITE BLOOD COUNT (AUTO) 6.9 K/uL (4.3-11.0)
[2020-11-17 11:37] LABS: CALCIUM, SERUM 9.4 mg/dL (8.5-10.1); CREATININE 1.1 mg/dL (0.6-1.3); MAGNESIUM 1.9 mg/dL (1.8-2.4)
[2020-11-17] MEDS: DIGOXIN 0.125 MG TABLET PO SCH (12:38)
--- NOTE | 2020-11-17 12:39 | NUR ---
PT'S RADIAL PULSE OF 74, DIGOXIN 0.125MG PO Q48H ADMINISTERED PER ORDER. WILL CONTINUE TO MONITOR
[2020-11-17 16:00] VITALS: BP 131/63
--- NOTE | 2020-11-17 18:00 | NUR ---
RN CLOSING NOTE PT RESTING AT THIS TIME, EASY TO AROUSE. PT REMAINED STABLE THROUGHOUT SHIFT, ALL NEEDS, MEDICATIONS, AND CARE ADMINISTERED ANTICIPATED PER ORDER. PT REPOSITIONED Q2H AND PRN. FAMILY MEMBERS AT BEDSIDE AT THIS TIME.SAFETY PRECAUTIONS IN PLACE AND MAINTAINED AT ALL TIMES. BED IN LOWEST LOCKED POSITION. HOB ELEVATED, SIDE RAILS UP X2. CALL LIGHT AND TABLE WITHIN REACH. WILL ENDORSE TO QUIRK SANDER NURSE FOR JADE
--- NOTE | 2020-11-17 19:30 | NUR ---
MS RN NOTES RECEIVED ON BED ON LEFT SIDE POSITION,BREATHING NON LABORED,O2 IN USED AT 3L/NC TO KEEP O2 SAT ABOVE 90%.WITH SIVA MIDLINE,NS AT TKO RATE IN PROGRESS..DRESSING BOTH ANKLE INTACT AND DRY, ELEVATED ON PILLOWS.KCI MATTRESS IN USED FOR SKIN MANAGEMENT.WILL REPOSITION PER PROTOCOL TO AVOID PRESSURE/REDNESS ON BONY PROMINENCES.CALL LIGHT IN REACH,NEEDS ANTICIPATED.
[2020-11-17 20:00] VITALS: BP 123/70
[2020-11-17] MEDS: ENOXAPARIN SODIUM 40 MG/0.4 ML DISP.SYRIN SQ SCH (21:30)
[2020-11-17] MEDS: INSULIN REGULAR, HUMAN 100 UNIT/ML 3 ML VIAL SQ PRN (21:47)
[2020-11-18] MEDS ORDERED: VANCOMYCIN HCL 0.75 GM in IV D5W 250 ML IV SCH (01:00)
[2020-11-18] MEDS: LORAZEPAM INJ 2 MG/ML VIAL IV PRN (01:41)
--- NOTE | 2020-11-18 02:07 | NUR ---
MS RN NOTES APPEARS ANXIOUS,ATIVAN 0.5MG IV GIVEN BY GALINA RUSSELL,ORDERED NEEDED.FOR ANXIETY
--- NOTE | 2020-11-18 02:08 | NUR ---
MS RN NOTES PATIENT ACCIDENTALLY PULLED OUT SALINE LOCK LEFT AC,NEW SALINE LOCK PLACE ON LEFT FORE ARM #22.SECURED WITH BROWN SLEEVE.
[2020-11-18] MEDS: BLOOD SUGAR DIAGNOSTIC 1 EACH STRIP IN SCH ×3 (05:54→17:14)
[2020-11-18 05:57] LABS: BASOPHILS % (AUTO) 0.4 % (0.0-2.0); EOSINOPHILS % (AUTO) 1.3 % (0.0-6.0); HEMATOCRIT 26 % (33-45); HEMOGLOBIN 8.4 g/dL (11.5-14.8); LYMPHOCYTES # (AUTO) 1.4 /CMM (0.8-4.8); LYMPHOCYTES % (AUTO) 17.7 % (20.0-44.0); MEAN CORPUSCULAR HGB CONC 32 g/dl (31.0-36.0); MEAN CORPUSCULAR VOLUME 91 fL (82-100); MONOCYTES # (AUTO) 0.8 /CMM (0.1-1.30); MONOCYTES % (AUTO) 9.9 % (2.0-12.0); NEUTROPHILS # (AUTO) 5.7 /CMM (1.8-8.9); NEUTROPHILS % (AUTO) 70.7 % (43.0-81.0); PLATELET COUNT (AUTO) 285 /CMM (150-450); RED BLOOD CELL COUNT(AUTO) 2.87 MIL/uL (4.0-5.2); WHITE BLOOD COUNT (AUTO) 8.1 K/uL (4.3-11.0)
--- NOTE | 2020-11-18 06:00 | NUR ---
MS RN NOTES ACCU-CHECK BLOOD SUGAR CHECK 88.NO INSULIN COVERAGE.
--- NOTE | 2020-11-18 06:14 | NUR ---
MS RN NOTES IN BED SLEEPING,ATIVAN 0.5MG IV EFFECTIVE FOR ANXIETY AND RESTLESSNESS.AROUSABLE TO VERBAL STIMULI,DRESSING TO BILATERAL HEEL INTACT AND DRY.ALL DUE MEDS ADMINISTERED,CALL LIGHT IN REACH,NEEDS ATTENDED.WILL ENDORSE TO DAY NURSE FOR JADE.
[2020-11-18 06:59] LABS: ALBUMIN 2.1 g/dL (3.4-5.0); BILIRUBIN,TOTAL 0.4 mg/dL (0.2-1.0); CALCIUM, SERUM 10.1 mg/dL (8.5-10.1); CREATININE 1.2 mg/dL (0.6-1.3); PHOSPHORUS 2.9 mg/dL (2.5-4.9); TOTAL PROTEIN, SERUM 7.1 g/dL (6.4-8.2)
[2020-11-18 08:00] VITALS: BP 140/85
--- NOTE | 2020-11-18 08:00 | NUR ---
RN OPENING NOTE RECEIVED PATIENT IN BED, AO X 1-2, ABLE TO RESPONDS ALL STIMULI. SKIN IS WARM TO TOUCH KEEP CLEAN/DRY, INTACT NEW IV SITE AT THIS TIME. RESPIRATORY EVEN AND UNLABORED WITH OXYGEN AT 3LPM, NO DISTRESS OBSERVED. KEPT ELEVATED HOB FOR ENSURE AIRWAY AND ASPIRATION PRECAUTION, ALSO LOWEST BED POSITION FOE SAFETY. CALL LIGHT WITHIN REACH, WILL CONTINUE TO MONITOR.
[2020-11-18] MEDS: ENSURE ENLIVE 237 ML LIQUID (VANILLA) PO SCH ×3 (08:33→17:15)
[2020-11-18] MEDS: FUROSEMIDE 100 MG/10 ML VIAL IV SCH ×3 (08:37→16:00)
[2020-11-18] MEDS: HYDROCHLOROTHIAZIDE 25 MG TABLET PO SCH (08:38)
[2020-11-18] MEDS: CARVEDILOL 12.5 MG TABLET PO SCH ×2 (08:38→17:14)
[2020-11-18] MEDS: AMLODIPINE BESYLATE 10 MG TABLET PO SCH (08:39)
[2020-11-18] MEDS: LOSARTAN POTASSIUM 25 MG TABLET PO SCH (08:39)
[2020-11-18] MEDS: CLOTRIMAZOLE 1% 15 GM TUBE TP SCH ×2 (08:40→17:15)
[2020-11-18] MEDS: CEFEPIME 2 GM in IV D5W 100 ML IV SCH (08:41)
[2020-11-18] MEDS ORDERED: Digoxin PO (13:43)
[2020-11-18] MEDS ORDERED: DOXY100T2 PO (13:43)
[2020-11-18] MEDS ORDERED: DIGO125T PO (13:44)
--- NOTE | 2020-11-18 15:55 | NUR ---
PATIENT DISCHARGE TO HOME, GIVEN DISCHARGE INSTRUCTION OVER THE PHONE TO ANTOINETTE/NADIYA. DISCHARGE INSTRUCTION INCLUDE NEW MEDICATIONS, DOSAGE, PERIOD, AND SIDE EFFECT.
[2020-11-18 16:00] VITALS: BP 144/70
--- NOTE | 2020-11-18 18:35 | NUR ---
RN CLOSING NOTE PATIENT RESTING IN BED, DOES NO APPEARS DISTRESS OR DISCOMFORT. PATIENT DISCHARGE TO HOME, FAMILY WILL CARE ATTENDANT PATIENT AROUND 1999. SKIN IS WARM TOUCH, KEEP CLEAN/DRY, WOUND PICTURE TAKEN. RESPIRATORY EVEN AND UNLABORED WITH OXYGEN AT 2LPM, O2SAT 95%. KEPT ELEVATED HOB FOR ENSURE AIRWAY AND ASPIRATION PRECAUTION, ALSO LOWEST BED POSITION FOR SAFETY. CALL LIGHT WITHIN REACH, WILL ENDORSE BLANCHING MACHINE OPERATOR.
[2020-11-18 20:00] VITALS: BP 147/80
--- NOTE | 2020-11-18 20:30 | NUR ---
MS business systems advisor Note Patient A&Ox1 -at baseline. VS 147/80, 73, 19, 98.0, 98% on 3L NC just prior to d/c. No signs of distress. Patient denies pain or discomfort. In stable condition. Ivs removed and wristband removed. Report given to 2 CUSTODIAL SUPERVISOR who arrived at 2009. Paperwork for family given to surface grinding machine hand along with belonging bag. Left safely with surface grinding machine hand via gurney at 2029 on 3L of O2.
[2020-11-18] MEDS ORDERED: DOXYCYCLINE HYCLATE (100 MG) 100 MG TABLET PO SCH (21:00)
[2020-11-19] MEDS ORDERED: CEFTRIAXONE 1GM BAG (ER ONLY) 50 ML IV ONE (14:30)
== END 2020-11-18 20:30 | disposition home health service (06) | DRG 177 ==
LOC: ER 22:35 → TELE 11-11 00:45 → MED 11-13 08:42
PROVIDERS: ADMIT Registered Nurse; ATTEND Student in an Organized Health Care Education/Training Program
PROC: 30233N1 Transfusion of Nonautologous Red Blood Cells into Peripheral Vein, Percutaneous Approach (ICD-10-PCS; principal; 2020-11-14)
DX: J69.0 Pneumonitis due to inhalation of food and vomit (principal); L89.523 Pressure ulcer of left ankle, stage 3; N17.0 Acute kidney failure with tubular necrosis; G92 Toxic encephalopathy; J96.91 Respiratory failure, unspecified with hypoxia; I13.0 Hypertensive heart and chronic kidney disease with heart failure and stage 1 through stage 4 chronic kidney disease, or unspecified chronic kidney disease; I50.32 Chronic diastolic (congestive) heart failure; L03.313 Cellulitis of chest wall; J98.11 Atelectasis; E11.51 Type 2 diabetes mellitus with diabetic peripheral angiopathy without gangrene; E11.22 Type 2 diabetes mellitus with diabetic chronic kidney disease; R62.7 Adult failure to thrive; N18.9 Chronic kidney disease, unspecified; I48.91 Unspecified atrial fibrillation; D63.1 Anemia in chronic kidney disease; Z20.822 Contact with and (suspected) exposure to COVID-19; E78.00 Pure hypercholesterolemia, unspecified; E78.5 Hyperlipidemia, unspecified; Z85.3 Personal history of malignant neoplasm of breast; Z90.11 Acquired absence of right breast and nipple; M10.9 Gout, unspecified; Z90.49 Acquired absence of other specified parts of digestive tract; M19.90 Unspecified osteoarthritis, unspecified site; G89.29 Other chronic pain; E66.9 Obesity, unspecified; Z68.28 Body mass index [BMI] 28.0-28.9, adult; Z79.82 Long term (current) use of aspirin; Z79.899 Other long term (current) drug therapy; E11.42 Type 2 diabetes mellitus with diabetic polyneuropathy; E87.6 Hypokalemia; E83.52 Hypercalcemia; F03.90 Unspecified dementia, unspecified severity, without behavioral disturbance, psychotic disturbance, mood disturbance, and anxiety; E86.0 Dehydration; Z74.09 Other reduced mobility; L89.610 Pressure ulcer of right heel, unstageable; I25.10 Atherosclerotic heart disease of native coronary artery without angina pectoris; B35.3 Tinea pedis; B35.1 Tinea unguium; F32.9 Major depressive disorder, single episode, unspecified; I70.0 Atherosclerosis of aorta; K44.9 Diaphragmatic hernia without obstruction or gangrene; K57.90 Diverticulosis of intestine, part unspecified, without perforation or abscess without bleeding; N13.9 Obstructive and reflux uropathy, unspecified; T44.5X5A Adverse effect of predominantly beta-adrenoreceptor agonists, initial encounter; Y92.9 Unspecified place or not applicable; N28.1 Cyst of kidney, acquired; M77.30 Calcaneal spur, unspecified foot; M43.16 Spondylolisthesis, lumbar region; M51.36 Other intervertebral disc degeneration, lumbar region
CPT/HCPCS: 36415; 36600; 71045-TC; 73610-TC; 73721-TC; 76770-TC; 80048-TC; 80053-TC; 80076-TC; 80162-TC; 80202-TC; 81001; 82550-TC; 82570-TC; 82962-TC; 83735-TC; 83880; 83970; 84100-TC; 84155; 84155-TC; 84165; 84300-TC; 84484-TC; 85025-TC; 85730-TC; 86850-TC; 87040-TC; 87070-TC; 87081-TC; 87086-TC; 87186-TC; 94799-TC; 97112-TC; 97530-TC; A6253; C9803; G0378; J0692; J0696; J1650; J1815; J1940; J2060; J2405; J2543; J3370; J3490; J7030; J7050; J7060; P9016

== ENCOUNTER 2020-11-19 12:31 | Inpatient (IN) | payer MEDICARE, OTHER ==
[~2020-11-19] VITALS: Ht 149.9 cm; Wt 59.0 kg
[~2020-11-19 12:31] MED LIST changes: +DOXY100T2 PO; +Digoxin PO
--- NOTE | 2020-11-19 12:47 | NUR ---
[id number] FROM HOME FOR AMS, DIFF WAKING UP PER DAUGHTER. NO SOB NOTED, RESPITATIONS EVEN AND UNLABORED. WILL CONTINUE TO MONITOR
[2020-11-19] MEDS ORDERED: IV NS 0.9% 500 ML BAG IV ONE (13:00)
--- NOTE | 2020-11-19 13:05 | NUR ---
BLOOD SUGAR 73.
[2020-11-19 13:17] LABS: BASOPHILS # (AUTO) 0.1 /CMM (0.0-0.2); BASOPHILS % (AUTO) 0.8 % (0.0-2.0); EOSINOPHILS % (AUTO) 1.4 % (0.0-6.0); HEMATOCRIT 28 % (33-45); HEMOGLOBIN 9.2 g/dL (11.5-14.8); LYMPHOCYTES # (AUTO) 1.6 /CMM (0.8-4.8); MEAN CORPUSCULAR HGB CONC 33 g/dl (31.0-36.0); MEAN CORPUSCULAR VOLUME 89 fL (82-100); MONOCYTES # (AUTO) 0.7 /CMM (0.1-1.30); MONOCYTES % (AUTO) 9.5 % (2.0-12.0); NEUTROPHILS # (AUTO) 4.8 /CMM (1.8-8.9); NEUTROPHILS % (AUTO) 66.3 % (43.0-81.0); PLATELET COUNT (AUTO) 308 /CMM (150-450); RED BLOOD CELL COUNT(AUTO) 3.18 MIL/uL (4.0-5.2); WHITE BLOOD COUNT (AUTO) 7.3 K/uL (4.3-11.0)
[2020-11-19 13:22] LABS: CALCIUM, SERUM 10.3 mg/dL (8.5-10.1); CARBON DIOXIDE 26 mmol/L (21-32); CHLORIDE 105 mmol/L (98-107); CREATININE 1.4 mg/dL (0.6-1.3); GLUCOSE 81 mg/dL (74-106); POTASSIUM 3.9 mmol/L (3.5-5.1); SODIUM SERUM 144 mmol/L (136-145); UREA NITROGEN, BLOOD 46 mg/dL (7-18)
--- NOTE | 2020-11-19 13:34 | NUR ---
straight catheter inserted per sterile protocal. Immediate urine output send to lab per md order
[2020-11-19 13:39] LABS: ALANINE AMINOTRANSFERASE 34 U/L (12-78); ALBUMIN 2.2 g/dL (3.4-5.0); ALKALINE PHOSPHATASE 166 U/L (46-116); ASPARTATE AMINOTRANSFERASE 45 U/L (15-37); BILIRUBIN,DIRECT 0.2 mg/dL (0.0-0.2); BILIRUBIN,TOTAL 0.4 mg/dL (0.2-1.0); TOTAL PROTEIN, SERUM 7.4 g/dL (6.4-8.2)
[2020-11-19 13:40] LABS: ACETAMINOPHEN < 0 ug/ml (10-30); ALCOHOL, BLOOD < 3 mg/dL (0-0)
[2020-11-19 13:43] LABS: SERUM AMMONIA < 10 umol/L (11-32)
[2020-11-19 14:10] LABS: BILIRUBIN,URINE Negative (NEGATIVE); COLOR,URINE YELLOW (YELLOW); LEUKOCYTE ESTERASE ,URINE Large (NEGATIVE); NITRITE, URINE Negative (NEGATIVE); PH,URINE 5.5 (5.0-8.0); PROTEIN,URINE 100 mg/dl (NEGATIVE); UGLUCOSE Negative (NEGATIVE); UROBILINOGEN,URINE 0.2 EU/dL (0.2)
[2020-11-19 14:19] LABS: BACTERIA,URINE Moderate /HPF (None Seen); SQUAMOUS EPITHELIAL CELL,UR Moderate /HPF (None Seen); WBC,URINE TOO NUMEROUS TO COUN /HPF (0-3); YEAST,URINE Few /HPF (None Seen)
[2020-11-19] MEDS ORDERED: CEFTRIAXONE 1GM BAG (ER ONLY) 1 GM/50 ML PIGGYBACK IV ONE (14:30)
--- NOTE | 2020-11-19 14:41 | NUR ---
[facility] CALLED [employer] SEALER PAGED.
[2020-11-19 15:01] LABS: THYROID STIMULATING HORMONE 1.832 uIU/mL (0.358-3.74)
--- NOTE | 2020-11-19 15:38 | NUR ---
THE PATIENT IS SLEEPING. RESPONSIVE TO VERBAL STIMULI. PATIENT IS IN NO APPARENT DISTRESS. WILL CONTINUE TO MONITOR THE PATIENT.
[2020-11-19] MEDS ORDERED: DEXTROSE 50%-WATER 50 ML DISP.SYRIN IV PRN (16:00)
[2020-11-19] MEDS ORDERED: HYDROCODONE/APAP 5/325MG TABLET PO PRN (16:00)
[2020-11-19] MEDS ORDERED: Z GUARD REMEDY 2 OZ OINT TP PRN (16:00)
[2020-11-19] MEDS ORDERED: IV NS 0.9% 1,000 ML IV PRN (16:00)
[2020-11-19] MEDS ORDERED: ACETAMINOPHEN 325 MG TABLET PO PRN (16:00)
[2020-11-19] MEDS ORDERED: ONDANSETRON HCL/PF 4 MG/2 ML VIAL IVP PRN (16:00)
[2020-11-19] MEDS ORDERED: ZOLPIDEM TARTRATE 5 MG TABLET PO PRN (16:00)
--- NOTE | 2020-11-19 16:15 | NUR ---
GOT BED 106
--- NOTE | 2020-11-19 17:01 | NUR ---
REPORT GIVEN TO NURSE ANIL
--- NOTE | 2020-11-19 17:30 | NUR ---
RN NOTES RECEIVED PT FROM ER. A/O X1. NON VERBAL. ON 2L O2 VIA NC, NO SOB OR ANY DISTRESS. NOTED REDNESS ON CHEST. IV ACCESS INTACT AND PATENT. PLACED TO BED, LOCKED AND IN LOWEST POSITION WITH SIDE RAILS UP X3. BELONGING LIST SIGNED. WILL CONTINUE TO MONITOR.
--- NOTE | 2020-11-19 17:39 | NUR ---
THE PATIENT IS TRANSFERED TO ASSIGNED ROOM IN STABLE CONDITION AND PER ACLS POLICY.
[2020-11-19] MEDS: BLOOD SUGAR DIAGNOSTIC 1 EACH STRIP IN SCH ×2 (18:28→22:00)
[2020-11-19] MEDS: INSULIN REGULAR, HUMAN 100 UNIT/ML 3 ML VIAL SQ PRN (18:31)
[2020-11-19] MEDS ORDERED: IV D5/ 0.9% NACL 1,000 ML IV PRN (19:00)
--- NOTE | 2020-11-19 19:45 | NUR ---
RN NOTES BS OF 66, REFUSING TO EAT. MD AWARE. CHANGED IVF TO D5NS. IN STABLE CONDITION, NOT IN DISTRESS. SAFETY MEASURES STILL IN PLACE. ENDORSED TO NIGHT RN FOR JADE.
[2020-11-19 20:00] VITALS: BP 148/77
--- NOTE | 2020-11-19 20:29 | NUR ---
Patient's daughter came to visit earlier in the beginning of the shift and fed the pt with chocolate pudding,patient ate small amount only according to the daughter. And daughter wants the pt code status DNR/DNI, form given to the daughter and signed and attached to the chart. Charge nurse Sandy guzmán. Informed Dr Yanes. Patient is awake, most of the time is non-verbal. And according to the daughter,pt cannot recognized her. Patient is calm and comfortable at this time. No s/s of distress noted. Bed alarm on.Bed in lowest and locked position.
[2020-11-19] MEDS ORDERED: PIPERACILLIN /TAZOBACTAM 3.375 G in IV D5W 50 ML IV SCH (21:30)
--- NOTE | 2020-11-19 22:52 | NUR ---
BLOOD SUGAR CHECKED=88, NO INSULIN COVERAGE NEEDED. OFFERED PUDDING,PT REFUSED.
[2020-11-19] MEDS ORDERED: PIPERACILLIN /TAZOBACTAM 2.25 G VIAL IV ONE (22:57)
[2020-11-19] MEDS: ZOSYN IVPB 2.25 G in IV D5W 50ml IV SCH (23:20)
[2020-11-20] MEDS ORDERED: PIPERACILLIN /TAZOBACTAM 2.25 G VIAL IV ONE (03:42)
[2020-11-20] MEDS: ZOSYN IVPB 2.25 G in IV D5W 50ml IV SCH ×3 (05:01→17:06)
--- NOTE | 2020-11-20 06:14 | NUR ---
MS RN CLOSING NOTES: PATIENT IN BED, AWAKE, CONFUSED. NO S/S OF DISTRESS NOTED. CALL LIGHT WITHIN REACH. BED ALARM ON. BED IN LOWEST AND LOCKED POSITION. KEPT PATIENT CLEAN AND DRY DURING SHIFT. TURNED AND REPOSITIONED [id number]. HEELS OFFLOADED.
[2020-11-20] MEDS: BLOOD SUGAR DIAGNOSTIC 1 EACH STRIP IN SCH ×3 (07:30→16:21)
[2020-11-20 08:00] VITALS: BP 142/70
[2020-11-20 11:16] LABS: BASOPHILS % (AUTO) 0.4 % (0.0-2.0); EOSINOPHILS % (AUTO) 0.8 % (0.0-6.0); HEMATOCRIT 24 % (33-45); HEMOGLOBIN 7.5 g/dL (11.5-14.8); LYMPHOCYTES # (AUTO) 0.7 /CMM (0.8-4.8); MEAN CORPUSCULAR HGB CONC 31 g/dl (31.0-36.0); MEAN CORPUSCULAR VOLUME 95 fL (82-100); MONOCYTES # (AUTO) 0.4 /CMM (0.1-1.30); MONOCYTES % (AUTO) 7.5 % (2.0-12.0); NEUTROPHILS % (AUTO) 77.3 % (43.0-81.0); PLATELET COUNT (AUTO) 225 /CMM (150-450); RED BLOOD CELL COUNT(AUTO) 2.54 MIL/uL (4.0-5.2); WHITE BLOOD COUNT (AUTO) 5.2 K/uL (4.3-11.0)
[2020-11-20 13:12] LABS: CALCIUM, SERUM 9.7 mg/dL (8.5-10.1); CREATININE 1.2 mg/dL (0.6-1.3); MAGNESIUM 1.9 mg/dL (1.8-2.4); PHOSPHORUS 3.3 mg/dL (2.5-4.9); POTASSIUM 3.9 mmol/L (3.5-5.1)
--- NOTE | 2020-11-20 15:53 | NUR ---
appeared lethargic, family fed lunch, all eaten is a couple of spoonful of cottage cheese. Very poor intake, family refused tube feeding Seen by her WRAPPER HANDS SPRAYER, no new orders, EXCEPT in hospital setting hospice.
[2020-11-20 16:00] VITALS: BP 142/61
[2020-11-20] MEDS ORDERED: CEFTRIAXONE 1 G in IV D5W 50 ML IV SCH (16:00)
[2020-11-20] MEDS: INSULIN REGULAR, HUMAN 100 UNIT/ML 3 ML VIAL SQ PRN (16:23)
[2020-11-20] MEDS ORDERED: LORAZEPAM INJ 2 MG/ML VIAL IV PRN (17:30)
[2020-11-20] MEDS ORDERED: MORPHINE SULFATE INJ 2 MG/ML DISP.SYRIN IV PRN (17:30)
--- NOTE | 2020-11-20 19:40 | NUR ---
MS1 RN NOTES RECEIVED ON HIGH FOWLERS POSITION,WIDE AWAKE,TALKING TO FAMILY MEMBERS,ON COMFORT MEASURES ONLY.PRESENT IVF INFUSING WELL ON LEFT WRIST SALINE LOCK.POOR EATER PER REPORT AND FAMILY REFUSED TUBE FEEDINGS.WILL CONTINUE TO MONITOR STATUS.
[2020-11-20 20:00] VITALS: BP 144/82
--- NOTE | 2020-11-21 06:29 | NUR ---
MS1 RN NOTES NO SIGNIFICANT CHANGE IN STATUS.COMFORT MEASURES ONLY,NO EPISODE OF SOB,NO DISTRESS.WILL ENDORSE TO DAY NURSE FOR JADE.
[2020-11-21 06:48] LABS: BASOPHILS % (AUTO) 0.4 % (0.0-2.0); EOSINOPHILS % (AUTO) 1.5 % (0.0-6.0); HEMATOCRIT 27 % (33-45); HEMOGLOBIN 8.6 g/dL (11.5-14.8); LYMPHOCYTES # (AUTO) 1.2 /CMM (0.8-4.8); LYMPHOCYTES % (AUTO) 16.4 % (20.0-44.0); MEAN CORPUSCULAR HGB CONC 32 g/dl (31.0-36.0); MEAN CORPUSCULAR VOLUME 90 fL (82-100); MONOCYTES # (AUTO) 0.8 /CMM (0.1-1.30); MONOCYTES % (AUTO) 10.4 % (2.0-12.0); NEUTROPHILS # (AUTO) 5.3 /CMM (1.8-8.9); NEUTROPHILS % (AUTO) 71.3 % (43.0-81.0); PLATELET COUNT (AUTO) 268 /CMM (150-450); RED BLOOD CELL COUNT(AUTO) 2.97 MIL/uL (4.0-5.2); WHITE BLOOD COUNT (AUTO) 7.4 K/uL (4.3-11.0)
--- NOTE | 2020-11-21 07:30 | NUR ---
RN OPENING NOTES PATIENT PRESENT IN BED, AWAKE, NON VERBAL AT THIS TIME, ABLE TO MAKE AN EYE CONTACT, MOANING , ON NC @ 2L OF O2, SPO2 97%, RESPIRATIONS EVEN AND UNLABORED, NO SOB OR DISTRESS NOTED, IV LINE PATENT AND FLUSHED IN L WRIST, FLUSHES WELL, SAFETY MEASURES IN PLACE, BED LOCKED IN LOWEST POSITION, HOB ELEVATED, WILL CONT TO MONITOR
[2020-11-21 07:34] LABS: CALCIUM, SERUM 9.7 mg/dL (8.5-10.1); CREATININE 1.3 mg/dL (0.6-1.3); MAGNESIUM 1.8 mg/dL (1.8-2.4); PHOSPHORUS 2.4 mg/dL (2.5-4.9)
[2020-11-21 07:49] LABS: POTASSIUM 2.8 mmol/L (3.5-5.1)
[2020-11-21 08:00] VITALS: BP 129/91
--- NOTE | 2020-11-21 08:24 | NUR ---
WOUND CARE CONSULT: PT PRESENTS WITH SACRAL SCARRING AND FOOT WOUNDS, PRESENT ON ADMISSION. DR TORRES NOTIFIED OF DPM CONSULT REQUEST. PT IS ON TUNG ISOFLEX LOW AIRLOSS BED. ALL SKIN PROTECTION RECOMMENDATIONS DISCUSSED WITH NURSING STAFF. IN AGREEMENT WITH PLAN OF CARE. Addendum: 11/21/20 at 0826 by KAROL MELENDEZ WNDNU Amended: Links added.
[2020-11-21] MEDS ORDERED: POTASSIUM CHLORIDE 20 MEQ TAB.PRT.SR PO ONE (12:30)
--- NOTE | 2020-11-21 13:42 | NUR ---
Unable to administer PO pill, patient not following commands, unable to swallow
[2020-11-21] MEDS: POTASSIUM CL. PREMIX PERIPHER. 50 ML IV SCH ×4 (14:15→17:10)
[2020-11-21 16:00] VITALS: BP 127/91
--- NOTE | 2020-11-21 18:39 | NUR ---
RN CLOSING NOTE REMAINS IN ROOM, NO CHANGES IN SHIFT, POTASSIUM GIVEN, COMFORT NEEDS ATTENDED, WILL ENDORSE TO PM SHIFT RN FOR JADE
--- NOTE | 2020-11-21 19:30 | NUR ---
MS RN NOTE RECEIVED PATIENT IN BED. A/0X0, PATIENT IS CONFUSED. OPENS EYES TO NAME AND TOUCH. ON OXYGEN 2L/MIN VIA NASAL CANNULA. RESPIRATIONS ARE EVEN AND UNLABORED. NO S/S SOB NOTED. NO S/S PAIN NOTED. IN NO APPARENT DISTRESS. IV ACCESS IN LEFT WRIST 22 RUNNING THO @5ML/HR. DAUGHTER AT BEDSIDE. BED IS LOW AND LOCKED, HOB ELEVATED IN SEMI FOWLERS, SIDE RAILS UP X2, CALL LIGHT WITHIN REACH. WILL CONTINUE TO MONITOR THROUGHOUT SHIFT.
--- NOTE | 2020-11-21 19:58 | NUR ---
MS RN NOTE PATIENT IS BEING DISCHARGED TO HOSPICE.
[2020-11-21 20:00] VITALS: BP 112/49
--- NOTE | 2020-11-21 20:43 | NUR ---
MS RN NOTE PATIENT IS NOT BEING DISCHARGED TO HOSPICE AT THIS TIME. CALLED [facility] . PER [facility] THEY DID GET THE CONSENT FROM FAMILY. WAS INFORMED THAT THE [facility] HOSPICE NURSE WILL COME LATER TONIGHT OR TOMORROW. [facility] WOULD JUST LIKE AN UPDATE ON THE PATIENTS CONDITION AND IF PATIENT EXPIRES TO INFORM THEM. [facility]
[2020-11-22 04:00] VITALS: BP 132/61
--- NOTE | 2020-11-22 06:42 | NUR ---
RN NOTE PATIENT RESTING IN BED. NONVERBAL, OPENS EYES TO NAME AND TOUCH. REMAINS ON OXYGEN 2L/MIN VIA NASAL CANNULA. NO RESP DISTRESS. NO S/S PAIN. NO DISTRESS. IV IN LEFT WRIST#22 RUNNING THO @5ML/HR. BED REMAINS LOW AND LOCKED, HOB ELEVATED IN SEMI FOWLERS, SIDE RAILS UP X2, CALL LIGHT WITHIN REACH. WILL ENDORSE TO NEXT SHIFT
--- NOTE | 2020-11-22 07:30 | NUR ---
RN OPENING NOTES PATIENT PRESENT IN BED, AWAKE, NON VERBAL AT THIS TIME, ABLE TO MAKE AN EYE CONTACT, MOANING , ON NC @ 2L OF O2, SPO2 93%, RESPIRATIONS EVEN AND UNLABORED, NO SOB OR DISTRESS NOTED, IV LINE PATENT AND FLUSHED IN L WRIST, FLUSHES WELL, SAFETY MEASURES IN PLACE, BED LOCKED IN LOWEST POSITION, HOB ELEVATED, WILL CONT TO MONITOR
[2020-11-22 08:00] VITALS: BP 158/61
--- NOTE | 2020-11-22 08:30 | NUR ---
UNABLE TO FOLLOW COMMANDS, SPEECH THERAPIST AT BED SITE, TRYING TO PERFORM SWALLOW EVAL, PATIENT CONFUSED
--- NOTE | 2020-11-22 11:00 | NUR ---
IV LINE STARTED ON R HAND G24, INTACT, PATENT AND FLUSHED
== END 2020-11-22 12:44 | disposition hospice, inpatient (51) | DRG 682 ==
LOC: ER 12:32 → TELE1 16:40 → MEDSG1 19:36
PROVIDERS: ADMIT Nurse Practitioner Acute Care; ATTEND Nurse Practitioner Acute Care
DX: N17.0 Acute kidney failure with tubular necrosis (principal); L89.523 Pressure ulcer of left ankle, stage 3; G92 Toxic encephalopathy; E44.0 Moderate protein-calorie malnutrition; N39.0 Urinary tract infection, site not specified; I13.0 Hypertensive heart and chronic kidney disease with heart failure and stage 1 through stage 4 chronic kidney disease, or unspecified chronic kidney disease; M86.9 Osteomyelitis, unspecified; I50.32 Chronic diastolic (congestive) heart failure; M86.8X7 Other osteomyelitis, ankle and foot; E11.649 Type 2 diabetes mellitus with hypoglycemia without coma; F03.90 Unspecified dementia, unspecified severity, without behavioral disturbance, psychotic disturbance, mood disturbance, and anxiety; E86.0 Dehydration; N18.9 Chronic kidney disease, unspecified; B35.1 Tinea unguium; B35.3 Tinea pedis; E11.22 Type 2 diabetes mellitus with diabetic chronic kidney disease; G89.29 Other chronic pain; E83.52 Hypercalcemia; I25.10 Atherosclerotic heart disease of native coronary artery without angina pectoris; I48.91 Unspecified atrial fibrillation; E78.5 Hyperlipidemia, unspecified; Z66 Do not resuscitate; Z86.73 Personal history of transient ischemic attack (TIA), and cerebral infarction without residual deficits; Z51.5 Encounter for palliative care; E11.69 Type 2 diabetes mellitus with other specified complication; R62.7 Adult failure to thrive; Z85.3 Personal history of malignant neoplasm of breast; Z90.11 Acquired absence of right breast and nipple; B95.2 Enterococcus as the cause of diseases classified elsewhere; R53.1 Weakness; D63.8 Anemia in other chronic diseases classified elsewhere; M54.5 Low back pain; E88.09 Other disorders of plasma-protein metabolism, not elsewhere classified; Z68.26 Body mass index [BMI] 26.0-26.9, adult; L89.610 Pressure ulcer of right heel, unstageable; Z20.822 Contact with and (suspected) exposure to COVID-19; E11.51 Type 2 diabetes mellitus with diabetic peripheral angiopathy without gangrene
CPT/HCPCS: 36415; 70450-TC; 71045-TC; 80048-TC; 80061-TC; 80076-TC; 81001; 82140-TC; 82962-TC; 83605-TC; 83735-TC; 84100-TC; 84443-TC; 84484-TC; 85025-TC; 85730-TC; 87040-TC; 87081-TC; 87086-TC; 92526; 92611-TC; C9803; G0378; G0480; J1815; J2543; J3480; J3490; J7030; J7040; J7042; J7050; J7060

== ENCOUNTER 2020-11-22 12:33 | Inpatient (IN) | payer OTHER ==
[~2020-11-22] VITALS: Ht 149.9 cm; Wt 57.2 kg
[2020-11-22] MEDS ORDERED: ACETAMINOPHEN 650 MG/SUPP.RECT RC PRN (13:30)
[2020-11-22] MEDS ORDERED: ONDANSETRON HCL/PF 4 MG/2 ML VIAL IVP PRN (13:30)
[2020-11-22] MEDS ORDERED: MORPHINE SULFATE INJ 2 MG/ML DISP.SYRIN IV PRN (13:30)
[2020-11-22] MEDS ORDERED: LORAZEPAM INJ 2 MG/ML VIAL IVP PRN (13:30)
--- NOTE | 2020-11-22 13:32 | NUR ---
ASSAYER ADMITTING NOTES PATIENT PRESENT IN BED, AWAKE, NON VERBAL AT THIS TIME, ABLE TO MAKE AN EYE CONTACT, MOANING , ON NC @ 2L OF O2, SPO2 93%, RESPIRATIONS EVEN AND UNLABORED, NO SOB OR DISTRESS NOTED, IV LINE PATENT AND FLUSHED IN L WRIST, FLUSHES WELL, SAFETY MEASURES IN PLACE, BED LOCKED IN LOWEST POSITION, HOB ELEVATED, WILL CONT TO MONITOR
[2020-11-22 16:51] VITALS: BP 135/66
[2020-11-22] MEDS ORDERED: ALBUTEROL FS 2.5 MG/0.5 ML VIAL.NEB NEB PRN (17:30)
[2020-11-22] MEDS ORDERED: MORPHINE SULFATE SOLN CONCENTRATED 20 MG/ML SL PRN (17:30)
[2020-11-22] MEDS ORDERED: ONDANSETRON 4 MG TAB.RAPDIS SL PRN (17:30)
[2020-11-22] MEDS ORDERED: ATROPINE SULFATE OPHTH SOLN 15 ML BOTTLE SL PRN (17:30)
[2020-11-22] MEDS ORDERED: BISACODYL SUPP (10 MG) 10 MG/SUPP.RECT SUPP.RECT RC PRN (17:30)
[2020-11-22] MEDS ORDERED: IPRATROPIUM NEB FS 0.5 MG/2.5 ML AMPUL.NEB NEB PRN (17:30)
[2020-11-22] MEDS ORDERED: LORAZEPAM ORAL SOLN 2 MG/ML ORAL.CONC SL PRN ×2 (17:30→17:40)
[2020-11-22] MEDS ORDERED: KEY,NONCONTROL,TO KEEP IN PYXI 1 EA MC ONE ×2 (17:58→19:13)
--- NOTE | 2020-11-22 18:35 | NUR ---
RN OPENING NOTES Remain in room , resting comfortably, HOSPICE protocol initiated, will endorse to PM shift
--- NOTE | 2020-11-22 19:25 | NUR ---
MS/RN OPENING NOTE RECEIVED PATIENT RESTING IN BED. UNABLE TO FOLLOW DIRECTIONS. OPENS EYES AND SMILES. CONTINUES ON HOSPICE CARE AND COMFORT MEASURES. CONTINUES ON 2L O2 VIA NC WITH NO S/SX OF RESPIRATORY DISTRESS NOTED. IV ACCESS TO RIGHT WRIST INTACT, PATENT AND SALINE LOCKED. NO S/SX OF PAIN, FACIAL GRIMACING OR CHANGE IN VS. FREQUENT SAFETY CHECKS MADE. ASPIRATION, FALL AND SAFETY PRECAUTIONS MAINTAINED. WILL CONTINUE TO MONITOR.
[2020-11-23] MEDS ORDERED: KEY,NONCONTROL,TO KEEP IN PYXI 1 EA MC ONE ×2 (00:34→10:44)
--- NOTE | 2020-11-23 06:20 | NUR ---
SURFACER CLOSING NOTE PATIENT CURRENTLY RESTING IN BED. UNABLE TO FOLLOW DIRECTIONS. OPENS EYES AND SMILES. CONTINUES ON HOSPICE CARE AND COMFORT MEASURES. CONTINUES ON 2L O2 VIA NC WITH NO S/SX OF RESPIRATORY DISTRESS NOTED. IV ACCESS TO RIGHT WRIST INTACT, PATENT AND SALINE LOCKED. NO S/SX OF PAIN, FACIAL GRIMACING OR CHANGE IN VS. FREQUENT SAFETY CHECKS MADE. ASPIRATION, FALL AND SAFETY PRECAUTIONS MAINTAINED. WILL ENDORSE PLAN OF CARE TO ONCOMING SHIFT.
[2020-11-23] MEDS: Z GUARD REMEDY 2 OZ OINT TP SCH (09:27)
--- NOTE | 2020-11-23 14:33 | NUR ---
morphine 5mg administrated , rest of the vial waisted at narcotic waist container, witnessed with Thuan Crocker RN
[2020-11-23 16:00] VITALS: BP 97/82
[2020-11-23] MEDS ORDERED: MORPHINE SULFATE SOLN CONCENTRATED 20 MG/ML SL PRN (16:00)
--- NOTE | 2020-11-23 17:23 | NUR ---
CLEANED, REPOSITIONED, TOLERATED DWELL
--- NOTE | 2020-11-23 18:57 | NUR ---
RN CLOSING NOTE PATIENT CURRENTLY RESTING IN BED. A&O X1, PUPILS REACTIVE TO LIGHT, PULSES PALPABLE BILATERALLY, OPENS EYES AND SMILES. CONTINUES ON HOSPICE CARE AND COMFORT MEASURES. NO S/SX OF RESPIRATORY DISTRESS NOTED, NO PAIN OR DISCOMFORT NOTED. FALL AND SAFETY PRECAUTIONS MAINTAINED. WILL ENDORSE PLAN OF CARE TO ONCOMING SHIFT.
--- NOTE | 2020-11-23 19:42 | NUR ---
RN NOTE PATIENT RESTING IN BED. AWAKE, ALERT AND ORIENTED X1. NO SIGNS OF RESPIRATORY DISTRESS. CONTINUES ON HOSPICE CARE AND COMFORT MEASURES. WITH RIGHT WRIST #22, PATENT AND INTACT. DAUGHTER AT BEDSIDE. BED LOCKED AND IN LOWEST POSITION. CALL LIGHT WITHIN REACH. ALL NEEDS ANTICIPATED.
--- NOTE | 2020-11-23 20:40 | NUR ---
PATIENT NOTED WITH DYSPNEA AND TEARS IN HER EYES. ADMINISTERED ROXANOL 5MG ORDERED. COMFORT MEASURES PROVIDED. CALL LIGHT WITHIN REACH.
--- NOTE | 2020-11-23 22:28 | NUR ---
PATIENT NOTED WITH ANXIETY, ATIVAN 0.5MG GIVEN ORDERED. WILL MONITOR FOR RELIEF. COMFORT MEASURES PROVIDED.
--- NOTE | 2020-11-23 23:32 | NUR ---
PATIENT RESTING COMFORTABLY. NO SIGNS OF RESPIRATORY DISTRESS OR PAIN. CALL LIGHT WITHIN REACH.
--- NOTE | 2020-11-24 04:30 | NUR ---
TOLERATED BED BATH WELL, TURNED AND REPOSITIONED. PATIENT RESTING COMFORTABLY.
--- NOTE | 2020-11-24 06:54 | NUR ---
RN NOTE PATIENT ALERT AND ORIENTED X1. NO SIGNS OF RESPIRATORY DISTRESS. CONTINUES ON HOSPICE CARE AND COMFORT MEASURES. RIGHT WRIST #22, PATENT AND INTACT. KEPT CLEAN, DRY AND COMFORTABLE. BED LOCKED AND IN LOWEST POSITION. CALL LIGHT WITHIN REACH. WILL ENDORSE TO AM SHIFT.
[2020-11-24] MEDS: Z GUARD REMEDY 2 OZ OINT TP SCH (10:40)
--- NOTE | 2020-11-24 10:53 | NUR ---
RN NOTES RECEIVED PT IN BED SLEEPING PEACEFULLY, NO SOB NOTED, NO LABORED BREATHING ON OXYGEN NC, ALL SAFETY MEASURES IN PLACE, NO SIGNS OF RESPIRATORY DISTRESS. CONTINUES ON HOSPICE CARE AND COMFORT MEASURES. RIGHT WRIST IV IN TACT AT #22, KEPT CLEAN, DRY AND COMFORTABLE. BED LOCKED AND IN LOWEST POSITION. CALL LIGHT WITHIN REACH, CONTINUE TO MONITOR, HOSPICE NURSE EVALUATED PT AND WILL REQUEST A D/C ORDER FOR OXYGEN AND NOTIFY FAMILY FOR APPROVAL.
--- NOTE | 2020-11-24 11:17 | NUR ---
RN NOTES MD ORDER TO D/C OXYGEN AT THIS TIME, N/C REMOVED AND THE ORDER HAS BEEN D/C, FAMILY AUTHORIZED TO D/C OXYGEN, PT MADE COMFORTABLE, ALL SAFETY MEASURES IN PLACE, CALL LIGHT IN REACH, WILL CONTINUE TO MONITOR PATIENT , FAMILY BIBLE IN PLACE AT BED SIDE PER FAMILY REQUEST
--- NOTE | 2020-11-24 14:44 | NUR ---
RN NOTES PATIENT HAS BEEN D/C ON OXYGEN AND NC, IT WAS D/C IN ORDERS BUT KEEPS COMING UP ON INTERVENTIONS TO DOCUMENT, I HAVE DOUBLE CHECKED THAT ORDER IS D/C IN ORDERS, I WILL F/U WITH IT IF IT SHOWS AGAIN TO DOCUMENT THAT THE OXYGEN NC IS INPLACE AND INTACT IT IS NOT AT THIS TIME AND HAS BEEN D/C
--- NOTE | 2020-11-24 15:21 | NUR ---
RN NOTES PT IS HAVING SHANTI KENYON, GASPING FOR AIR, SKIN IS PALE, CAPILLARY REFILL 7 SECONDS, FAMILY IS AWARE, COMFORT MEASURES IN PLACE, CALL LIGHT IN REACH, WILL CONTINUE TO PROVIDE COMFORT MEASURES AND TO MONITOR.
--- NOTE | 2020-11-24 16:11 | NUR ---
RN NOTES 1600 PATIENT , MD DICKSON VINCENT NOTIFIED, HOSPICE NOTIFIED AND STATED WILL CALL AND ARRANGE THE MORTUARY AT THIS TIME, FAMILY NOTIFIED AND WERE PREPARED FOR THIS SITUATION AND WERE EDUCATED ONCE THE OXYGEN AND NC WAS D/C IT WOULD BE SOON, FAMILY BIBLE WILL BE PLACE INSIDE PERSONAL BELONGINGS BAG AND FAMILY CAN ARRANGE TO RN COMPLEX CARE BELONGINGS.
--- NOTE | 2020-11-24 16:24 | NUR ---
RN NOTES [facility] CONTACTED CONFIRMATION NUMBER #: [phone] SPOKE WITH AMARA AWARE OF EXPIRATION OF PATIENT AND WILL ARRANGE WITH FAMILY ANY DETAILS AT THIS TIME, LEFT FAMILY A MESSAGE TO CALL [facility] SO THAT I COULD TELL A PERSON AND NOT AN ANSWERING MACHINE ABOUT THE EXPIRATION OF THEIR FAMILY MEMBER, AWAITING THE CALL BACK TO CONFIRM .
--- NOTE | 2020-11-24 18:50 | NUR ---
RN NOTES FAMILY AT BEDSIDE , APPROVED TO BE MOVED PER HOSPITAL PROTOCOL TO DESIGNATED AREA, WILL BE TRANSPORTED TO MORTUARY [facility] IS ON THE WAY AT THIS TIME TO TRANSPORT BODY, POST MORDUM CARE PROVIDED, ALL BELONGINGS GIVEN TO FAMILY ,
== END 2020-11-24 18:39 | DRG 469 ==
LOC: HOSPICE1 12:33
DX: N17.0 Acute kidney failure with tubular necrosis (principal); G93.41 Metabolic encephalopathy; E44.0 Moderate protein-calorie malnutrition; I48.91 Unspecified atrial fibrillation; I11.0 Hypertensive heart disease with heart failure; E11.649 Type 2 diabetes mellitus with hypoglycemia without coma; I50.32 Chronic diastolic (congestive) heart failure; D63.8 Anemia in other chronic diseases classified elsewhere; E88.09 Other disorders of plasma-protein metabolism, not elsewhere classified; E78.5 Hyperlipidemia, unspecified; G89.29 Other chronic pain; N39.0 Urinary tract infection, site not specified; R62.7 Adult failure to thrive; Z68.25 Body mass index [BMI] 25.0-25.9, adult; Z85.3 Personal history of malignant neoplasm of breast; R53.1 Weakness; M10.9 Gout, unspecified; F03.90 Unspecified dementia, unspecified severity, without behavioral disturbance, psychotic disturbance, mood disturbance, and anxiety; Z51.5 Encounter for palliative care
CPT/HCPCS: G0378; J2060